=== PATIENT | male | born 1985 | race Caucasian/White ===

== ENCOUNTER 2019-04-28 11:21 | Emergency (ER) | payer OTHER ==
[2019-04-28 11:43] VITALS: BP 110/62; PULSE 90; TEMP 98; BMI 25.9
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
[2019-04-28] MEDS ORDERED: DIPHTH,PERTUSS(ACELL),TET 0.5 ML DISP.SYRIN IM ONE (13:27)
[2019-04-28 14:06] LABS: EOS % 1.4 % (0-4.5); HEMATOCRIT 40.8 % (35.4-49); HEMOGLOBIN 14.2 GM/dL (11.7-16.9); LYMPH % 8.4 % (8-40); MCH 34.4 pg (25.7-33.7); MCHC 34.8 g/dl (32.0-35.9); MEAN PLT VOLUME 8.4 fl (7.5-11.1); MONO % 12.1 % (3.8-10.2); NEUT % 77.1 % (42.8-82.8); PLATELET COUNT 221 K/MM3 (134-434); RBC 4.13 M/mm3 (4.00-5.60); RDW 11.8 % (11.9-15.9); WHITE BLOOD COUNT 8.2 K/mm3 (4.0-10.0)
[2019-04-28 14:29] LABS: ALBUMIN 3.7 g/dl (3.4-5.0); BILIRUBIN,TOTAL 0.7 mg/dL (0.2-1); BLOOD UREA NITROGEN 6.4 mg/dL (7-18); CALCIUM 9.1 mg/dL (8.5-10.1); CREATININE 0.8 mg/dL (0.55-1.3); POTASSIUM 4.3 mmol/L (3.5-5.1); TOT PROT 7.1 g/dl (6.4-8.2)
== END 2019-04-28 18:00 | disposition home or self-care (01) ==
LOC: JER 11:21
PROC: 3E0234Z Introduction of Serum, Toxoid and Vaccine into Muscle, Percutaneous Approach (ICD-10-PCS; principal; 2019-04-28)
DX: S00.212A Abrasion of left eyelid and periocular area, initial encounter (principal); Y04.2XXA Assault by strike against or bumped into by another person, initial encounter; Y93.89 Activity, other specified; Y92.89 Other specified places as the place of occurrence of the external cause; F17.210 Nicotine dependence, cigarettes, uncomplicated; F10.10 Alcohol abuse, uncomplicated
CPT/HCPCS: 36415; 70450-TC; 71046-TC-FY; 72125-TC; 80053; 80307; 85025; 90715; 99282-25

== ENCOUNTER 2019-04-28 18:01 | Inpatient (IN) | payer OTHER ==
[2019-04-28 23:14] VITALS: BMI 26.4
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
[2019-04-29] MEDS ORDERED: ACETAMINOPHEN 325 MG TABLET (FP) PO PRN ×2 (03:31)
[2019-04-29] MEDS ORDERED: chlordiazePOXIDE HCL 25 MG CAPSULE PO PRN (03:31)
[2019-04-29] MEDS ORDERED: hydrOXYzine PAMOATE 25 MG CAPSULE (FP) PO PRN (03:31)
[2019-04-29] MEDS ORDERED: METHOCARBAMOL 500 MG TABLET PO PRN (03:31)
[2019-04-29] MEDS ORDERED: MAG HYDROX/AL HYDROX/SIMETH 30 ML UNIT-DOSE CUP PO PRN (03:31)
[2019-04-29] MEDS ORDERED: MAGNESIUM HYDROX 2400MG/30ML ORAL SUSPENSION 30 ML CUP PO PRN (03:31)
[2019-04-29] MEDS ORDERED: NICOTINE POLACRILEX 2 MG GUM BUC PRN (03:31)
[2019-04-29] MEDS ORDERED: MAGNESIUM CITRATE 300 ML BOTTLE PO PRN (03:31)
[2019-04-29] MEDS ORDERED: MENTHOL/PHENOL 1 EACH UD MM PRN (03:31)
[2019-04-29] MEDS ORDERED: BISMUTH SUBSALICYLATE 524 MG/30 ML UD PO PRN (03:31)
[2019-04-29] MEDS ORDERED: IBUPROFEN 400 MG TABLET (FP) PO PRN (03:31)
[2019-04-29] MEDS: chlordiazePOXIDE HCL 25 MG CAPSULE PO SCH ×4 (04:18→22:42)
[2019-04-29] MEDS: PRENATAL VITAMINS W/ FOLIC ACID TABLET (FP) PO SCH (10:30)
[2019-04-29] MEDS: NICOTINE 14 MG/24 HOURS TOPICAL PATCH TD SCH (10:31)
--- NOTE | 2019-04-29 14:35 | EKG ---
Test Reason : Blood Pressure : / mmHG Vent. Rate : 058 BPM Atrial Rate : 058 BPM P-R Int : 140 ms QRS Dur : 100 ms QT Int : 398 ms P-R-T Axes : 027 048 038 degrees QTc Int : 390 ms SINUS BRADYCARDIA WITH PREMATURE ATRIAL COMPLEXES OTHERWISE NORMAL ECG NO PREVIOUS ECGS AVAILABLE Confirmed by RAVEN VELASCO, BARBARA ([id number]) on 04/29/2019 2:35:36 PM Referred By: Confirmed By:BARBARA CARBAJAL MD
--- NOTE | 2019-04-29 16:22 | PN ---
S CIWA - CIWA Score Nausea/Vomitin-No Nausea/No Vomiting Muscle Tremors: 3 Anxiety: 3 Agitation: 1-Slight > Activity Paroxysmal Sweats: 3 Orientation: 0-Oriented Tacttile Disturbances: 2-Mild Itch/Numbness/Burn (Chills.) Auditory Disturbances: 0-None Visual Disturbances: 0-None Headache: 2-Mild CIWA-Ar Total Score: 14 BHS Progress Note (SOAP) Subjective: Fatigue, Tremors, Anxious, Chills, Sweating. Objective: PATIENT A & O X 3, OBSERVED AMBULATING ON DETOX UNIT UNASSISTED. IN NO ACUTE DISTRESS. 04/29/19 16:21 Vital Signs Temperature 98.0 F 04/29/19 13:09 Pulse Rate 66 04/29/19 13:09 Respiratory Rate 18 04/29/19 13:09 Blood Pressure 113/74 04/29/19 13:09 O2 Sat by Pulse Oximetry (%) ADMISSION DETOX LAB RESULTS PENDING. 04/29/19 16:22 Assessment: 04/29/19 16:22 WITHDRAWAL SYMPTOMS. Plan: CONTINUE DETOX.
[2019-04-29] MEDS: THIAMINE HCL 100 MG TABLET (FP) PO SCH (22:41)
[2019-04-29] MEDS: MELATONIN 5 MG TABLETS PO PRN (22:42)
[2019-04-30] MEDS: chlordiazePOXIDE HCL 25 MG CAPSULE PO SCH ×4 (06:51→22:12)
[2019-04-30] MEDS: PRENATAL VITAMINS W/ FOLIC ACID TABLET (FP) PO SCH (10:00)
[2019-04-30] MEDS: NICOTINE 14 MG/24 HOURS TOPICAL PATCH TD SCH (10:01)
[2019-04-30 10:34] LABS: HEMOGLOBIN 13.7 GM/dL (11.7-16.9); MCH 34.4 pg (25.7-33.7); MCHC 34.3 g/dl (32.0-35.9); MEAN CELL VOLUME 100.2 fl (80-96); MEAN PLT VOLUME 9.9 fl (7.5-11.1); PLATELET COUNT 209 K/MM3 (134-434); RBC 3.99 M/mm3 (4.00-5.60); RDW 11.6 % (11.9-15.9); WHITE BLOOD COUNT 6.7 K/mm3 (4.0-10.0)
[2019-04-30 10:56] LABS: ALBUMIN 3.1 g/dl (3.4-5.0); BILIRUBIN,TOTAL 0.4 mg/dL (0.2-1); BLOOD UREA NITROGEN 9.1 mg/dL (7-18); CALCIUM 8.7 mg/dL (8.5-10.1); CREATININE 0.6 mg/dL (0.55-1.3); POTASSIUM 3.8 mmol/L (3.5-5.1); TOT PROT 6.1 g/dl (6.4-8.2)
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
[2019-04-30] MEDS ORDERED: hydrOXYzine PAMOATE 50 MG CAPSULE (FP) PO PRN (14:27)
--- NOTE | 2019-04-30 17:50 | PN ---
[facility] CIWA - CIWA Score Nausea/Vomitin-No Nausea/No Vomiting Muscle Tremors: None Anxiety: 4-Mod. Anxious/Guarded Agitation: 3 Paroxysmal Sweats: 3 Orientation: 0-Oriented Tacttile Disturbances: 1-Very Mild Itch/Numbness Auditory Disturbances: 0-None Visual Disturbances: 0-None Headache: 0-None Present CIWA-Ar Total Score: 11 BHS Progress Note (SOAP) Subjective: Interrupted Sleep, Anxious, Sweating. Objective: PATIENT A & O X 3, OBSERVED AMBULATING ON DETOX UNIT UNASSISTED. IN NO ACUTE DISTRESS. 04/30/19 17:53 Vital Signs Temperature 97.2 F L 04/30/19 17:14 Pulse Rate 64 04/30/19 17:14 Respiratory Rate 18 04/30/19 17:14 Blood Pressure 108/70 04/30/19 17:14 O2 Sat by Pulse Oximetry (%) Laboratory Tests 04/30/19 04/30/19 04/30/19 08:00 08:00 08:00 WBC 6.7 RBC 3.99 L Hgb 13.7 Hct 40.0 MCV 100.2 H MCH 34.4 H MCHC 34.3 RDW 11.6 L Plt Count 209 MPV 9.9 D Sodium 140 Potassium 3.8 Chloride 104 Carbon Dioxide 30 Anion Gap 6 L BUN 9.1 Creatinine 0.6 Est GFR (CKD-EPI)AfAm 155.28 Est GFR (CKD-EPI)NonAf 133.97 Random Glucose 76 Calcium 8.7 Total Bilirubin 0.4 AST 12 L ALT 13 Alkaline Phosphatase 134 H Total Protein 6.1 L Albumin 3.1 L RPR Titer HIV 1&2 Antibody Screen Negative HIV P24 Antigen Negative 04/30/19 08:00 WBC RBC Hgb Hct MCV MCH MCHC RDW Plt Count MPV Sodium Potassium Chloride Carbon Dioxide Anion Gap BUN Creatinine Est GFR (CKD-EPI)AfAm Est GFR (CKD-EPI)NonAf Random Glucose Calcium Total Bilirubin AST ALT Alkaline Phosphatase Total Protein Albumin RPR Titer Nonreactive HIV 1&2 Antibody Screen HIV P24 Antigen LABS NOTED. Assessment: 04/30/19 17:54 WITHDRAWAL SYMPTOMS., ELEVATED ALKALINE PHOSPHATASE LEVEL. Plan: CONTINUE DETOX. INCREASE DAILY PO WATER INTAKE.
[2019-04-30] MEDS: THIAMINE HCL 100 MG TABLET (FP) PO SCH (22:12)
[2019-04-30] MEDS: MELATONIN 5 MG TABLETS PO PRN (22:12)
[2019-05-01] MEDS ORDERED: chlordiazePOXIDE HCL 10 MG CAPSULE PO PRN
[2019-05-01] MEDS: chlordiazePOXIDE HCL 10 MG CAPSULE PO SCH ×4 (05:54→22:15)
[2019-05-01] MEDS: PRENATAL VITAMINS W/ FOLIC ACID TABLET (FP) PO SCH (10:42)
[2019-05-01] MEDS: NICOTINE 14 MG/24 HOURS TOPICAL PATCH TD SCH (10:43)
--- NOTE | 2019-05-01 17:35 | PN ---
S CIWA - CIWA Score Nausea/Vomitin-No Nausea/No Vomiting Muscle Tremors: 2 Anxiety: 2 Agitation: 1-Slight > Activity Paroxysmal Sweats: 3 Orientation: 0-Oriented Tacttile Disturbances: 2-Mild Itch/Numbness/Burn (Chills.) Auditory Disturbances: 0-None Visual Disturbances: 0-None Headache: 0-None Present CIWA-Ar Total Score: 10 BHS Progress Note (SOAP) Subjective: Chills, Sweating, Anxious, Interrupted Sleep. Objective: PATIENT A & O X 3, OBSERVED AMBULATING ON DETOX UNIT UNASSISTED. IN NO ACUTE DISTRESS. 05/01/19 17:37 Vital Signs Temperature 97.2 F L 05/01/19 17:34 Pulse Rate 77 05/01/19 17:34 Respiratory Rate 18 05/01/19 17:34 Blood Pressure 106/63 05/01/19 17:34 O2 Sat by Pulse Oximetry (%) Laboratory Tests 04/30/19 04/30/19 04/30/19 08:00 08:00 08:00 WBC 6.7 RBC 3.99 L Hgb 13.7 Hct 40.0 MCV 100.2 H MCH 34.4 H MCHC 34.3 RDW 11.6 L Plt Count 209 MPV 9.9 D Sodium 140 Potassium 3.8 Chloride 104 Carbon Dioxide 30 Anion Gap 6 L BUN 9.1 Creatinine 0.6 Est GFR (CKD-EPI)AfAm 155.28 Est GFR (CKD-EPI)NonAf 133.97 Random Glucose 76 Calcium 8.7 Total Bilirubin 0.4 AST 12 L ALT 13 Alkaline Phosphatase 134 H Total Protein 6.1 L Albumin 3.1 L RPR Titer HIV 1&2 Antibody Screen Negative HIV P24 Antigen Negative 04/30/19 08:00 WBC RBC Hgb Hct MCV MCH MCHC RDW Plt Count MPV Sodium Potassium Chloride Carbon Dioxide Anion Gap BUN Creatinine Est GFR (CKD-EPI)AfAm Est GFR (CKD-EPI)NonAf Random Glucose Calcium Total Bilirubin AST ALT Alkaline Phosphatase Total Protein Albumin RPR Titer Nonreactive HIV 1&2 Antibody Screen HIV P24 Antigen LABS NOTED. Assessment: 05/01/19 17:37 WITHDRAWAL SYMPTOMS. ELEVATED ALKALINE PHOSPHATASE LEVEL. Plan: CONTINUE DETOX. INCREASE DAILY PO WATER INTAKE.
[2019-05-01] MEDS: THIAMINE HCL 100 MG TABLET (FP) PO SCH (22:15)
[2019-05-01] MEDS: MELATONIN 5 MG TABLETS PO PRN (22:15)
[2019-05-02] MEDS: chlordiazePOXIDE HCL 10 MG CAPSULE PO SCH ×2 (05:46→17:31)
[2019-05-02] MEDS: NICOTINE 14 MG/24 HOURS TOPICAL PATCH TD SCH (10:26)
[2019-05-02] MEDS: PRENATAL VITAMINS W/ FOLIC ACID TABLET (FP) PO SCH (10:26)
--- NOTE | 2019-05-02 11:56 | PN ---
S CIWA - CIWA Score Nausea/Vomitin-No Nausea/No Vomiting Muscle Tremors: 2 Anxiety: 2 Agitation: 1-Slight > Activity Paroxysmal Sweats: No Perspiration Orientation: 0-Oriented Tacttile Disturbances: 0-None Auditory Disturbances: 0-None Visual Disturbances: 0-None Headache: 0-None Present CIWA-Ar Total Score: 5 BHS Progress Note (SOAP) Subjective: doing well with librium detox regimen ambulating on hallway social with peers in day room discuss aftercare with staff prefers [facility] for aftercare Objective: 05/02/19 11:57 Vital Signs Temperature 97.3 F L 05/02/19 06:39 Pulse Rate 84 05/02/19 09:23 Respiratory Rate 16 05/02/19 09:23 Blood Pressure 116/70 05/02/19 09:23 O2 Sat by Pulse Oximetry (%) Laboratory Last Values WBC 6.7 K/mm3 (4.0-10.0) 04/30/19 08:00 RBC 3.99 M/mm3 (4.00-5.60) L 04/30/19 08:00 Hgb 13.7 GM/dL (11.7-16.9) 04/30/19 08:00 Hct 40.0 % (35.4-49) 04/30/19 08:00 MCV 100.2 fl (80-96) H 04/30/19 08:00 MCH 34.4 pg (25.7-33.7) H 04/30/19 08:00 MCHC 34.3 g/dl (32.0-35.9) 04/30/19 08:00 RDW 11.6 % (11.9-15.9) L 04/30/19 08:00 Plt Count 209 K/MM3 (134-434) 04/30/19 08:00 MPV 9.9 fl (7.5-11.1) D 04/30/19 08:00 Sodium 140 mmol/L (136-145) 04/30/19 08:00 Potassium 3.8 mmol/L (3.5-5.1) 04/30/19 08:00 Chloride 104 mmol/L (98-107) 04/30/19 08:00 Carbon Dioxide 30 mmol/L (21-32) 04/30/19 08:00 Anion Gap 6 MMOL/L (8-16) L 04/30/19 08:00 BUN 9.1 mg/dL (7-18) 04/30/19 08:00 Creatinine 0.6 mg/dL (0.55-1.3) 04/30/19 08:00 Est GFR (CKD-EPI)AfAm 155.28 04/30/19 08:00 Est GFR (CKD-EPI)NonAf 133.97 04/30/19 08:00 Random Glucose 76 mg/dL (74-106) 04/30/19 08:00 Calcium 8.7 mg/dL (8.5-10.1) 04/30/19 08:00 Total Bilirubin 0.4 mg/dL (0.2-1) 04/30/19 08:00 AST 12 U/L (15-37) L 04/30/19 08:00 ALT 13 U/L (13-61) 04/30/19 08:00 Alkaline Phosphatase 134 U/L (45-117) H 04/30/19 08:00 Total Protein 6.1 g/dl (6.4-8.2) L 04/30/19 08:00 Albumin 3.1 g/dl (3.4-5.0) L 04/30/19 08:00 RPR Titer Nonreactive (NONREACTIVE) 04/30/19 08:00 HIV 1&2 Antibody Screen Negative 04/30/19 08:00 HIV P24 Antigen Negative 04/30/19 08:00 lab noted Assessment: 05/02/19 11:57 continue librium detox regimen Plan: alcohol withdrawal sx
[2019-05-02] MEDS: THIAMINE HCL 100 MG TABLET (FP) PO SCH (22:12)
[2019-05-02] MEDS: MELATONIN 5 MG TABLETS PO PRN (22:12)
[2019-05-03] MEDS ORDERED: chlordiazePOXIDE HCL 10 MG CAPSULE PO ONE (05:00)
[2019-05-03 07:35] VITALS: BP 100/68; PULSE 58; TEMP 96.8
[2019-05-03] MEDS: NICOTINE 14 MG/24 HOURS TOPICAL PATCH TD SCH (09:31)
[2019-05-03] MEDS: PRENATAL VITAMINS W/ FOLIC ACID TABLET (FP) PO SCH (09:32)
--- NOTE | 2019-05-03 11:50 | DS ---
[facility] Detox Discharge Summary Admission Date: 04/29/19 Discharge Date: 05/03/19 - History Present History: Alcohol Dependence Additional Comments: did well with librium detox regimen no complication through out the detox stay seen by psychiatrist treated with vistaril tolerate well patient is alert oriented x 3 respiratory clear lung sound bilaterally on auscultation abdomen soft no rebound tenderness skin warm and dry - Physical Exam Results Vital Signs: Vital Signs Temperature 96.8 F L 05/03/19 07:34 Pulse Rate 58 L 05/03/19 07:34 Respiratory Rate 18 05/03/19 07:34 Blood Pressure 100/68 05/03/19 07:34 O2 Sat by Pulse Oximetry (%) Pertinent Admission Physical Exam Findings: alcohol withdrawal sx Laboratory Last Values WBC 6.7 K/mm3 (4.0-10.0) 04/30/19 08:00 RBC 3.99 M/mm3 (4.00-5.60) L 04/30/19 08:00 Hgb 13.7 GM/dL (11.7-16.9) 04/30/19 08:00 Hct 40.0 % (35.4-49) 04/30/19 08:00 MCV 100.2 fl (80-96) H 04/30/19 08:00 MCH 34.4 pg (25.7-33.7) H 04/30/19 08:00 MCHC 34.3 g/dl (32.0-35.9) 04/30/19 08:00 RDW 11.6 % (11.9-15.9) L 04/30/19 08:00 Plt Count 209 K/MM3 (134-434) 04/30/19 08:00 MPV 9.9 fl (7.5-11.1) D 04/30/19 08:00 Sodium 140 mmol/L (136-145) 04/30/19 08:00 Potassium 3.8 mmol/L (3.5-5.1) 04/30/19 08:00 Chloride 104 mmol/L (98-107) 04/30/19 08:00 Carbon Dioxide 30 mmol/L (21-32) 04/30/19 08:00 Anion Gap 6 MMOL/L (8-16) L 04/30/19 08:00 BUN 9.1 mg/dL (7-18) 04/30/19 08:00 Creatinine 0.6 mg/dL (0.55-1.3) 04/30/19 08:00 Est GFR (CKD-EPI)AfAm 155.28 04/30/19 08:00 Est GFR (CKD-EPI)NonAf 133.97 04/30/19 08:00 Random Glucose 76 mg/dL (74-106) 04/30/19 08:00 Calcium 8.7 mg/dL (8.5-10.1) 04/30/19 08:00 Total Bilirubin 0.4 mg/dL (0.2-1) 04/30/19 08:00 AST 12 U/L (15-37) L 04/30/19 08:00 ALT 13 U/L (13-61) 04/30/19 08:00 Alkaline Phosphatase 134 U/L (45-117) H 04/30/19 08:00 Total Protein 6.1 g/dl (6.4-8.2) L 04/30/19 08:00 Albumin 3.1 g/dl (3.4-5.0) L 04/30/19 08:00 RPR Titer Nonreactive (NONREACTIVE) 04/30/19 08:00 HIV 1&2 Antibody Screen Negative 04/30/19 08:00 HIV P24 Antigen Negative 04/30/19 08:00 lab noted - Treatment Hospital Course: Detox Protocol Followed, Detoxed Safely, Responded well, Discharged Condition Good, Rehab Referral Accepted Patient has Accepted [facility] - Medication Discharge Medications: Ambulatory Orders NK [No Known Home Medication] 04/28/19 - Diagnosis (1) Alcohol dependence with withdrawal Status: Acute Qualifiers: Complication of substance-induced condition: uncomplicated Qualified Code(s ): F10.230 - Alcohol dependence with withdrawal, uncomplicated (2) Nicotine dependence Status: Acute Qualifiers: Nicotine product type: cigarettes Substance use status: in withdrawal Qualified Code(s): F17.213 - Nicotine dependence, cigarettes, with withdrawal (3) Substance induced mood disorder Status: Suspected - AMA Did Patient Leave Against Medical Advice: No CIWA Score - CIWA Score Nausea/Vomitin-No Nausea/No Vomiting Muscle Tremors: 1-None Visible, but Wallace Anxiety: 1-Mildly Anxious Agitation: 0-Normal Activity Paroxysmal Sweats: No Perspiration Orientation: 0-Oriented Tacttile Disturbances: 0-None Auditory Disturbances: 0-None Visual Disturbances: 0-None Headache: 0-None Present CIWA-Ar Total Score: 2
== END 2019-05-03 10:48 | disposition other institution (70) | DRG 775 ==
LOC: YASAS 18:01 → Y3N 04-29 03:12
PROVIDERS: ADMIT Surgery; ATTEND Surgery
PROC: HZ2ZZZZ Detoxification Services for Substance Abuse Treatment (ICD-10-PCS; principal; 2019-04-29)
DX: F10.230 Alcohol dependence with withdrawal, uncomplicated (principal); F17.213 Nicotine dependence, cigarettes, with withdrawal; F10.24 Alcohol dependence with alcohol-induced mood disorder; F32.9 Major depressive disorder, single episode, unspecified; R94.5 Abnormal results of liver function studies
CPT/HCPCS: 36415; 80053; 85027; 86593; 87389; 93005; 93010

== ENCOUNTER 2019-05-03 11:00 | Inpatient (IN) | payer OTHER ==
[2019-05-03] MEDS ORDERED: P-EPHED 60MG/TRIPROLIDI 2.5MG TABLET PO PRN (11:55)
[2019-05-03] MEDS ORDERED: NICOTINE 7 MG/24 HOURS TOPICAL PATCH TD PRN (11:55)
[2019-05-03] MEDS ORDERED: NICOTINE POLACRILEX 2 MG GUM BC PRN (11:55)
[2019-05-03] MEDS ORDERED: guaiFENesin 200 MG/10 ML 10 ML UNIT-DOSE CUPS PO PRN (11:55)
[2019-05-03] MEDS ORDERED: MENTHOL/PHENOL 1 EACH UD MM PRN (11:55)
[2019-05-03] MEDS ORDERED: MAGNESIUM CITRATE 300 ML BOTTLE PO PRN (11:55)
[2019-05-03] MEDS ORDERED: ACETAMINOPHEN 325 MG TABLET (FP) PO PRN (11:55)
[2019-05-03] MEDS ORDERED: MAG HYDROX/AL HYDROX/SIMETH 30 ML UNIT-DOSE CUP PO PRN (11:55)
[2019-05-03] MEDS ORDERED: LOPERAMIDE HCL 2 MG CAPSULE PO PRN (11:55)
[2019-05-03] MEDS ORDERED: MAGNESIUM HYDROX 2400MG/30ML ORAL SUSPENSION 30 ML CUP PO PRN (11:55)
[2019-05-03] MEDS ORDERED: IBUPROFEN 400 MG TABLET (FP) PO PRN (11:55)
--- NOTE | 2019-05-03 11:55 | HP ---
[facility] Rehab Assess/Revision - Admission History Admitted to Rehab from: [facility] Date of Admission to Rehab: 05/03/19 - Vital signs Vital Signs: Vital Signs Period Temp Pulse Resp BP Sys/Sanders Pulse Ox Last 24 Hr 98.1 F-98.1 F 73-73 18-20 106-106/58-58 - Findings Detox History & Physical reviewed: Yes Concur with findings: Yes Comments/Additional Findings: transferred from detox to rehab admission as per protocol Inpatient Rehab Admission - Rehab Decision to Admit Inpatient rehab admission?: Yes - Initial Determination Are CD services needed?: Yes Free of communicable disease: Yes Not in need of hospitalization: Yes - Rehab Admission Criteria Previous failed treatment: Yes Poor recovery environment: Yes Comorbidities: Yes Lacks judgement: Yes Patient is meeting Inpatient Rehab admission criteria:: Yes
[2019-05-03] MEDS: THIAMINE HCL 100 MG TABLET (FP) PO SCH (21:34)
[2019-05-03] MEDS: MELATONIN 5 MG TABLETS PO PRN (21:34)
[2019-05-04 10:29] VITALS: BMI 28.0
[2019-05-04] MEDS: PRENATAL VITAMINS W/ FOLIC ACID TABLET (FP) PO SCH (10:59)
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
[2019-05-04] MEDS ORDERED: BACITRACIN 0.9 GM PACKET TP SCH (12:30)
[2019-05-04] MEDS: BACITRACIN 15 GM TUBE TOPICAL OINTMENT TP SCH (14:55)
[2019-05-04] MEDS: MELATONIN 5 MG TABLETS PO PRN (21:13)
[2019-05-04] MEDS: THIAMINE HCL 100 MG TABLET (FP) PO SCH (21:13)
[2019-05-05] MEDS: PRENATAL VITAMINS W/ FOLIC ACID TABLET (FP) PO SCH (10:40)
[2019-05-05] MEDS: BACITRACIN 15 GM TUBE TOPICAL OINTMENT TP SCH (10:41)
[2019-05-05] MEDS: CYCLOBENZAPRINE HCL 10 MG TABLET (FP) PO SCH ×2 (14:36→21:15)
[2019-05-05] MEDS: THIAMINE HCL 100 MG TABLET (FP) PO SCH (21:15)
[2019-05-05] MEDS: MELATONIN 5 MG TABLETS PO PRN (21:15)
[2019-05-06] MEDS: CYCLOBENZAPRINE HCL 10 MG TABLET (FP) PO SCH ×3 (06:56→21:09)
[2019-05-06] MEDS: BACITRACIN 15 GM TUBE TOPICAL OINTMENT TP SCH (09:43)
[2019-05-06] MEDS: PRENATAL VITAMINS W/ FOLIC ACID TABLET (FP) PO SCH (09:43)
[2019-05-06] MEDS: THIAMINE HCL 100 MG TABLET (FP) PO SCH (21:09)
[2019-05-06] MEDS: MELATONIN 5 MG TABLETS PO PRN (21:09)
[2019-05-07] MEDS: CYCLOBENZAPRINE HCL 10 MG TABLET (FP) PO SCH ×3 (06:47→21:27)
[2019-05-07] MEDS: PRENATAL VITAMINS W/ FOLIC ACID TABLET (FP) PO SCH (10:31)
[2019-05-07] MEDS: BACITRACIN 15 GM TUBE TOPICAL OINTMENT TP SCH (10:34)
[2019-05-07] MEDS: MELATONIN 5 MG TABLETS PO PRN (21:27)
[2019-05-07] MEDS: THIAMINE HCL 100 MG TABLET (FP) PO SCH (21:27)
[2019-05-08] MEDS: CYCLOBENZAPRINE HCL 10 MG TABLET (FP) PO SCH ×3 (06:17→21:11)
[2019-05-08] MEDS: PRENATAL VITAMINS W/ FOLIC ACID TABLET (FP) PO SCH (10:46)
[2019-05-08] MEDS: BACITRACIN 15 GM TUBE TOPICAL OINTMENT TP SCH (10:47)
[2019-05-08] MEDS ORDERED: PT OWN MED DRAWER 7, Y5N ONE (10:48)
[2019-05-08] MEDS: THIAMINE HCL 100 MG TABLET (FP) PO SCH (21:11)
[2019-05-08] MEDS: MELATONIN 5 MG TABLETS PO PRN (21:11)
[2019-05-09] MEDS: CYCLOBENZAPRINE HCL 10 MG TABLET (FP) PO SCH ×3 (06:36→21:23)
[2019-05-09] MEDS: BACITRACIN 15 GM TUBE TOPICAL OINTMENT TP SCH (09:42)
[2019-05-09] MEDS: PRENATAL VITAMINS W/ FOLIC ACID TABLET (FP) PO SCH (09:42)
[2019-05-09] MEDS: THIAMINE HCL 100 MG TABLET (FP) PO SCH (21:23)
[2019-05-09] MEDS: MELATONIN 5 MG TABLETS PO PRN (21:23)
[2019-05-10] MEDS: CYCLOBENZAPRINE HCL 10 MG TABLET (FP) PO SCH ×3 (06:43→21:37)
[2019-05-10] MEDS ORDERED: PT OWN MED DRAWER 7, Y5N ONE (08:51)
[2019-05-10] MEDS: BACITRACIN 15 GM TUBE TOPICAL OINTMENT TP SCH (10:43)
[2019-05-10] MEDS: PRENATAL VITAMINS W/ FOLIC ACID TABLET (FP) PO SCH (10:43)
[2019-05-10] MEDS: MELATONIN 5 MG TABLETS PO PRN (21:37)
[2019-05-10] MEDS: THIAMINE HCL 100 MG TABLET (FP) PO SCH (21:37)
[2019-05-11 07:11] VITALS: BP 109/72; PULSE 71; TEMP 97.5
[2019-05-11] MEDS: CYCLOBENZAPRINE HCL 10 MG TABLET (FP) PO SCH (07:21)
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
== END 2019-05-11 08:58 | disposition home or self-care (01) | DRG 772 ==
LOC: YASAS 11:00 → Y3W 11:01
PROVIDERS: ADMIT Neuromusculoskeletal Medicine & OMM; ATTEND Neuromusculoskeletal Medicine & OMM
PROC: HZ42ZZZ Group Counseling for Substance Abuse Treatment, Cognitive-Behavioral (ICD-10-PCS; principal; 2019-05-03)
DX: F10.20 Alcohol dependence, uncomplicated (principal); F11.20 Opioid dependence, uncomplicated; S05.42XA Penetrating wound of orbit with or without foreign body, left eye, initial encounter; Y08.89XA Assault by other specified means, initial encounter; Y93.89 Activity, other specified; Y92.89 Other specified places as the place of occurrence of the external cause; Y99.8 Other external cause status; Z88.8 Allergy status to other drugs, medicaments and biological substances; Z59.0 Homelessness

== ENCOUNTER 2019-06-02 05:44 | Emergency (ER) | payer OTHER ==
[2019-06-02 05:52] VITALS: BP 123/84; PULSE 92; TEMP 98.8; BMI 26.6
--- NOTE | 2019-06-02 05:52 | PDOC ---
History of Present Illness - General Chief Complaint: Alcohol intoxication Stated Complaint: INTOXICATION Time Seen by Provider: 06/02/19 05:52 - History of Present Illness Initial Comments: 33 year old male with PMH of substance abuse (primarily ETOH) presenting intoxicated asking for detox from alcohol. States that his last drink was an hour or two ago and that he drank "a bunch". We were told that by EMS that this thinking was deemed disorganized by the [facility] staff. However, on our evaluation and was AOx3. He speaks using a lot of colloquialisms so this may have convoluted the history taking by the [place] care staff. Denies any SI, HI, fall, trauma, nausea, vomiting, diarrhea, or other symptoms. 06/02/19 06:04 Past History - Past Medical History Allergies/Adverse Reactions: Allergies Allergy/AdvReac Type Severity Reaction Status Date / Time ketorolac [From Toradol] AdvReac Verified 06/02/19 05:52 Home Medications: Ambulatory Orders NK [No Known Home Medication] 04/28/19 Anemia: No Asthma: No Cancer: No Cardiac Disorders: No CVA: No COPD: No CHF: No Dementia: No Diabetes: No GI Disorders: No Disorders: No HTN: No Hypercholesterolemia: No Kidney Stones: No Liver Disease: No Seizures: No Thyroid Disease: No - Surgical History Abdominal Surgery: No Appendectomy: No Cardiac Surgery: No Cholecystectomy: No Lung Surgery: No Neurologic Surgery: No Orthopedic Surgery: No - Reproductive History Testicular Surgery: No - Immunization History Immunization Up to Date: No - Psycho Social/Smoking Cessation Hx Smoking History: Never smoked Have you smoked in the past 12 months: Yes Number of Cigarettes Smoked Daily: 3 'Breaking Loose' booklet given: 04/29/19 Hx Alcohol Use: Yes Drug/Substance Use Hx: No Substance Use Type: Alcohol Hx Substance Use Treatment: No Review of Systems - Review of Systems Constitutional: No: Chills, Diaphoresis, Fever, Loss of Appetite HEENTM: No: Eye Pain, Blurred Vision, Tearing Respiratory: No: Cough, Orthopnea, Shortness of Breath Cardiac (ROS): No: Chest Pain, Edema, Irregular Heart Rate ABD/GI: No: Diarrhea, Nausea, Vomiting : No: Dysuria, Discharge, Frequency Musculoskeletal: No: Back Pain Integumentary: No: Lesions, Lumps 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: No: Headache, Numbness, Paresthesia Psychiatric: Yes: Anxiety, Depression Hematologic/Lymphatic: No: Anemia, Blood Clots, Easy Bleeding *Physical Exam - Vital Signs Last Vital Signs Temp Pulse Resp BP Pulse Ox 98.8 F 92 H 18 123/84 98 06/02/19 05:45 06/02/19 05:45 06/02/19 05:45 06/02/19 05:45 06/02/19 05:45 - Physical Exam General Appearance: Yes: Nourished, Appropriately Dressed, Intoxicated. No: Apparent Distress HEENT: positive: EOMI, ALVA, Normal ENT Inspection, Normal Voice Neck: positive: Trachea midline, Normal Thyroid, Supple. negative: Tender, Rigid Respiratory/Chest: positive: Lungs Clear, Normal Breath Sounds. negative: Chest Tender, Respiratory Distress, Accessory Muscle Use Cardiovascular: positive: Regular Rhythm, Regular Rate Gastrointestinal/Abdominal: positive: Normal Bowel Sounds, Flat, Soft. negative : Tender Musculoskeletal: positive: Normal Inspection. negative: Decreased Range of Motion Extremity: positive: Normal Capillary Refill, Normal Inspection, Normal Range of Motion. negative: Tender Integumentary: positive: Normal Color, Dry, Warm Neurologic: positive: Fully Oriented, Alert. negative: Normal Mood/Affect ( intoxicated) Medical Decision Making - Medical Decision Making 33 year old male with PMH of etoh abuse presenting acutely intoxicated from [facility] after their intake staff believed that he needed a psychiatric evaluation for disorganized thoughts. Our exam did not yield any need for psychiatric evaluation. We watched him til 7 and signed out that he should head over to [facility] with the other patients for detox evaluation. 06/02/19 06:14 Intended to DC to [facility] but patient eloped. 06/02/19 07:15 Discharge - Discharge Information Problems reviewed: Yes Clinical Impression/Diagnosis: Alcohol intoxication Qualifiers: Complication of substance-induced condition: uncomplicated Qualified Code(s): F10.920 - Alcohol use, unspecified with intoxication, uncomplicated Condition: Improved Disposition: ELOPED - Admission No - Follow up/Referral Referrals: [facility] [place] [Provider Group] - Patient Discharge Instructions Patient Printed Discharge Instructions: DI for Alcohol Abuse Additional Instructions: Please follow the instructions at [facility] and stay sober. Please return to the ED if you have new or worsening symptoms. - Post Discharge Activity
--- NOTE | 2019-06-02 06:08 | PDOC ---
Attending Attestation - Resident Resident Name: Zamzam Bucio - ED Attending Attestation I have performed the following: I have examined & evaluated the patient, The case was reviewed & discussed with the resident, I agree w/resident's findings & plan - HPI HPI: 06/02/19 06:06 agree with resident hpi 06/02/19 06:06 - Physicial Exam PE: 06/02/19 06:06 agree with resident exam - Medical Decision Making 06/02/19 06:07 33-year-old male sent for evaluation from detox intake Patient has no homicidal or suicidal ideation He is requesting alcohol detox Plan for DC back to detox facility at 8 AM
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
[2019-06-02] MEDS ORDERED: MAGNESIUM HYDROX 2400MG/30ML ORAL SUSPENSION 30 ML CUP PO PRN (14:04)
[2019-06-02] MEDS ORDERED: ACETAMINOPHEN 325 MG TABLET (FP) PO PRN ×2 (14:04)
[2019-06-02] MEDS ORDERED: MAG HYDROX/AL HYDROX/SIMETH 30 ML UNIT-DOSE CUP PO PRN (14:04)
[2019-06-02] MEDS ORDERED: METHOCARBAMOL 500 MG TABLET PO PRN (14:04)
[2019-06-02] MEDS ORDERED: MELATONIN 5 MG TABLETS PO PRN (14:04)
[2019-06-02] MEDS ORDERED: MAGNESIUM CITRATE 300 ML BOTTLE PO PRN (14:04)
[2019-06-02] MEDS ORDERED: BISMUTH SUBSALICYLATE 524 MG/30 ML UD PO PRN (14:04)
[2019-06-02] MEDS ORDERED: hydrOXYzine PAMOATE 25 MG CAPSULE (FP) PO PRN (14:04)
[2019-06-02] MEDS ORDERED: MENTHOL/PHENOL 1 EACH UD MM PRN (14:04)
[2019-06-02] MEDS ORDERED: chlordiazePOXIDE HCL 25 MG CAPSULE PO PRN (14:04)
[2019-06-02] MEDS ORDERED: IBUPROFEN 400 MG TABLET (FP) PO PRN (14:04)
[2019-06-02] MEDS ORDERED: chlordiazePOXIDE HCL 25 MG CAPSULE PO SCH (17:00)
[2019-06-02] MEDS ORDERED: THIAMINE HCL 100 MG TABLET (FP) PO SCH (22:00)
[2019-06-03] MEDS ORDERED: PRENATAL VITAMINS W/ FOLIC ACID TABLET (FP) PO SCH (10:00)
[2019-06-03] MEDS ORDERED: NICOTINE 14 MG/24 HOURS TOPICAL PATCH TD SCH (10:00)
[2019-06-04] MEDS ORDERED: chlordiazePOXIDE HCL 25 MG CAPSULE PO SCH (05:00)
[2019-06-05] MEDS ORDERED: chlordiazePOXIDE HCL 10 MG CAPSULE PO PRN
[2019-06-05] MEDS ORDERED: chlordiazePOXIDE HCL 10 MG CAPSULE PO SCH (05:00)
[2019-06-06] MEDS ORDERED: chlordiazePOXIDE HCL 10 MG CAPSULE PO SCH (05:00)
[2019-06-07] MEDS ORDERED: chlordiazePOXIDE HCL 10 MG CAPSULE PO ONE (05:00)
== END 2019-06-02 07:00 | disposition left against medical advice (07) ==
LOC: JER 05:44
DX: F10.920 Alcohol use, unspecified with intoxication, uncomplicated (principal); Y90.9 Presence of alcohol in blood, level not specified; Z88.8 Allergy status to other drugs, medicaments and biological substances
CPT/HCPCS: 99282-25

== ENCOUNTER 2019-06-02 11:54 | Inpatient (IN) | payer OTHER ==
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
[2019-06-02 13:08] VITALS: BMI 27.3
[2019-06-02] MEDS ORDERED: chlordiazePOXIDE HCL 25 MG CAPSULE PO PRN (14:34)
[2019-06-02] MEDS ORDERED: hydrOXYzine PAMOATE 25 MG CAPSULE (FP) PO PRN (14:34)
[2019-06-02] MEDS ORDERED: MAGNESIUM CITRATE 300 ML BOTTLE PO PRN (14:34)
[2019-06-02] MEDS ORDERED: MAGNESIUM HYDROX 2400MG/30ML ORAL SUSPENSION 30 ML CUP PO PRN (14:34)
[2019-06-02] MEDS ORDERED: BISMUTH SUBSALICYLATE 262 MG/15 ML BTL PO PRN (14:34)
[2019-06-02] MEDS ORDERED: METHOCARBAMOL 500 MG TABLET PO PRN (14:34)
[2019-06-02] MEDS ORDERED: MENTHOL/PHENOL 1 EACH UD MM PRN (14:34)
[2019-06-02] MEDS ORDERED: MAG HYDROX/AL HYDROX/SIMETH 30 ML UNIT-DOSE CUP PO PRN (14:34)
[2019-06-02] MEDS ORDERED: IBUPROFEN 400 MG TABLET (FP) PO PRN (14:34)
[2019-06-02] MEDS ORDERED: ACETAMINOPHEN 325 MG TABLET (FP) PO PRN (14:34)
[2019-06-02 17:18] LABS: HEMATOCRIT 44.4 % (35.4-49); HEMOGLOBIN 15.1 GM/dL (11.7-16.9); MCH 34.2 pg (25.7-33.7); MCHC 34.1 g/dl (32.0-35.9); MEAN CELL VOLUME 100.4 fl (80-96); MEAN PLT VOLUME 8.9 fl (7.5-11.1); PLATELET COUNT 256 K/MM3 (134-434); RBC 4.42 M/mm3 (4.00-5.60); RDW 12.3 % (11.9-15.9); WHITE BLOOD COUNT 7.1 K/mm3 (4.0-10.0)
[2019-06-02 17:39] LABS: ALBUMIN 4.3 g/dl (3.4-5.0); BILIRUBIN,TOTAL 0.7 mg/dL (0.2-1); BLOOD UREA NITROGEN 7.6 mg/dL (7-18); CREATININE 0.7 mg/dL (0.55-1.3); TOT PROT 7.6 g/dl (6.4-8.2)
[2019-06-02] MEDS: chlordiazePOXIDE HCL 25 MG CAPSULE PO SCH ×2 (18:08→22:49)
[2019-06-02] MEDS: ACETAMINOPHEN 325 MG TABLET (FP) PO PRN (19:32)
[2019-06-02] MEDS: THIAMINE HCL 100 MG TABLET (FP) PO SCH (22:50)
[2019-06-03] MEDS: chlordiazePOXIDE HCL 25 MG CAPSULE PO SCH ×4 (05:55→21:59)
[2019-06-03] MEDS: ACETAMINOPHEN 325 MG TABLET (FP) PO PRN ×2 (06:03→17:44)
[2019-06-03] MEDS: PRENATAL VITAMINS W/ FOLIC ACID TABLET (FP) PO SCH (10:52)
[2019-06-03] MEDS: NICOTINE 14 MG/24 HOURS TOPICAL PATCH TD SCH (10:54)
--- NOTE | 2019-06-03 11:51 | PN ---
[facility] CIWA - CIWA Score Nausea/Vomitin-No Nausea/No Vomiting Muscle Tremors: 4-Moderate,w/Arms Extend Anxiety: 4-Mod. Anxious/Guarded Agitation: 3 Paroxysmal Sweats: 2 Orientation: 0-Oriented Tacttile Disturbances: 0-None Auditory Disturbances: 1-Very Mild Visual Disturbances: 0-None Headache: 0-None Present CIWA-Ar Total Score: 14 S Progress Note (SOAP) Subjective: 33 years old male admitted on 06/02/19 for alcohol withdrawal sx management treated with librium detox regimen ambulating on hallway social with peers attend groups and meetings discuss aftercare with staff Objective: 06/03/19 11:50 Vital Signs Temperature 97.4 F L 06/03/19 09:11 Pulse Rate 78 06/03/19 09:11 Respiratory Rate 18 06/03/19 09:11 Blood Pressure 130/81 06/03/19 09:11 O2 Sat by Pulse Oximetry (%) Laboratory Last Values WBC 7.1 K/mm3 (4.0-10.0) 06/02/19 14:40 RBC 4.42 M/mm3 (4.00-5.60) 06/02/19 14:40 Hgb 15.1 GM/dL (11.7-16.9) 06/02/19 14:40 Hct 44.4 % (35.4-49) 06/02/19 14:40 MCV 100.4 fl (80-96) H 06/02/19 14:40 MCH 34.2 pg (25.7-33.7) H 06/02/19 14:40 MCHC 34.1 g/dl (32.0-35.9) 06/02/19 14:40 RDW 12.3 % (11.9-15.9) 06/02/19 14:40 Plt Count 256 K/MM3 (134-434) D 06/02/19 14:40 MPV 8.9 fl (7.5-11.1) D 06/02/19 14:40 Sodium 140 mmol/L (136-145) 06/02/19 14:40 Potassium 4.0 mmol/L (3.5-5.1) 06/02/19 14:40 Chloride 105 mmol/L (98-107) 06/02/19 14:40 Carbon Dioxide 27 mmol/L (21-32) 06/02/19 14:40 Anion Gap 8 MMOL/L (8-16) 06/02/19 14:40 BUN 7.6 mg/dL (7-18) 06/02/19 14:40 Creatinine 0.7 mg/dL (0.55-1.3) 06/02/19 14:40 Est GFR (CKD-EPI)AfAm 145.74 06/02/19 14:40 Est GFR (CKD-EPI)NonAf 125.75 06/02/19 14:40 Random Glucose 100 mg/dL (74-106) 06/02/19 14:40 Calcium 9.0 mg/dL (8.5-10.1) 06/02/19 14:40 Total Bilirubin 0.7 mg/dL (0.2-1) 06/02/19 14:40 AST 26 U/L (15-37) 06/02/19 14:40 ALT 30 U/L (13-61) 06/02/19 14:40 Alkaline Phosphatase 121 U/L (45-117) H 06/02/19 14:40 Total Protein 7.6 g/dl (6.4-8.2) 06/02/19 14:40 Albumin 4.3 g/dl (3.4-5.0) 06/02/19 14:40 lab noted Assessment: 06/03/19 11:50 alcohol withdrawal sx Plan: continue librium detox regimen
[2019-06-03 12:13] LABS: RPR REACTIVE 1:1 (NONREACTIVE)
[2019-06-03 13:46] LABS: TREPONEMA ANTIBODY NON REACTIVE (NONREACTIVE)
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
[2019-06-03] MEDS: THIAMINE HCL 100 MG TABLET (FP) PO SCH (21:48)
[2019-06-03] MEDS: MELATONIN 5 MG TABLETS PO PRN (21:48)
[2019-06-04] MEDS: chlordiazePOXIDE HCL 25 MG CAPSULE PO SCH ×4 (05:24→21:59)
[2019-06-04] MEDS: ACETAMINOPHEN 325 MG TABLET (FP) PO PRN ×2 (05:24→17:32)
[2019-06-04] MEDS: PRENATAL VITAMINS W/ FOLIC ACID TABLET (FP) PO SCH (10:12)
[2019-06-04] MEDS: NICOTINE 14 MG/24 HOURS TOPICAL PATCH TD SCH (10:15)
--- NOTE | 2019-06-04 13:19 | PN ---
[facility] CIWA - CIWA Score Nausea/Vomitin-Mild Nausea/No Vomiting Muscle Tremors: 2 Anxiety: 2 Agitation: 2 Paroxysmal Sweats: 1-Minimal Palms Moist Orientation: 0-Oriented Tacttile Disturbances: 1-Very Mild Itch/Numbness Auditory Disturbances: 0-None Visual Disturbances: 1-Very Mild Sensitivity Headache: 1-Very Mild CIWA-Ar Total Score: 11 BHS Progress Note (SOAP) Subjective: alert,irritable,anxious,interrupted sleep,tremor Objective: 06/04/19 13:18 Vital Signs Temperature 96.4 F L 06/04/19 13:18 Pulse Rate 71 06/04/19 13:18 Respiratory Rate 18 06/04/19 13:18 Blood Pressure 114/76 06/04/19 13:18 O2 Sat by Pulse Oximetry (%) 06/04/19 13:18 Laboratory Last Values WBC 7.1 K/mm3 (4.0-10.0) 06/02/19 14:40 RBC 4.42 M/mm3 (4.00-5.60) 06/02/19 14:40 Hgb 15.1 GM/dL (11.7-16.9) 06/02/19 14:40 Hct 44.4 % (35.4-49) 06/02/19 14:40 MCV 100.4 fl (80-96) H 06/02/19 14:40 MCH 34.2 pg (25.7-33.7) H 06/02/19 14:40 MCHC 34.1 g/dl (32.0-35.9) 06/02/19 14:40 RDW 12.3 % (11.9-15.9) 06/02/19 14:40 Plt Count 256 K/MM3 (134-434) D 06/02/19 14:40 MPV 8.9 fl (7.5-11.1) D 06/02/19 14:40 Sodium 140 mmol/L (136-145) 06/02/19 14:40 Potassium 4.0 mmol/L (3.5-5.1) 06/02/19 14:40 Chloride 105 mmol/L (98-107) 06/02/19 14:40 Carbon Dioxide 27 mmol/L (21-32) 06/02/19 14:40 Anion Gap 8 MMOL/L (8-16) 06/02/19 14:40 BUN 7.6 mg/dL (7-18) 06/02/19 14:40 Creatinine 0.7 mg/dL (0.55-1.3) 06/02/19 14:40 Est GFR (CKD-EPI)AfAm 145.74 06/02/19 14:40 Est GFR (CKD-EPI)NonAf 125.75 06/02/19 14:40 Random Glucose 100 mg/dL (74-106) 06/02/19 14:40 Calcium 9.0 mg/dL (8.5-10.1) 06/02/19 14:40 Total Bilirubin 0.7 mg/dL (0.2-1) 06/02/19 14:40 AST 26 U/L (15-37) 06/02/19 14:40 ALT 30 U/L (13-61) 06/02/19 14:40 Alkaline Phosphatase 121 U/L (45-117) H 06/02/19 14:40 Total Protein 7.6 g/dl (6.4-8.2) 06/02/19 14:40 Albumin 4.3 g/dl (3.4-5.0) 06/02/19 14:40 RPR Titer Reactive 1:1 (NONREACTIVE) H D 06/02/19 14:40 T.pallidum Ab (MHA) Non reactive (NONREACTIVE) 06/02/19 14:40 Assessment: 06/04/19 13:19 withdrawal symptom Plan: continue detox librium regimen
[2019-06-04] MEDS: MELATONIN 5 MG TABLETS PO PRN (21:58)
[2019-06-04] MEDS: THIAMINE HCL 100 MG TABLET (FP) PO SCH (21:58)
[2019-06-05] MEDS ORDERED: chlordiazePOXIDE HCL 10 MG CAPSULE PO PRN
[2019-06-05] MEDS: chlordiazePOXIDE HCL 10 MG CAPSULE PO SCH ×4 (06:38→22:23)
[2019-06-05] MEDS: ACETAMINOPHEN 325 MG TABLET (FP) PO PRN ×2 (06:39→17:45)
[2019-06-05] MEDS: PRENATAL VITAMINS W/ FOLIC ACID TABLET (FP) PO SCH (10:40)
[2019-06-05] MEDS: NICOTINE 14 MG/24 HOURS TOPICAL PATCH TD SCH (10:41)
--- NOTE | 2019-06-05 12:26 | PN ---
S CIWA - CIWA Score Nausea/Vomitin-No Nausea/No Vomiting Muscle Tremors: None Anxiety: 3 Agitation: 1-Slight > Activity Paroxysmal Sweats: 3 Orientation: 0-Oriented Tacttile Disturbances: 0-None Auditory Disturbances: 0-None Visual Disturbances: 0-None Headache: 0-None Present CIWA-Ar Total Score: 7 BHS Progress Note (SOAP) Subjective: c/o anxiety, sweats, and tiredness. Objective: 06/05/19 12:25 Vital Signs 06/05/19 06/05/19 06:12 09:34 Temperature 97 F L 96.7 F L Pulse Rate 71 72 Respiratory 16 18 Rate Blood Pressure 97/61 104/61 Lab Results WBC 7.1 K/mm3 (4.0-10.0) 06/02/19 14:40 RBC 4.42 M/mm3 (4.00-5.60) 06/02/19 14:40 Hgb 15.1 GM/dL (11.7-16.9) 06/02/19 14:40 Hct 44.4 % (35.4-49) 06/02/19 14:40 MCV 100.4 fl (80-96) H 06/02/19 14:40 MCHC 34.1 g/dl (32.0-35.9) 06/02/19 14:40 RDW 12.3 % (11.9-15.9) 06/02/19 14:40 Plt Count 256 K/MM3 (134-434) D 06/02/19 14:40 Sodium 140 mmol/L (136-145) 06/02/19 14:40 Potassium 4.0 mmol/L (3.5-5.1) 06/02/19 14:40 Chloride 105 mmol/L (98-107) 06/02/19 14:40 Carbon Dioxide 27 mmol/L (21-32) 06/02/19 14:40 Anion Gap 8 MMOL/L (8-16) 06/02/19 14:40 BUN 7.6 mg/dL (7-18) 06/02/19 14:40 Creatinine 0.7 mg/dL (0.55-1.3) 06/02/19 14:40 Random Glucose 100 mg/dL (74-106) 06/02/19 14:40 Calcium 9.0 mg/dL (8.5-10.1) 06/02/19 14:40 Labs noted. Assessment: 06/05/19 12:25 AOX3, in no acute respiratory distress. Full rom, ambulating in the unit. Withdrawal symptoms. Plan: continue detox.
[2019-06-05] MEDS: THIAMINE HCL 100 MG TABLET (FP) PO SCH (22:23)
[2019-06-05] MEDS: SUVOREXANT 10 MG TABLET PO PRN (22:24)
[2019-06-06] MEDS: chlordiazePOXIDE HCL 10 MG CAPSULE PO SCH ×2 (06:24→17:35)
[2019-06-06] MEDS: PRENATAL VITAMINS W/ FOLIC ACID TABLET (FP) PO SCH (10:19)
[2019-06-06] MEDS: NICOTINE 14 MG/24 HOURS TOPICAL PATCH TD SCH (10:20)
--- NOTE | 2019-06-06 13:19 | PN ---
S CIWA - CIWA Score Nausea/Vomitin-No Nausea/No Vomiting Muscle Tremors: 1-None Visible, but [place] Anxiety: 2 Agitation: 1-Slight > Activity Paroxysmal Sweats: No Perspiration Orientation: 0-Oriented Tacttile Disturbances: 0-None Auditory Disturbances: 0-None Visual Disturbances: 0-None Headache: 0-None Present CIWA-Ar Total Score: 4 BHS Progress Note (SOAP) Subjective: 33 years old male admitted on 06/02/19 for alcohol withdrawal sx management treated with librium detox regimen feeling better less tremor sleep better at night Objective: 06/06/19 13:20 Vital Signs Temperature 97.6 F 06/06/19 13:08 Pulse Rate 68 06/06/19 13:08 Respiratory Rate 18 06/06/19 13:08 Blood Pressure 108/71 06/06/19 13:08 O2 Sat by Pulse Oximetry (%) Laboratory Last Values WBC 7.1 K/mm3 (4.0-10.0) 06/02/19 14:40 RBC 4.42 M/mm3 (4.00-5.60) 06/02/19 14:40 Hgb 15.1 GM/dL (11.7-16.9) 06/02/19 14:40 Hct 44.4 % (35.4-49) 06/02/19 14:40 MCV 100.4 fl (80-96) H 06/02/19 14:40 MCH 34.2 pg (25.7-33.7) H 06/02/19 14:40 MCHC 34.1 g/dl (32.0-35.9) 06/02/19 14:40 RDW 12.3 % (11.9-15.9) 06/02/19 14:40 Plt Count 256 K/MM3 (134-434) D 06/02/19 14:40 MPV 8.9 fl (7.5-11.1) D 06/02/19 14:40 Sodium 140 mmol/L (136-145) 06/02/19 14:40 Potassium 4.0 mmol/L (3.5-5.1) 06/02/19 14:40 Chloride 105 mmol/L (98-107) 06/02/19 14:40 Carbon Dioxide 27 mmol/L (21-32) 06/02/19 14:40 Anion Gap 8 MMOL/L (8-16) 06/02/19 14:40 BUN 7.6 mg/dL (7-18) 06/02/19 14:40 Creatinine 0.7 mg/dL (0.55-1.3) 06/02/19 14:40 Est GFR (CKD-EPI)AfAm 145.74 06/02/19 14:40 Est GFR (CKD-EPI)NonAf 125.75 06/02/19 14:40 Random Glucose 100 mg/dL (74-106) 06/02/19 14:40 Calcium 9.0 mg/dL (8.5-10.1) 06/02/19 14:40 Total Bilirubin 0.7 mg/dL (0.2-1) 06/02/19 14:40 AST 26 U/L (15-37) 06/02/19 14:40 ALT 30 U/L (13-61) 06/02/19 14:40 Alkaline Phosphatase 121 U/L (45-117) H 06/02/19 14:40 Total Protein 7.6 g/dl (6.4-8.2) 06/02/19 14:40 Albumin 4.3 g/dl (3.4-5.0) 06/02/19 14:40 RPR Titer Reactive 1:1 (NONREACTIVE) H D 06/02/19 14:40 T.pallidum Ab (MHA) Non reactive (NONREACTIVE) 06/02/19 14:40 lab noted Assessment: 06/06/19 13:20 alcohol withdrawal sx Plan: continue librium detox regimen
[2019-06-06] MEDS: THIAMINE HCL 100 MG TABLET (FP) PO SCH (21:42)
[2019-06-06] MEDS: SUVOREXANT 10 MG TABLET PO PRN (21:43)
[2019-06-06] MEDS: ACETAMINOPHEN 325 MG TABLET (FP) PO PRN (21:44)
[2019-06-07] MEDS ORDERED: chlordiazePOXIDE HCL 10 MG CAPSULE PO ONE (05:00)
[2019-06-07 09:28] VITALS: BP 96/58; PULSE 67; TEMP 97.3
[2019-06-07] MEDS: NICOTINE 14 MG/24 HOURS TOPICAL PATCH TD SCH (10:46)
[2019-06-07] MEDS: PRENATAL VITAMINS W/ FOLIC ACID TABLET (FP) PO SCH (10:47)
--- NOTE | 2019-06-07 12:48 | DS ---
[facility] Detox Discharge Summary Admission Date: 06/02/19 Discharge Date: 06/07/19 - History Present History: Alcohol Dependence Additional Comments: 33 years old male admitted on 06/02/19 for alcohol withdrawal sx management treated with librium detox regimen patient is alert oriented x 3 respiratory clear lung bilaterally on auscultation abdomen soft no rebound tenderness skin warm and dry - Physical Exam Results Vital Signs: Vital Signs Temperature 97.3 F L 06/07/19 09:27 Pulse Rate 67 06/07/19 09:27 Respiratory Rate 16 06/07/19 09:27 Blood Pressure 96/58 L 06/07/19 09:27 O2 Sat by Pulse Oximetry (%) Pertinent Admission Physical Exam Findings: alcohol withdrawal sx Laboratory Last Values WBC 7.1 K/mm3 (4.0-10.0) 06/02/19 14:40 RBC 4.42 M/mm3 (4.00-5.60) 06/02/19 14:40 Hgb 15.1 GM/dL (11.7-16.9) 06/02/19 14:40 Hct 44.4 % (35.4-49) 06/02/19 14:40 MCV 100.4 fl (80-96) H 06/02/19 14:40 MCH 34.2 pg (25.7-33.7) H 06/02/19 14:40 MCHC 34.1 g/dl (32.0-35.9) 06/02/19 14:40 RDW 12.3 % (11.9-15.9) 06/02/19 14:40 Plt Count 256 K/MM3 (134-434) D 06/02/19 14:40 MPV 8.9 fl (7.5-11.1) D 06/02/19 14:40 Sodium 140 mmol/L (136-145) 06/02/19 14:40 Potassium 4.0 mmol/L (3.5-5.1) 06/02/19 14:40 Chloride 105 mmol/L (98-107) 06/02/19 14:40 Carbon Dioxide 27 mmol/L (21-32) 06/02/19 14:40 Anion Gap 8 MMOL/L (8-16) 06/02/19 14:40 BUN 7.6 mg/dL (7-18) 06/02/19 14:40 Creatinine 0.7 mg/dL (0.55-1.3) 06/02/19 14:40 Est GFR (CKD-EPI)AfAm 145.74 06/02/19 14:40 Est GFR (CKD-EPI)NonAf 125.75 06/02/19 14:40 Random Glucose 100 mg/dL (74-106) 06/02/19 14:40 Calcium 9.0 mg/dL (8.5-10.1) 06/02/19 14:40 Total Bilirubin 0.7 mg/dL (0.2-1) 06/02/19 14:40 AST 26 U/L (15-37) 06/02/19 14:40 ALT 30 U/L (13-61) 06/02/19 14:40 Alkaline Phosphatase 121 U/L (45-117) H 06/02/19 14:40 Total Protein 7.6 g/dl (6.4-8.2) 06/02/19 14:40 Albumin 4.3 g/dl (3.4-5.0) 06/02/19 14:40 RPR Titer Reactive 1:1 (NONREACTIVE) H D 06/02/19 14:40 T.pallidum Ab (MHA) Non reactive (NONREACTIVE) 06/02/19 14:40 lab noted - Treatment Hospital Course: Detox Protocol Followed, Detoxed Safely, Responded well, Discharged Condition Good, Rehab Referral Accepted Patient has Accepted a Rehab Referral to: [facility] - Medication Discharge Medications: Ambulatory Orders NK [No Known Home Medication] 04/28/19 - Diagnosis (1) Alcohol dependence with withdrawal Status: Acute Qualifiers: Complication of substance-induced condition: uncomplicated Qualified Code(s ): F10.230 - Alcohol dependence with withdrawal, uncomplicated (2) Nicotine dependence Status: Acute Qualifiers: Nicotine product type: cigarettes Substance use status: in withdrawal Qualified Code(s): F17.213 - Nicotine dependence, cigarettes, with withdrawal (3) Substance induced mood disorder Status: Suspected - AMA Did Patient Leave Against Medical Advice: No CIWA Score - CIWA Score Nausea/Vomitin-No Nausea/No Vomiting Muscle Tremors: 1-None Visible, but [place] Anxiety: 1-Mildly Anxious Agitation: 0-Normal Activity Paroxysmal Sweats: No Perspiration Orientation: 0-Oriented Tacttile Disturbances: 0-None Auditory Disturbances: 0-None Visual Disturbances: 0-None Headache: 0-None Present CIWA-Ar Total Score: 2
== END 2019-06-07 11:47 | disposition home or self-care (01) | DRG 775 ==
LOC: YASAS 11:54 → Y3N 14:19
PROVIDERS: ADMIT Allergy & Immunology; ATTEND Allergy & Immunology
PROC: HZ2ZZZZ Detoxification Services for Substance Abuse Treatment (ICD-10-PCS; principal; 2019-06-02)
DX: F10.230 Alcohol dependence with withdrawal, uncomplicated (principal); F17.213 Nicotine dependence, cigarettes, with withdrawal; F19.282 Other psychoactive substance dependence with psychoactive substance-induced sleep disorder; F19.24 Other psychoactive substance dependence with psychoactive substance-induced mood disorder; F10.24 Alcohol dependence with alcohol-induced mood disorder; Z86.19 Personal history of other infectious and parasitic diseases; Z88.8 Allergy status to other drugs, medicaments and biological substances; Z59.0 Homelessness
CPT/HCPCS: 36415; 80053; 85027; 86593; 86780

== ENCOUNTER → 2019-07-19 23:57 | Emergency (ER) | payer OTHER | END | disposition left against medical advice (07) | LOC: JER 23:57 | DX: Z53.21 Procedure and treatment not carried out due to patient leaving prior to being seen by health care provider (principal) | CPT/HCPCS: 99281-25 ==

== ENCOUNTER 2019-07-20 08:06 | Inpatient (IN) | payer OTHER ==
[2019-07-20 08:25] VITALS: BMI 28.3
--- NOTE | 2019-07-20 09:04 | HP ---
CIWA Score Nausea/Vomitin Muscle Tremors: 3 Anxiety: 3 Agitation: 3 Paroxysmal Sweats: 1-Minimal Palms Moist Orientation: 0-Oriented Tacttile Disturbances: 1-Very Mild Itch/Numbness Auditory Disturbances: 0-None Visual Disturbances: 0-None Headache: 2-Mild CIWA-Ar Total Score: 15 - Admission Criteria [facility]ASAS Guidelines: Admission for Medically Managed Detox: Requires at least one of the followin. CIWA greater than 12 2. Seizures within the past 24 hours 3. Delirium tremens within the past 24 hours 4. Hallucinations within the past 24 hours 5. Acute intervention needed for co occurring medical disorder 6. Acute intervention needed for co occurring psychiatric disorder 7. Severe withdrawal that cannot be handled at a lower level of care (continued vomiting, continued diarrhea, abnormal vital signs) requiring intravenous medication and/or fluids 8. Admitting History and Physical - Admission Chief Complaint: i need help to stop drinking alcohol History of Present Illness: this 33 years old male with alcohol dependence,seeking detox,withdrawal symptom, denied seizure syncope alcohol related multiple admissions in detox depression,no med longest sobriety 3 years plan for rehab after detox History Source: Patient Limitations to Obtaining History: No Limitations - Past Medical History CHIEF NURSE: Yes: Syncope Additional Past Medical History: syncope - Smoking History Smoking history: Never smoked Have you smoked in the past 12 months: Yes Aproximately how many cigarettes per day: 3 - Alcohol/Substance Use Hx Alcohol Use: Yes - Social History ADL: Support Services Occupation: unemployed History of Recent Travel: No Other Social History: this 33 years old male with alcohol dependence with alcohol dependence,. seeking detox,homeless,unemployed,weight loss,smoke 5 cigarette/day Admission ROS [facility] - HPI Chief Complaint: i need help to stop drinking alcohol Allergies/Adverse Reactions: Allergies Allergy/AdvReac Type Severity Reaction Status Date / Time haloperidol [From Haldol] Allergy Verified 07/20/19 08:20 ketorolac [From Toradol] AdvReac Verified 07/20/19 08:20 History of Present Illness: this 33 years old male with alcohol dependence,seeking detox,withdrawal symptom, multiple admissions in detox,last 06/02/19 to 06/07/19 denied seizure syncope alcohol related nicotine dependence longest sobriety 3 years would like to go to rehab after detox Exam Limitations: No Limitations - Ebola screening Have you traveled outside of the country in the last 21 days: No Have you had contact with anyone from an Ebola affected area: No Do you have a fever: No - Review of Systems Constitutional: Loss of Appetite, Malaise, Night Sweats, Changes in sleep, Unintentional Wgt. Loss EENT: reports: Nose Congestion Respiratory: reports: No Symptoms reported Cardiac: reports: No Symptoms Reported GI: reports: Nausea, Poor Appetite, Poor Fluid Intake Musculoskeletal: reports: Back Pain, Muscle Pain Integumentary: reports: Dryness Neuro: reports: Headache, Tremors Endocrine: reports: No Symptoms Reported Psychiatric: reports: Judgement Intact, Mood/Affect Appropiate, Orientated x3 Other Systems: Reviewed and Negative Patient History - Patient Medical History Hx Anemia: No Hx Asthma: No Hx Chronic Obstructive Pulmonary Disease (COPD): No Hx Cancer: No Hx Cardiac Disorders: No Hx Congestive Heart Failure: No Hx Hypertension: No Hx Hypercholesterolemia: No Hx Pacemaker: No HX Cerebrovascular Accident: No Hx Seizures: No Hx Dementia: No Hx Diabetes: No Hx Gastrointestinal Disorders: No Hx Liver Disease: No Hx Genitourinary Disorders: No Hx Sexually Transmitted Disorders: No Hx Renal Disease (ESRD): No Hx Thyroid Disease: No Hx Human Immunodeficiency Virus (HIV): No (Negative 2019) Hx Hepatitis C: No Hx Depression: No Hx Suicide Attempt: No Hx Bipolar Disorder: No Hx Schizophrenia: No Other Medical History: no suicidal,no homicidal - Patient Surgical History Past Surgical History: No Hx Neurologic Surgery: No Hx Cataract Extraction: No Hx Cardiac Surgery: No Hx Lung Surgery: No Hx Breast Surgery: No Hx Breast Biopsy: No Hx Abdominal Surgery: No Hx Appendectomy: No Hx Cholecystectomy: No Hx Genitourinary Surgery: No Hx Orthopedic Surgery: No Anesthesia Reaction: No - PPD History Previous Implant?: Yes Documented Results: Negative w/proof Implanted On Prior [facility] Admission?: Yes Date: 05/01/19 Results: 0 MM PPD to be Administered?: No - Smoking Cessation Smoking history: Never smoked Have you smoked in the past 12 months: Yes Aproximately how many cigarettes per day: 3 Hx Chewing Tobacco Use: No Initiated information on smoking cessation: Yes 'Breaking Loose' booklet given: 07/27/19 - Substance & Tx. History Hx Alcohol Use: Yes Substance Use Type: Alcohol Hx Substance Use Treatment: Yes ([facility] 06/02/19 to 11/11/19) - Substances abused Alcohol Substance route: Oral Frequency: Daily Amount used: 2-12 PACKS OF BEER, 3 PINTS OF VODKA Age of first use: 17 Date of last use: 07/20/19 Admission Physical Exam [facility] - Vital Signs Vital Signs: Vital Signs - 24 hr 07/20/19 08:20 Temperature 97.4 F L Pulse Rate 96 H Respiratory 20 Rate Blood Pressure 134/74 - Physical General Appearance: Yes: Moderate Distress, Tremorous, Irritable, Sweating, Anxious HEENTM: Yes: Normal ENT Inspection, ALVA, Pharynx Normal Respiratory: Yes: Lungs Clear, Normal Breath Sounds, No Respiratory Distress Neck: Yes: Within Normal Limits, Supple, Trachea in good position Breast: Yes: Within Normal Limits Cardiology: Yes: Within Normal Limits, Regular Rhythm, Regular Rate, S1, S2 Abdominal: Yes: Normal Bowel Sounds, Non Tender, Flat, Soft Genitourinary: Yes: Within Normal Limits Back: Yes: Muscle Spasm Musculoskeletal: Yes: Back pain, Muscle Pain Extremities: Yes: Tremors 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: Yes: flat knitter helper II-XII NML intact, Fully Oriented, Alert, Motor Strength 5/5 Integumentary: Yes: Dry Lymphatic: Yes: Within Normal Limits - Diagnostic (1) Alcohol dependence with withdrawal Current Visit: No Status: Acute Qualifiers: Complication of substance-induced condition: uncomplicated Qualified Code(s ): F10.230 - Alcohol dependence with withdrawal, uncomplicated (2) Alcoholic intoxication without complication Current Visit: Yes Status: Acute (3) Nicotine dependence Current Visit: No Status: Acute Qualifiers: Nicotine product type: cigarettes Substance use status: in withdrawal Qualified Code(s): F17.213 - Nicotine dependence, cigarettes, with withdrawal (4) Dehydration Current Visit: Yes Status: Acute Cleared for Admission [facility] - Detox or Rehab [facility] Level of Care: Medically Managed Detox Regimen/Protocol: Librium Breathalyzer - Breathalyzer Breathalyzer: 0.150 Urine Drug Screen - Test Device Lot number: [id number] Expiration date: 02/23/21 - Control Is test valid?: Yes - Results Drug screen NEGATIVE: No Urine drug screen results: BZO-Benzodiazepines Inpatient Rehab Admission - Rehab Decision to Admit Inpatient rehab admission?: No
[2019-07-20] MEDS ORDERED: MENTHOL/PHENOL 1 EACH UD MM PRN (09:15)
[2019-07-20] MEDS ORDERED: IBUPROFEN 400 MG TABLET (FP) PO PRN (09:15)
[2019-07-20] MEDS ORDERED: METHOCARBAMOL 500 MG TABLET PO PRN (09:15)
[2019-07-20] MEDS ORDERED: MAG HYDROX/AL HYDROX/SIMETH 30 ML UNIT-DOSE CUP PO PRN (09:15)
[2019-07-20] MEDS ORDERED: MAGNESIUM CITRATE 300 ML BOTTLE PO PRN (09:15)
[2019-07-20] MEDS ORDERED: BISMUTH SUBSALICYLATE 262 MG/15 ML BTL PO PRN (09:15)
[2019-07-20] MEDS ORDERED: ACETAMINOPHEN 325 MG TABLET (FP) PO PRN (09:15)
[2019-07-20] MEDS ORDERED: hydrOXYzine PAMOATE 25 MG CAPSULE (FP) PO PRN (09:15)
[2019-07-20] MEDS ORDERED: chlordiazePOXIDE HCL 25 MG CAPSULE PO PRN (09:15)
[2019-07-20] MEDS ORDERED: MAGNESIUM HYDROX 2400MG/30ML ORAL SUSPENSION 30 ML CUP PO PRN (09:15)
[2019-07-20] MEDS: PRENATAL VITAMINS W/ FOLIC ACID TABLET (FP) PO SCH (10:41)
[2019-07-20] MEDS: chlordiazePOXIDE HCL 25 MG CAPSULE PO SCH ×3 (12:02→22:22)
[2019-07-20 15:46] LABS: HEMATOCRIT 41.2 % (35.4-49); HEMOGLOBIN 13.8 GM/dL (11.7-16.9); MCH 33.3 pg (25.7-33.7); MCHC 33.5 g/dl (32.0-35.9); MEAN CELL VOLUME 99.4 fl (80-96); MEAN PLT VOLUME 9.2 fl (7.5-11.1); PLATELET COUNT 213 K/MM3 (134-434); RBC 4.14 M/mm3 (4.00-5.60); WHITE BLOOD COUNT 6.4 K/mm3 (4.0-10.0)
[2019-07-20 15:54] LABS: ALBUMIN 3.6 g/dl (3.4-5.0); BLOOD UREA NITROGEN 6.3 mg/dL (7-18); CALCIUM 8.6 mg/dL (8.5-10.1); CREATININE 0.8 mg/dL (0.55-1.3); POTASSIUM 3.9 mmol/L (3.5-5.1); TOT PROT 6.6 g/dl (6.4-8.2)
[2019-07-20] MEDS: ACETAMINOPHEN 325 MG TABLET (FP) PO PRN (17:46)
[2019-07-20] MEDS: THIAMINE HCL 100 MG TABLET (FP) PO SCH (22:22)
[2019-07-20] MEDS: MELATONIN 5 MG TABLETS PO PRN (22:22)
[2019-07-21] MEDS: chlordiazePOXIDE HCL 25 MG CAPSULE PO SCH ×4 (07:32→22:44)
[2019-07-21] MEDS: PRENATAL VITAMINS W/ FOLIC ACID TABLET (FP) PO SCH (11:30)
--- NOTE | 2019-07-21 11:45 | PN ---
[facility] CIWA - CIWA Score Nausea/Vomitin-No Nausea/No Vomiting Muscle Tremors: 3 Anxiety: 3 Agitation: 3 Paroxysmal Sweats: 3 Orientation: 0-Oriented Tacttile Disturbances: 0-None Auditory Disturbances: 0-None Visual Disturbances: 0-None Headache: 0-None Present CIWA-Ar Total Score: 12 S Progress Note (SOAP) Subjective: sweats tired body aches chills Objective: 07/21/19 11:44 Vital Signs Temperature 97.7 F 07/21/19 09:20 Pulse Rate 92 H 07/21/19 09:20 Respiratory Rate 18 07/21/19 09:20 Blood Pressure 147/83 07/21/19 09:20 O2 Sat by Pulse Oximetry (%) Laboratory Tests 07/20/19 07/20/19 10:30 10:30 WBC 6.4 RBC 4.14 Hgb 13.8 Hct 41.2 MCV 99.4 H MCH 33.3 MCHC 33.5 RDW 12.0 Plt Count 213 MPV 9.2 Sodium 142 Potassium 3.9 Chloride 107 Carbon Dioxide 29 Anion Gap 7 L BUN 6.3 L Creatinine 0.8 Est GFR (CKD-EPI)AfAm 137.96 Est GFR (CKD-EPI)NonAf 119.03 Random Glucose 84 Calcium 8.6 Total Bilirubin 1.0 AST 44 H ALT 28 Alkaline Phosphatase 109 Total Protein 6.6 Albumin 3.6 aaox3 ambulating no acute distress Assessment: 07/21/19 11:44 withdrawals Plan: continue detox increase fluids
[2019-07-21 14:08] LABS: RPR REACTIVE 1:1 (NONREACTIVE)
[2019-07-21] MEDS: THIAMINE HCL 100 MG TABLET (FP) PO SCH (22:44)
[2019-07-21] MEDS: MELATONIN 5 MG TABLETS PO PRN (22:45)
[2019-07-22] MEDS: chlordiazePOXIDE HCL 25 MG CAPSULE PO SCH ×4 (06:02→22:14)
[2019-07-22 09:19] LABS: TREPONEMA ANTIBODY NON REACTIVE (NONREACTIVE)
[2019-07-22 10:19] LABS: EPI CELLS 0.4 /HPF (0-5/HPF); HYALINE CASTS 1 /lpf (0-8); PH,URINE 7.5 (5.0-8.0); URINE APPEARANCE CLEAR; URINE BACTERIA 2.6 /hpf (NEGATIVE); URINE BILIRUBIN NEGATIVE (NEGATIVE); URINE COLOR YELLOW; URINE GLUCOSE (UA) NEGATIVE (NEGATIVE); URINE KETONE NEGATIVE (NEGATIVE); URINE LEUK ESTERASE TRACE (NEGATIVE); URINE NITRITE NEGATIVE (NEGATIVE); URINE PROTEIN NEGATIVE (NEGATIVE); URINE RBC 1 /hpf (0-4); URINE WBC 10 /hpf (0-5)
--- NOTE | 2019-07-22 11:41 | PN ---
S CIWA - CIWA Score Nausea/Vomitin-No Nausea/No Vomiting Muscle Tremors: 3 Anxiety: 2 Agitation: 3 Paroxysmal Sweats: 2 Orientation: 0-Oriented Tacttile Disturbances: 0-None Auditory Disturbances: 0-None Visual Disturbances: 0-None Headache: 0-None Present CIWA-Ar Total Score: 10 S Progress Note (SOAP) Subjective: sweats shakes interrupted sleep Objective: 07/22/19 11:39 Vital Signs Temperature 96.8 F L 07/22/19 09:16 Pulse Rate 71 07/22/19 09:16 Respiratory Rate 18 07/22/19 09:16 Blood Pressure 110/69 07/22/19 09:16 O2 Sat by Pulse Oximetry (%) Laboratory Tests 07/20/19 07/20/19 07/20/19 10:30 10:30 10:30 WBC 6.4 RBC 4.14 Hgb 13.8 Hct 41.2 MCV 99.4 H MCH 33.3 MCHC 33.5 RDW 12.0 Plt Count 213 MPV 9.2 Sodium 142 Potassium 3.9 Chloride 107 Carbon Dioxide 29 Anion Gap 7 L BUN 6.3 L Creatinine 0.8 Est GFR (CKD-EPI)AfAm 137.96 Est GFR (CKD-EPI)NonAf 119.03 Random Glucose 84 Calcium 8.6 Total Bilirubin 1.0 AST 44 H ALT 28 Alkaline Phosphatase 109 Total Protein 6.6 Albumin 3.6 Urine Color Urine Appearance Urine pH Ur Specific [place] Urine Protein Urine Glucose (UA) Urine Ketones Urine Blood Urine Nitrite Urine Bilirubin Urine Urobilinogen Ur Leukocyte Esterase Urine WBC (Auto) Urine RBC (Auto) Urine Casts (Auto) U Epithel Cells (Auto) Urine Bacteria (Auto) RPR Titer Reactive 1:1 H T.pallidum Ab (MHA) Non reactive 07/22/19 07:10 WBC RBC Hgb Hct MCV MCH MCHC RDW Plt Count MPV Sodium Potassium Chloride Carbon Dioxide Anion Gap BUN Creatinine Est GFR (CKD-EPI)AfAm Est GFR (CKD-EPI)NonAf Random Glucose Calcium Total Bilirubin AST ALT Alkaline Phosphatase Total Protein Albumin Urine Color Yellow Urine Appearance Clear Urine pH 7.5 Ur Specific [place] 1.017 Urine Protein Negative Urine Glucose (UA) Negative Urine Ketones Negative Urine Blood Negative Urine Nitrite Negative Urine Bilirubin Negative Urine Urobilinogen 1.0 Ur Leukocyte Esterase Trace Urine WBC (Auto) 10 Urine RBC (Auto) 1 Urine Casts (Auto) 1 U Epithel Cells (Auto) 0.4 Urine Bacteria (Auto) 2.6 RPR Titer T.pallidum Ab (A) aaox3 ambulating no acute distress pt denies having a UTI Assessment: 07/22/19 11:40 withdrawals Plan: continue detox increase fluids
[2019-07-22] MEDS: PRENATAL VITAMINS W/ FOLIC ACID TABLET (FP) PO SCH (12:12)
[2019-07-22] MEDS: MELATONIN 5 MG TABLETS PO PRN (22:14)
[2019-07-22] MEDS: THIAMINE HCL 100 MG TABLET (FP) PO SCH (22:14)
[2019-07-22] MEDS: ACETAMINOPHEN 325 MG TABLET (FP) PO PRN (22:16)
[2019-07-23] MEDS ORDERED: chlordiazePOXIDE HCL 10 MG CAPSULE PO PRN
[2019-07-23] MEDS: chlordiazePOXIDE HCL 10 MG CAPSULE PO SCH ×4 (05:25→22:11)
[2019-07-23] MEDS: PRENATAL VITAMINS W/ FOLIC ACID TABLET (FP) PO SCH (11:14)
--- NOTE | 2019-07-23 11:24 | PN ---
[facility] CIWA - CIWA Score Nausea/Vomitin-No Nausea/No Vomiting Muscle Tremors: 2 Anxiety: 1-Mildly Anxious Agitation: 2 Paroxysmal Sweats: 2 Orientation: 0-Oriented Tacttile Disturbances: 0-None Auditory Disturbances: 0-None Visual Disturbances: 0-None Headache: 0-None Present CIWA-Ar Total Score: 7 S Progress Note (SOAP) Subjective: sweats body aches tired Objective: 07/23/19 11:24 Vital Signs Temperature 98.2 F 07/23/19 09:23 Pulse Rate 73 07/23/19 09:23 Respiratory Rate 18 07/23/19 09:23 Blood Pressure 113/65 07/23/19 09:23 O2 Sat by Pulse Oximetry (%) aaox3 ambulating no acute distress Assessment: 07/23/19 11:25 mild withdrawals Plan: continue detox
[2019-07-23] MEDS: MELATONIN 5 MG TABLETS PO PRN (22:11)
[2019-07-23] MEDS: THIAMINE HCL 100 MG TABLET (FP) PO SCH (22:11)
[2019-07-24] MEDS: chlordiazePOXIDE HCL 10 MG CAPSULE PO SCH ×2 (05:37→18:12)
[2019-07-24] MEDS: PRENATAL VITAMINS W/ FOLIC ACID TABLET (FP) PO SCH (10:12)
--- NOTE | 2019-07-24 14:26 | PN ---
S CIWA - CIWA Score Nausea/Vomitin-No Nausea/No Vomiting Muscle Tremors: None Anxiety: 2 Agitation: 1-Slight > Activity Paroxysmal Sweats: 3 Orientation: 0-Oriented Tacttile Disturbances: 0-None Auditory Disturbances: 1-Very Mild Visual Disturbances: 0-None Headache: 0-None Present CIWA-Ar Total Score: 7 BHS Progress Note (SOAP) Subjective: Sweating. Objective: PATIENT A & O X 3, OBSERVED AMBULATING ON DETOX UNIT UNASSISTED. IN NO ACUTE DISTRESS. 07/24/19 14:25 Vital Signs Temperature 97.9 F 07/24/19 13:27 Pulse Rate 70 07/24/19 13:27 Respiratory Rate 18 07/24/19 13:27 Blood Pressure 138/68 07/24/19 13:27 O2 Sat by Pulse Oximetry (%) Laboratory Tests 07/20/19 07/20/19 07/20/19 10:30 10:30 10:30 WBC 6.4 RBC 4.14 Hgb 13.8 Hct 41.2 MCV 99.4 H MCH 33.3 MCHC 33.5 RDW 12.0 Plt Count 213 MPV 9.2 Sodium 142 Potassium 3.9 Chloride 107 Carbon Dioxide 29 Anion Gap 7 L BUN 6.3 L Creatinine 0.8 Est GFR (CKD-EPI)AfAm 137.96 Est GFR (CKD-EPI)NonAf 119.03 Random Glucose 84 Calcium 8.6 Total Bilirubin 1.0 AST 44 H ALT 28 Alkaline Phosphatase 109 Total Protein 6.6 Albumin 3.6 Urine Color Urine Appearance Urine pH Ur Specific [place] Urine Protein Urine Glucose (UA) Urine Ketones Urine Blood Urine Nitrite Urine Bilirubin Urine Urobilinogen Ur Leukocyte Esterase Urine WBC (Auto) Urine RBC (Auto) Urine Casts (Auto) U Epithel Cells (Auto) Urine Bacteria (Auto) RPR Titer Reactive 1:1 H T.pallidum Ab (MHA) Non reactive 07/22/19 07:10 WBC RBC Hgb Hct MCV MCH MCHC RDW Plt Count MPV Sodium Potassium Chloride Carbon Dioxide Anion Gap BUN Creatinine Est GFR (CKD-EPI)AfAm Est GFR (CKD-EPI)NonAf Random Glucose Calcium Total Bilirubin AST ALT Alkaline Phosphatase Total Protein Albumin Urine Color Yellow Urine Appearance Clear Urine pH 7.5 Ur Specific [place] 1.017 Urine Protein Negative Urine Glucose (UA) Negative Urine Ketones Negative Urine Blood Negative Urine Nitrite Negative Urine Bilirubin Negative Urine Urobilinogen 1.0 Ur Leukocyte Esterase Trace Urine WBC (Auto) 10 Urine RBC (Auto) 1 Urine Casts (Auto) 1 U Epithel Cells (Auto) 0.4 Urine Bacteria (Auto) 2.6 RPR Titer T.pallidum Ab (MHA) LABS NOTED. REACTIVE RPR RESULT NOTED. HOWEVER, [facility] CONFIRMATORY TEST RESULT NON-REACTIVE. 07/24/19 16:31 Assessment: 07/24/19 14:25 WITHDRAWAL SYMPTOMS. ELEVATED AST LEVEL. 07/24/19 16:31 Plan: CONTINUE DETOX. PATIENT ADVISED TO FOLLOW-UP WITH STUDENT ACTIVITIES DIRECTOR AFTER DISCHARGE FROM DETOX FOR MEDICAL ASSESSMENT AND FOR REACTIVE RPR RESULT NOTED ON DETOX ADMISSION LABORATORY ASSESSMENT. PATIENT VERBALIZED UNDERSTANDING OF RECOMMENDATION. PATIENT SCHEDULED FOR DISCHARGE FROM DETOX UNIT TOMORROW.
[2019-07-24] MEDS: THIAMINE HCL 100 MG TABLET (FP) PO SCH (22:08)
[2019-07-24] MEDS: MELATONIN 5 MG TABLETS PO PRN (22:08)
[2019-07-25] MEDS ORDERED: chlordiazePOXIDE HCL 10 MG CAPSULE PO ONE (05:00)
[2019-07-25 06:44] VITALS: BP 86/40; PULSE 61; TEMP 97.5
[2019-07-25] MEDS: PRENATAL VITAMINS W/ FOLIC ACID TABLET (FP) PO SCH (10:28)
--- NOTE | 2019-07-25 13:52 | DS ---
[facility] Detox Discharge Summary Admission Date: 07/20/19 Discharge Date: 07/25/19 - History Present History: Alcohol Dependence Additional Comments: Patient completed detox successfully and accepted admission to [facility] inpatient rehab. Patient left unit safely in stable condition. Pertinent Past History: Alcohol dependence Nicotine dependence History of syncope - Physical Exam Results Vital Signs: Vital Signs Temperature 97.5 F L 07/25/19 06:43 Pulse Rate 61 07/25/19 06:43 Respiratory Rate 16 07/25/19 06:43 Blood Pressure 86/40 L 07/25/19 06:43 O2 Sat by Pulse Oximetry (%) Pertinent Admission Physical Exam Findings: Withdrawal sxs Laboratory Tests 07/20/19 07/20/19 07/20/19 10:30 10:30 10:30 WBC 6.4 RBC 4.14 Hgb 13.8 Hct 41.2 MCV 99.4 H MCH 33.3 MCHC 33.5 RDW 12.0 Plt Count 213 MPV 9.2 Sodium 142 Potassium 3.9 Chloride 107 Carbon Dioxide 29 Anion Gap 7 L BUN 6.3 L Creatinine 0.8 Est GFR (CKD-EPI)AfAm 137.96 Est GFR (CKD-EPI)NonAf 119.03 Random Glucose 84 Calcium 8.6 Total Bilirubin 1.0 AST 44 H ALT 28 Alkaline Phosphatase 109 Total Protein 6.6 Albumin 3.6 Urine Color Urine Appearance Urine pH Ur Specific [place] Urine Protein Urine Glucose (UA) Urine Ketones Urine Blood Urine Nitrite Urine Bilirubin Urine Urobilinogen Ur Leukocyte Esterase Urine WBC (Auto) Urine RBC (Auto) Urine Casts (Auto) U Epithel Cells (Auto) Urine Bacteria (Auto) RPR Titer Reactive 1:1 H T.pallidum Ab (MHA) Non reactive 07/22/19 07:10 WBC RBC Hgb Hct MCV MCH MCHC RDW Plt Count MPV Sodium Potassium Chloride Carbon Dioxide Anion Gap BUN Creatinine Est GFR (CKD-EPI)AfAm Est GFR (CKD-EPI)NonAf Random Glucose Calcium Total Bilirubin AST ALT Alkaline Phosphatase Total Protein Albumin Urine Color Yellow Urine Appearance Clear Urine pH 7.5 Ur Specific [place] 1.017 Urine Protein Negative Urine Glucose (UA) Negative Urine Ketones Negative Urine Blood Negative Urine Nitrite Negative Urine Bilirubin Negative Urine Urobilinogen 1.0 Ur Leukocyte Esterase Trace Urine WBC (Auto) 10 Urine RBC (Auto) 1 Urine Casts (Auto) 1 U Epithel Cells (Auto) 0.4 Urine Bacteria (Auto) 2.6 RPR Titer T.pallidum Ab (MHA) Labs reviewed - Treatment Hospital Course: Detox Protocol Followed, Detoxed Safely, Responded well, Discharged Condition Good, Rehab Referral Accepted - Medication Discharge Medications: Ambulatory Orders NK [No Known Home Medication] 04/28/19 - Diagnosis (1) History of syncope Status: Chronic (2) Alcohol dependence with withdrawal Status: Acute Qualifiers: Complication of substance-induced condition: uncomplicated Qualified Code(s ): F10.230 - Alcohol dependence with withdrawal, uncomplicated (3) Nicotine dependence Status: Chronic Qualifiers: Nicotine product type: cigarettes Substance use status: in withdrawal Qualified Code(s): F17.213 - Nicotine dependence, cigarettes, with withdrawal - AMA Did Patient Leave Against Medical Advice: No (Accepted admission to Inpatient rehab)
== END 2019-07-25 11:09 | disposition other institution (70) | DRG 775 ==
LOC: YASAS 08:06 → Y6N 09:44
PROVIDERS: ADMIT Allergy & Immunology; ATTEND Allergy & Immunology
PROC: HZ2ZZZZ Detoxification Services for Substance Abuse Treatment (ICD-10-PCS; principal; 2019-07-20)
DX: F10.230 Alcohol dependence with withdrawal, uncomplicated (principal); F10.220 Alcohol dependence with intoxication, uncomplicated; F17.213 Nicotine dependence, cigarettes, with withdrawal; R74.0 Nonspecific elevation of levels of transaminase and lactic acid dehydrogenase [LDH]; R63.4 Abnormal weight loss; E86.0 Dehydration; Z56.0 Unemployment, unspecified; Z59.0 Homelessness
CPT/HCPCS: 36415; 80053; 81003; 85027; 86593; 86780

== ENCOUNTER 2019-07-25 11:30 | Inpatient (IN) | payer OTHER ==
[2019-07-25] MEDS ORDERED: LOPERAMIDE HCL 2 MG CAPSULE PO PRN (13:57)
[2019-07-25] MEDS ORDERED: MAGNESIUM HYDROX 2400MG/30ML ORAL SUSPENSION 30 ML CUP PO PRN (13:57)
[2019-07-25] MEDS ORDERED: P-EPHED 60MG/TRIPROLIDI 2.5MG TABLET PO PRN (13:57)
[2019-07-25] MEDS ORDERED: MENTHOL/PHENOL 1 EACH UD MM PRN (13:57)
[2019-07-25] MEDS ORDERED: NICOTINE POLACRILEX 2 MG GUM BUC PRN (13:57)
[2019-07-25] MEDS ORDERED: MAGNESIUM CITRATE 300 ML BOTTLE PO PRN (13:57)
[2019-07-25] MEDS ORDERED: hydrOXYzine PAMOATE 25 MG CAPSULE (FP) PO PRN (13:57)
[2019-07-25] MEDS ORDERED: guaiFENesin 200 MG/10 ML 10 ML UNIT-DOSE CUPS PO PRN (13:57)
[2019-07-25] MEDS ORDERED: MAG HYDROX/AL HYDROX/SIMETH 30 ML UNIT-DOSE CUP PO PRN (13:57)
--- NOTE | 2019-07-25 13:57 | HP ---
[facility] Rehab Assess/Revision - Admission History Admitted to Rehab from: [facility] Date of Admission to Rehab: 07/25/2019 - Vital signs Vital Signs: Vital Signs Period Temp Pulse Resp BP Sys/Sanders Pulse Ox Last 24 Hr 97.5 F 81 18 106/62 - Findings Detox History & Physical reviewed: Yes Concur with findings: Yes Inpatient Rehab Admission - Rehab Decision to Admit Inpatient rehab admission?: Yes - Initial Determination Are CD services needed?: No Free of communicable disease: Yes Not in need of hospitalization: No - Rehab Admission Criteria Previous failed treatment: Yes Poor recovery environment: Yes Comorbidities: Yes Lacks judgement: Yes Patient is meeting Inpatient Rehab admission criteria:: Yes
[2019-07-25] MEDS: THIAMINE HCL 100 MG TABLET (FP) PO SCH (21:11)
[2019-07-25] MEDS: MELATONIN 5 MG TABLETS PO PRN (23:31)
[2019-07-26] MEDS: PRENATAL VITAMINS W/ FOLIC ACID TABLET (FP) PO SCH (09:54)
[2019-07-26] MEDS: THIAMINE HCL 100 MG TABLET (FP) PO SCH (21:46)
[2019-07-26] MEDS: MELATONIN 5 MG TABLETS PO PRN (23:27)
[2019-07-27] MEDS: PRENATAL VITAMINS W/ FOLIC ACID TABLET (FP) PO SCH (09:55)
[2019-07-27] MEDS: THIAMINE HCL 100 MG TABLET (FP) PO SCH (21:25)
[2019-07-27] MEDS: MELATONIN 5 MG TABLETS PO PRN (23:27)
[2019-07-28] MEDS: PRENATAL VITAMINS W/ FOLIC ACID TABLET (FP) PO SCH (10:11)
--- NOTE | 2019-07-28 18:01 | PN ---
BHS Progress Note Note: Admitted to rehab after completing detox for alcohol dependence. Labs reviewed, V/S stable. Vital Signs (72 hours) 07/26/19 07/26/19 07/27/19 03:30 06:26 03:30 Temperature 97.6 F Pulse Rate 70 Respiratory 18 18 18 Rate Blood Pressure 106/63 07/27/19 07/28/19 07/28/19 06:51 03:30 06:52 Temperature 97.6 F 97.8 F Pulse Rate 75 74 Respiratory 18 18 18 Rate Blood Pressure 104/78 117/74 Continue rehab services.
[2019-07-28] MEDS: THIAMINE HCL 100 MG TABLET (FP) PO SCH (22:09)
[2019-07-29] MEDS: PRENATAL VITAMINS W/ FOLIC ACID TABLET (FP) PO SCH (10:16)
[2019-07-29] MEDS: THIAMINE HCL 100 MG TABLET (FP) PO SCH (21:02)
[2019-07-29] MEDS: ACETAMINOPHEN 325 MG TABLET (FP) PO PRN (21:02)
[2019-07-29] MEDS: MELATONIN 5 MG TABLETS PO PRN (23:21)
[2019-07-30] MEDS: PRENATAL VITAMINS W/ FOLIC ACID TABLET (FP) PO SCH (10:21)
[2019-07-30] MEDS: THIAMINE HCL 100 MG TABLET (FP) PO SCH (21:44)
[2019-07-30] MEDS: ACETAMINOPHEN 325 MG TABLET (FP) PO PRN (21:44)
[2019-07-30] MEDS: MELATONIN 5 MG TABLETS PO PRN (23:15)
[2019-07-31] MEDS: PRENATAL VITAMINS W/ FOLIC ACID TABLET (FP) PO SCH (09:42)
[2019-07-31] MEDS: THIAMINE HCL 100 MG TABLET (FP) PO SCH (22:24)
[2019-08-01] MEDS: PRENATAL VITAMINS W/ FOLIC ACID TABLET (FP) PO SCH (10:02)
[2019-08-01] MEDS: THIAMINE HCL 100 MG TABLET (FP) PO SCH (21:49)
[2019-08-02] MEDS: PRENATAL VITAMINS W/ FOLIC ACID TABLET (FP) PO SCH (10:57)
[2019-08-02] MEDS: THIAMINE HCL 100 MG TABLET (FP) PO SCH (21:45)
[2019-08-02] MEDS: MELATONIN 5 MG TABLETS PO PRN (23:49)
[2019-08-03] MEDS: PRENATAL VITAMINS W/ FOLIC ACID TABLET (FP) PO SCH (10:05)
[2019-08-03] MEDS: THIAMINE HCL 100 MG TABLET (FP) PO SCH (21:05)
[2019-08-03] MEDS: MELATONIN 5 MG TABLETS PO PRN (23:23)
[2019-08-04] MEDS: PRENATAL VITAMINS W/ FOLIC ACID TABLET (FP) PO SCH (10:12)
[2019-08-04] MEDS: THIAMINE HCL 100 MG TABLET (FP) PO SCH (22:38)
[2019-08-04] MEDS: MELATONIN 5 MG TABLETS PO PRN (22:55)
[2019-08-05] MEDS: PRENATAL VITAMINS W/ FOLIC ACID TABLET (FP) PO SCH (10:08)
[2019-08-05] MEDS: THIAMINE HCL 100 MG TABLET (FP) PO SCH (21:10)
[2019-08-05] MEDS: MELATONIN 5 MG TABLETS PO PRN (23:28)
[2019-08-06] MEDS: PRENATAL VITAMINS W/ FOLIC ACID TABLET (FP) PO SCH (10:46)
[2019-08-06] MEDS: MELATONIN 5 MG TABLETS PO PRN (21:43)
[2019-08-06] MEDS: THIAMINE HCL 100 MG TABLET (FP) PO SCH (21:43)
[2019-08-07] MEDS: PRENATAL VITAMINS W/ FOLIC ACID TABLET (FP) PO SCH (10:13)
[2019-08-07] MEDS: THIAMINE HCL 100 MG TABLET (FP) PO SCH (21:39)
[2019-08-07] MEDS: MELATONIN 5 MG TABLETS PO PRN (23:27)
[2019-08-08] MEDS: PRENATAL VITAMINS W/ FOLIC ACID TABLET (FP) PO SCH (11:16)
[2019-08-08] MEDS: THIAMINE HCL 100 MG TABLET (FP) PO SCH (22:05)
[2019-08-08] MEDS: MELATONIN 5 MG TABLETS PO PRN (23:38)
[2019-08-09] MEDS: PRENATAL VITAMINS W/ FOLIC ACID TABLET (FP) PO SCH (10:28)
[2019-08-09] MEDS: THIAMINE HCL 100 MG TABLET (FP) PO SCH (21:54)
[2019-08-09] MEDS: MELATONIN 5 MG TABLETS PO PRN (23:01)
[2019-08-10] MEDS: PRENATAL VITAMINS W/ FOLIC ACID TABLET (FP) PO SCH (10:19)
[2019-08-10] MEDS: THIAMINE HCL 100 MG TABLET (FP) PO SCH (21:38)
[2019-08-10] MEDS: MELATONIN 5 MG TABLETS PO PRN (23:12)
[2019-08-11] MEDS: PRENATAL VITAMINS W/ FOLIC ACID TABLET (FP) PO SCH (10:22)
[2019-08-11] MEDS: THIAMINE HCL 100 MG TABLET (FP) PO SCH (21:35)
[2019-08-11] MEDS: MELATONIN 5 MG TABLETS PO PRN (23:10)
[2019-08-12] MEDS: PRENATAL VITAMINS W/ FOLIC ACID TABLET (FP) PO SCH (10:36)
[2019-08-12] MEDS: THIAMINE HCL 100 MG TABLET (FP) PO SCH (21:32)
[2019-08-12] MEDS: MELATONIN 5 MG TABLETS PO PRN (23:36)
[2019-08-13] MEDS: PRENATAL VITAMINS W/ FOLIC ACID TABLET (FP) PO SCH (10:54)
[2019-08-13] MEDS: THIAMINE HCL 100 MG TABLET (FP) PO SCH (21:30)
[2019-08-13] MEDS: MELATONIN 5 MG TABLETS PO PRN (23:23)
[2019-08-14] MEDS: PRENATAL VITAMINS W/ FOLIC ACID TABLET (FP) PO SCH (10:55)
[2019-08-14] MEDS: THIAMINE HCL 100 MG TABLET (FP) PO SCH (21:41)
[2019-08-14] MEDS: MELATONIN 5 MG TABLETS PO PRN (23:13)
[2019-08-15] MEDS: PRENATAL VITAMINS W/ FOLIC ACID TABLET (FP) PO SCH (10:59)
[2019-08-15] MEDS: THIAMINE HCL 100 MG TABLET (FP) PO SCH (22:40)
[2019-08-15] MEDS: MELATONIN 5 MG TABLETS PO PRN (22:48)
[2019-08-16] MEDS: PRENATAL VITAMINS W/ FOLIC ACID TABLET (FP) PO SCH (10:54)
[2019-08-16] MEDS: THIAMINE HCL 100 MG TABLET (FP) PO SCH (21:46)
[2019-08-16] MEDS: MELATONIN 5 MG TABLETS PO PRN (23:10)
[2019-08-17 06:37] VITALS: BP 114/67; PULSE 67; TEMP 97.4
== END 2019-08-17 09:05 | disposition home or self-care (01) | DRG 772 ==
LOC: YASAS 11:30 → Y3W 11:31
PROVIDERS: ADMIT Neuromusculoskeletal Medicine & OMM; ATTEND Neuromusculoskeletal Medicine & OMM
PROC: HZ42ZZZ Group Counseling for Substance Abuse Treatment, Cognitive-Behavioral (ICD-10-PCS; principal; 2019-07-25)
DX: F10.20 Alcohol dependence, uncomplicated (principal); F17.210 Nicotine dependence, cigarettes, uncomplicated; Z59.0 Homelessness

== ENCOUNTER 2020-02-12 10:21 | Inpatient (IN) | payer OTHER ==
--- NOTE | 2020-02-12 12:16 | BHS.RME ---
Substance Use & Tx History - Substance Use History Alcohol Substance amount: 2pints of vodka/15 of 12 ozs of beer Frequency of use: Daily Substance route: Oral Date of Last Use: 02/12/20 - Last Treatment Date of last treatment: [facility] 07/25/19 to 08/17/19 Where was last treatment: Rehab Physical/Psych/Mental Status - Behavior Eye Contact: Normal - Cooperativeness Cooperativeness: Cooperative - Thinking Thought Processes: Logical Thought content: Future oriented - Physical Health Problems Is patient presently having any pain?: No Does patient presently have any injuries (include location): No Does patient currently have a fever: No CIWA Nausea/Vomitin Muscle Tremors: 2 Anxiety: 3 Agitation: 3 Paroxysmal Sweats: 1-Minimal Palms Moist Orientation: 0-Oriented Tacttile Disturbances: 0-None Auditory Disturbances: 0-None Visual Disturbances: 0-None Headache: 2-Mild CIWA-Ar Total Score: 13
--- NOTE | 2020-02-12 12:38 | HP ---
CIWA Score Nausea/Vomitin Muscle Tremors: 2 Anxiety: 3 Agitation: 3 Paroxysmal Sweats: 1-Minimal Palms Moist Orientation: 0-Oriented Tacttile Disturbances: 0-None Auditory Disturbances: 0-None Visual Disturbances: 0-None Headache: 2-Mild CIWA-Ar Total Score: 13 - Admission Criteria OASAS Guidelines: Admission for Medically Managed Detox: Requires at least one of the followin. CIWA greater than 12 2. Seizures within the past 24 hours 3. Delirium tremens within the past 24 hours 4. Hallucinations within the past 24 hours 5. Acute intervention needed for co occurring medical disorder 6. Acute intervention needed for co occurring psychiatric disorder 7. Severe withdrawal that cannot be handled at a lower level of care (continued vomiting, continued diarrhea, abnormal vital signs) requiring intravenous medication and/or fluids 8. Admitting History and Physical - Admission Chief Complaint: i need help to stop drinking alcohol History of Present Illness: this 34 years old male with alcohol dependence seking detox,withdrawal symptom History Source: Patient Limitations to Obtaining History: No Limitations - Past Medical History SOAKER HIDES: Yes: Syncope - Smoking History Smoking history: Never smoked Have you smoked in the past 12 months: Yes Aproximately how many cigarettes per day: 3 - Alcohol/Substance Use Hx Alcohol Use: Yes History of Substance Use: reports: None Date of Last Use: 02/12/20 - Social History Usual Living Arrangement: Yes: Other (homrless) ADL: Support Services Occupation: unemployed History of Recent Travel: No 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,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,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 Admission ROS S - [facility] Chief Complaint: i need help to stop drinking alcohol Allergies/Adverse Reactions: Allergies Allergy/AdvReac Type Severity Reaction Status Date / Time haloperidol [From Haldol] Allergy Severe Swelling Verified 02/12/20 12:42 ketorolac [From Toradol] AdvReac Severe Swelling Verified 02/12/20 12:42 History of Present Illness: this 34 years old male with alcohol dependence seeking detox,syncope alcohol related Exam Limitations: No Limitations - Ebola screening Have you traveled outside of the country in the last 21 days: No Have you had contact with anyone from an Ebola affected area: No Do you have a fever: No - Review of Systems Constitutional: Night Sweats, Changes in sleep, Weakness EENT: reports: Nose Congestion Respiratory: reports: No Symptoms reported Cardiac: reports: No Symptoms Reported GI: reports: Nausea, Poor Appetite, Vomiting : reports: No Symptoms Reported Musculoskeletal: reports: Back Pain, Muscle Pain Integumentary: reports: Dryness Neuro: reports: Tremors Endocrine: reports: No Symptoms Reported Hematology: reports: No Symptoms Reported Psychiatric: reports: No Sypmtoms Reported, Judgement Intact, Mood/Affect Appropiate, Orientated x3 Other Systems: Reviewed and Negative Patient History - Patient Medical History Hx Anemia: No Hx Asthma: No Hx Chronic Obstructive Pulmonary Disease (COPD): No Hx Cancer: No Hx Cardiac Disorders: No Hx Congestive Heart Failure: No Hx Hypertension: No Hx Hypercholesterolemia: No Hx Pacemaker: No HX Cerebrovascular Accident: No Hx Seizures: No Hx Dementia: No Hx Diabetes: No Hx Gastrointestinal Disorders: No Hx Liver Disease: No Hx Genitourinary Disorders: No Hx Sexually Transmitted Disorders: No Hx Renal Disease (ESRD): No Hx Thyroid Disease: No Hx Human Immunodeficiency Virus (HIV): No (07/2019 negative) Hx Hepatitis C: No Hx Depression: No Hx Suicide Attempt: No Hx Bipolar Disorder: No Hx Schizophrenia: No Other Medical History: no suicidal,no homicidal - Patient Surgical History Past Surgical History: No Hx Neurologic Surgery: No Hx Cataract Extraction: No Hx Cardiac Surgery: No Hx Lung Surgery: No Hx Breast Surgery: No Hx Breast Biopsy: No Hx Abdominal Surgery: No Hx Appendectomy: No Hx Cholecystectomy: No Hx Genitourinary Surgery: No Hx Orthopedic Surgery: No Anesthesia Reaction: No - PPD History Previous Implant?: Yes Documented Results: Negative w/proof Implanted On Prior [facility] Admission?: Yes Date: 05/01/19 Results: 0 mm PPD to be Administered?: No - Smoking Cessation Smoking history: Never smoked Have you smoked in the past 12 months: Yes Aproximately how many cigarettes per day: 3 Hx Chewing Tobacco Use: No Initiated information on smoking cessation: Yes 'Breaking Loose' booklet given: 02/12/20 - Substance & Tx. History Hx Alcohol Use: Yes Hx Substance Use: No Substance Use Type: Alcohol Hx Substance Use Treatment: Yes ([facility] Rehab 07/25/29 to 08/17/19) - Substances abused Alcohol Frequency: Daily Amount used: 2pints of vodka/15 of 12 ozs of beer Age of first use: 18 Date of last use: 02/12/20 Admission Physical Exam BHS - Vital Signs Vital Signs: t98.2,p74,r18.bp149/80 - Physical General Appearance: Yes: Moderate Distress, Tremorous, Irritable, Sweating, Anxious HEENTM: Yes: Normal ENT Inspection, Normocephalic, ALVA Respiratory: Yes: Lungs Clear, Normal Breath Sounds, No Respiratory Distress Neck: Yes: Within Normal Limits, Supple, Trachea in good position Breast: Yes: Within Normal Limits Cardiology: Yes: Within Normal Limits, Regular Rhythm, Regular Rate, S1, S2 Abdominal: Yes: Within Normal Limits, Normal Bowel Sounds, Non Tender, Soft Genitourinary: Yes: Within Normal Limits Back: Yes: Normal Inspection, Muscle Spasm Musculoskeletal: Yes: Back pain, Muscle Pain Extremities: Yes: Tremors 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: Yes: Within Normal Limits, 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 NML intact, Fully Oriented, Alert, Motor Strength 5/5 Integumentary: Yes: Dry Lymphatic: Yes: Within Normal Limits - Diagnostic (1) Alcohol dependence with withdrawal Status: Acute Qualifiers: Complication of substance-induced condition: uncomplicated Qualified Code(s): F10.230 - Alcohol dependence with withdrawal, uncomplicated (2) Nicotine dependence Status: Chronic Qualifiers: Nicotine product type: cigarettes Substance use status: in withdrawal Qualified Code(s): F17.213 - Nicotine dependence, cigarettes, with withdrawal (3) History of syncope Status: Chronic (4) Alcohol dependence with intoxication Status: Acute Cleared for Admission [facility] - Detox or Rehab [facility] Level of Care: Medically Managed Detox Regimen/Protocol: Librium Breathalyzer - Breathalyzer Breathalyzer: 0.081 Urine Drug Screen - Test Device Lot number: [id number] Expiration date: 03/27/21 - Control Is test valid?: Yes - Results Drug screen NEGATIVE: No Urine drug screen results: THC-Marijuana Inpatient Rehab Admission - Rehab Decision to Admit Inpatient rehab admission?: No
[2020-02-12] MEDS ORDERED: METHOCARBAMOL 500 MG TABLET PO PRN (12:46)
[2020-02-12] MEDS ORDERED: ACETAMINOPHEN 325 MG TABLET (FP) PO PRN ×2 (12:46)
[2020-02-12] MEDS ORDERED: IBUPROFEN 400 MG TABLET (FP) PO PRN (12:46)
[2020-02-12] MEDS ORDERED: chlordiazePOXIDE HCL 25 MG CAPSULE PO PRN (12:46)
[2020-02-12] MEDS ORDERED: NICOTINE POLACRILEX 2 MG GUM BUC PRN (12:46)
[2020-02-12] MEDS ORDERED: ONDANSETRON *ODT* 4 MG TABLET SL ONE (12:46)
[2020-02-12] MEDS ORDERED: MENTHOL/PHENOL 1 EACH UD MM PRN (12:46)
[2020-02-12] MEDS ORDERED: BISMUTH SUBSALICYLATE 524 MG/30 ML UD PO PRN (12:46)
[2020-02-12] MEDS ORDERED: MAGNESIUM HYDROX 2400MG/30ML ORAL SUSPENSION 30 ML CUP PO PRN (12:46)
[2020-02-12] MEDS ORDERED: MAGNESIUM CITRATE 300 ML BOTTLE PO PRN (12:46)
[2020-02-12] MEDS ORDERED: MAG HYDROX/AL HYDROX/SIMETH 30 ML UNIT-DOSE CUP PO PRN (12:46)
[2020-02-12 12:47] VITALS: BMI 23.8
[2020-02-12] MEDS: hydrOXYzine PAMOATE 25 MG CAPSULE (FP) PO SCH ×3 (13:41→22:08)
[2020-02-12] MEDS: chlordiazePOXIDE HCL 25 MG CAPSULE PO SCH ×2 (17:39→22:07)
[2020-02-12 17:58] LABS: URINE APPEARANCE TURBID; URINE BILIRUBIN NEGATIVE (NEGATIVE); URINE COLOR YELLOW; URINE GLUCOSE (UA) NEGATIVE (NEGATIVE); URINE KETONE NEGATIVE (NEGATIVE); URINE LEUK ESTERASE NEGATIVE (NEGATIVE); URINE NITRITE NEGATIVE (NEGATIVE); URINE PROTEIN NEGATIVE (NEGATIVE); URINE UROBILINOGEN 0.2 mg/dL (0.2-1.0)
[2020-02-12] MEDS: THIAMINE HCL 100 MG TABLET (FP) PO SCH (22:08)
[2020-02-12] MEDS: MELATONIN 5 MG TABLETS PO SCH (22:08)
[2020-02-13] MEDS: hydrOXYzine PAMOATE 25 MG CAPSULE (FP) PO SCH ×5 (06:05→22:07)
[2020-02-13] MEDS: chlordiazePOXIDE HCL 25 MG CAPSULE PO SCH ×4 (06:05→22:06)
[2020-02-13] MEDS: NICOTINE 7 MG/24 HOURS TOPICAL PATCH TD SCH (10:44)
[2020-02-13] MEDS: PRENATAL VITAMINS W/ FOLIC ACID TABLET (FP) PO SCH (10:44)
[2020-02-13 12:08] LABS: HEMATOCRIT 42.3 % (35.4-49); HEMOGLOBIN 14.3 GM/dL (11.7-16.9); MCHC 33.7 g/dl (32.0-35.9); MEAN CELL VOLUME 100.8 fl (80-96); MEAN PLT VOLUME 10.3 fl (7.5-11.1); PLATELET COUNT 119 K/MM3 (134-434); RDW 11.9 % (11.9-15.9); WHITE BLOOD COUNT 3.5 K/mm3 (4.0-10.0)
[2020-02-13 12:20] LABS: BILIRUBIN,TOTAL 0.8 mg/dL (0.2-1); BLOOD UREA NITROGEN 6.7 mg/dL (7-18); CALCIUM 8.8 mg/dL (8.5-10.1); CREATININE 0.8 mg/dL (0.55-1.3); POTASSIUM 3.8 mmol/L (3.5-5.1)
--- NOTE | 2020-02-13 13:03 | PN ---
[facility] CIWA - CIWA Score Nausea/Vomitin-Mild Nausea/No Vomiting Muscle Tremors: 2 Anxiety: 2 Agitation: 2 Paroxysmal Sweats: 2 Orientation: 0-Oriented Tacttile Disturbances: 1-Very Mild Itch/Numbness Auditory Disturbances: 0-None Visual Disturbances: 1-Very Mild Sensitivity Headache: 0-None Present CIWA-Ar Total Score: 11 S Progress Note (SOAP) Subjective: 34 years old male admitted on 02/12/20 for alcohol withdrawal sx management treating with librium detox regiment report lower right lateral abdominal local sharp 3/10 pain that "years" ago gallbladder removed has regular bowel movement daily denies trouble urination denies VOMITING abdomen soft multiple bruises from insulin sq non tender none diffuse none radiate sharp pain periodically HYPERBOWEL SOUND ON RIGHT LOWER QUADRIAL GASSY GAS X DISCONTINUE MOTRIN PEPCID 20 MG PO BID GAS X QID Objective: 02/13/20 13:05 Vital Signs - 24 hr 02/12/20 02/12/20 02/12/20 13:30 14:08 16:55 Temperature 97.5 F L 98.2 F 96.7 F L Pulse Rate 77 74 87 Respiratory 18 18 18 Rate Blood Pressure 125/72 149/80 133/60 O2 Sat by Pulse 96 96 96 Oximetry (%) 02/12/20 02/13/20 02/13/20 20:58 05:59 08:52 Temperature 98.4 F 97.8 F 97.7 F Pulse Rate 87 51 L 74 Respiratory 18 18 18 Rate Blood Pressure 139/94 106/69 100/64 O2 Sat by Pulse 96 96 Oximetry (%) Laboratory Tests 02/12/20 02/13/20 02/13/20 13:45 07:25 07:25 WBC 3.5 L RBC 4.20 Hgb 14.3 Hct 42.3 MCV 100.8 H MCH 34.0 H MCHC 33.7 RDW 11.9 Plt Count 119 L D MPV 10.3 D Sodium Potassium Chloride Carbon Dioxide Anion Gap BUN Creatinine Est GFR (CKD-EPI)AfAm Est GFR (CKD-EPI)NonAf Random Glucose Calcium Total Bilirubin AST ALT Alkaline Phosphatase Total Protein Albumin Urine Color Yellow Urine Appearance Turbid Urine pH 5.0 D Ur Specific [place] 1.020 Urine Protein Negative Urine Glucose (UA) Negative Urine Ketones Negative Urine Blood Negative Urine Nitrite Negative Urine Bilirubin Negative Urine Urobilinogen 0.2 Ur Leukocyte Esterase Negative Syphilis Serology Non-reactive 02/13/20 07:25 WBC RBC Hgb Hct MCV MCH MCHC RDW Plt Count MPV Sodium 141 Potassium 3.8 Chloride 105 Carbon Dioxide 29 Anion Gap 7 L BUN 6.7 L Creatinine 0.8 Est GFR (CKD-EPI)AfAm 136.99 Est GFR (CKD-EPI)NonAf 118.20 Random Glucose 86 Calcium 8.8 Total Bilirubin 0.8 AST 74 H ALT 125 H Alkaline Phosphatase 128 H Total Protein 6.0 L Albumin 3.0 L Urine Color Urine Appearance Urine pH Ur Specific [place] Urine Protein Urine Glucose (UA) Urine Ketones Urine Blood Urine Nitrite Urine Bilirubin Urine Urobilinogen Ur Leukocyte Esterase Syphilis Serology LAB NOTED Assessment: 02/13/20 13:06 ALCOHOL WITHDRAWAL GERD FLATULENT Plan: LIBRIUM REGIMENT PEPCID 20 MG PO BID GAS X DISCONTINUE MOTRIN
[2020-02-13] MEDS: FAMOTIDINE 20 MG TABLET PO SCH ×2 (14:17→22:06)
[2020-02-13] MEDS: SIMETHICONE 80 MG TAB.CHEW (FP) PO SCH ×3 (15:24→22:08)
[2020-02-13] MEDS: THIAMINE HCL 100 MG TABLET (FP) PO SCH (22:06)
[2020-02-13] MEDS: MELATONIN 5 MG TABLETS PO SCH (22:07)
[2020-02-14] MEDS: hydrOXYzine PAMOATE 25 MG CAPSULE (FP) PO SCH ×5 (06:57→22:38)
[2020-02-14] MEDS: chlordiazePOXIDE HCL 25 MG CAPSULE PO SCH ×4 (06:57→22:38)
[2020-02-14] MEDS: SIMETHICONE 80 MG TAB.CHEW (FP) PO SCH ×5 (10:36→22:39)
[2020-02-14] MEDS: NICOTINE 7 MG/24 HOURS TOPICAL PATCH TD SCH (10:36)
[2020-02-14] MEDS: PRENATAL VITAMINS W/ FOLIC ACID TABLET (FP) PO SCH (10:37)
[2020-02-14] MEDS: FAMOTIDINE 20 MG TABLET PO SCH ×2 (10:37→22:38)
--- NOTE | 2020-02-14 13:13 | PN ---
S CIWA - CIWA Score Nausea/Vomitin-No Nausea/No Vomiting Muscle Tremors: 3 Anxiety: 4-Mod. Anxious/Guarded Agitation: 2 Paroxysmal Sweats: 2 Orientation: 0-Oriented Tacttile Disturbances: 0-None Auditory Disturbances: 0-None Visual Disturbances: 0-None Headache: 0-None Present CIWA-Ar Total Score: 11 S Progress Note (SOAP) Subjective: c/o anxiety sweats intermittent sleep Objective: 02/14/20 14:16 Vital Signs - 24 hr 02/13/20 02/13/20 02/14/20 16:34 20:26 05:58 Temperature 97.8 F 97.5 F L 98.2 F Pulse Rate 72 70 70 Respiratory 18 18 18 Rate Blood Pressure 118/69 118/58 L 97/55 L O2 Sat by Pulse 96 97 Oximetry (%) 02/14/20 13:15 Temperature 98.4 F Pulse Rate 65 Respiratory Rate Blood Pressure 107/61 O2 Sat by Pulse 95 Oximetry (%) Laboratory Tests 02/12/20 02/13/20 02/13/20 13:45 07:25 07:25 WBC 3.5 L RBC 4.20 Hgb 14.3 Hct 42.3 MCV 100.8 H MCH 34.0 H MCHC 33.7 RDW 11.9 Plt Count 119 L D MPV 10.3 D Sodium Potassium Chloride Carbon Dioxide Anion Gap BUN Creatinine Est GFR (CKD-EPI)AfAm Est GFR (CKD-EPI)NonAf Random Glucose Calcium Total Bilirubin AST ALT Alkaline Phosphatase Total Protein Albumin Urine Color Yellow Urine Appearance Turbid Urine pH 5.0 D Ur Specific [place] 1.020 Urine Protein Negative Urine Glucose (UA) Negative Urine Ketones Negative Urine Blood Negative Urine Nitrite Negative Urine Bilirubin Negative Urine Urobilinogen 0.2 Ur Leukocyte Esterase Negative Syphilis Serology Non-reactive 02/13/20 07:25 WBC RBC Hgb Hct MCV MCH MCHC RDW Plt Count MPV Sodium 141 Potassium 3.8 Chloride 105 Carbon Dioxide 29 Anion Gap 7 L BUN 6.7 L Creatinine 0.8 Est GFR (CKD-EPI)AfAm 136.99 Est GFR (CKD-EPI)NonAf 118.20 Random Glucose 86 Calcium 8.8 Total Bilirubin 0.8 AST 74 H ALT 125 H Alkaline Phosphatase 128 H Total Protein 6.0 L Albumin 3.0 L Urine Color Urine Appearance Urine pH Ur Specific [place] Urine Protein Urine Glucose (UA) Urine Ketones Urine Blood Urine Nitrite Urine Bilirubin Urine Urobilinogen Ur Leukocyte Esterase Syphilis Serology labs noted-abnormal liver enzymes covid-19 result pending Assessment: 02/14/20 14:18 withdrawal sx Plan: continue detox increase po fluids maintain safety Repeat CMP, CBC; INR
[2020-02-14] MEDS: THIAMINE HCL 100 MG TABLET (FP) PO SCH (22:38)
[2020-02-14] MEDS: MELATONIN 5 MG TABLETS PO SCH (22:38)
[2020-02-15] MEDS ORDERED: chlordiazePOXIDE HCL 10 MG CAPSULE PO PRN
[2020-02-15 05:58] VITALS: BP 100/58; PULSE 60; TEMP 97.4
[2020-02-15] MEDS: chlordiazePOXIDE HCL 10 MG CAPSULE PO SCH ×2 (06:09→11:11)
[2020-02-15] MEDS: hydrOXYzine PAMOATE 25 MG CAPSULE (FP) PO SCH ×2 (06:09→11:10)
--- NOTE | 2020-02-15 09:36 | PN ---
S CIWA - CIWA Score Nausea/Vomitin-No Nausea/No Vomiting Muscle Tremors: None Anxiety: 2 Agitation: 0-Normal Activity Paroxysmal Sweats: No Perspiration Orientation: 0-Oriented Tacttile Disturbances: 0-None Auditory Disturbances: 0-None Visual Disturbances: 0-None Headache: 0-None Present CIWA-Ar Total Score: 2 BHS Progress Note (SOAP) Subjective: c/o Sweats Anxiety intermittent sleep Objective: 02/15/20 09:37 Vital Signs - 24 hr 02/14/20 02/14/20 02/15/20 13:15 21:39 05:54 Temperature 98.4 F 98.0 F 97.7 F Pulse Rate 65 69 66 Respiratory 18 18 Rate Blood Pressure 107/61 106/66 145/90 O2 Sat by Pulse 95 98 97 Oximetry (%) 02/15/20 05:57 Temperature 97.4 F L Pulse Rate 60 Respiratory 18 Rate Blood Pressure 100/58 L O2 Sat by Pulse 96 Oximetry (%) Laboratory Tests 02/12/20 02/12/20 02/13/20 13:10 13:45 07:25 WBC RBC Hgb Hct MCV MCH MCHC RDW Plt Count MPV Sodium Potassium Chloride Carbon Dioxide Anion Gap BUN Creatinine Est GFR (CKD-EPI)AfAm Est GFR (CKD-EPI)NonAf Random Glucose Calcium Total Bilirubin AST ALT Alkaline Phosphatase Total Protein Albumin Urine Color Yellow Urine Appearance Turbid Urine pH 5.0 D Ur Specific [place] 1.020 Urine Protein Negative Urine Glucose (UA) Negative Urine Ketones Negative Urine Blood Negative Urine Nitrite Negative Urine Bilirubin Negative Urine Urobilinogen 0.2 Ur Leukocyte Esterase Negative Syphilis Serology Non-reactive COVID-19 (KATYA) Not detected 02/13/20 02/13/20 07:25 07:25 WBC 3.5 L RBC 4.20 Hgb 14.3 Hct 42.3 MCV 100.8 H MCH 34.0 H MCHC 33.7 RDW 11.9 Plt Count 119 L D MPV 10.3 D Sodium 141 Potassium 3.8 Chloride 105 Carbon Dioxide 29 Anion Gap 7 L BUN 6.7 L Creatinine 0.8 Est GFR (CKD-EPI)AfAm 136.99 Est GFR (CKD-EPI)NonAf 118.20 Random Glucose 86 Calcium 8.8 Total Bilirubin 0.8 AST 74 H ALT 125 H Alkaline Phosphatase 128 H Total Protein 6.0 L Albumin 3.0 L Urine Color Urine Appearance Urine pH Ur Specific [place] Urine Protein Urine Glucose (UA) Urine Ketones Urine Blood Urine Nitrite Urine Bilirubin Urine Urobilinogen Ur Leukocyte Esterase Syphilis Serology COVID-19 (KATYA) Assessment: 02/15/20 10:25 medically stable mild withdrawal sx Plan: cont detox
[2020-02-15 10:02] LABS: HEMATOCRIT 43.8 % (35.4-49); HEMOGLOBIN 14.6 GM/dL (11.7-16.9); MCH 33.7 pg (25.7-33.7); MCHC 33.4 g/dl (32.0-35.9); MEAN CELL VOLUME 101.1 fl (80-96); PLATELET COUNT 136 K/MM3 (134-434); RBC 4.33 M/mm3 (4.00-5.60); WHITE BLOOD COUNT 3.8 K/mm3 (4.0-10.0)
[2020-02-15 10:16] LABS: INR 0.91 (0.83-1.09); PROTHROMBIN TIME (PATIENT) 10.7 SEC (9.7-13.0)
[2020-02-15 10:25] LABS: ALBUMIN 2.9 g/dl (3.4-5.0); BILIRUBIN,TOTAL 0.6 mg/dL (0.2-1); BLOOD UREA NITROGEN 11.8 mg/dL (7-18); CALCIUM 8.3 mg/dL (8.5-10.1); CREATININE 0.8 mg/dL (0.55-1.3); POTASSIUM 3.9 mmol/L (3.5-5.1)
--- NOTE | 2020-02-15 10:30 | DS ---
[facility] Detox Discharge Summary Admission Date: 02/12/20 Discharge Date: 02/15/20 - History Present History: Alcohol Dependence, Cannabis Dependence Additional Comments: Pt requesting for early discharge today to attend to family matters. Pt is alert o x 3. In no acute distress. Ambulating with steady gait. Detox proceeded safely. Medically stable. Pertinent Past History: Hx Leg Pain - Physical Exam Results Vital Signs: Vital Signs Temperature 97.4 F L 02/15/20 05:57 Pulse Rate 60 02/15/20 05:57 Respiratory Rate 18 02/15/20 05:57 Blood Pressure 100/58 L 02/15/20 05:57 O2 Sat by Pulse Oximetry (%) 96 02/15/20 05:57 Alert o x 3 nad oob ambulating with steady gait Active ROM all extremities. Pertinent Admission Physical Exam Findings: Laboratory Tests 02/12/20 02/12/20 02/13/20 13:10 13:45 07:25 WBC RBC Hgb Hct MCV MCH MCHC RDW Plt Count MPV PT with INR INR Sodium Potassium Chloride Carbon Dioxide Anion Gap BUN Creatinine Est GFR (CKD-EPI)AfAm Est GFR (CKD-EPI)NonAf Random Glucose Calcium Total Bilirubin AST ALT Alkaline Phosphatase Total Protein Albumin Urine Color Yellow Urine Appearance Turbid Urine pH 5.0 D Ur Specific [place] 1.020 Urine Protein Negative Urine Glucose (UA) Negative Urine Ketones Negative Urine Blood Negative Urine Nitrite Negative Urine Bilirubin Negative Urine Urobilinogen 0.2 Ur Leukocyte Esterase Negative Syphilis Serology Non-reactive COVID-19 (KATYA) Not detected 02/13/20 02/13/20 02/15/20 07:25 07:25 07:50 WBC 3.5 L RBC 4.20 Hgb 14.3 Hct 42.3 MCV 100.8 H MCH 34.0 H MCHC 33.7 RDW 11.9 Plt Count 119 L D MPV 10.3 D PT with INR INR Sodium 141 141 Potassium 3.8 3.9 Chloride 105 106 Carbon Dioxide 29 28 Anion Gap 7 L 7 L BUN 6.7 L 11.8 Creatinine 0.8 0.8 Est GFR (CKD-EPI)AfAm 136.99 136.99 Est GFR (CKD-EPI)NonAf 118.20 118.20 Random Glucose 86 80 Calcium 8.8 8.3 L Total Bilirubin 0.8 0.6 AST 74 H 89 H ALT 125 H 124 H Alkaline Phosphatase 128 H 127 H Total Protein 6.0 L 6.0 L Albumin 3.0 L 2.9 L Urine Color Urine Appearance Urine pH Ur Specific [place] Urine Protein Urine Glucose (UA) Urine Ketones Urine Blood Urine Nitrite Urine Bilirubin Urine Urobilinogen Ur Leukocyte Esterase Syphilis Serology COVID-19 (KATYA) 02/15/20 02/15/20 07:50 08:00 WBC 3.8 L RBC 4.33 Hgb 14.6 Hct 43.8 MCV 101.1 H MCH 33.7 MCHC 33.4 RDW 12.0 Plt Count 136 MPV 11.0 PT with INR 10.70 INR 0.91 Sodium Potassium Chloride Carbon Dioxide Anion Gap BUN Creatinine Est GFR (CKD-EPI)AfAm Est GFR (CKD-EPI)NonAf Random Glucose Calcium Total Bilirubin AST ALT Alkaline Phosphatase Total Protein Albumin Urine Color Urine Appearance Urine pH Ur Specific [place] Urine Protein Urine Glucose (UA) Urine Ketones Urine Blood Urine Nitrite Urine Bilirubin Urine Urobilinogen Ur Leukocyte Esterase Syphilis Serology COVID-19 (KATYA) Pt instructed to follow up with his PCP with copy of his lab result for medical management. - Treatment Hospital Course: Detox Protocol Followed, Detoxed Safely, Responded well, Discharged Condition Good, Rehab Referral Accepted Patient has Accepted a Rehab Referral to: [facility] for primary Care - Medication Discharge Medications: Ambulatory Orders NK [No Known Home Medication] 04/28/19 - Diagnosis (1) Alcohol dependence with withdrawal Current Visit: Yes Status: Acute Qualifiers: Complication of substance-induced condition: uncomplicated Qualified Code(s): F10.230 - Alcohol dependence with withdrawal, uncomplicated (2) Nicotine dependence Current Visit: Yes Status: Chronic Qualifiers: Nicotine product type: cigarettes Substance use status: in withdrawal Qualified Code(s): F17.213 - Nicotine dependence, cigarettes, with withdrawal - AMA Did Patient Leave Against Medical Advice: No
[2020-02-15] MEDS: SIMETHICONE 80 MG TAB.CHEW (FP) PO SCH (11:10)
[2020-02-15] MEDS: NICOTINE 7 MG/24 HOURS TOPICAL PATCH TD SCH (11:10)
[2020-02-15] MEDS: FAMOTIDINE 20 MG TABLET PO SCH (11:10)
[2020-02-15] MEDS: PRENATAL VITAMINS W/ FOLIC ACID TABLET (FP) PO SCH (11:10)
[2020-02-16] MEDS ORDERED: chlordiazePOXIDE HCL 10 MG CAPSULE PO SCH (05:00)
[2020-02-17] MEDS ORDERED: chlordiazePOXIDE HCL 10 MG CAPSULE PO ONE (05:00)
== END 2020-02-15 11:30 | disposition home or self-care (01) | DRG 776 ==
LOC: YASAS 10:21 → Y5N DETOX 13:03
PROVIDERS: ADMIT Allergy & Immunology; ATTEND Allergy & Immunology
PROC: HZ2ZZZZ Detoxification Services for Substance Abuse Treatment (ICD-10-PCS; principal; 2020-02-12)
DX: F12.20 Cannabis dependence, uncomplicated (principal); F17.210 Nicotine dependence, cigarettes, uncomplicated; K21.9 Gastro-esophageal reflux disease without esophagitis; R14.3 Flatulence; R14.1 Gas pain; R10.31 Right lower quadrant pain; R74.0 Nonspecific elevation of levels of transaminase and lactic acid dehydrogenase [LDH]; Z90.49 Acquired absence of other specified parts of digestive tract; Z88.8 Allergy status to other drugs, medicaments and biological substances; Z59.0 Homelessness
CPT/HCPCS: 36415; 80053; 81003; 85027; 85610; 86780; U0003

== ENCOUNTER 2020-03-12 14:26 | Inpatient (IN) | payer OTHER ==
--- NOTE | 2020-03-12 16:06 | HP ---
[facility] Rehab Assess/Revision - Admission History Admitted to Rehab from: [facility] Date of Admission to Rehab: 03/12/20 - Findings Detox History & Physical reviewed: Yes Concur with findings: Yes Comments/Additional Findings: for rehab as protocol Inpatient Rehab Admission - Rehab Decision to Admit Inpatient rehab admission?: Yes - Initial Determination Are CD services needed?: Yes Free of communicable disease: Yes Not in need of hospitalization: Yes - Rehab Admission Criteria Previous failed treatment: Yes Poor recovery environment: Yes Comorbidities: Yes Lacks judgement: No Patient is meeting Inpatient Rehab admission criteria:: Yes
[2020-03-12] MEDS ORDERED: LOPERAMIDE HCL 2 MG CAPSULE PO PRN (16:07)
[2020-03-12] MEDS ORDERED: MENTHOL/PHENOL 1 EACH UD MM PRN (16:07)
[2020-03-12] MEDS ORDERED: MAG HYDROX/AL HYDROX/SIMETH 30 ML UNIT-DOSE CUP PO PRN (16:07)
[2020-03-12] MEDS ORDERED: NICOTINE POLACRILEX 2 MG GUM BUC PRN (16:07)
[2020-03-12] MEDS ORDERED: MAGNESIUM CITRATE 300 ML BOTTLE PO PRN (16:07)
[2020-03-12] MEDS ORDERED: MAGNESIUM HYDROX 2400MG/30ML ORAL SUSPENSION 30 ML CUP PO PRN (16:07)
[2020-03-12] MEDS ORDERED: guaiFENesin 200 MG/10 ML 10 ML UNIT-DOSE CUPS PO PRN (16:07)
[2020-03-12] MEDS ORDERED: P-EPHED 60MG/TRIPROLIDI 2.5MG TABLET PO PRN (16:07)
[2020-03-12] MEDS ORDERED: ACETAMINOPHEN 325 MG TABLET (FP) PO PRN (16:07)
[2020-03-12] MEDS: hydrOXYzine PAMOATE 25 MG CAPSULE (FP) PO SCH ×2 (17:56→21:43)
[2020-03-12] MEDS: MELATONIN 5 MG TABLETS PO SCH (21:43)
[2020-03-12] MEDS: THIAMINE HCL 100 MG TABLET (FP) PO SCH (21:43)
[2020-03-13] MEDS: hydrOXYzine PAMOATE 25 MG CAPSULE (FP) PO SCH ×5 (06:50→22:05)
[2020-03-13] MEDS: NICOTINE 7 MG/24 HOURS TOPICAL PATCH TD SCH (10:37)
[2020-03-13] MEDS: PRENATAL VITAMINS W/ FOLIC ACID TABLET (FP) PO SCH (10:37)
[2020-03-13] MEDS ORDERED: METHYL SALICYLATE/MENTHOL OINT 30 GM TUBE TP SCH (22:00)
[2020-03-13] MEDS: MELATONIN 5 MG TABLETS PO SCH (22:05)
[2020-03-13] MEDS: THIAMINE HCL 100 MG TABLET (FP) PO SCH (22:06)
[2020-03-13] MEDS: METHOCARBAMOL 500 MG TABLET PO PRN (22:06)
[2020-03-14] MEDS: hydrOXYzine PAMOATE 25 MG CAPSULE (FP) PO SCH ×5 (06:31→21:55)
[2020-03-14] MEDS: METHOCARBAMOL 500 MG TABLET PO PRN ×2 (06:31→18:04)
[2020-03-14] MEDS: PRENATAL VITAMINS W/ FOLIC ACID TABLET (FP) PO SCH (10:45)
[2020-03-14] MEDS: NICOTINE 7 MG/24 HOURS TOPICAL PATCH TD SCH (10:46)
[2020-03-14] MEDS: THIAMINE HCL 100 MG TABLET (FP) PO SCH (21:55)
[2020-03-14] MEDS: MELATONIN 5 MG TABLETS PO SCH (21:56)
[2020-03-15] MEDS: hydrOXYzine PAMOATE 25 MG CAPSULE (FP) PO SCH ×5 (07:54→21:42)
[2020-03-15] MEDS: PRENATAL VITAMINS W/ FOLIC ACID TABLET (FP) PO SCH (10:40)
[2020-03-15] MEDS: NICOTINE 7 MG/24 HOURS TOPICAL PATCH TD SCH (10:41)
[2020-03-15] MEDS: METHOCARBAMOL 500 MG TABLET PO PRN ×2 (10:53→21:42)
--- NOTE | 2020-03-15 14:15 | PN ---
S Progress Note Note: Pt is a 34 y/o male admitted to rehab from detox [address] [place] [address]. Lab done in detox reviewed with elevated liver enzymes. Vital Signs - 24 hr 03/14/20 03/15/20 20:22 07:19 O2 Sat by Pulse 98 98 Oximetry (%) Vital Signs (72 hours) 03/12/20 03/13/20 03/13/20 20:12 07:33 12:22 Temperature 97.8 F Pulse Rate 63 Respiratory 18 Rate Blood Pressure 108/83 O2 Sat by Pulse 95 95 96 Oximetry (%) 03/13/20 03/14/20 03/14/20 20:21 06:29 20:22 Temperature 97.1 F L Pulse Rate 55 L Respiratory 16 Rate Blood Pressure 100/59 L O2 Sat by Pulse 98 96 98 Oximetry (%) 03/15/20 07:19 Temperature Pulse Rate Respiratory Rate Blood Pressure O2 Sat by Pulse 98 Oximetry (%) Alert o x 3 nad oob ambulating with steady gait increase po fluids Will Repeat ALT/AST/Alk Phos;INR
[2020-03-15] MEDS: THIAMINE HCL 100 MG TABLET (FP) PO SCH (21:42)
[2020-03-15] MEDS: MELATONIN 5 MG TABLETS PO SCH (21:43)
[2020-03-16] MEDS: hydrOXYzine PAMOATE 25 MG CAPSULE (FP) PO SCH ×5 (06:16→21:25)
[2020-03-16] MEDS: METHOCARBAMOL 500 MG TABLET PO PRN ×2 (06:18→21:25)
[2020-03-16] MEDS: PRENATAL VITAMINS W/ FOLIC ACID TABLET (FP) PO SCH (09:45)
[2020-03-16] MEDS: NICOTINE 7 MG/24 HOURS TOPICAL PATCH TD SCH (09:46)
[2020-03-16 10:39] LABS: INR 0.92 (0.83-1.09); PROTHROMBIN TIME (PATIENT) 10.9 SEC (9.7-13.0)
[2020-03-16 10:52] LABS: ALK PHOS 125 U/L (45-117); SGOT/AST 42 U/L (15-37); SGPT/ALT 95 U/L (13-61)
[2020-03-16] MEDS: THIAMINE HCL 100 MG TABLET (FP) PO SCH (21:25)
[2020-03-16] MEDS: MELATONIN 5 MG TABLETS PO SCH (21:25)
[2020-03-17] MEDS: hydrOXYzine PAMOATE 25 MG CAPSULE (FP) PO SCH ×5 (06:17→21:46)
[2020-03-17] MEDS: PRENATAL VITAMINS W/ FOLIC ACID TABLET (FP) PO SCH (09:10)
[2020-03-17] MEDS: NICOTINE 7 MG/24 HOURS TOPICAL PATCH TD SCH (09:11)
[2020-03-17] MEDS: THIAMINE HCL 100 MG TABLET (FP) PO SCH (21:46)
[2020-03-17] MEDS: METHOCARBAMOL 500 MG TABLET PO PRN (21:46)
[2020-03-17] MEDS: MELATONIN 5 MG TABLETS PO SCH (21:46)
[2020-03-18] MEDS: hydrOXYzine PAMOATE 25 MG CAPSULE (FP) PO SCH ×5 (06:19→21:29)
[2020-03-18] MEDS: METHOCARBAMOL 500 MG TABLET PO PRN ×2 (06:20→21:29)
[2020-03-18] MEDS: PRENATAL VITAMINS W/ FOLIC ACID TABLET (FP) PO SCH (09:57)
[2020-03-18] MEDS: NICOTINE 7 MG/24 HOURS TOPICAL PATCH TD SCH (09:57)
[2020-03-18] MEDS: MELATONIN 5 MG TABLETS PO SCH (21:29)
[2020-03-18] MEDS: THIAMINE HCL 100 MG TABLET (FP) PO SCH (21:29)
[2020-03-19] MEDS: hydrOXYzine PAMOATE 25 MG CAPSULE (FP) PO SCH ×5 (06:36→21:35)
[2020-03-19] MEDS: NICOTINE 7 MG/24 HOURS TOPICAL PATCH TD SCH (10:00)
[2020-03-19] MEDS: PRENATAL VITAMINS W/ FOLIC ACID TABLET (FP) PO SCH (10:01)
[2020-03-19] MEDS: METHOCARBAMOL 500 MG TABLET PO PRN ×2 (10:02→21:35)
[2020-03-19] MEDS: MELATONIN 5 MG TABLETS PO SCH (21:35)
[2020-03-19] MEDS: THIAMINE HCL 100 MG TABLET (FP) PO SCH (21:35)
[2020-03-20] MEDS: hydrOXYzine PAMOATE 25 MG CAPSULE (FP) PO SCH ×5 (06:43→21:29)
[2020-03-20] MEDS: PRENATAL VITAMINS W/ FOLIC ACID TABLET (FP) PO SCH (10:15)
[2020-03-20] MEDS: NICOTINE 7 MG/24 HOURS TOPICAL PATCH TD SCH (10:16)
[2020-03-20] MEDS ORDERED: COLLOIDAL OATMEAL 1 BAR EACH TP PRN (11:06)
[2020-03-20] MEDS: MELATONIN 5 MG TABLETS PO SCH (21:29)
[2020-03-20] MEDS: METHOCARBAMOL 500 MG TABLET PO PRN (21:29)
[2020-03-20] MEDS: THIAMINE HCL 100 MG TABLET (FP) PO SCH (21:29)
[2020-03-21] MEDS: hydrOXYzine PAMOATE 25 MG CAPSULE (FP) PO SCH ×5 (06:21→21:20)
[2020-03-21] MEDS: PRENATAL VITAMINS W/ FOLIC ACID TABLET (FP) PO SCH (09:11)
[2020-03-21] MEDS: NICOTINE 7 MG/24 HOURS TOPICAL PATCH TD SCH (09:12)
[2020-03-21] MEDS: THIAMINE HCL 100 MG TABLET (FP) PO SCH (21:20)
[2020-03-21] MEDS: METHOCARBAMOL 500 MG TABLET PO PRN (21:20)
[2020-03-21] MEDS: MELATONIN 5 MG TABLETS PO SCH (21:20)
[2020-03-22] MEDS: hydrOXYzine PAMOATE 25 MG CAPSULE (FP) PO SCH ×5 (06:31→21:21)
[2020-03-22] MEDS: PRENATAL VITAMINS W/ FOLIC ACID TABLET (FP) PO SCH (09:14)
[2020-03-22] MEDS: NICOTINE 7 MG/24 HOURS TOPICAL PATCH TD SCH (09:15)
[2020-03-22] MEDS: MELATONIN 5 MG TABLETS PO SCH (21:21)
[2020-03-22] MEDS: THIAMINE HCL 100 MG TABLET (FP) PO SCH (21:21)
[2020-03-22] MEDS: METHOCARBAMOL 500 MG TABLET PO PRN (21:21)
[2020-03-23] MEDS: hydrOXYzine PAMOATE 25 MG CAPSULE (FP) PO SCH ×2 (07:08→09:16)
[2020-03-23 07:17] VITALS: BP 107/50; PULSE 60; TEMP 97.7
--- NOTE | 2020-03-23 09:08 | DS ---
[facility] Rehab Discharge Summary - [facility] Rehab Discharge Summary Admission Date: 03/12/20 Discharge Date: 03/23/20 - History Present History: Alcohol dependence, Cannabis dependence, PCP dependence Pertinent Past History: Depression Anxiety PTSD - Discharge Physical Exam Vital Signs: Vital Signs Temperature 97.7 F 03/23/20 06:31 Pulse Rate 60 03/23/20 06:31 Respiratory Rate 18 03/23/20 06:31 Blood Pressure 107/50 L 03/23/20 06:31 O2 Sat by Pulse Oximetry (%) 97 03/23/20 06:31 Alert o x 3 nad, no resp difficulty oob ambulating with steady gait Active FROM,all limbs Pertinent Admission Physical Exam Findings: Laboratory Tests 03/16/20 03/16/20 08:00 08:00 PT with INR 10.90 INR 0.92 AST 42 H ALT 95 H Alkaline Phosphatase 125 H - Treatment Discharge Condition: Discharge condition good Hospital Course: Pt completed detox before bein referred here for rehab. Pt completed rehab and discharged today. [facility] @ [place], [place]. - Medication Discharge Medications: Ambulatory Orders NK [No Known Home Medication] 04/28/19 - Medication-Assisted Treatment (MAT) Medication-Assisted Treatment (MAT): No - Discharge Instructions Diet, activity, other medical instructions: Diet:Regular Activity:oob ad kaylan Other medical instructions:Follow up with CD aftercare recommendations - Diagnosis (1) Cannabis dependence Current Visit: Yes Status: Chronic (2) Nicotine dependence Current Visit: Yes Status: Chronic Qualifiers: Nicotine product type: cigarettes Substance use status: uncomplicated Qualified Code(s): F17.210 - Nicotine dependence, cigarettes, uncomplicated (3) Alcohol use disorder Current Visit: Yes Status: Acute (4) Phencyclidine (PCP) use disorder, mild Current Visit: Yes Status: Chronic - Follow-up Referral Minutes to complete discharge: 20 - AMA Did Patient Leave Against Medical Advice: No
[2020-03-23] MEDS: PRENATAL VITAMINS W/ FOLIC ACID TABLET (FP) PO SCH (09:16)
[2020-03-23] MEDS: NICOTINE 7 MG/24 HOURS TOPICAL PATCH TD SCH (09:16)
== END 2020-03-23 09:58 | disposition home or self-care (01) | DRG 772 ==
LOC: YASAS 14:26 → Y5N 14:31
PROVIDERS: ADMIT Allergy & Immunology; ATTEND Allergy & Immunology
PROC: HZ42ZZZ Group Counseling for Substance Abuse Treatment, Cognitive-Behavioral (ICD-10-PCS; principal; 2020-03-12)
DX: F10.20 Alcohol dependence, uncomplicated (principal); F16.20 Hallucinogen dependence, uncomplicated; F12.20 Cannabis dependence, uncomplicated; F17.210 Nicotine dependence, cigarettes, uncomplicated; F41.9 Anxiety disorder, unspecified; F32.9 Major depressive disorder, single episode, unspecified; F43.10 Post-traumatic stress disorder, unspecified; R74.8 Abnormal levels of other serum enzymes; R74.0 Nonspecific elevation of levels of transaminase and lactic acid dehydrogenase [LDH]; Z88.8 Allergy status to other drugs, medicaments and biological substances; Z59.0 Homelessness
CPT/HCPCS: 36415; 84075; 84450; 84460; 85610

== ENCOUNTER 2020-04-26 10:58 | Emergency (ER) | payer OTHER ==
[2020-04-26 11:05] VITALS: PULSE 89; BMI 28.7
[2020-04-26] MEDS ORDERED: SODIUM CHLORIDE 0.9% 500 ML INFUS.BAG IV ONE (11:43)
--- OUTSIDE RECORDS SUMMARY | 2020-04-26 11:44 | XMS ---
:1985 Author Organization [facility] Care Team Providers Name Role Phone [id number], [id number] Unavailable Unavailable ED STAFF PHYSICIAN, STAFF Unavailable Unavailable AMY RANDOLPH MD Unavailable Unavailable MD MALCOLM Unavailable Unavailable Re-disclosure Warning The records that you are about to access may contain information from federally- assisted alcohol or drug abuse programs. If such information is present, then the following federally mandated warning applies: This information has been disclosed to you from records protected by federal confidentiality rules (42 CFR part 2). The federal rules prohibit you from making any further disclosure of this information unless further disclosure is expressly permitted by the written consent of the person to whom it pertains or as otherwise permitted by 42 CFR part 2. A general authorization for the release of medical or other information is NOT sufficient for this purpose. The Federal rules restrict any use of the information to criminally investigate or prosecute any alcohol or drug abuse patient.The records that you are about to access may contain highly sensitive health information, the redisclosure of which is protected by Article 27-F of the [facility] Public Health law. If you continue you may haveaccess to information: Regarding HIV / AIDS; Provided by facilities licensed or operated by the [facility] Office of Mental Health; or Provided by the [facility] Office for People With Developmental Disabilities. If such information is present, then the following [facility] mandated warning applies: This information has been disclosed to you from confidential records which are protected by state law. State law prohibits you from making any further disclosure of this information without the specific written consent of the person to whom it pertains, or as otherwise permitted by law. Any unauthorized further disclosure in violation of state law may result in a fine or intermediate sentence or both. A general authorization for the release of medical or other information is NOT sufficient authorization for further disclosure. Encounters Encounter Providers Location Date Indications Data Source(s ) Emergency Attender: STAFF ED H 03/09/2020 [facility] STAFF PHYSICIAN 01:32:00 AM EDT [facility] - 03/09/2020 02:44:00 AM EDT Patient discharged. Inpatient Attender: AMY GARRETT-1D 06/14/2019 01:36:00 [facility] DANIELLouis FOWLER EST - [facility] 10:21:00 PM EST Patient discharged. Attender: 06/14/2019 [facility] [id number] 01:36:00 PM [facility] 06/14/2019 [facility] 10:48:00 AM EST - Hospita l 06/14/2019 02:13:00 PM EST Patient discharged. Attender: [id number] 2018 10:48:00 [facility]_6766 AM [facility] Medications Medication Brand Start Product Dose Route Administrative Pharmacy [facility] Indications Reaction Description Data Name Date Form Instructions Instructions Source(s) Naltrexone Revia ORAL complet Revia - 50 [facility] hydrochlori - 50 2019 Table ed MG ORAL [facility] MG MG 12:00: t Tablet Hospita l Oral Tablet ORAL 00 AM [ReVia] Tablet EST Insurance Providers Payer name Policy type Policy ID Covered Covered democrat's Policy P catherine / Coverage democrat ID relationship to [facility] [employer] ormation type fre[employer] [id number] SP [id number] D HMO JERARDO O [id number] 01 [id number] [employer] MEDICAID [id number] SP [id number] PENDING EXCHANGE SELF PAY 0 Self 0 MEDICAID INP [id number] Self [id number] D REHAB [facility] HEALTH [id number] Self [id number] FIRST Problems, Conditions, and Diagnoses Code Display Name Description Problem Type Effective Data Sour ce(s) Dates F19.10 Other psychoactive OTHER PSYCHOACTIVE Diagnosis 0 [facility] substance abuse, SUBSTANCE ABUSE, 01:32:00 AM [facility] uncomplicated UNCOMPLICATED EDT Z04.89 ENCOUNTER FOR ENCOUNTER FOR Diagnosis 03/09/2020 [facility] EXAMINATION AND EXAMINATION AND 01:32:00 AM [facility] OBSERVATION FOR OTH OBSERVATION FOR EDT REASONS OTH REASONS F10.20 Alcohol dependence, Alcohol Diagnosis 07/05/2019 [facility] uncomplicated dependence, 11:56:00 AM Hospital uncomplicated EST Results ID Date Data Source [id number] 03/09/2020 12:45:00 PM EDT [facility] Name Value Range Interpretation Description Data Sup porting Code Source(s) Document(s ) SARS [facility] coronavirus 2 RNA This lab was ordered by [facility] and reported by [facility]. ID Date Data Source [id number] 02/18/2020 06:09:00 AM EDT [facility] Name Value Range Interpretation Description Data Sup porting Code Source(s) Document(s ) SARS-CoV-2 [facility] Reportable This lab was ordered by [facility] and reported by [facility]. ID Date Data Source [id number] 02/12/2020 01:10:00 PM EDT [facility] Name Value Range Interpretation Description Data Sup porting Code Source(s) Document(s ) SARS [facility] coronavirus 2 RNA This lab was ordered by [facility] and reported by [facility]. Procedure Social History Code Duration Value Status Description Data Source(s ) Smoking 03/09/2020 Occasional Smoker completed Occasional Smoker [facility] 01:53:00 AM EDT Medical C enter Vital Signs ID Date Data Source UNK Name Value Range Interpretation Code Description Data Source(s) Body temperature 36.160533 Arely 36.508705 Arely [facility] Respiratory rate 17 /min 17 /min [facility] Oxygen 99 % 99 % [facility] saturation in Medical Arterial blood Center by Pulse oximetry Heart rate 81 /min 81 /min [facility] Diastolic blood 83 mm[Hg] 83 mm[Hg] [facility] pressure Medical Center Systolic blood 148 mm[Hg] 148 mm[Hg] [facility] pressure Medical Center Diastolic blood 70 mmHg 70 mmHg [facility] Systolic blood 121 mmHg 121 mmHg [facility] Respiratory rate 18 bpm 18 bpm [facility] Heart rate 62 bpm 62 bpm [facility] Diastolic blood 64 mmHg 64 mmHg [facility] Systolic blood 118 mmHg 118 mmHg [facility] Respiratory rate 18 bpm 18 bpm [facility] Heart rate 68 bpm 68 bpm [facility] Diastolic blood 69 mmHg 69 mmHg [facility] Systolic blood 126 mmHg 126 mmHg [facility] Respiratory rate 18 bpm 18 bpm [facility] Heart rate 70 bpm 70 bpm [facility] Diastolic blood 63 mmHg 63 mmHg [facility] Systolic blood 113 mmHg 113 mmHg [facility] Respiratory rate 18 bpm 18 bpm [facility] Heart rate 70 bpm 70 bpm [facility] Diastolic blood 70 mmHg 70 mmHg [facility] Systolic blood 119 mmHg 119 mmHg [facility] Respiratory rate 18 bpm 18 bpm [facility] Heart rate 73 bpm 73 bpm [facility] Diastolic blood 67 mmHg 67 mmHg [facility] Systolic blood 117 mmHg 117 mmHg [facility] Respiratory rate 18 bpm 18 bpm [facility] Heart rate 71 bpm 71 bpm [facility] Diastolic blood 70 mmHg 70 mmHg [facility] Systolic blood 117 mmHg 117 mmHg [facility] Respiratory rate 18 bpm 18 bpm [facility] Heart rate 74 bpm 74 bpm [facility] Diastolic blood 60 mmHg 60 mmHg [facility] Systolic blood 115 mmHg 115 mmHg [facility] Respiratory rate 18 bpm 18 bpm [facility] Heart rate 72 bpm 72 bpm [facility] Diastolic blood 62 mmHg 62 mmHg [facility] Systolic blood 115 mmHg 115 mmHg [facility] Respiratory rate 18 bpm 18 bpm [facility] Heart rate 68 bpm 68 bpm [facility] Diastolic blood 68 mmHg 68 mmHg [facility] Systolic blood 120 mmHg 120 mmHg [facility] Respiratory rate 18 bpm 18 bpm [facility] Heart rate 71 bpm 71 bpm [facility] Body temperature 96.9 Fahrenheit 96.9 Fahrenhei t [facility] Diastolic blood 66 mmHg 66 mmHg [facility] Systolic blood 117 mmHg 117 mmHg [facility] Respiratory rate 18 bpm 18 bpm [facility] Heart rate 79 bpm 79 bpm [facility] Diastolic blood 68 mmHg 68 mmHg [facility] Systolic blood 120 mmHg 120 mmHg [facility] Respiratory rate 18 bpm 18 bpm [facility] Heart rate 63 bpm 63 bpm [facility] Diastolic blood 62 mmHg 62 mmHg [facility] Systolic blood 122 mmHg 122 mmHg [facility] Respiratory rate 18 bpm 18 bpm [facility] Heart rate 65 bpm 65 bpm [facility] Body temperature 95.9 Fahrenheit 95.9 Fahrenhei t [facility] Diastolic blood 63 mmHg 63 mmHg [facility] Systolic blood 116 mmHg 116 mmHg [facility] Respiratory rate 18 bpm 18 bpm [facility] Heart rate 68 bpm 68 bpm [facility] Body temperature 96.5 Fahrenheit 96.5 Fahrenhei t [facility] Diastolic blood 88 mmHg 88 mmHg [facility] Systolic blood 123 mmHg 123 mmHg [facility] Respiratory rate 16 bpm 16 bpm [facility] Heart rate 78 bpm 78 bpm [facility] Body temperature 96.6 Fahrenheit 96.6 Fahrenhei t [facility]
[2020-04-26 12:22] LABS: BASO % 0.7 % (0-2.0); EOS % 1.3 % (0-4.5); HEMATOCRIT 47.1 % (35.4-49); HEMOGLOBIN 15.8 GM/dL (11.7-16.9); LYMPH % 19.4 % (8-40); MCH 33.1 pg (25.7-33.7); MCHC 33.6 g/dl (32.0-35.9); MEAN CELL VOLUME 98.5 fl (80-96); MONO % 15.8 % (3.8-10.2); NEUT % 62.8 % (42.8-82.8); PLATELET COUNT 237 K/MM3 (134-434); RBC 4.78 M/mm3 (4.00-5.60); RDW 12.8 % (11.9-15.9); WHITE BLOOD COUNT 5.1 K/mm3 (4.0-10.0)
[2020-04-26 12:48] LABS: BILIRUBIN,TOTAL 0.4 mg/dL (0.2-1); BLOOD UREA NITROGEN 6.2 mg/dL (7-18); CALCIUM 8.7 mg/dL (8.5-10.1); CREATININE 0.8 mg/dL (0.55-1.3); TOT PROT 8.2 g/dl (6.4-8.2)
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
[2020-04-26 13:00] LABS: POTASSIUM 6.1 mmol/L (3.5-5.1)
[2020-04-26 14:09] LABS: ALBUMIN 3.6 g/dl (3.4-5.0); BILIRUBIN,TOTAL 0.7 mg/dL (0.2-1); BLOOD UREA NITROGEN 7.5 mg/dL (7-18); CALCIUM 8.3 mg/dL (8.5-10.1); CREATININE 0.7 mg/dL (0.55-1.3); POTASSIUM 3.6 mmol/L (3.5-5.1)
[2020-04-26 14:52] VITALS: BP 110/68; TEMP 98.6
== END 2020-04-26 14:53 | disposition home or self-care (01) ==
LOC: JER 10:58
DX: F10.920 Alcohol use, unspecified with intoxication, uncomplicated (principal)
CPT/HCPCS: 36415; 73070-TC-LT-FY; 80053; 85025; 99284-25

== ENCOUNTER 2020-04-26 15:59 | Inpatient (IN) | payer OTHER ==
[2020-04-26 17:59] VITALS: BMI 28.0
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
[2020-04-26] MEDS ORDERED: DICYCLOMINE HCL 10 MG CAPSULE PO PRN (18:34)
[2020-04-26] MEDS ORDERED: MAG HYDROX/AL HYDROX/SIMETH 30 ML UNIT-DOSE CUP PO PRN (18:34)
[2020-04-26] MEDS ORDERED: ACETAMINOPHEN 325 MG TABLET (FP) PO PRN ×2 (18:34)
[2020-04-26] MEDS ORDERED: MAGNESIUM HYDROX 2400MG/30ML ORAL SUSPENSION 30 ML CUP PO PRN (18:34)
[2020-04-26] MEDS ORDERED: METHOCARBAMOL 500 MG TABLET PO PRN (18:34)
[2020-04-26] MEDS ORDERED: ONDANSETRON *ODT* 4 MG TABLET SL PRN (18:34)
[2020-04-26] MEDS ORDERED: MENTHOL/PHENOL 1 EACH UD MM PRN (18:34)
[2020-04-26] MEDS ORDERED: NICOTINE POLACRILEX 2 MG GUM BUC PRN (18:34)
[2020-04-26] MEDS ORDERED: guaiFENesin 200 MG/10 ML 10 ML UNIT-DOSE CUPS PO PRN (18:34)
[2020-04-26] MEDS ORDERED: chlordiazePOXIDE HCL 25 MG CAPSULE PO PRN (18:34)
[2020-04-26] MEDS ORDERED: MAGNESIUM CITRATE 300 ML BOTTLE PO PRN (18:34)
[2020-04-26] MEDS ORDERED: P-EPHED 60MG/TRIPROLIDI 2.5MG TABLET PO PRN (18:34)
[2020-04-26] MEDS: MELATONIN 5 MG TABLETS PO SCH (22:15)
[2020-04-26] MEDS: THIAMINE HCL 100 MG TABLET (FP) PO SCH (22:15)
[2020-04-26] MEDS: chlordiazePOXIDE HCL 25 MG CAPSULE PO SCH (22:15)
[2020-04-27] MEDS: chlordiazePOXIDE HCL 25 MG CAPSULE PO SCH ×4 (05:15→22:04)
[2020-04-27 10:12] LABS: HEMATOCRIT 41.9 % (35.4-49); HEMOGLOBIN 13.9 GM/dL (11.7-16.9); MCH 32.6 pg (25.7-33.7); MCHC 33.1 g/dl (32.0-35.9); MEAN CELL VOLUME 98.6 fl (80-96); MEAN PLT VOLUME 9.8 fl (7.5-11.1); PLATELET COUNT 192 K/MM3 (134-434); RBC 4.25 M/mm3 (4.00-5.60); RDW 12.6 % (11.9-15.9); WHITE BLOOD COUNT 3.9 K/mm3 (4.0-10.0)
--- NOTE | 2020-04-27 10:16 | PN ---
S CIWA - CIWA Score Nausea/Vomitin-Mild Nausea/No Vomiting Muscle Tremors: 2 Anxiety: 2 Agitation: 2 Paroxysmal Sweats: 1-Minimal Palms Moist Orientation: 0-Oriented Tacttile Disturbances: 1-Very Mild Itch/Numbness Auditory Disturbances: 0-None Visual Disturbances: 0-None Headache: 2-Mild CIWA-Ar Total Score: 11 S Progress Note (SOAP) Subjective: alert,irritable,anxious,interrupted sleep,tremor,aching pain,nausea Objective: 04/27/20 16:36 Vital Signs Temperature 97.1 F L 04/27/20 12:32 Pulse Rate 61 04/27/20 12:32 Respiratory Rate 18 04/27/20 12:32 Blood Pressure 111/69 04/27/20 12:32 O2 Sat by Pulse Oximetry (%) 99 04/27/20 12:32 Laboratory Last Values WBC 3.9 K/mm3 (4.0-10.0) L 04/27/20 07:00 RBC 4.25 M/mm3 (4.00-5.60) 04/27/20 07:00 Hgb 13.9 GM/dL (11.7-16.9) 04/27/20 07:00 Hct 41.9 % (35.4-49) 04/27/20 07:00 MCV 98.6 fl (80-96) H 04/27/20 07:00 MCH 32.6 pg (25.7-33.7) 04/27/20 07:00 MCHC 33.1 g/dl (32.0-35.9) 04/27/20 07:00 RDW 12.6 % (11.9-15.9) 04/27/20 07:00 Plt Count 192 K/MM3 (134-434) 04/27/20 07:00 MPV 9.8 fl (7.5-11.1) 04/27/20 07:00 Sodium 140 mmol/L (136-145) 04/27/20 07:00 Potassium 4.1 mmol/L (3.5-5.1) 04/27/20 07:00 Chloride 106 mmol/L (98-107) 04/27/20 07:00 Carbon Dioxide 29 mmol/L (21-32) 04/27/20 07:00 Anion Gap 6 MMOL/L (8-16) L 04/27/20 07:00 BUN 13.5 mg/dL (7-18) 04/27/20 07:00 Creatinine 0.6 mg/dL (0.55-1.3) 04/27/20 07:00 Est GFR (CKD-EPI)AfAm 154.19 04/27/20 07:00 Est GFR (CKD-EPI)NonAf 133.04 04/27/20 07:00 Random Glucose 90 mg/dL (74-106) 04/27/20 07:00 Calcium 8.3 mg/dL (8.5-10.1) L 04/27/20 07:00 Total Bilirubin 0.6 mg/dL (0.2-1) 04/27/20 07:00 AST 42 U/L (15-37) H 04/27/20 07:00 ALT 72 U/L (13-61) H 04/27/20 07:00 Alkaline Phosphatase 118 U/L (45-117) H 04/27/20 07:00 Total Protein 6.3 g/dl (6.4-8.2) L 04/27/20 07:00 Albumin 3.1 g/dl (3.4-5.0) L 04/27/20 07:00 Syphilis Serology Non-reactive (NONREACTIVE) 04/26/20 07:00 Assessment: 04/27/20 16:36 withdrawal symptom Plan: continue detox librium regimen,leukopenia,and elevation of ast,alt,alk phosphatase probably due to chronic alcoholism,advise hydration,fluid,abstinence for alcohol
[2020-04-27] MEDS: PRENATAL VITAMINS W/ FOLIC ACID TABLET (FP) PO SCH (10:18)
[2020-04-27] MEDS: NICOTINE 14 MG/24 HOURS TOPICAL PATCH TD SCH (10:18)
[2020-04-27 10:20] LABS: ALBUMIN 3.1 g/dl (3.4-5.0); BILIRUBIN,TOTAL 0.6 mg/dL (0.2-1); BLOOD UREA NITROGEN 13.5 mg/dL (7-18); CALCIUM 8.3 mg/dL (8.5-10.1); CREATININE 0.6 mg/dL (0.55-1.3); POTASSIUM 4.1 mmol/L (3.5-5.1); TOT PROT 6.3 g/dl (6.4-8.2)
[2020-04-27] MEDS: hydrOXYzine PAMOATE 25 MG CAPSULE (FP) PO PRN ×2 (17:44→22:05)
[2020-04-27] MEDS: THIAMINE HCL 100 MG TABLET (FP) PO SCH (22:04)
[2020-04-27] MEDS: MELATONIN 5 MG TABLETS PO SCH (22:04)
[2020-04-28] MEDS: chlordiazePOXIDE HCL 25 MG CAPSULE PO SCH ×4 (08:13→22:10)
--- NOTE | 2020-04-28 09:15 | PN ---
S CIWA - CIWA Score Nausea/Vomitin-Mild Nausea/No Vomiting Muscle Tremors: 2 Anxiety: 2 Agitation: 2 Paroxysmal Sweats: No Perspiration Orientation: 0-Oriented Tacttile Disturbances: 0-None Auditory Disturbances: 0-None Visual Disturbances: 0-None Headache: 1-Very Mild CIWA-Ar Total Score: 8 BHS Progress Note (SOAP) Subjective: alert,irritable,anxious,interrupted sleep,aching pain,tremor,nausea,no vomiting,ambulation on the unit Objective: 04/28/20 09:59 Vital Signs Temperature 97.3 F L 04/28/20 08:45 Pulse Rate 62 04/28/20 08:45 Respiratory Rate 20 04/28/20 08:45 Blood Pressure 97/57 L 04/28/20 08:45 O2 Sat by Pulse Oximetry (%) 96 04/28/20 08:45 04/28/20 10:00 Laboratory Last Values WBC 3.9 K/mm3 (4.0-10.0) L 04/27/20 07:00 RBC 4.25 M/mm3 (4.00-5.60) 04/27/20 07:00 Hgb 13.9 GM/dL (11.7-16.9) 04/27/20 07:00 Hct 41.9 % (35.4-49) 04/27/20 07:00 MCV 98.6 fl (80-96) H 04/27/20 07:00 MCH 32.6 pg (25.7-33.7) 04/27/20 07:00 MCHC 33.1 g/dl (32.0-35.9) 04/27/20 07:00 RDW 12.6 % (11.9-15.9) 04/27/20 07:00 Plt Count 192 K/MM3 (134-434) 04/27/20 07:00 MPV 9.8 fl (7.5-11.1) 04/27/20 07:00 Sodium 140 mmol/L (136-145) 04/27/20 07:00 Potassium 4.1 mmol/L (3.5-5.1) 04/27/20 07:00 Chloride 106 mmol/L (98-107) 04/27/20 07:00 Carbon Dioxide 29 mmol/L (21-32) 04/27/20 07:00 Anion Gap 6 MMOL/L (8-16) L 04/27/20 07:00 BUN 13.5 mg/dL (7-18) 04/27/20 07:00 Creatinine 0.6 mg/dL (0.55-1.3) 04/27/20 07:00 Est GFR (CKD-EPI)AfAm 154.19 04/27/20 07:00 Est GFR (CKD-EPI)NonAf 133.04 04/27/20 07:00 Random Glucose 90 mg/dL (74-106) 04/27/20 07:00 Calcium 8.3 mg/dL (8.5-10.1) L 04/27/20 07:00 Total Bilirubin 0.6 mg/dL (0.2-1) 04/27/20 07:00 AST 42 U/L (15-37) H 04/27/20 07:00 ALT 72 U/L (13-61) H 04/27/20 07:00 Alkaline Phosphatase 118 U/L (45-117) H 04/27/20 07:00 Total Protein 6.3 g/dl (6.4-8.2) L 04/27/20 07:00 Albumin 3.1 g/dl (3.4-5.0) L 04/27/20 07:00 Syphilis Serology Non-reactive (NONREACTIVE) 04/26/20 07:00 COVID-19 (KATYA) Not detected (Not Detected) 04/26/20 19:45 Assessment: 04/28/20 10:00 withdrawal symptom Plan: continue detox librium regimen,encourage abstinence from alcohol,hydration
[2020-04-28] MEDS: NICOTINE 14 MG/24 HOURS TOPICAL PATCH TD SCH (10:21)
[2020-04-28] MEDS: PRENATAL VITAMINS W/ FOLIC ACID TABLET (FP) PO SCH (10:21)
[2020-04-28] MEDS: hydrOXYzine PAMOATE 25 MG CAPSULE (FP) PO PRN ×2 (17:57→22:12)
[2020-04-28] MEDS: THIAMINE HCL 100 MG TABLET (FP) PO SCH (22:10)
[2020-04-28] MEDS: MELATONIN 5 MG TABLETS PO SCH (22:10)
[2020-04-29] MEDS ORDERED: chlordiazePOXIDE HCL 10 MG CAPSULE PO PRN
[2020-04-29] MEDS ORDERED: chlordiazePOXIDE HCL 10 MG CAPSULE PO SCH (05:00)
[2020-04-29 10:22] VITALS: BP 93/58; PULSE 58; TEMP 97.7
--- NOTE | 2020-04-29 11:22 | DS ---
[facility] Detox Discharge Summary Admission Date: 04/26/20 Discharge Date: 04/29/20 (Pt left AMA) - History Present History: Alcohol Dependence, Cannabis Dependence Additional Comments: Pt left AMA. Pt did not complete the detox protocol. Pt states, "I got to go, i don't wanna do this anymore". An attempt to let pt stay and complete the detox protocol failed. Pt is encouraged to follow-up with an outpatient CD program and also to follow-up with his pmd which he verbalized understanding. Pt is AOX3, in no acute respiratory distress, Full ROM, and ambulatory. Pertinent Past History: h/o alcohol and cannabis use disorder. - Physical Exam Results Vital Signs: Vital Signs Temperature 97.7 F 04/29/20 10:21 Pulse Rate 58 L 04/29/20 10:21 Respiratory Rate 18 04/29/20 10:21 Blood Pressure 93/58 L 04/29/20 10:21 O2 Sat by Pulse Oximetry (%) 100 04/28/20 20:55 Vital Signs 04/29/20 10:21 Temperature 97.7 F Pulse Rate 58 L Respiratory 18 Rate Blood Pressure 93/58 L Laboratory Last Values WBC 3.9 K/mm3 (4.0-10.0) L 04/27/20 07:00 RBC 4.25 M/mm3 (4.00-5.60) 04/27/20 07:00 Hgb 13.9 GM/dL (11.7-16.9) 04/27/20 07:00 Hct 41.9 % (35.4-49) 04/27/20 07:00 MCV 98.6 fl (80-96) H 04/27/20 07:00 MCH 32.6 pg (25.7-33.7) 04/27/20 07:00 MCHC 33.1 g/dl (32.0-35.9) 04/27/20 07:00 RDW 12.6 % (11.9-15.9) 04/27/20 07:00 Plt Count 192 K/MM3 (134-434) 04/27/20 07:00 MPV 9.8 fl (7.5-11.1) 04/27/20 07:00 Sodium 140 mmol/L (136-145) 04/27/20 07:00 Potassium 4.1 mmol/L (3.5-5.1) 04/27/20 07:00 Chloride 106 mmol/L (98-107) 04/27/20 07:00 Carbon Dioxide 29 mmol/L (21-32) 04/27/20 07:00 Anion Gap 6 MMOL/L (8-16) L 04/27/20 07:00 BUN 13.5 mg/dL (7-18) 04/27/20 07:00 Creatinine 0.6 mg/dL (0.55-1.3) 04/27/20 07:00 Est GFR (CKD-EPI)AfAm 154.19 04/27/20 07:00 Est GFR (CKD-EPI)NonAf 133.04 04/27/20 07:00 Random Glucose 90 mg/dL (74-106) 04/27/20 07:00 Calcium 8.3 mg/dL (8.5-10.1) L 04/27/20 07:00 Total Bilirubin 0.6 mg/dL (0.2-1) 04/27/20 07:00 AST 42 U/L (15-37) H 04/27/20 07:00 ALT 72 U/L (13-61) H 04/27/20 07:00 Alkaline Phosphatase 118 U/L (45-117) H 04/27/20 07:00 Total Protein 6.3 g/dl (6.4-8.2) L 04/27/20 07:00 Albumin 3.1 g/dl (3.4-5.0) L 04/27/20 07:00 Syphilis Serology Non-reactive (NONREACTIVE) 04/26/20 07:00 COVID-19 (KATYA) Not detected (Not Detected) 04/26/20 19:45 Labs noted. Pertinent Admission Physical Exam Findings: withdrawal symptoms. - Treatment Hospital Course: Detox Protocol Followed - Medication Discharge Medications: Ambulatory Orders NK [No Known Home Medication] 04/28/19 - Diagnosis (1) Alcohol dependence with withdrawal Status: Acute Qualifiers: Complication of substance-induced condition: uncomplicated Qualified Code(s): F10.230 - Alcohol dependence with withdrawal, uncomplicated (2) Nicotine dependence Status: Chronic Qualifiers: Nicotine product type: cigarettes Substance use status: uncomplicated Qualified Code(s): F17.210 - Nicotine dependence, cigarettes, uncomplicated - AMA Did Patient Leave Against Medical Advice: Yes BHS CIWA - CIWA Score Nausea/Vomitin-No Nausea/No Vomiting Muscle Tremors: 2 Anxiety: 2 Agitation: 0-Normal Activity Paroxysmal Sweats: 2 Orientation: 0-Oriented Tacttile Disturbances: 0-None Auditory Disturbances: 0-None Visual Disturbances: 0-None Headache: 2-Mild CIWA-Ar Total Score: 8
[2020-04-30] MEDS ORDERED: chlordiazePOXIDE HCL 10 MG CAPSULE PO SCH (05:00)
[2020-05-01] MEDS ORDERED: chlordiazePOXIDE HCL 10 MG CAPSULE PO ONE (05:00)
== END 2020-04-29 11:00 | disposition left against medical advice (07) | DRG 770 ==
LOC: YASAS 15:59 → Y3N 19:00
PROVIDERS: ADMIT Allergy & Immunology; ATTEND Allergy & Immunology
PROC: HZ2ZZZZ Detoxification Services for Substance Abuse Treatment (ICD-10-PCS; principal; 2020-04-26)
DX: F10.230 Alcohol dependence with withdrawal, uncomplicated (principal); F12.20 Cannabis dependence, uncomplicated; F17.210 Nicotine dependence, cigarettes, uncomplicated; F19.282 Other psychoactive substance dependence with psychoactive substance-induced sleep disorder; F19.24 Other psychoactive substance dependence with psychoactive substance-induced mood disorder; D72.819 Decreased white blood cell count, unspecified; J30.2 Other seasonal allergic rhinitis; R74.8 Abnormal levels of other serum enzymes; R45.89 Other symptoms and signs involving emotional state; R10.32 Left lower quadrant pain; M25.522 Pain in left elbow; Y04.0XXD Assault by unarmed brawl or fight, subsequent encounter; Z88.8 Allergy status to other drugs, medicaments and biological substances; Z59.0 Homelessness
CPT/HCPCS: 36415; 80053; 85027; 86780; U0003

== ENCOUNTER 2020-07-07 00:51 | Inpatient (IN) | payer OTHER ==
[2020-07-07 01:03] VITALS: BMI 25.8
[2020-07-07] MEDS ORDERED: MAGNESIUM CITRATE 300 ML BOTTLE PO PRN (01:11)
[2020-07-07] MEDS ORDERED: ACETAMINOPHEN 325 MG TABLET (FP) PO PRN (01:11)
[2020-07-07] MEDS ORDERED: MENTHOL/PHENOL 1 EACH UD MM PRN (01:11)
[2020-07-07] MEDS ORDERED: MAG HYDROX/AL HYDROX/SIMETH 30 ML UNIT-DOSE CUP PO PRN (01:11)
[2020-07-07] MEDS ORDERED: ONDANSETRON *ODT* 4 MG TABLET SL PRN (01:11)
[2020-07-07] MEDS ORDERED: MAGNESIUM HYDROX 2400MG/30ML ORAL SUSPENSION 30 ML CUP PO PRN (01:11)
[2020-07-07] MEDS ORDERED: diazePAM 5 MG TABLET PO ONE (01:12)
[2020-07-07] MEDS: hydrOXYzine PAMOATE 25 MG CAPSULE (FP) PO PRN (02:15)
[2020-07-07] MEDS: ACETAMINOPHEN 325 MG TABLET (FP) PO PRN ×2 (02:15→10:15)
[2020-07-07] MEDS: METHOCARBAMOL 500 MG TABLET PO PRN ×3 (02:15→17:07)
[2020-07-07] MEDS: diazePAM 5 MG TABLET PO SCH ×4 (06:25→22:06)
[2020-07-07] MEDS: PRENATAL VITAMINS W/ FOLIC ACID TABLET (FP) PO SCH (10:14)
[2020-07-07] MEDS: THIAMINE HCL 100 MG TABLET (FP) PO SCH (22:05)
[2020-07-07] MEDS: MELATONIN 5 MG TABLETS PO PRN (22:06)
[2020-07-08] MEDS: ACETAMINOPHEN 325 MG TABLET (FP) PO PRN ×2 (00:16→10:14)
[2020-07-08] MEDS: METHOCARBAMOL 500 MG TABLET PO PRN ×3 (00:17→22:09)
[2020-07-08] MEDS: diazePAM 5 MG TABLET PO SCH ×3 (06:40→22:08)
[2020-07-08] MEDS: diazePAM 5 MG TABLET PO PRN ×2 (10:12→20:57)
[2020-07-08] MEDS: PRENATAL VITAMINS W/ FOLIC ACID TABLET (FP) PO SCH (10:12)
[2020-07-08 11:12] LABS: HEMATOCRIT 42.3 % (35.4-49); HEMOGLOBIN 13.9 GM/dL (11.7-16.9); MCH 32.4 pg (25.7-33.7); MCHC 32.8 g/dl (32.0-35.9); MEAN CELL VOLUME 98.9 fl (80-96); MEAN PLT VOLUME 9.6 fl (7.5-11.1); PLATELET COUNT 189 K/MM3 (134-434); RBC 4.28 M/mm3 (4.00-5.60); RDW 13.2 % (11.9-15.9); WHITE BLOOD COUNT 4.2 K/mm3 (4.0-10.0)
[2020-07-08 11:14] LABS: POTASSIUM 3.6 mmol/L (3.5-5.1)
[2020-07-08 11:21] LABS: CALCIUM 8.4 mg/dL (8.5-10.1)
[2020-07-08 11:22] LABS: ALBUMIN 2.8 g/dl (3.4-5.0); BLOOD UREA NITROGEN 8.7 mg/dL (7-18)
[2020-07-08 11:24] LABS: BILIRUBIN,TOTAL 0.5 mg/dL (0.2-1); TOT PROT 5.8 g/dl (6.4-8.2)
[2020-07-08 11:26] LABS: CREATININE 0.7 mg/dL (0.55-1.3)
[2020-07-08] MEDS ORDERED: MASKS NR ONE (16:11)
[2020-07-08] MEDS: hydrOXYzine PAMOATE 25 MG CAPSULE (FP) PO PRN (22:08)
[2020-07-08] MEDS: THIAMINE HCL 100 MG TABLET (FP) PO SCH (22:08)
[2020-07-08] MEDS: MELATONIN 5 MG TABLETS PO PRN (22:09)
[2020-07-09] MEDS: diazePAM 5 MG TABLET PO SCH ×2 (05:14→17:14)
[2020-07-09] MEDS: METHOCARBAMOL 500 MG TABLET PO PRN ×2 (05:15→17:16)
[2020-07-09] MEDS: hydrOXYzine PAMOATE 25 MG CAPSULE (FP) PO PRN ×3 (05:16→22:19)
[2020-07-09] MEDS: PRENATAL VITAMINS W/ FOLIC ACID TABLET (FP) PO SCH (10:08)
[2020-07-09] MEDS: diazePAM 5 MG TABLET PO PRN ×2 (10:08→22:18)
[2020-07-09] MEDS: ACETAMINOPHEN 325 MG TABLET (FP) PO PRN ×2 (10:09→22:20)
[2020-07-09] MEDS: THIAMINE HCL 100 MG TABLET (FP) PO SCH (22:16)
[2020-07-09] MEDS: MELATONIN 5 MG TABLETS PO PRN (22:16)
[2020-07-10] MEDS ORDERED: diazePAM 5 MG TABLET PO ONE (06:00)
[2020-07-10 09:07] VITALS: BP 121/76; PULSE 70; TEMP 97.7
== END 2020-07-10 08:52 | disposition home or self-care (01) | DRG 775 ==
LOC: YASAS 00:51 → Y3N 01:01
PROVIDERS: ADMIT Allergy & Immunology; ATTEND Allergy & Immunology
PROC: HZ2ZZZZ Detoxification Services for Substance Abuse Treatment (ICD-10-PCS; principal; 2020-07-07)
DX: F10.230 Alcohol dependence with withdrawal, uncomplicated (principal); F10.220 Alcohol dependence with intoxication, uncomplicated; F17.213 Nicotine dependence, cigarettes, with withdrawal; F19.24 Other psychoactive substance dependence with psychoactive substance-induced mood disorder; R74.01 Elevation of levels of liver transaminase levels; Z88.8 Allergy status to other drugs, medicaments and biological substances; Z56.0 Unemployment, unspecified
CPT/HCPCS: 36415; 73130-TC-RT-FY; 80053; 85027; 86780; C9803; U0003

== ENCOUNTER 2020-08-17 09:03 | Inpatient (IN) | payer OTHER ==
[2020-08-17 09:41] VITALS: BMI 26.6
[2020-08-17] MEDS ORDERED: MAGNESIUM HYDROX 2400MG/30ML ORAL SUSPENSION 30 ML CUP PO PRN (10:20)
[2020-08-17] MEDS ORDERED: MAGNESIUM CITRATE 300 ML BOTTLE PO PRN (10:20)
[2020-08-17] MEDS ORDERED: chlordiazePOXIDE HCL 25 MG CAPSULE PO PRN (10:20)
[2020-08-17] MEDS ORDERED: MAG HYDROX/AL HYDROX/SIMETH 30 ML UNIT-DOSE CUP PO PRN (10:20)
[2020-08-17] MEDS ORDERED: BISMUTH SUBSALICYLATE 524 MG/30 ML UD PO PRN (10:20)
[2020-08-17] MEDS ORDERED: MENTHOL/PHENOL 1 EACH UD MM PRN (10:20)
[2020-08-17] MEDS ORDERED: ONDANSETRON *ODT* 4 MG TABLET SL PRN (10:20)
[2020-08-17] MEDS ORDERED: IBUPROFEN 400 MG TABLET (FP) PO PRN (10:20)
[2020-08-17] MEDS ORDERED: NICOTINE POLACRILEX 2 MG GUM BUC PRN (10:20)
[2020-08-17] MEDS: METHOCARBAMOL 500 MG TABLET PO PRN (11:23)
[2020-08-17] MEDS: chlordiazePOXIDE HCL 25 MG CAPSULE PO SCH ×3 (11:23→22:39)
[2020-08-17] MEDS: hydrOXYzine PAMOATE 25 MG CAPSULE (FP) PO SCH ×3 (14:09→22:41)
[2020-08-17] MEDS: ACETAMINOPHEN 325 MG TABLET (FP) PO PRN (18:05)
[2020-08-17 18:26] LABS: HEMATOCRIT 46.7 % (35.4-49); HEMOGLOBIN 15.3 GM/dL (11.7-16.9); MCH 32.2 pg (25.7-33.7); MCHC 32.8 g/dl (32.0-35.9); MEAN PLT VOLUME 9.2 fl (7.5-11.1); PLATELET COUNT 208 K/MM3 (134-434); RBC 4.77 M/mm3 (4.00-5.60); WHITE BLOOD COUNT 4.6 K/mm3 (4.0-10.0)
[2020-08-17 19:48] LABS: POTASSIUM 3.4 mmol/L (3.5-5.1)
[2020-08-17 19:53] LABS: CALCIUM 8.5 mg/dL (8.5-10.1)
[2020-08-17 19:54] LABS: ALBUMIN 3.4 g/dl (3.4-5.0); BLOOD UREA NITROGEN 7.4 mg/dL (7-18)
[2020-08-17 19:57] LABS: CREATININE 0.7 mg/dL (0.55-1.3)
[2020-08-17 19:58] LABS: BILIRUBIN,TOTAL 0.7 mg/dL (0.2-1)
[2020-08-17 19:59] LABS: TOT PROT 7.2 g/dl (6.4-8.2)
[2020-08-17] MEDS: THIAMINE HCL 100 MG TABLET (FP) PO SCH (22:40)
[2020-08-17] MEDS: MELATONIN 5 MG TABLETS PO SCH (22:41)
[2020-08-18] MEDS: chlordiazePOXIDE HCL 25 MG CAPSULE PO SCH ×4 (06:46→22:14)
[2020-08-18] MEDS: hydrOXYzine PAMOATE 25 MG CAPSULE (FP) PO SCH ×5 (06:46→22:14)
[2020-08-18] MEDS ORDERED: COLLOIDAL OATMEAL 1 BAR EACH TP PRN (10:26)
[2020-08-18] MEDS: POTASSIUM CHLORIDE ORAL LIQUID 20 MEQ/15 ML PO SCH ×2 (10:27→22:14)
[2020-08-18] MEDS: PRENATAL VITAMINS W/ FOLIC ACID TABLET (FP) PO SCH (10:27)
[2020-08-18] MEDS: METHOCARBAMOL 500 MG TABLET PO PRN ×2 (10:29→22:18)
[2020-08-18] MEDS: ACETAMINOPHEN 325 MG TABLET (FP) PO PRN (15:42)
[2020-08-18] MEDS: MELATONIN 5 MG TABLETS PO SCH (22:14)
[2020-08-18] MEDS: THIAMINE HCL 100 MG TABLET (FP) PO SCH (22:14)
[2020-08-19] MEDS: hydrOXYzine PAMOATE 25 MG CAPSULE (FP) PO SCH ×5 (05:14→22:04)
[2020-08-19] MEDS: METHOCARBAMOL 500 MG TABLET PO PRN ×3 (05:14→17:51)
[2020-08-19] MEDS: ACETAMINOPHEN 325 MG TABLET (FP) PO PRN (05:14)
[2020-08-19] MEDS: chlordiazePOXIDE HCL 25 MG CAPSULE PO SCH ×4 (05:15→22:07)
[2020-08-19] MEDS: POTASSIUM CHLORIDE ORAL LIQUID 20 MEQ/15 ML PO SCH (11:47)
[2020-08-19] MEDS: PRENATAL VITAMINS W/ FOLIC ACID TABLET (FP) PO SCH (11:48)
[2020-08-19] MEDS ORDERED: MASKS NR ONE (11:55)
[2020-08-19] MEDS: THIAMINE HCL 100 MG TABLET (FP) PO SCH (22:04)
[2020-08-19] MEDS: MELATONIN 5 MG TABLETS PO SCH (22:04)
[2020-08-19] MEDS: QUEtiapine FUMARATE 50 MG TABLET PO SCH (22:06)
[2020-08-20] MEDS ORDERED: chlordiazePOXIDE HCL 10 MG CAPSULE PO PRN
[2020-08-20] MEDS: chlordiazePOXIDE HCL 10 MG CAPSULE PO SCH ×4 (05:09→22:11)
[2020-08-20] MEDS: hydrOXYzine PAMOATE 25 MG CAPSULE (FP) PO SCH ×5 (05:09→22:12)
[2020-08-20] MEDS: METHOCARBAMOL 500 MG TABLET PO PRN ×4 (05:10→22:15)
[2020-08-20] MEDS: ACETAMINOPHEN 325 MG TABLET (FP) PO PRN ×4 (05:10→18:37)
[2020-08-20] MEDS: PRENATAL VITAMINS W/ FOLIC ACID TABLET (FP) PO SCH (11:22)
[2020-08-20] MEDS: THIAMINE HCL 100 MG TABLET (FP) PO SCH (22:12)
[2020-08-20] MEDS: QUEtiapine FUMARATE 50 MG TABLET PO SCH (22:12)
[2020-08-20] MEDS: MELATONIN 5 MG TABLETS PO SCH (23:22)
[2020-08-21] MEDS: METHOCARBAMOL 500 MG TABLET PO PRN ×3 (05:06→22:23)
[2020-08-21] MEDS: hydrOXYzine PAMOATE 25 MG CAPSULE (FP) PO SCH ×5 (05:06→22:21)
[2020-08-21] MEDS: chlordiazePOXIDE HCL 10 MG CAPSULE PO SCH ×2 (05:07→18:07)
[2020-08-21] MEDS: ACETAMINOPHEN 325 MG TABLET (FP) PO PRN (05:08)
[2020-08-21] MEDS: PRENATAL VITAMINS W/ FOLIC ACID TABLET (FP) PO SCH (10:07)
[2020-08-21] MEDS: THIAMINE HCL 100 MG TABLET (FP) PO SCH (22:21)
[2020-08-21] MEDS: QUEtiapine FUMARATE 50 MG TABLET PO SCH (22:21)
[2020-08-21] MEDS: MELATONIN 5 MG TABLETS PO SCH (22:21)
[2020-08-22] MEDS ORDERED: chlordiazePOXIDE HCL 10 MG CAPSULE PO ONE (05:00)
[2020-08-22] MEDS: hydrOXYzine PAMOATE 25 MG CAPSULE (FP) PO SCH ×2 (06:14→10:08)
[2020-08-22] MEDS: METHOCARBAMOL 500 MG TABLET PO PRN (09:21)
[2020-08-22 09:27] VITALS: BP 125/73; PULSE 88; TEMP 98.3
[2020-08-22] MEDS: PRENATAL VITAMINS W/ FOLIC ACID TABLET (FP) PO SCH (10:08)
== END 2020-08-22 10:45 | disposition other institution (70) | DRG 775 ==
LOC: YASAS 09:03 → Y6N 09:54
PROVIDERS: ADMIT Allergy & Immunology; ATTEND Allergy & Immunology
PROC: HZ2ZZZZ Detoxification Services for Substance Abuse Treatment (ICD-10-PCS; principal; 2020-08-17)
DX: F10.230 Alcohol dependence with withdrawal, uncomplicated (principal); F12.20 Cannabis dependence, uncomplicated; F16.10 Hallucinogen abuse, uncomplicated; F17.210 Nicotine dependence, cigarettes, uncomplicated; F19.282 Other psychoactive substance dependence with psychoactive substance-induced sleep disorder; F19.24 Other psychoactive substance dependence with psychoactive substance-induced mood disorder; F43.10 Post-traumatic stress disorder, unspecified; E87.6 Hypokalemia; M79.18 Myalgia, other site; R74.01 Elevation of levels of liver transaminase levels; R74.8 Abnormal levels of other serum enzymes; Z56.0 Unemployment, unspecified; Z59.0 Homelessness; Z88.8 Allergy status to other drugs, medicaments and biological substances; Z88.6 Allergy status to analgesic agent
CPT/HCPCS: 36415; 80053; 82550; 84132; 85027; 86780; 87389; C9803; U0003

== ENCOUNTER 2020-08-22 10:48 | Inpatient (IN) | payer OTHER ==
[2020-08-22] MEDS ORDERED: guaiFENesin 200 MG/10 ML 10 ML UNIT-DOSE CUPS PO PRN (12:42)
[2020-08-22] MEDS ORDERED: IBUPROFEN 400 MG TABLET (FP) PO PRN (12:42)
[2020-08-22] MEDS ORDERED: LOPERAMIDE HCL 2 MG CAPSULE PO PRN (12:42)
[2020-08-22] MEDS ORDERED: MENTHOL/PHENOL 1 EACH UD MM PRN (12:42)
[2020-08-22] MEDS ORDERED: MAGNESIUM HYDROX 2400MG/30ML ORAL SUSPENSION 30 ML CUP PO PRN (12:42)
[2020-08-22] MEDS ORDERED: P-EPHED 60MG/TRIPROLIDI 2.5MG TABLET PO PRN (12:42)
[2020-08-22] MEDS ORDERED: MAGNESIUM CITRATE 300 ML BOTTLE PO PRN (12:42)
[2020-08-22] MEDS ORDERED: MAG HYDROX/AL HYDROX/SIMETH 30 ML UNIT-DOSE CUP PO PRN (12:42)
[2020-08-22] MEDS: ACETAMINOPHEN 325 MG TABLET (FP) PO PRN (18:11)
[2020-08-22] MEDS: hydrOXYzine PAMOATE 25 MG CAPSULE (FP) PO PRN (18:11)
[2020-08-22] MEDS: THIAMINE HCL 100 MG TABLET (FP) PO SCH (21:02)
[2020-08-22] MEDS: MELATONIN 5 MG TABLETS PO SCH (21:02)
[2020-08-22] MEDS: QUEtiapine FUMARATE 50 MG TABLET PO SCH (21:03)
[2020-08-23] MEDS: ACETAMINOPHEN 325 MG TABLET (FP) PO PRN (06:48)
[2020-08-23] MEDS: hydrOXYzine PAMOATE 25 MG CAPSULE (FP) PO PRN ×3 (06:49→14:06)
[2020-08-23] MEDS: PRENATAL VITAMINS W/ FOLIC ACID TABLET (FP) PO SCH (09:34)
[2020-08-23] MEDS: METHOCARBAMOL 500 MG TABLET PO SCH ×4 (09:35→21:45)
[2020-08-23] MEDS: HYDROCORTISONE 1% TOPICAL OINT 30 GM TUBE TP PRN (12:09)
[2020-08-23] MEDS: AMMONIUM LACTATE 12% LOTION 225 GM BOTTLE TP PRN (12:09)
[2020-08-23] MEDS: MELATONIN 5 MG TABLETS PO SCH (21:45)
[2020-08-23] MEDS: THIAMINE HCL 100 MG TABLET (FP) PO SCH (21:46)
[2020-08-23] MEDS: QUEtiapine FUMARATE 50 MG TABLET PO SCH (21:46)
[2020-08-23] MEDS: hydrOXYzine PAMOATE 50 MG CAPSULE (FP) PO PRN (21:46)
[2020-08-24] MEDS: hydrOXYzine PAMOATE 50 MG CAPSULE (FP) PO PRN ×4 (06:03→21:08)
[2020-08-24] MEDS: ACETAMINOPHEN 325 MG TABLET (FP) PO PRN (06:03)
[2020-08-24] MEDS: METHOCARBAMOL 500 MG TABLET PO PRN ×2 (10:17→21:07)
[2020-08-24] MEDS: PRENATAL VITAMINS W/ FOLIC ACID TABLET (FP) PO SCH (10:17)
[2020-08-24] MEDS: THIAMINE HCL 100 MG TABLET (FP) PO SCH (21:07)
[2020-08-24] MEDS: QUEtiapine FUMARATE 50 MG TABLET PO SCH (21:07)
[2020-08-24] MEDS: MELATONIN 5 MG TABLETS PO SCH (21:07)
[2020-08-25] MEDS: hydrOXYzine PAMOATE 50 MG CAPSULE (FP) PO PRN ×4 (06:42→21:45)
[2020-08-25] MEDS: ACETAMINOPHEN 325 MG TABLET (FP) PO PRN (06:42)
[2020-08-25] MEDS: METHOCARBAMOL 500 MG TABLET PO PRN ×3 (06:42→21:46)
[2020-08-25] MEDS: COLLOIDAL OATMEAL 1 BAR EACH TP PRN (06:46)
[2020-08-25] MEDS: PRENATAL VITAMINS W/ FOLIC ACID TABLET (FP) PO SCH (09:40)
[2020-08-25] MEDS: HYDROCORTISONE 1% TOPICAL OINT 30 GM TUBE TP PRN (09:41)
[2020-08-25] MEDS: AMMONIUM LACTATE 12% LOTION 225 GM BOTTLE TP PRN (09:41)
[2020-08-25] MEDS: QUEtiapine FUMARATE 50 MG TABLET PO SCH (21:44)
[2020-08-25] MEDS: THIAMINE HCL 100 MG TABLET (FP) PO SCH (21:44)
[2020-08-25] MEDS: MELATONIN 5 MG TABLETS PO SCH (21:44)
[2020-08-26] MEDS: METHOCARBAMOL 500 MG TABLET PO PRN ×2 (06:10→21:13)
[2020-08-26] MEDS: hydrOXYzine PAMOATE 50 MG CAPSULE (FP) PO PRN ×4 (06:10→22:19)
[2020-08-26] MEDS: HYDROCORTISONE 1% TOPICAL OINT 30 GM TUBE TP PRN (09:39)
[2020-08-26] MEDS: AMMONIUM LACTATE 12% LOTION 225 GM BOTTLE TP PRN (09:39)
[2020-08-26] MEDS: PRENATAL VITAMINS W/ FOLIC ACID TABLET (FP) PO SCH (09:39)
[2020-08-26] MEDS: THIAMINE HCL 100 MG TABLET (FP) PO SCH (21:12)
[2020-08-26] MEDS: QUEtiapine FUMARATE 50 MG TABLET PO SCH (21:12)
[2020-08-26] MEDS: MELATONIN 5 MG TABLETS PO SCH (21:12)
[2020-08-27] MEDS: METHOCARBAMOL 500 MG TABLET PO PRN ×3 (06:06→21:53)
[2020-08-27] MEDS: hydrOXYzine PAMOATE 50 MG CAPSULE (FP) PO PRN ×4 (06:06→21:53)
[2020-08-27] MEDS: PRENATAL VITAMINS W/ FOLIC ACID TABLET (FP) PO SCH (09:32)
[2020-08-27] MEDS: AMMONIUM LACTATE 12% LOTION 225 GM BOTTLE TP PRN (09:33)
[2020-08-27] MEDS: HYDROCORTISONE 1% TOPICAL OINT 30 GM TUBE TP PRN ×2 (09:33→16:58)
[2020-08-27] MEDS: QUEtiapine FUMARATE 50 MG TABLET PO SCH (21:51)
[2020-08-27] MEDS: THIAMINE HCL 100 MG TABLET (FP) PO SCH (21:52)
[2020-08-27] MEDS: MELATONIN 5 MG TABLETS PO SCH (21:52)
[2020-08-28] MEDS: METHOCARBAMOL 500 MG TABLET PO PRN ×3 (06:39→21:10)
[2020-08-28] MEDS: hydrOXYzine PAMOATE 50 MG CAPSULE (FP) PO PRN ×4 (06:39→22:44)
[2020-08-28] MEDS: PRENATAL VITAMINS W/ FOLIC ACID TABLET (FP) PO SCH (09:51)
[2020-08-28] MEDS: HYDROCORTISONE 1% TOPICAL OINT 30 GM TUBE TP PRN (17:08)
[2020-08-28] MEDS: MELATONIN 5 MG TABLETS PO SCH (21:09)
[2020-08-28] MEDS: QUEtiapine FUMARATE 50 MG TABLET PO SCH (21:09)
[2020-08-28] MEDS: THIAMINE HCL 100 MG TABLET (FP) PO SCH (21:09)
[2020-08-29] MEDS: ACETAMINOPHEN 325 MG TABLET (FP) PO PRN (06:10)
[2020-08-29] MEDS: hydrOXYzine PAMOATE 50 MG CAPSULE (FP) PO PRN ×4 (06:10→21:34)
[2020-08-29] MEDS: METHOCARBAMOL 500 MG TABLET PO PRN ×2 (09:56→21:34)
[2020-08-29] MEDS: PRENATAL VITAMINS W/ FOLIC ACID TABLET (FP) PO SCH (09:56)
[2020-08-29] MEDS: COLLOIDAL OATMEAL 1 BAR EACH TP PRN (17:02)
[2020-08-29] MEDS: THIAMINE HCL 100 MG TABLET (FP) PO SCH (21:34)
[2020-08-29] MEDS: QUEtiapine FUMARATE 50 MG TABLET PO SCH (21:34)
[2020-08-29] MEDS: MELATONIN 5 MG TABLETS PO SCH (21:34)
[2020-08-30] MEDS: METHOCARBAMOL 500 MG TABLET PO PRN ×3 (06:15→21:04)
[2020-08-30] MEDS: hydrOXYzine PAMOATE 50 MG CAPSULE (FP) PO PRN ×4 (06:15→21:02)
[2020-08-30] MEDS: PRENATAL VITAMINS W/ FOLIC ACID TABLET (FP) PO SCH (10:07)
[2020-08-30] MEDS: QUEtiapine FUMARATE 50 MG TABLET PO SCH (21:02)
[2020-08-30] MEDS: MELATONIN 5 MG TABLETS PO SCH (21:02)
[2020-08-30] MEDS: THIAMINE HCL 100 MG TABLET (FP) PO SCH (21:02)
[2020-08-30] MEDS: CHLORHEXIDINE GLUCONATE 118 ML MOUTHWASH MM SCH (21:04)
[2020-08-31] MEDS: hydrOXYzine PAMOATE 50 MG CAPSULE (FP) PO PRN ×4 (06:06→21:49)
[2020-08-31] MEDS: METHOCARBAMOL 500 MG TABLET PO PRN ×3 (06:07→14:24)
[2020-08-31] MEDS: CHLORHEXIDINE GLUCONATE 118 ML MOUTHWASH MM SCH (09:52)
[2020-08-31] MEDS: PRENATAL VITAMINS W/ FOLIC ACID TABLET (FP) PO SCH (09:52)
[2020-08-31] MEDS: QUEtiapine FUMARATE 50 MG TABLET PO SCH (21:49)
[2020-08-31] MEDS: MELATONIN 5 MG TABLETS PO SCH (21:50)
[2020-08-31] MEDS: THIAMINE HCL 100 MG TABLET (FP) PO SCH (21:50)
[2020-09-01] MEDS: METHOCARBAMOL 500 MG TABLET PO PRN ×4 (06:13→21:05)
[2020-09-01] MEDS: hydrOXYzine PAMOATE 50 MG CAPSULE (FP) PO PRN ×4 (06:13→21:05)
[2020-09-01] MEDS ORDERED: PT OWN MED DRAWER 7, Y5N ONE ×2 (06:15→16:36)
[2020-09-01] MEDS: PRENATAL VITAMINS W/ FOLIC ACID TABLET (FP) PO SCH (09:54)
[2020-09-01] MEDS: MELATONIN 5 MG TABLETS PO SCH (21:05)
[2020-09-01] MEDS: QUEtiapine FUMARATE 50 MG TABLET PO SCH (21:05)
[2020-09-01] MEDS: THIAMINE HCL 100 MG TABLET (FP) PO SCH (21:05)
[2020-09-01] MEDS: CHLORHEXIDINE GLUCONATE 118 ML MOUTHWASH MM PRN (22:38)
[2020-09-02] MEDS: hydrOXYzine PAMOATE 50 MG CAPSULE (FP) PO PRN ×4 (06:10→21:29)
[2020-09-02] MEDS: CHLORHEXIDINE GLUCONATE 118 ML MOUTHWASH MM PRN (06:10)
[2020-09-02] MEDS: METHOCARBAMOL 500 MG TABLET PO PRN ×4 (06:10→21:29)
[2020-09-02] MEDS ORDERED: PT OWN MED DRAWER 7, Y5N ONE (09:59)
[2020-09-02] MEDS: PRENATAL VITAMINS W/ FOLIC ACID TABLET (FP) PO SCH (09:59)
[2020-09-02] MEDS: THIAMINE HCL 100 MG TABLET (FP) PO SCH (21:28)
[2020-09-02] MEDS: MELATONIN 5 MG TABLETS PO SCH (21:28)
[2020-09-02] MEDS: QUEtiapine FUMARATE 50 MG TABLET PO SCH (21:29)
[2020-09-03] MEDS: hydrOXYzine PAMOATE 50 MG CAPSULE (FP) PO PRN ×3 (06:39→21:03)
[2020-09-03] MEDS: CHLORHEXIDINE GLUCONATE 118 ML MOUTHWASH MM PRN (06:40)
[2020-09-03] MEDS: PRENATAL VITAMINS W/ FOLIC ACID TABLET (FP) PO SCH (09:25)
[2020-09-03] MEDS: METHOCARBAMOL 500 MG TABLET PO PRN ×2 (09:25→21:03)
[2020-09-03] MEDS: MELATONIN 5 MG TABLETS PO SCH (21:03)
[2020-09-03] MEDS: QUEtiapine FUMARATE 50 MG TABLET PO SCH (21:03)
[2020-09-03] MEDS: THIAMINE HCL 100 MG TABLET (FP) PO SCH (21:03)
[2020-09-04] MEDS: hydrOXYzine PAMOATE 50 MG CAPSULE (FP) PO PRN (06:14)
[2020-09-04] MEDS: CHLORHEXIDINE GLUCONATE 118 ML MOUTHWASH MM PRN (06:15)
[2020-09-04 06:43] VITALS: BP 100/57; PULSE 63; TEMP 97.9
== END 2020-09-04 10:20 | disposition home or self-care (01) | DRG 772 ==
LOC: YASAS 10:48 → Y3W 10:50
PROVIDERS: ADMIT Allergy & Immunology; ATTEND Allergy & Immunology
PROC: HZ42ZZZ Group Counseling for Substance Abuse Treatment, Cognitive-Behavioral (ICD-10-PCS; principal; 2020-08-22)
DX: F10.20 Alcohol dependence, uncomplicated (principal); F12.20 Cannabis dependence, uncomplicated; F17.210 Nicotine dependence, cigarettes, uncomplicated; M25.511 Pain in right shoulder; M25.512 Pain in left shoulder; Z88.8 Allergy status to other drugs, medicaments and biological substances
CPT/HCPCS: 73030-TC-LT-FY; 73030-TC-RT-FY; C9803; U0003

== ENCOUNTER 2020-11-04 13:32 | Inpatient (IN) | payer OTHER ==
[2020-11-04 14:03] VITALS: BMI 25.1
[2020-11-04] MEDS ORDERED: BISMUTH SUBSALICYLATE 524 MG/30 ML UD PO PRN (14:33)
[2020-11-04] MEDS ORDERED: diazePAM 5 MG TABLET PO PRN (14:33)
[2020-11-04] MEDS ORDERED: MENTHOL/PHENOL 1 EACH UD MM PRN (14:33)
[2020-11-04] MEDS ORDERED: MAGNESIUM CITRATE 300 ML BOTTLE PO PRN (14:33)
[2020-11-04] MEDS ORDERED: ACETAMINOPHEN 325 MG TABLET (FP) PO PRN ×2 (14:33)
[2020-11-04] MEDS ORDERED: MAG HYDROX/AL HYDROX/SIMETH 30 ML UNIT-DOSE CUP PO PRN (14:33)
[2020-11-04] MEDS ORDERED: ONDANSETRON *ODT* 4 MG TABLET SL PRN (14:33)
[2020-11-04] MEDS ORDERED: MAGNESIUM HYDROX 2400MG/30ML ORAL SUSPENSION 30 ML CUP PO PRN (14:33)
[2020-11-04] MEDS: METHOCARBAMOL 500 MG TABLET PO PRN (15:35)
[2020-11-04] MEDS: diazePAM 5 MG TABLET PO SCH ×2 (18:20→23:02)
[2020-11-04] MEDS: hydrOXYzine PAMOATE 25 MG CAPSULE (FP) PO SCH ×2 (18:56→23:02)
[2020-11-04] MEDS: THIAMINE HCL 100 MG TABLET (FP) PO SCH (23:02)
[2020-11-04] MEDS: MELATONIN 5 MG TABLETS PO SCH (23:03)
[2020-11-05] MEDS: hydrOXYzine PAMOATE 25 MG CAPSULE (FP) PO SCH ×5 (06:31→22:54)
[2020-11-05] MEDS: diazePAM 5 MG TABLET PO SCH ×4 (06:31→23:01)
[2020-11-05 09:49] LABS: HEMATOCRIT 37.1 % (35.4-49); HEMOGLOBIN 12.5 GM/dL (11.7-16.9); MCH 32.2 pg (25.7-33.7); MCHC 33.8 g/dl (32.0-35.9); MEAN CELL VOLUME 95.3 fl (80-96); MEAN PLT VOLUME 8.8 fl (7.5-11.1); PLATELET COUNT 188 K/MM3 (134-434); RBC 3.89 M/mm3 (4.00-5.60); RDW 13.5 % (11.9-15.9)
[2020-11-05 09:54] LABS: CALCIUM 8.6 mg/dL (8.5-10.1)
[2020-11-05 09:55] LABS: ALBUMIN 2.8 g/dl (3.4-5.0); BLOOD UREA NITROGEN 8.3 mg/dL (7-18)
[2020-11-05 09:58] LABS: CREATININE 0.7 mg/dL (0.55-1.3)
[2020-11-05 09:59] LABS: BILIRUBIN,TOTAL 0.7 mg/dL (0.2-1); TOT PROT 6.7 g/dl (6.4-8.2)
[2020-11-05] MEDS: PRENATAL VITAMINS W/ FOLIC ACID TABLET (FP) PO SCH (11:02)
[2020-11-05] MEDS: METHOCARBAMOL 500 MG TABLET PO PRN (11:02)
[2020-11-05] MEDS ORDERED: DICYCLOMINE HCL 10 MG CAPSULE PO ONE (15:57)
[2020-11-05] MEDS ORDERED: QUEtiapine FUMARATE 50 MG TABLET PO PRN (22:00)
[2020-11-05] MEDS: THIAMINE HCL 100 MG TABLET (FP) PO SCH (22:54)
[2020-11-05] MEDS: MELATONIN 5 MG TABLETS PO SCH (22:55)
[2020-11-06] MEDS: hydrOXYzine PAMOATE 25 MG CAPSULE (FP) PO SCH ×4 (07:03→23:22)
[2020-11-06] MEDS: diazePAM 5 MG TABLET PO SCH ×3 (07:04→23:22)
[2020-11-06] MEDS: METHOCARBAMOL 500 MG TABLET PO PRN (07:30)
[2020-11-06] MEDS: PRENATAL VITAMINS W/ FOLIC ACID TABLET (FP) PO SCH (11:12)
[2020-11-06] MEDS: THIAMINE HCL 100 MG TABLET (FP) PO SCH (23:22)
[2020-11-06] MEDS: MELATONIN 5 MG TABLETS PO SCH (23:22)
[2020-11-07] MEDS: hydrOXYzine PAMOATE 25 MG CAPSULE (FP) PO SCH ×6 (07:33→22:51)
[2020-11-07] MEDS: diazePAM 5 MG TABLET PO SCH ×2 (07:33→19:26)
[2020-11-07] MEDS: PRENATAL VITAMINS W/ FOLIC ACID TABLET (FP) PO SCH (09:51)
[2020-11-07 10:07] LABS: SARS-CoV-2 NAA Not Detected (Not Detected)
[2020-11-07] MEDS: THIAMINE HCL 100 MG TABLET (FP) PO SCH (22:51)
[2020-11-07] MEDS: METHOCARBAMOL 500 MG TABLET PO PRN (22:51)
[2020-11-07] MEDS: MELATONIN 5 MG TABLETS PO SCH (22:51)
[2020-11-08] MEDS ORDERED: diazePAM 5 MG TABLET PO ONE (06:00)
[2020-11-08] MEDS: hydrOXYzine PAMOATE 25 MG CAPSULE (FP) PO SCH ×2 (07:21→11:02)
[2020-11-08 09:29] VITALS: BP 98/57; PULSE 100; TEMP 97.8
[2020-11-08] MEDS: PRENATAL VITAMINS W/ FOLIC ACID TABLET (FP) PO SCH (11:02)
== END 2020-11-08 12:25 | disposition home or self-care (01) | DRG 775 ==
LOC: YASAS 13:32 → Y6N 14:19
PROVIDERS: ADMIT Allergy & Immunology; ATTEND Allergy & Immunology
PROC: HZ2ZZZZ Detoxification Services for Substance Abuse Treatment (ICD-10-PCS; principal; 2020-11-04)
DX: F10.230 Alcohol dependence with withdrawal, uncomplicated (principal); F10.220 Alcohol dependence with intoxication, uncomplicated; F12.20 Cannabis dependence, uncomplicated; F17.210 Nicotine dependence, cigarettes, uncomplicated; F19.282 Other psychoactive substance dependence with psychoactive substance-induced sleep disorder; F19.24 Other psychoactive substance dependence with psychoactive substance-induced mood disorder; U07.1 COVID-19; Z91.410 Personal history of adult physical and sexual abuse; Z88.8 Allergy status to other drugs, medicaments and biological substances; Z59.0 Homelessness
CPT/HCPCS: 36415; 80053; 85027; 86780; C9803; U0003; U0005

== ENCOUNTER 2021-01-15 22:46 | Inpatient (IN) | payer OTHER ==
[2021-01-15 23:20] VITALS: BMI 21.9
[2021-01-15] MEDS ORDERED: ACETAMINOPHEN 325 MG TABLET (FP) PO PRN ×2 (23:40)
[2021-01-15] MEDS ORDERED: MAG HYDROX/AL HYDROX/SIMETH 30 ML UNIT-DOSE CUP PO PRN (23:40)
[2021-01-15] MEDS ORDERED: MAGNESIUM HYDROX 2400MG/30ML ORAL SUSPENSION 30 ML CUP PO PRN (23:40)
[2021-01-15] MEDS ORDERED: ONDANSETRON *ODT* 4 MG TABLET SL PRN (23:40)
[2021-01-15] MEDS ORDERED: MAGNESIUM CITRATE 300 ML BOTTLE PO PRN (23:40)
[2021-01-15] MEDS ORDERED: MENTHOL/PHENOL 1 EACH UD MM PRN (23:40)
[2021-01-15] MEDS ORDERED: NICOTINE POLACRILEX 2 MG GUM BUC PRN (23:40)
[2021-01-15] MEDS ORDERED: COLLOIDAL OATMEAL 1 BAR EACH TP PRN (23:43)
[2021-01-15] MEDS ORDERED: AMMONIUM LACTATE 12% LOTION 225 GM BOTTLE TP PRN (23:44)
[2021-01-16] MEDS: BACITRACIN 15 GM TUBE TOPICAL OINTMENT TP SCH ×2 (02:03→10:59)
[2021-01-16] MEDS ORDERED: diazePAM 5 MG TABLET PO SCH (05:00)
[2021-01-16] MEDS ORDERED: diazePAM 5 MG TABLET PO PRN (08:50)
[2021-01-16] MEDS: diazePAM 5 MG TABLET PO SCH ×3 (10:36→22:25)
[2021-01-16 10:37] LABS: HEMATOCRIT 34.3 % (35.4-49); HEMOGLOBIN 11.2 GM/dL (11.7-16.9); MCH 30.7 pg (25.7-33.7); MCHC 32.6 g/dl (32.0-35.9); MEAN CELL VOLUME 94.1 fl (80-96); MEAN PLT VOLUME 10.2 fl (7.5-11.1); PLATELET COUNT 122 10^3/uL (134-434); RBC 3.65 M/mm3 (4.00-5.60); RDW 15.3 % (11.9-15.9); WHITE BLOOD COUNT 2.2 K/mm3 (4.0-10.0)
[2021-01-16] MEDS: PRENATAL VITAMINS W/ FOLIC ACID TABLET (FP) PO SCH (10:37)
[2021-01-16] MEDS: BACITRACIN 0.9 GM PACKET TP SCH ×2 (10:38→22:26)
[2021-01-16] MEDS: METHOCARBAMOL 500 MG TABLET PO PRN ×2 (10:40→22:26)
[2021-01-16 11:20] LABS: BLOOD UREA NITROGEN 4.4 mg/dL (7-18)
[2021-01-16 12:01] LABS: BILIRUBIN,TOTAL 0.6 mg/dL (0.2-1)
[2021-01-16 12:03] LABS: CALCIUM 8.2 mg/dL (8.5-10.1)
[2021-01-16 12:04] LABS: ALBUMIN 2.7 g/dl (3.4-5.0)
[2021-01-16 12:07] LABS: CREATININE 0.5 mg/dL (0.55-1.3)
[2021-01-16 12:08] LABS: TOT PROT 6.7 g/dl (6.4-8.2)
[2021-01-16] MEDS ORDERED: POTASSIUM CHLORIDE ORAL LIQUID 20 MEQ/15 ML PO ONE ×2 (13:00→17:00)
[2021-01-16] MEDS: hydrOXYzine PAMOATE 25 MG CAPSULE (FP) PO PRN (17:35)
[2021-01-16] MEDS: MIRTAZAPINE 15 MG TABLET (FP) PO SCH (22:25)
[2021-01-16] MEDS: THIAMINE HCL 100 MG TABLET (FP) PO SCH (22:25)
[2021-01-16] MEDS: MELATONIN 5 MG TABLETS PO SCH (22:26)
[2021-01-17] MEDS: diazePAM 5 MG TABLET PO SCH ×3 (05:36→22:09)
[2021-01-17] MEDS: METHOCARBAMOL 500 MG TABLET PO PRN ×2 (05:37→17:30)
[2021-01-17] MEDS: hydrOXYzine PAMOATE 25 MG CAPSULE (FP) PO PRN ×3 (05:37→17:30)
[2021-01-17] MEDS: PRENATAL VITAMINS W/ FOLIC ACID TABLET (FP) PO SCH (10:02)
[2021-01-17] MEDS: BACITRACIN 0.9 GM PACKET TP SCH ×2 (10:06→22:09)
[2021-01-17 13:42] LABS: BASO % 0.5 % (0-2.0); EOS % 1.9 % (0-4.5); HEMATOCRIT 33.4 % (35.4-49); HEMOGLOBIN 10.8 GM/dL (11.7-16.9); MCH 30.5 pg (25.7-33.7); MCHC 32.4 g/dl (32.0-35.9); MEAN CELL VOLUME 94.2 fl (80-96); MEAN PLT VOLUME 10.4 fl (7.5-11.1); MONO % 11.4 % (3.8-10.2); NEUT % 67.2 % (42.8-82.8); PLATELET COUNT 125 10^3/uL (134-434); RBC 3.55 M/mm3 (4.00-5.60); RDW 15.5 % (11.9-15.9)
[2021-01-17] MEDS: HYDROCORTISONE 1% TOPICAL CREAM 30 GM TUBE TP SCH ×2 (15:45→22:10)
[2021-01-17] MEDS: THIAMINE HCL 100 MG TABLET (FP) PO SCH (22:09)
[2021-01-17] MEDS: MELATONIN 5 MG TABLETS PO SCH (22:09)
[2021-01-17] MEDS: MIRTAZAPINE 15 MG TABLET (FP) PO SCH (22:09)
[2021-01-18] MEDS: diazePAM 5 MG TABLET PO SCH ×2 (05:28→17:36)
[2021-01-18] MEDS: hydrOXYzine PAMOATE 25 MG CAPSULE (FP) PO PRN ×4 (05:28→22:08)
[2021-01-18] MEDS: METHOCARBAMOL 500 MG TABLET PO PRN ×2 (05:29→22:08)
[2021-01-18] MEDS: BACITRACIN 0.9 GM PACKET TP SCH ×2 (10:22→22:08)
[2021-01-18] MEDS: PRENATAL VITAMINS W/ FOLIC ACID TABLET (FP) PO SCH (10:22)
[2021-01-18] MEDS: HYDROCORTISONE 1% TOPICAL CREAM 30 GM TUBE TP SCH ×2 (10:26→22:08)
[2021-01-18] MEDS: SELENIUM SULFIDE 2.25% 180 ML SHAMPOO TP SCH (18:56)
[2021-01-18] MEDS: MELATONIN 5 MG TABLETS PO SCH (22:07)
[2021-01-18] MEDS: THIAMINE HCL 100 MG TABLET (FP) PO SCH (22:07)
[2021-01-18] MEDS: MIRTAZAPINE 15 MG TABLET (FP) PO SCH (22:08)
[2021-01-19] MEDS ORDERED: diazePAM 5 MG TABLET PO ONE (06:00)
[2021-01-19] MEDS: SELENIUM SULFIDE 2.25% 180 ML SHAMPOO TP SCH (10:50)
[2021-01-19] MEDS: PRENATAL VITAMINS W/ FOLIC ACID TABLET (FP) PO SCH (10:51)
[2021-01-19] MEDS: BACITRACIN 0.9 GM PACKET TP SCH (10:51)
[2021-01-19] MEDS: HYDROCORTISONE 1% TOPICAL CREAM 30 GM TUBE TP SCH (10:51)
[2021-01-19 18:27] VITALS: BP 116/76; PULSE 100; TEMP 98.1
[2021-01-19] MEDS ORDERED: P-EPHED 60MG/TRIPROLIDI 2.5MG TABLET PO PRN (19:05)
[2021-01-19] MEDS ORDERED: MAGNESIUM CITRATE 300 ML BOTTLE PO PRN (19:05)
[2021-01-19] MEDS ORDERED: MAG HYDROX/AL HYDROX/SIMETH 30 ML UNIT-DOSE CUP PO PRN (19:05)
[2021-01-19] MEDS ORDERED: MENTHOL/PHENOL 1 EACH UD MM PRN (19:05)
[2021-01-19] MEDS ORDERED: LOPERAMIDE HCL 2 MG CAPSULE PO PRN (19:05)
[2021-01-19] MEDS ORDERED: NICOTINE POLACRILEX 2 MG GUM BUC PRN (19:05)
[2021-01-19] MEDS ORDERED: MAGNESIUM HYDROX 2400MG/30ML ORAL SUSPENSION 30 ML CUP PO PRN (19:05)
[2021-01-19] MEDS ORDERED: ACETAMINOPHEN 325 MG TABLET (FP) PO PRN (19:05)
[2021-01-19] MEDS ORDERED: guaiFENesin 200 MG/10 ML 10 ML UNIT-DOSE CUPS PO PRN (19:05)
[2021-01-19] MEDS ORDERED: hydrOXYzine PAMOATE 25 MG CAPSULE (FP) PO SCH (22:00)
[2021-01-19] MEDS ORDERED: MIRTAZAPINE 15 MG TABLET (FP) PO SCH (22:00)
[2021-01-19] MEDS ORDERED: THIAMINE HCL 100 MG TABLET (FP) PO SCH (22:00)
[2021-01-19] MEDS ORDERED: MELATONIN 5 MG TABLETS PO SCH (22:00)
[2021-01-20] MEDS ORDERED: NICOTINE 7 MG/24 HOURS TOPICAL PATCH TD SCH (10:00)
[2021-01-20] MEDS ORDERED: PRENATAL VITAMINS W/ FOLIC ACID TABLET (FP) PO SCH (10:00)
== END 2021-01-19 17:53 | disposition other institution (70) | DRG 775 ==
LOC: YASAS 22:46 → Y6N 01-16 00:44
PROVIDERS: ADMIT Allergy & Immunology; ATTEND Allergy & Immunology
PROC: HZ2ZZZZ Detoxification Services for Substance Abuse Treatment (ICD-10-PCS; principal; 2021-01-16)
DX: F10.230 Alcohol dependence with withdrawal, uncomplicated (principal); F10.220 Alcohol dependence with intoxication, uncomplicated; F10.280 Alcohol dependence with alcohol-induced anxiety disorder; F10.282 Alcohol dependence with alcohol-induced sleep disorder; F17.210 Nicotine dependence, cigarettes, uncomplicated; F43.10 Post-traumatic stress disorder, unspecified; D61.811 Other drug-induced pancytopenia; L30.9 Dermatitis, unspecified; R00.0 Tachycardia, unspecified; E87.5 Hyperkalemia; Z88.8 Allergy status to other drugs, medicaments and biological substances
CPT/HCPCS: 36415; 80053; 85025; 85027; 86780; C9803; U0003; U0005

== ENCOUNTER 2021-01-19 18:57 | Inpatient (IN) | payer OTHER ==
[2021-01-19] MEDS ORDERED: MAGNESIUM CITRATE 300 ML BOTTLE PO PRN (23:11)
[2021-01-19] MEDS ORDERED: P-EPHED 60MG/TRIPROLIDI 2.5MG TABLET PO PRN (23:11)
[2021-01-19] MEDS ORDERED: NICOTINE POLACRILEX 2 MG GUM BUC PRN (23:11)
[2021-01-19] MEDS ORDERED: MAG HYDROX/AL HYDROX/SIMETH 30 ML UNIT-DOSE CUP PO PRN (23:11)
[2021-01-19] MEDS ORDERED: LOPERAMIDE HCL 2 MG CAPSULE PO PRN (23:11)
[2021-01-19] MEDS ORDERED: MENTHOL/PHENOL 1 EACH UD MM PRN (23:11)
[2021-01-19] MEDS ORDERED: guaiFENesin 200 MG/10 ML 10 ML UNIT-DOSE CUPS PO PRN (23:11)
[2021-01-19] MEDS ORDERED: IBUPROFEN 400 MG TABLET (FP) PO PRN (23:11)
[2021-01-19] MEDS ORDERED: MAGNESIUM HYDROX 2400MG/30ML ORAL SUSPENSION 30 ML CUP PO PRN (23:11)
[2021-01-20] MEDS: MELATONIN 5 MG TABLETS PO SCH ×2 (00:22→21:07)
[2021-01-20] MEDS: hydrOXYzine PAMOATE 25 MG CAPSULE (FP) PO PRN ×3 (00:23→21:07)
[2021-01-20] MEDS: NICOTINE 7 MG/24 HOURS TOPICAL PATCH TD SCH (09:46)
[2021-01-20] MEDS: ACETAMINOPHEN 325 MG TABLET (FP) PO PRN (09:46)
[2021-01-20] MEDS: PRENATAL VITAMINS W/ FOLIC ACID TABLET (FP) PO SCH (09:46)
[2021-01-20] MEDS: MIRTAZAPINE 15 MG TABLET (FP) PO SCH (21:07)
[2021-01-20] MEDS: THIAMINE HCL 100 MG TABLET (FP) PO SCH (21:07)
[2021-01-21] MEDS: PRENATAL VITAMINS W/ FOLIC ACID TABLET (FP) PO SCH (09:50)
[2021-01-21] MEDS: NICOTINE 7 MG/24 HOURS TOPICAL PATCH TD SCH (09:50)
[2021-01-21] MEDS: hydrOXYzine PAMOATE 25 MG CAPSULE (FP) PO PRN (09:51)
[2021-01-21] MEDS: METHOCARBAMOL 500 MG TABLET PO PRN ×2 (09:51→21:19)
[2021-01-21] MEDS: MIRTAZAPINE 15 MG TABLET (FP) PO SCH (21:17)
[2021-01-21] MEDS: MELATONIN 5 MG TABLETS PO SCH (21:17)
[2021-01-21] MEDS: THIAMINE HCL 100 MG TABLET (FP) PO SCH (21:17)
[2021-01-22] MEDS: PRENATAL VITAMINS W/ FOLIC ACID TABLET (FP) PO SCH (09:34)
[2021-01-22] MEDS: NICOTINE 7 MG/24 HOURS TOPICAL PATCH TD SCH (09:35)
[2021-01-22] MEDS: hydrOXYzine PAMOATE 25 MG CAPSULE (FP) PO PRN ×2 (09:37→21:21)
[2021-01-22] MEDS: ACETAMINOPHEN 325 MG TABLET (FP) PO PRN (09:37)
[2021-01-22] MEDS: AMMONIUM LACTATE 12% LOTION 225 GM BOTTLE TP SCH (15:49)
[2021-01-22] MEDS: HYDROCORTISONE 1% TOPICAL CREAM 30 GM TUBE TP SCH ×2 (15:49→22:21)
[2021-01-22] MEDS: COLLOIDAL OATMEAL 1 BAR EACH TP PRN (15:51)
[2021-01-22] MEDS: BACITRACIN 0.9 GM PACKET TP SCH (21:19)
[2021-01-22] MEDS: MELATONIN 5 MG TABLETS PO SCH (21:19)
[2021-01-22] MEDS: THIAMINE HCL 100 MG TABLET (FP) PO SCH (21:19)
[2021-01-22] MEDS: METHOCARBAMOL 500 MG TABLET PO PRN (21:22)
[2021-01-22] MEDS: MIRTAZAPINE 15 MG TABLET (FP) PO SCH (22:45)
[2021-01-23] MEDS: METHOCARBAMOL 500 MG TABLET PO PRN ×2 (06:17→21:24)
[2021-01-23] MEDS: HYDROCORTISONE 1% TOPICAL CREAM 30 GM TUBE TP SCH ×3 (06:21→21:21)
[2021-01-23] MEDS: PRENATAL VITAMINS W/ FOLIC ACID TABLET (FP) PO SCH (09:34)
[2021-01-23] MEDS: NICOTINE 7 MG/24 HOURS TOPICAL PATCH TD SCH (09:35)
[2021-01-23] MEDS: BACITRACIN 0.9 GM PACKET TP SCH ×2 (09:35→21:21)
[2021-01-23] MEDS: ACETAMINOPHEN 325 MG TABLET (FP) PO PRN (09:36)
[2021-01-23] MEDS: AMMONIUM LACTATE 12% LOTION 225 GM BOTTLE TP SCH (09:36)
[2021-01-23] MEDS: hydrOXYzine PAMOATE 25 MG CAPSULE (FP) PO PRN ×2 (13:00→21:24)
[2021-01-23] MEDS ORDERED: PT OWN MED DRAWER 7, Y5N ONE ×2 (18:37→21:23)
[2021-01-23] MEDS: MELATONIN 5 MG TABLETS PO SCH (21:21)
[2021-01-23] MEDS: THIAMINE HCL 100 MG TABLET (FP) PO SCH (21:21)
[2021-01-23] MEDS: MIRTAZAPINE 15 MG TABLET (FP) PO SCH (21:21)
[2021-01-24] MEDS: HYDROCORTISONE 1% TOPICAL CREAM 30 GM TUBE TP SCH ×3 (06:14→21:11)
[2021-01-24] MEDS: ACETAMINOPHEN 325 MG TABLET (FP) PO PRN ×2 (06:15→14:19)
[2021-01-24] MEDS: hydrOXYzine PAMOATE 25 MG CAPSULE (FP) PO PRN ×3 (06:16→17:32)
[2021-01-24] MEDS: NICOTINE 7 MG/24 HOURS TOPICAL PATCH TD SCH (09:36)
[2021-01-24] MEDS: PRENATAL VITAMINS W/ FOLIC ACID TABLET (FP) PO SCH (09:36)
[2021-01-24] MEDS: BACITRACIN 0.9 GM PACKET TP SCH ×2 (09:37→21:11)
[2021-01-24] MEDS: AMMONIUM LACTATE 12% LOTION 225 GM BOTTLE TP SCH (09:37)
[2021-01-24] MEDS: METHOCARBAMOL 500 MG TABLET PO PRN ×2 (09:39→21:14)
[2021-01-24] MEDS ORDERED: PT OWN MED DRAWER 7, Y5N ONE ×2 (13:21→21:13)
[2021-01-24 13:26] LABS: BASO % 0.3 % (0-2.0); HEMATOCRIT 31.1 % (35.4-49); HEMOGLOBIN 10.3 GM/dL (11.7-16.9); LYMPH % 8.1 % (8-40); MCHC 33.3 g/dl (32.0-35.9); MEAN CELL VOLUME 93.1 fl (80-96); MEAN PLT VOLUME 9.6 fl (7.5-11.1); MONO % 10.9 % (3.8-10.2); NEUT % 80.7 % (42.8-82.8); PLATELET COUNT 196 10^3/uL (134-434); RBC 3.34 M/mm3 (4.00-5.60); RDW 14.9 % (11.9-15.9)
[2021-01-24 13:47] LABS: ALBUMIN 2.9 g/dl (3.4-5.0)
[2021-01-24 13:48] LABS: CALCIUM 8.3 mg/dL (8.5-10.1)
[2021-01-24 13:50] LABS: CREATININE 0.5 mg/dL (0.55-1.3)
[2021-01-24 13:52] LABS: BILIRUBIN,TOTAL 0.6 mg/dL (0.2-1); TOT PROT 6.9 g/dl (6.4-8.2)
[2021-01-24 16:26] LABS: URINE APPEARANCE CLEAR; URINE BILIRUBIN NEGATIVE (NEGATIVE); URINE COLOR YELLOW; URINE GLUCOSE (UA) NEGATIVE (NEGATIVE); URINE KETONE NEGATIVE (NEGATIVE); URINE LEUK ESTERASE NEGATIVE (NEGATIVE); URINE NITRITE NEGATIVE (NEGATIVE); URINE PROTEIN NEGATIVE (NEGATIVE); URINE UROBILINOGEN 0.2 mg/dL (0.2-1.0)
[2021-01-24] MEDS: FERROUS SO4 325 MG TABLET (FP) PO SCH (17:32)
[2021-01-24] MEDS: THIAMINE HCL 100 MG TABLET (FP) PO SCH (21:11)
[2021-01-24] MEDS: MIRTAZAPINE 15 MG TABLET (FP) PO SCH (21:11)
[2021-01-24] MEDS: MELATONIN 5 MG TABLETS PO SCH (21:12)
[2021-01-25] MEDS: HYDROCORTISONE 1% TOPICAL CREAM 30 GM TUBE TP SCH ×3 (06:22→21:39)
[2021-01-25] MEDS: hydrOXYzine PAMOATE 25 MG CAPSULE (FP) PO PRN ×3 (06:24→21:36)
[2021-01-25] MEDS: ACETAMINOPHEN 325 MG TABLET (FP) PO PRN (06:24)
[2021-01-25] MEDS: FERROUS SO4 325 MG TABLET (FP) PO SCH ×2 (07:32→17:54)
[2021-01-25] MEDS: PRENATAL VITAMINS W/ FOLIC ACID TABLET (FP) PO SCH (09:34)
[2021-01-25] MEDS: NICOTINE 7 MG/24 HOURS TOPICAL PATCH TD SCH (09:34)
[2021-01-25] MEDS: BACITRACIN 0.9 GM PACKET TP SCH ×2 (09:35→21:39)
[2021-01-25] MEDS: AMMONIUM LACTATE 12% LOTION 225 GM BOTTLE TP SCH (09:35)
[2021-01-25] MEDS: METHOCARBAMOL 500 MG TABLET PO PRN ×2 (09:46→21:36)
[2021-01-25] MEDS ORDERED: CLINDAMYCIN HCL 300 MG CAPSULE PO ONE (14:36)
[2021-01-25] MEDS: CLINDAMYCIN HCL 150 MG CAPSULE (FP) PO SCH ×2 (15:28→17:54)
[2021-01-25] MEDS: THIAMINE HCL 100 MG TABLET (FP) PO SCH (21:34)
[2021-01-25] MEDS: MIRTAZAPINE 15 MG TABLET (FP) PO SCH (21:36)
[2021-01-25] MEDS: MELATONIN 5 MG TABLETS PO SCH (21:37)
[2021-01-26] MEDS: CLINDAMYCIN HCL 150 MG CAPSULE (FP) PO SCH ×5 (00:31→23:23)
[2021-01-26] MEDS: HYDROCORTISONE 1% TOPICAL CREAM 30 GM TUBE TP SCH ×3 (06:25→21:18)
[2021-01-26] MEDS: hydrOXYzine PAMOATE 25 MG CAPSULE (FP) PO PRN ×2 (06:25→21:14)
[2021-01-26] MEDS: FERROUS SO4 325 MG TABLET (FP) PO SCH ×2 (07:10→18:35)
[2021-01-26] MEDS: NICOTINE 7 MG/24 HOURS TOPICAL PATCH TD SCH (09:20)
[2021-01-26] MEDS: PRENATAL VITAMINS W/ FOLIC ACID TABLET (FP) PO SCH (09:20)
[2021-01-26] MEDS: BACITRACIN 0.9 GM PACKET TP SCH ×2 (09:21→21:15)
[2021-01-26] MEDS: AMMONIUM LACTATE 12% LOTION 225 GM BOTTLE TP SCH (09:21)
[2021-01-26] MEDS: METHOCARBAMOL 500 MG TABLET PO PRN ×2 (09:22→21:17)
[2021-01-26] MEDS: THIAMINE HCL 100 MG TABLET (FP) PO SCH (21:14)
[2021-01-26] MEDS: MIRTAZAPINE 15 MG TABLET (FP) PO SCH (21:14)
[2021-01-26] MEDS: MELATONIN 5 MG TABLETS PO SCH (21:14)
[2021-01-26] MEDS ORDERED: PT OWN MED DRAWER 7, Y5N ONE (21:16)
[2021-01-27] MEDS: CLINDAMYCIN HCL 150 MG CAPSULE (FP) PO SCH ×4 (06:33→23:35)
[2021-01-27] MEDS: hydrOXYzine PAMOATE 25 MG CAPSULE (FP) PO PRN ×2 (06:33→21:20)
[2021-01-27] MEDS: HYDROCORTISONE 1% TOPICAL CREAM 30 GM TUBE TP SCH ×3 (06:34→21:21)
[2021-01-27] MEDS: FERROUS SO4 325 MG TABLET (FP) PO SCH ×2 (07:01→17:49)
[2021-01-27] MEDS: NICOTINE 7 MG/24 HOURS TOPICAL PATCH TD SCH (09:43)
[2021-01-27] MEDS: PRENATAL VITAMINS W/ FOLIC ACID TABLET (FP) PO SCH (09:43)
[2021-01-27] MEDS: AMMONIUM LACTATE 12% LOTION 225 GM BOTTLE TP SCH (09:43)
[2021-01-27] MEDS: METHOCARBAMOL 500 MG TABLET PO PRN ×2 (09:44→21:20)
[2021-01-27] MEDS: BACITRACIN 0.9 GM PACKET TP SCH ×2 (09:44→21:21)
[2021-01-27] MEDS: THIAMINE HCL 100 MG TABLET (FP) PO SCH (21:20)
[2021-01-27] MEDS: MIRTAZAPINE 15 MG TABLET (FP) PO SCH (21:20)
[2021-01-27] MEDS: MELATONIN 5 MG TABLETS PO SCH (21:20)
[2021-01-28] MEDS: CLINDAMYCIN HCL 150 MG CAPSULE (FP) PO SCH ×4 (06:30→23:21)
[2021-01-28] MEDS: hydrOXYzine PAMOATE 25 MG CAPSULE (FP) PO PRN ×2 (06:31→21:08)
[2021-01-28] MEDS: HYDROCORTISONE 1% TOPICAL CREAM 30 GM TUBE TP SCH ×3 (06:31→21:08)
[2021-01-28] MEDS: FERROUS SO4 325 MG TABLET (FP) PO SCH ×2 (07:13→17:19)
[2021-01-28] MEDS: PRENATAL VITAMINS W/ FOLIC ACID TABLET (FP) PO SCH (10:01)
[2021-01-28] MEDS: METHOCARBAMOL 500 MG TABLET PO PRN ×2 (10:02→21:08)
[2021-01-28] MEDS: NICOTINE 7 MG/24 HOURS TOPICAL PATCH TD SCH (10:02)
[2021-01-28] MEDS: AMMONIUM LACTATE 12% LOTION 225 GM BOTTLE TP SCH (10:03)
[2021-01-28] MEDS: BACITRACIN 0.9 GM PACKET TP SCH ×2 (10:03→21:08)
[2021-01-28] MEDS ORDERED: PT OWN MED DRAWER 7, Y5N ONE (18:58)
[2021-01-28] MEDS: MELATONIN 5 MG TABLETS PO SCH (21:08)
[2021-01-28] MEDS: THIAMINE HCL 100 MG TABLET (FP) PO SCH (21:08)
[2021-01-28] MEDS: MIRTAZAPINE 15 MG TABLET (FP) PO SCH (21:08)
[2021-01-29] MEDS ORDERED: PT OWN MED DRAWER 7, Y5N ONE ×3 (02:14→14:07)
[2021-01-29] MEDS: CLINDAMYCIN HCL 150 MG CAPSULE (FP) PO SCH ×3 (06:20→17:32)
[2021-01-29] MEDS: hydrOXYzine PAMOATE 25 MG CAPSULE (FP) PO PRN ×2 (06:20→21:07)
[2021-01-29] MEDS: HYDROCORTISONE 1% TOPICAL CREAM 30 GM TUBE TP SCH ×3 (06:21→21:09)
[2021-01-29 07:04] VITALS: BP 107/59
[2021-01-29] MEDS: FERROUS SO4 325 MG TABLET (FP) PO SCH ×2 (07:15→17:32)
[2021-01-29] MEDS: NICOTINE 7 MG/24 HOURS TOPICAL PATCH TD SCH (09:40)
[2021-01-29] MEDS: PRENATAL VITAMINS W/ FOLIC ACID TABLET (FP) PO SCH (09:40)
[2021-01-29] MEDS: METHOCARBAMOL 500 MG TABLET PO PRN ×2 (09:40→21:06)
[2021-01-29] MEDS: AMMONIUM LACTATE 12% LOTION 225 GM BOTTLE TP SCH (09:40)
[2021-01-29] MEDS: BACITRACIN 0.9 GM PACKET TP SCH ×2 (09:40→21:08)
[2021-01-29] MEDS: THIAMINE HCL 100 MG TABLET (FP) PO SCH (21:06)
[2021-01-29] MEDS: MIRTAZAPINE 15 MG TABLET (FP) PO SCH (21:06)
[2021-01-29] MEDS: MELATONIN 5 MG TABLETS PO SCH (21:07)
[2021-01-29] MEDS ORDERED: METHYL SALICYLATE/MENTHOL OINT 30 GM TUBE TP SCH (22:00)
[2021-01-30] MEDS: CLINDAMYCIN HCL 150 MG CAPSULE (FP) PO SCH ×2 (01:08→06:07)
[2021-01-30] MEDS: COLLOIDAL OATMEAL 1 BAR EACH TP PRN (06:07)
[2021-01-30] MEDS: HYDROCORTISONE 1% TOPICAL CREAM 30 GM TUBE TP SCH (06:07)
[2021-01-30 06:29] VITALS: PULSE 91; TEMP 96.8
[2021-01-30] MEDS: FERROUS SO4 325 MG TABLET (FP) PO SCH (07:25)
[2021-01-30] MEDS: AMMONIUM LACTATE 12% LOTION 225 GM BOTTLE TP SCH (10:00)
[2021-01-30] MEDS: NICOTINE 7 MG/24 HOURS TOPICAL PATCH TD SCH (10:00)
[2021-01-30] MEDS: PRENATAL VITAMINS W/ FOLIC ACID TABLET (FP) PO SCH (10:00)
[2021-01-30] MEDS: BACITRACIN 0.9 GM PACKET TP SCH (10:00)
== END 2021-01-30 10:29 | disposition home or self-care (01) | DRG 772 ==
LOC: YASAS 18:57 → Y5N 18:58
PROVIDERS: ADMIT Allergy & Immunology; ATTEND Allergy & Immunology
PROC: HZ42ZZZ Group Counseling for Substance Abuse Treatment, Cognitive-Behavioral (ICD-10-PCS; principal; 2021-01-19)
DX: F10.20 Alcohol dependence, uncomplicated (principal); F17.210 Nicotine dependence, cigarettes, uncomplicated; D50.9 Iron deficiency anemia, unspecified; L30.9 Dermatitis, unspecified; M79.606 Pain in leg, unspecified; G89.29 Other chronic pain; R50.9 Fever, unspecified; J06.9 Acute upper respiratory infection, unspecified; R26.2 Difficulty in walking, not elsewhere classified; Z99.89 Dependence on other enabling machines and devices; Z48.02 Encounter for removal of sutures; Z87.828 Personal history of other (healed) physical injury and trauma
CPT/HCPCS: 36415; 80053; 81003; 85025; C9803; U0003; U0005

== ENCOUNTER 2021-02-28 08:19 | Inpatient (IN) | payer OTHER ==
[2021-02-28 08:44] VITALS: BMI 24.2
[2021-02-28] MEDS ORDERED: MENTHOL/PHENOL 1 EACH UD MM PRN (09:26)
[2021-02-28] MEDS ORDERED: BISMUTH SUBSALICYLATE 524 MG/30 ML PO PRN (09:26)
[2021-02-28] MEDS ORDERED: NICOTINE 10 MG CARTRIDGE (INHALER) IH PRN (09:26)
[2021-02-28] MEDS ORDERED: MAGNESIUM CITRATE 300 ML BOTTLE PO PRN (09:26)
[2021-02-28] MEDS ORDERED: ACETAMINOPHEN 325 MG TABLET (FP) PO PRN ×2 (09:26)
[2021-02-28] MEDS ORDERED: ONDANSETRON *ODT* 4 MG TABLET SL PRN (09:26)
[2021-02-28] MEDS ORDERED: METHOCARBAMOL 500 MG TABLET PO PRN (09:26)
[2021-02-28] MEDS ORDERED: LORazepam 1 MG TABLET PO PRN (09:26)
[2021-02-28] MEDS ORDERED: IBUPROFEN 400 MG TABLET (FP) PO PRN (09:26)
[2021-02-28] MEDS ORDERED: MAGNESIUM HYDROX 2400MG/30ML ORAL SUSPENSION 30 ML CUP PO PRN (09:26)
[2021-02-28] MEDS ORDERED: MAG HYDROX/AL HYDROX/SIMETH 30 ML UNIT-DOSE CUP PO PRN (09:26)
[2021-02-28] MEDS: NICOTINE 14 MG/24 HOURS TOPICAL PATCH TD SCH (11:09)
[2021-02-28] MEDS: PRENATAL VITAMINS W/ FOLIC ACID TABLET (FP) PO SCH (11:09)
[2021-02-28] MEDS: hydrOXYzine PAMOATE 25 MG CAPSULE (FP) PO SCH ×4 (11:09→22:22)
[2021-02-28 13:22] LABS: HEMOGLOBIN 10.5 GM/dL (11.7-16.9); MCHC 33.8 g/dl (32.0-35.9); MEAN CELL VOLUME 91.7 fl (80-96); MEAN PLT VOLUME 9.4 fl (7.5-11.1); PLATELET COUNT 204 10^3/uL (134-434); RBC 3.39 M/mm3 (4.00-5.60); RDW 13.8 % (11.9-15.9); WHITE BLOOD COUNT 2.6 K/mm3 (4.0-10.0)
[2021-02-28 13:36] LABS: BLOOD UREA NITROGEN 4.1 mg/dL (7-18); CALCIUM 7.7 mg/dL (8.5-10.1)
[2021-02-28 13:39] LABS: CREATININE 0.6 mg/dL (0.55-1.3)
[2021-02-28 13:41] LABS: BILIRUBIN,TOTAL 0.4 mg/dL (0.2-1); TOT PROT 7.1 g/dl (6.4-8.2)
[2021-02-28] MEDS: LORazepam 2 MG TABLET PO SCH ×2 (18:11→22:22)
[2021-02-28] MEDS: MELATONIN 5 MG TABLETS PO SCH (22:22)
[2021-02-28] MEDS: THIAMINE HCL 100 MG TABLET (FP) PO SCH (22:22)
[2021-03-01] MEDS: LORazepam 2 MG TABLET PO SCH ×4 (07:04→22:24)
[2021-03-01] MEDS: hydrOXYzine PAMOATE 25 MG CAPSULE (FP) PO SCH ×5 (07:05→22:24)
[2021-03-01] MEDS: POTASSIUM CHLORIDE ORAL LIQUID 20 MEQ/15 ML PO SCH ×2 (10:22→22:25)
[2021-03-01] MEDS: PRENATAL VITAMINS W/ FOLIC ACID TABLET (FP) PO SCH (10:22)
[2021-03-01] MEDS: NICOTINE 14 MG/24 HOURS TOPICAL PATCH TD SCH (10:25)
[2021-03-01] MEDS: MIRTAZAPINE 15 MG TABLET (FP) PO SCH (22:24)
[2021-03-01] MEDS: THIAMINE HCL 100 MG TABLET (FP) PO SCH (22:24)
[2021-03-01] MEDS: MELATONIN 5 MG TABLETS PO SCH (22:25)
[2021-03-02] MEDS: hydrOXYzine PAMOATE 25 MG CAPSULE (FP) PO SCH ×5 (06:07→22:58)
[2021-03-02] MEDS: LORazepam 1 MG TABLET PO SCH ×4 (06:07→22:58)
[2021-03-02] MEDS: NICOTINE 14 MG/24 HOURS TOPICAL PATCH TD SCH (10:28)
[2021-03-02] MEDS: POTASSIUM CHLORIDE ORAL LIQUID 20 MEQ/15 ML PO SCH ×2 (10:29→22:59)
[2021-03-02] MEDS: PRENATAL VITAMINS W/ FOLIC ACID TABLET (FP) PO SCH (10:30)
[2021-03-02 11:48] LABS: BASO % 0.3 % (0-2.0); EOS % 0.2 % (0-4.5); HEMATOCRIT 27.2 % (35.4-49); HEMOGLOBIN 9.3 GM/dL (11.7-16.9); LYMPH % 21.6 % (8-40); MCH 31.5 pg (25.7-33.7); MCHC 34.2 g/dl (32.0-35.9); MEAN CELL VOLUME 92.2 fl (80-96); MEAN PLT VOLUME 10.6 fl (7.5-11.1); MONO % 10.1 % (3.8-10.2); NEUT % 67.8 % (42.8-82.8); PLATELET COUNT 152 10^3/uL (134-434); RBC 2.95 M/mm3 (4.00-5.60); RDW 13.6 % (11.9-15.9); WHITE BLOOD COUNT 2.1 K/mm3 (4.0-10.0)
[2021-03-02 11:53] LABS: BLOOD UREA NITROGEN 6.5 mg/dL (7-18)
[2021-03-02 11:54] LABS: ALBUMIN 2.4 g/dl (3.4-5.0)
[2021-03-02 11:55] LABS: BILIRUBIN,TOTAL 0.5 mg/dL (0.2-1); TOT PROT 6.1 g/dl (6.4-8.2)
[2021-03-02 11:56] LABS: CALCIUM 7.4 mg/dL (8.5-10.1)
[2021-03-02 11:57] LABS: CREATININE 0.5 mg/dL (0.55-1.3)
[2021-03-02] MEDS: THIAMINE HCL 100 MG TABLET (FP) PO SCH (22:58)
[2021-03-02] MEDS: MIRTAZAPINE 15 MG TABLET (FP) PO SCH (22:58)
[2021-03-02] MEDS: MELATONIN 5 MG TABLETS PO SCH (22:59)
[2021-03-03] MEDS ORDERED: LORazepam 0.5 MG TABLET PO PRN
[2021-03-03] MEDS: hydrOXYzine PAMOATE 25 MG CAPSULE (FP) PO SCH ×5 (06:31→22:57)
[2021-03-03] MEDS: LORazepam 0.5 MG TABLET PO SCH ×4 (06:31→22:57)
[2021-03-03] MEDS: NICOTINE 14 MG/24 HOURS TOPICAL PATCH TD SCH (11:27)
[2021-03-03] MEDS: PRENATAL VITAMINS W/ FOLIC ACID TABLET (FP) PO SCH (11:28)
[2021-03-03] MEDS: CALCIUM 500MG/VIT-D 200 UNITS COMBO TABLET (FP) PO SCH ×2 (15:16→22:57)
[2021-03-03] MEDS: MELATONIN 5 MG TABLETS PO SCH (22:57)
[2021-03-03] MEDS: MIRTAZAPINE 15 MG TABLET (FP) PO SCH (22:57)
[2021-03-03] MEDS: THIAMINE HCL 100 MG TABLET (FP) PO SCH (22:57)
[2021-03-04] MEDS ORDERED: LORazepam 0.5 MG TABLET PO ONE (05:00)
[2021-03-04] MEDS: hydrOXYzine PAMOATE 25 MG CAPSULE (FP) PO SCH ×5 (06:36→22:43)
[2021-03-04 10:24] LABS: BASO % 0.5 % (0-2.0); EOS % 0.1 % (0-4.5); HEMATOCRIT 26.8 % (35.4-49); HEMOGLOBIN 9.2 GM/dL (11.7-16.9); MCH 31.5 pg (25.7-33.7); MCHC 34.5 g/dl (32.0-35.9); MEAN CELL VOLUME 91.5 fl (80-96); MEAN PLT VOLUME 10.3 fl (7.5-11.1); MONO % 8.2 % (3.8-10.2); NEUT % 76.2 % (42.8-82.8); PLATELET COUNT 115 10^3/uL (134-434); RBC 2.93 M/mm3 (4.00-5.60); RDW 14.1 % (11.9-15.9); WHITE BLOOD COUNT 2.7 K/mm3 (4.0-10.0)
[2021-03-04 10:28] LABS: IRON SERUM 17 ug/dL (50-175); TOTAL IRON BINDING CAPACITY 182 ug/dL (250-450)
[2021-03-04] MEDS: PRENATAL VITAMINS W/ FOLIC ACID TABLET (FP) PO SCH (10:58)
[2021-03-04] MEDS: CALCIUM 500MG/VIT-D 200 UNITS COMBO TABLET (FP) PO SCH ×2 (10:58→22:43)
[2021-03-04] MEDS: NICOTINE 14 MG/24 HOURS TOPICAL PATCH TD SCH (10:58)
[2021-03-04 12:04] LABS: ANISOCYTOSIS 0; HELMET CELLS 0; HOWELL-JOLLY BODIES 0; MACROCYTOSIS 0; OVALOCYTE 0; PLATELET ESTIMATE DECREASED; ROULEAU 0; SICKELED CELLS 0; TARGET CELLS 0; TEAR DROP CELLS 0; TOXIC GRANULATION 0
[2021-03-04] MEDS: MIRTAZAPINE 15 MG TABLET (FP) PO SCH (22:43)
[2021-03-04] MEDS: MELATONIN 5 MG TABLETS PO SCH (22:44)
[2021-03-04] MEDS: THIAMINE HCL 100 MG TABLET (FP) PO SCH (22:44)
[2021-03-05] MEDS: hydrOXYzine PAMOATE 25 MG CAPSULE (FP) PO SCH ×4 (05:25→17:52)
[2021-03-05] MEDS: CALCIUM 500MG/VIT-D 200 UNITS COMBO TABLET (FP) PO SCH (10:29)
[2021-03-05] MEDS: NICOTINE 14 MG/24 HOURS TOPICAL PATCH TD SCH (10:29)
[2021-03-05] MEDS: PRENATAL VITAMINS W/ FOLIC ACID TABLET (FP) PO SCH (10:29)
[2021-03-05] MEDS ORDERED: FERROUS SO4 325 MG TABLET (FP) PO SCH (12:00)
[2021-03-05 13:36] VITALS: BP 105/56; PULSE 110; TEMP 98.7
== END 2021-03-05 17:55 | disposition other institution (70) | DRG 775 ==
LOC: YASAS 08:19 → Y3N 09:58
PROVIDERS: ADMIT Allergy & Immunology; ATTEND Allergy & Immunology
PROC: HZ2ZZZZ Detoxification Services for Substance Abuse Treatment (ICD-10-PCS; principal; 2021-02-28)
DX: F10.230 Alcohol dependence with withdrawal, uncomplicated (principal); F10.24 Alcohol dependence with alcohol-induced mood disorder; F10.280 Alcohol dependence with alcohol-induced anxiety disorder; F16.20 Hallucinogen dependence, uncomplicated; F17.210 Nicotine dependence, cigarettes, uncomplicated; F43.10 Post-traumatic stress disorder, unspecified; F19.24 Other psychoactive substance dependence with psychoactive substance-induced mood disorder; F19.282 Other psychoactive substance dependence with psychoactive substance-induced sleep disorder; D50.9 Iron deficiency anemia, unspecified; D72.819 Decreased white blood cell count, unspecified; E83.51 Hypocalcemia; R74.01 Elevation of levels of liver transaminase levels; Z88.6 Allergy status to analgesic agent; Z88.8 Allergy status to other drugs, medicaments and biological substances; Z56.0 Unemployment, unspecified; Z59.0 Homelessness
CPT/HCPCS: 36415; 80053; 82947; 83540; 83550; 85025; 85027; 86780; C9803; U0003; U0005

== ENCOUNTER 2021-03-05 17:53 | Inpatient (IN) | payer OTHER ==
[2021-03-05] MEDS ORDERED: P-EPHED 60MG/TRIPROLIDI 2.5MG TABLET PO PRN (18:16)
[2021-03-05] MEDS ORDERED: MENTHOL/PHENOL 1 EACH UD MM PRN (18:16)
[2021-03-05] MEDS ORDERED: IBUPROFEN 400 MG TABLET (FP) PO PRN (18:16)
[2021-03-05] MEDS ORDERED: MAGNESIUM HYDROX 2400MG/30ML ORAL SUSPENSION 30 ML CUP PO PRN (18:16)
[2021-03-05] MEDS ORDERED: guaiFENesin 200 MG/10 ML 10 ML UNIT-DOSE CUPS PO PRN (18:16)
[2021-03-05] MEDS ORDERED: LOPERAMIDE HCL 2 MG CAPSULE PO PRN (18:16)
[2021-03-05] MEDS ORDERED: MAGNESIUM CITRATE 300 ML BOTTLE PO PRN (18:16)
[2021-03-05] MEDS ORDERED: MAG HYDROX/AL HYDROX/SIMETH 30 ML UNIT-DOSE CUP PO PRN (18:16)
[2021-03-05] MEDS ORDERED: hydrOXYzine PAMOATE 25 MG CAPSULE (FP) PO PRN (18:16)
[2021-03-05] MEDS ORDERED: ACETAMINOPHEN 325 MG TABLET (FP) PO PRN (18:16)
[2021-03-05] MEDS ORDERED: MASKS NR ONE (18:27)
[2021-03-05] MEDS ORDERED: THIAMINE HCL 100 MG TABLET (FP) PO SCH (22:00)
[2021-03-05] MEDS ORDERED: MELATONIN 5 MG TABLETS PO SCH (22:00)
[2021-03-06 06:48] VITALS: BP 114/61; PULSE 122
[2021-03-06 07:53] VITALS: TEMP 100.9
[2021-03-06] MEDS ORDERED: PRENATAL VITAMINS W/ FOLIC ACID TABLET (FP) PO SCH (10:00)
== END 2021-03-06 00:08 | disposition short-term general hospital (02) | DRG 772 ==
LOC: YASAS 17:53 → Y3E 17:54
PROVIDERS: ADMIT Allergy & Immunology; ATTEND Allergy & Immunology
PROC: HZ42ZZZ Group Counseling for Substance Abuse Treatment, Cognitive-Behavioral (ICD-10-PCS; principal; 2021-03-05)
DX: F10.20 Alcohol dependence, uncomplicated (principal); F17.210 Nicotine dependence, cigarettes, uncomplicated; F43.10 Post-traumatic stress disorder, unspecified; L30.9 Dermatitis, unspecified; Z88.6 Allergy status to analgesic agent; Z56.0 Unemployment, unspecified; R05 Cough; R50.9 Fever, unspecified

== ENCOUNTER 2021-03-06 10:39 | Inpatient (IN) | payer OTHER ==
[2021-03-06] MEDS ORDERED: SODIUM CHLORIDE 0.9% 500 ML INFUS.BAG IV ONE (11:36)
[2021-03-06] MEDS ORDERED: FOLIC ACID 1 MG TABLET (FP) PO ONE (11:37)
[2021-03-06] MEDS ORDERED: MULTIVITAMINS (DAILY MVI) TABLET (FP) PO ONE (11:37)
[2021-03-06] MEDS ORDERED: THIAMINE HCL 200 MG/2 ML VIAL IVPB ONE (11:37)
[2021-03-06] MEDS ORDERED: MULTIVITAMINS (DAILY MVI) TABLET (FP) ONE (12:17)
[2021-03-06] MEDS ORDERED: THIAMINE HCL 200 MG/2 ML VIAL ONE (12:17)
[2021-03-06] MEDS ORDERED: FOLIC ACID 1 MG TABLET (FP) ONE (12:18)
[2021-03-06 12:47] LABS: BASO % 0.3 % (0-2.0); HEMATOCRIT 28.8 % (35.4-49); HEMOGLOBIN 9.9 GM/dL (11.7-16.9); LYMPH % 14.3 % (8-40); MCHC 34.3 g/dl (32.0-35.9); MEAN CELL VOLUME 90.3 fl (80-96); MEAN PLT VOLUME 10.4 fl (7.5-11.1); MONO % 9.9 % (3.8-10.2); NEUT % 75.5 % (42.8-82.8); PLATELET COUNT 100 10^3/uL (134-434); RBC 3.19 M/mm3 (4.00-5.60); RDW 13.9 % (11.9-15.9); VENOUS BASE EXCESS 0.6 mmol/L (-2-2); VENOUS O2 SATURATION 86.6 % (70-80); VENOUS PCO2 30.4 mmHg (38-52); VENOUS PH 7.496 (7.310-7.410); WHITE BLOOD COUNT 4.1 K/mm3 (4.0-10.0)
[2021-03-06 13:10] LABS: ALBUMIN 2.7 g/dl (3.4-5.0); BLOOD UREA NITROGEN 10.3 mg/dL (7-18); CALCIUM 7.8 mg/dL (8.5-10.1); MAGNESIUM 1.5 mg/dL (1.8-2.4)
[2021-03-06 13:13] LABS: CREATININE 0.6 mg/dL (0.55-1.3); PHOSPHOROUS 2.5 mg/dL (2.5-4.9)
[2021-03-06 13:15] LABS: BILIRUBIN,TOTAL 1.1 mg/dL (0.2-1); INR 1.2 (0.83-1.09); PROTHROMBIN TIME (PATIENT) 14.4 SEC (9.7-13.0); TOT PROT 6.8 g/dl (6.4-8.2)
[2021-03-06 13:17] LABS: ACTIVATED PTT 35.1 SECONDS (25.2-36.5)
[2021-03-06] MEDS ORDERED: ACETAMINOPHEN 500 MG TABLET (FP) PO ONE (13:44)
[2021-03-06] MEDS ORDERED: ACETAMINOPHEN 325 MG TABLET (FP) ONE (13:45)
[2021-03-06] MEDS ORDERED: MAGNESIUM SULF 50% (8.12 MEQ/2 ML-1 GM VIAL) IVPB ONE (13:56)
[2021-03-06] MEDS ORDERED: MAGNESIUM 1GM/D5W - 1 GM/100 ML IVPB IVPB ONE (14:16)
[2021-03-06] MEDS ORDERED: ALBUTEROL SO4 2.5/IPRATROPIUM 0.5 INH SOL 3 ML VIAL.NEB. NEB ONE ×2 (14:35→15:06)
[2021-03-06] MEDS ORDERED: AZITHROMYCIN IVPB 500 MG in DEXTROSE 5%-WATER - 250 ML IVPB ONE (16:21)
[2021-03-06] MEDS ORDERED: CEFTRIAXONE 1 GM in DEXTROSE 5%-WATER - 100 ML IVPB ONE (16:21)
[2021-03-06] MEDS ORDERED: AZITHROMYCIN IVPB 500 MG/250 ML BAG IVPB ONE (18:06)
[2021-03-06] MEDS ORDERED: CEFTRIAXONE 1 GM/50 ML BAG ONE (18:06)
[2021-03-06] MEDS ORDERED: VANCOMYCIN 1 GM in D5W (PRE-DOCKED) 1,000 MG/250 ML IVPB ONE (18:40)
[2021-03-06] MEDS ORDERED: CEFEPIME HCL/D5W 1 GM/50 ML BAG IVPB SCH (18:45)
[2021-03-06] MEDS: ACETAMINOPHEN 325 MG TABLET (FP) PO PRN (20:55)
[2021-03-06] MEDS: SODIUM CHLORIDE 1,000 ML IV SCH (21:26)
[2021-03-06] MEDS: MIRTAZAPINE 30 MG TABLET PO SCH (21:49)
[2021-03-06 22:11] LABS: EPI CELLS 4 /uL (0-25.1); HYALINE CASTS 0 /uL (0-3.1); PH,URINE 6.5 (5.0-8.0); URINE APPEARANCE CLEAR; URINE BACTERIA 1 /uL (0-1359); URINE BILIRUBIN NEGATIVE (NEGATIVE); URINE COLOR YELLOW; URINE GLUCOSE (UA) NEGATIVE (NEGATIVE); URINE KETONE 1+ (NEGATIVE); URINE LEUK ESTERASE NEGATIVE (NEGATIVE); URINE NITRITE NEGATIVE (NEGATIVE); URINE PROTEIN 1+ (NEGATIVE); URINE RBC 6 /uL (0-23.9); URINE UROBILINOGEN 0.2 mg/dL (0.2-1.0); URINE WBC 7 /uL (0-25.8)
[2021-03-07] MEDS ORDERED: CEFEPIME HCL 1 GM VIAL (RESTRICTED TO ID) ONE ×3 (01:52→16:05)
[2021-03-07] MEDS ORDERED: DEXTROSE 5%-WATER - 50 ML IVPB ONE ×2 (01:53→11:21)
[2021-03-07] MEDS: ACETAMINOPHEN 325 MG TABLET (FP) PO PRN ×2 (02:16→21:23)
[2021-03-07] MEDS: CEFEPIME 1 GM in DEXTROSE 5%-WATER - 1 GM/50 ML IVPB IVPB SCH ×2 (02:19→11:31)
[2021-03-07 09:33] LABS: BASO % 0.3 % (0-2.0); HEMATOCRIT 27.2 % (35.4-49); HEMOGLOBIN 9.4 GM/dL (11.7-16.9); LYMPH % 11.2 % (8-40); MCHC 34.3 g/dl (32.0-35.9); MEAN CELL VOLUME 90.4 fl (80-96); MEAN PLT VOLUME 10.8 fl (7.5-11.1); MONO % 10.1 % (3.8-10.2); NEUT % 78.4 % (42.8-82.8); PLATELET COUNT 96 10^3/uL (134-434); RBC 3.01 M/mm3 (4.00-5.60); WHITE BLOOD COUNT 3.5 K/mm3 (4.0-10.0)
[2021-03-07] MEDS ORDERED: CEFTRIAXONE 1 GM in DEXTROSE 5%-WATER - 50 ML IVPB SCH (10:00)
[2021-03-07 10:02] LABS: ALBUMIN 2.6 g/dl (3.4-5.0); CALCIUM 7.6 mg/dL (8.5-10.1)
[2021-03-07 10:03] LABS: BLOOD UREA NITROGEN 6.5 mg/dL (7-18)
[2021-03-07 10:06] LABS: PHOSPHOROUS 2.5 mg/dL (2.5-4.9)
[2021-03-07 10:07] LABS: TOT PROT 6.4 g/dl (6.4-8.2)
[2021-03-07 10:08] LABS: CREATININE 0.5 mg/dL (0.55-1.3)
[2021-03-07] MEDS ORDERED: COLLOIDAL OATMEAL 1 BAR EACH TP PRN (10:16)
[2021-03-07 10:17] LABS: BILIRUBIN,TOTAL 0.9 mg/dL (0.2-1)
[2021-03-07] MEDS: ENOXAPARIN NA (PORCINE) 40 MG/0.4 ML DISP.SYRIN SQ SCH ×2 (11:31→11:42)
[2021-03-07] MEDS: HYDROCORTISONE 1% TOPICAL LOTION 118 ML BOTTLE TP PRN (11:33)
[2021-03-07] MEDS: AZITHROMYCIN IVPB 500 MG/250 ML BAG IVPB SCH (12:08)
[2021-03-07] MEDS: CEFEPIME HCL/D5W 1 GM/50 ML BAG IVPB SCH (13:43)
[2021-03-07] MEDS: hydrOXYzine PAMOATE 50 MG CAPSULE (FP) PO SCH (14:42)
[2021-03-07] MEDS ORDERED: DEXTROSE 5%-WATER 100 ML IVPB ONE (16:05)
[2021-03-07] MEDS ORDERED: POTASSIUM CHLORIDE TABS 20 MEQ TABLET.ER (FP) PO ONE (17:09)
[2021-03-07] MEDS: CEFEPIME 1 GM in DEXTROSE 5%-WATER 100 ML IVPB SCH (17:34)
[2021-03-07] MEDS: SODIUM CHLORIDE 1,000 ML IV SCH (19:02)
[2021-03-07] MEDS: MIRTAZAPINE 30 MG TABLET PO SCH (21:04)
[2021-03-08] MEDS ORDERED: CEFEPIME HCL 1 GM VIAL (RESTRICTED TO ID) ONE ×3 (01:05→17:15)
[2021-03-08] MEDS ORDERED: DEXTROSE 5%-WATER 100 ML IVPB ONE ×3 (01:06→17:15)
[2021-03-08] MEDS: CEFEPIME 1 GM in DEXTROSE 5%-WATER 100 ML IVPB SCH ×3 (01:43→17:24)
[2021-03-08] MEDS: SODIUM CHLORIDE 1,000 ML IV SCH ×3 (03:54→19:18)
[2021-03-08 09:01] LABS: BASO % 0.3 % (0-2.0); EOS % 0.1 % (0-4.5); HEMATOCRIT 25.5 % (35.4-49); HEMOGLOBIN 8.6 GM/dL (11.7-16.9); LYMPH % 14.5 % (8-40); MCH 30.6 pg (25.7-33.7); MCHC 33.8 g/dl (32.0-35.9); MEAN CELL VOLUME 90.7 fl (80-96); MEAN PLT VOLUME 10.4 fl (7.5-11.1); MONO % 14.1 % (3.8-10.2); PLATELET COUNT 102 10^3/uL (134-434); RBC 2.81 M/mm3 (4.00-5.60); RDW 14.1 % (11.9-15.9); WHITE BLOOD COUNT 2.5 K/mm3 (4.0-10.0)
[2021-03-08 09:27] LABS: CALCIUM 7.5 mg/dL (8.5-10.1)
[2021-03-08 09:28] LABS: ALBUMIN 2.5 g/dl (3.4-5.0); BLOOD UREA NITROGEN 4.7 mg/dL (7-18); MAGNESIUM 2.1 mg/dL (1.8-2.4)
[2021-03-08 09:31] LABS: CREATININE 0.4 mg/dL (0.55-1.3)
[2021-03-08 09:32] LABS: BILIRUBIN,TOTAL 0.8 mg/dL (0.2-1); TOT PROT 6.2 g/dl (6.4-8.2)
[2021-03-08 10:37] LABS: PLATELET ESTIMATE DECREASED
[2021-03-08] MEDS ORDERED: guaiFENesin 200 MG/10 ML 10 ML UNIT-DOSE CUPS PO PRN (11:00)
[2021-03-08] MEDS: ENOXAPARIN NA (PORCINE) 40 MG/0.4 ML DISP.SYRIN SQ SCH (11:05)
[2021-03-08] MEDS: hydrOXYzine PAMOATE 50 MG CAPSULE (FP) PO SCH (11:10)
[2021-03-08] MEDS: ACETAMINOPHEN 325 MG TABLET (FP) PO PRN (11:11)
[2021-03-08] MEDS: AZITHROMYCIN IVPB 500 MG/250 ML BAG IVPB SCH (11:28)
[2021-03-08] MEDS: ALBUTEROL SO4 2.5/IPRATROPIUM 0.5 INH SOL 3 ML VIAL.NEB. NEB SCH ×4 (11:55→19:30)
[2021-03-08 14:46] VITALS: BMI 23.3
[2021-03-08] MEDS: HYDROCORTISONE 1% TOPICAL LOTION 118 ML BOTTLE TP PRN (17:36)
[2021-03-08] MEDS: MIRTAZAPINE 30 MG TABLET PO SCH (22:25)
[2021-03-09] MEDS ORDERED: CEFEPIME HCL 1 GM VIAL (RESTRICTED TO ID) ONE ×3 (01:37→17:01)
[2021-03-09] MEDS ORDERED: DEXTROSE 5%-WATER 100 ML IVPB ONE ×3 (01:37→17:01)
[2021-03-09] MEDS: CEFEPIME 1 GM in DEXTROSE 5%-WATER 100 ML IVPB SCH ×3 (01:49→17:05)
[2021-03-09] MEDS: SODIUM CHLORIDE 1,000 ML IV SCH ×3 (04:28→19:19)
[2021-03-09] MEDS ORDERED: PT OWN MED DRAWER 7, Y5N ONE ×2 (06:04→09:33)
[2021-03-09] MEDS: ALBUTEROL SO4 2.5/IPRATROPIUM 0.5 INH SOL 3 ML VIAL.NEB. NEB SCH ×4 (08:34→20:45)
[2021-03-09] MEDS: hydrOXYzine PAMOATE 50 MG CAPSULE (FP) PO SCH (09:48)
[2021-03-09 10:04] LABS: BASO % 0.5 % (0-2.0); EOS % 0.5 % (0-4.5); HEMATOCRIT 24.2 % (35.4-49); HEMOGLOBIN 8.2 GM/dL (11.7-16.9); LYMPH % 23.9 % (8-40); MCH 30.5 pg (25.7-33.7); MCHC 33.7 g/dl (32.0-35.9); MEAN CELL VOLUME 90.4 fl (80-96); MEAN PLT VOLUME 9.3 fl (7.5-11.1); MONO % 17.7 % (3.8-10.2); NEUT % 57.4 % (42.8-82.8); PLATELET COUNT 109 10^3/uL (134-434); RBC 2.68 M/mm3 (4.00-5.60); RDW 13.9 % (11.9-15.9)
[2021-03-09 10:26] LABS: WHITE BLOOD COUNT 1.7 K/mm3 (4.0-10.0)
[2021-03-09 10:34] LABS: CALCIUM 7.4 mg/dL (8.5-10.1)
[2021-03-09] MEDS: ENOXAPARIN NA (PORCINE) 40 MG/0.4 ML DISP.SYRIN SQ SCH (10:34)
[2021-03-09 10:35] LABS: ALBUMIN 2.3 g/dl (3.4-5.0); MAGNESIUM 1.9 mg/dL (1.8-2.4)
[2021-03-09 10:38] LABS: CREATININE 0.4 mg/dL (0.55-1.3)
[2021-03-09 10:39] LABS: BILIRUBIN,TOTAL 0.6 mg/dL (0.2-1); TOT PROT 5.9 g/dl (6.4-8.2)
[2021-03-09] MEDS ORDERED: POTASSIUM CHLORIDE TABS 20 MEQ TABLET.ER (FP) PO ONE (12:30)
[2021-03-09] MEDS: FOLIC ACID 1 MG TABLET (FP) PO SCH (13:54)
[2021-03-09] MEDS: MULTIVITAMINS (DAILY MVI) TABLET (FP) PO SCH (13:54)
[2021-03-09 14:07] LABS: ANISOCYTOSIS 1+; MACROCYTOSIS 0; OVALOCYTE 1+; PLATELET ESTIMATE DECREASED; TEAR DROP CELLS 1+; TOXIC GRANULATION 1+
[2021-03-09] MEDS: MIRTAZAPINE 30 MG TABLET PO SCH (21:55)
[2021-03-09] MEDS: THIAMINE HCL 100 MG TABLET (FP) PO SCH (21:55)
[2021-03-10] MEDS ORDERED: CEFEPIME HCL 1 GM VIAL (RESTRICTED TO ID) ONE (01:48)
[2021-03-10] MEDS ORDERED: DEXTROSE 5%-WATER 100 ML IVPB ONE (01:48)
[2021-03-10] MEDS: CEFEPIME 1 GM in DEXTROSE 5%-WATER 100 ML IVPB SCH ×2 (01:49→11:55)
[2021-03-10] MEDS: SODIUM CHLORIDE 1,000 ML IV SCH (04:02)
[2021-03-10] MEDS: ALBUTEROL SO4 2.5/IPRATROPIUM 0.5 INH SOL 3 ML VIAL.NEB. NEB SCH ×4 (09:00→20:53)
[2021-03-10] MEDS ORDERED: PIPERACILLIN/TAZOB 2.25 GM 2.25 GM in DEXTROSE 5%-WATER - 50 ML IVPB ONE ×2 (09:30→15:39)
[2021-03-10 11:35] LABS: HEMATOCRIT 24.1 % (35.4-49); HEMOGLOBIN 8.2 GM/dL (11.7-16.9); MCH 30.9 pg (25.7-33.7); MCHC 34.1 g/dl (32.0-35.9); MEAN CELL VOLUME 90.6 fl (80-96); MEAN PLT VOLUME 9.8 fl (7.5-11.1); PLATELET COUNT 140 10^3/uL (134-434); RBC 2.66 M/mm3 (4.00-5.60); RDW 13.9 % (11.9-15.9)
[2021-03-10] MEDS ORDERED: PIPERACILLIN/TAZOBACTAM 2.25 GM VIAL IVPB ONE (11:37)
[2021-03-10] MEDS ORDERED: DEXTROSE 5%-WATER - 50 ML IVPB ONE ×2 (11:37→17:38)
[2021-03-10] MEDS: MULTIVITAMINS (DAILY MVI) TABLET (FP) PO SCH (11:40)
[2021-03-10] MEDS: ENOXAPARIN NA (PORCINE) 40 MG/0.4 ML DISP.SYRIN SQ SCH (11:41)
[2021-03-10] MEDS: FOLIC ACID 1 MG TABLET (FP) PO SCH (11:41)
[2021-03-10] MEDS ORDERED: PT OWN MED DRAWER 7, Y5N ONE (11:48)
[2021-03-10] MEDS: hydrOXYzine PAMOATE 50 MG CAPSULE (FP) PO SCH (11:49)
[2021-03-10 11:56] LABS: WHITE BLOOD COUNT 1.8 K/mm3 (4.0-10.0)
[2021-03-10 12:11] LABS: ALBUMIN 2.2 g/dl (3.4-5.0); CALCIUM 7.5 mg/dL (8.5-10.1)
[2021-03-10 12:12] LABS: BLOOD UREA NITROGEN 4.1 mg/dL (7-18); MAGNESIUM 1.9 mg/dL (1.8-2.4)
[2021-03-10 12:16] LABS: BILIRUBIN,TOTAL 0.5 mg/dL (0.2-1); TOT PROT 5.7 g/dl (6.4-8.2)
[2021-03-10 12:18] LABS: CREATININE 0.3 mg/dL (0.55-1.3)
[2021-03-10 12:26] LABS: ANISOCYTOSIS 1+; PLATELET ESTIMATE DECREASED
[2021-03-10] MEDS: POTASSIUM CHLORIDE TABS 20 MEQ TABLET.ER (FP) PO ONE ×2 (15:05→15:58)
[2021-03-10] MEDS ORDERED: POTASSIUM CHLORIDE ORAL LIQUID 20 MEQ/15 ML PO ONE (15:46)
[2021-03-10] MEDS ORDERED: PIPERACILLIN/TAZOBACTAM 3.375 GM VIAL IVPB ONE (17:37)
[2021-03-10] MEDS: PIPERACILLIN/TAZOB 3.375 GM 3.375 GM in DEXTROSE 5%-WATER - 50 ML IVPB SCH (18:02)
[2021-03-10] MEDS: MIRTAZAPINE 30 MG TABLET PO SCH (21:35)
[2021-03-10] MEDS: THIAMINE HCL 100 MG TABLET (FP) PO SCH (21:35)
[2021-03-11] MEDS ORDERED: DEXTROSE 5%-WATER - 50 ML IVPB ONE ×3 (01:06→18:17)
[2021-03-11] MEDS ORDERED: PIPERACILLIN/TAZOBACTAM 3.375 GM VIAL IVPB ONE ×3 (01:06→18:17)
[2021-03-11] MEDS: PIPERACILLIN/TAZOB 3.375 GM 3.375 GM in DEXTROSE 5%-WATER - 50 ML IVPB SCH ×3 (01:07→18:39)
[2021-03-11] MEDS: ALBUTEROL SO4 2.5/IPRATROPIUM 0.5 INH SOL 3 ML VIAL.NEB. NEB SCH ×4 (08:41→20:24)
[2021-03-11 11:25] LABS: BASO % 0.6 % (0-2.0); EOS % 1.4 % (0-4.5); HEMATOCRIT 24.9 % (35.4-49); HEMOGLOBIN 8.6 GM/dL (11.7-16.9); MCH 31.2 pg (25.7-33.7); MCHC 34.5 g/dl (32.0-35.9); MEAN CELL VOLUME 90.5 fl (80-96); MEAN PLT VOLUME 9.7 fl (7.5-11.1); MONO % 16.3 % (3.8-10.2); NEUT % 63.7 % (42.8-82.8); PLATELET COUNT 172 10^3/uL (134-434); RBC 2.75 M/mm3 (4.00-5.60); RDW 13.9 % (11.9-15.9); WHITE BLOOD COUNT 2.4 K/mm3 (4.0-10.0)
[2021-03-11 11:42] LABS: ALBUMIN 2.3 g/dl (3.4-5.0)
[2021-03-11 11:43] LABS: CALCIUM 7.7 mg/dL (8.5-10.1)
[2021-03-11 11:44] LABS: BLOOD UREA NITROGEN 3.7 mg/dL (7-18); MAGNESIUM 1.7 mg/dL (1.8-2.4)
[2021-03-11 11:46] LABS: CREATININE 0.4 mg/dL (0.55-1.3)
[2021-03-11 11:47] LABS: BILIRUBIN,TOTAL 0.5 mg/dL (0.2-1)
[2021-03-11] MEDS: hydrOXYzine PAMOATE 50 MG CAPSULE (FP) PO SCH (12:24)
[2021-03-11] MEDS: ENOXAPARIN NA (PORCINE) 40 MG/0.4 ML DISP.SYRIN SQ SCH (12:25)
[2021-03-11] MEDS: FOLIC ACID 1 MG TABLET (FP) PO SCH (12:25)
[2021-03-11] MEDS: MULTIVITAMINS (DAILY MVI) TABLET (FP) PO SCH (12:25)
[2021-03-11] MEDS: THIAMINE HCL 100 MG TABLET (FP) PO SCH (21:14)
[2021-03-11] MEDS: MIRTAZAPINE 30 MG TABLET PO SCH (21:14)
[2021-03-12] MEDS ORDERED: DEXTROSE 5%-WATER - 50 ML IVPB ONE ×3 (01:15→18:04)
[2021-03-12] MEDS ORDERED: PIPERACILLIN/TAZOBACTAM 3.375 GM VIAL IVPB ONE ×3 (01:15→18:03)
[2021-03-12] MEDS: PIPERACILLIN/TAZOB 3.375 GM 3.375 GM in DEXTROSE 5%-WATER - 50 ML IVPB SCH ×3 (01:31→18:25)
[2021-03-12] MEDS: ALBUTEROL SO4 2.5/IPRATROPIUM 0.5 INH SOL 3 ML VIAL.NEB. NEB SCH ×4 (07:49→20:56)
[2021-03-12 09:32] LABS: BASO % 0.7 % (0-2.0); EOS % 2.3 % (0-4.5); HEMATOCRIT 24.5 % (35.4-49); HEMOGLOBIN 8.4 GM/dL (11.7-16.9); LYMPH % 17.5 % (8-40); MCH 31.1 pg (25.7-33.7); MCHC 34.3 g/dl (32.0-35.9); MEAN CELL VOLUME 90.8 fl (80-96); MEAN PLT VOLUME 9.5 fl (7.5-11.1); MONO % 15.3 % (3.8-10.2); NEUT % 64.2 % (42.8-82.8); PLATELET COUNT 190 10^3/uL (134-434); RDW 13.9 % (11.9-15.9); WHITE BLOOD COUNT 2.4 K/mm3 (4.0-10.0)
[2021-03-12] MEDS ORDERED: POTASSIUM CHLORIDE TABS 20 MEQ TABLET.ER (FP) PO ONE (10:49)
[2021-03-12 11:16] LABS: CALCIUM 7.9 mg/dL (8.5-10.1)
[2021-03-12 11:17] LABS: ALBUMIN 2.4 g/dl (3.4-5.0); MAGNESIUM 1.8 mg/dL (1.8-2.4)
[2021-03-12 11:18] LABS: BLOOD UREA NITROGEN 4.6 mg/dL (7-18)
[2021-03-12] MEDS: ENOXAPARIN NA (PORCINE) 40 MG/0.4 ML DISP.SYRIN SQ SCH (11:18)
[2021-03-12 11:20] LABS: CREATININE 0.4 mg/dL (0.55-1.3)
[2021-03-12 11:23] LABS: BILIRUBIN,TOTAL 0.5 mg/dL (0.2-1)
[2021-03-12] MEDS ORDERED: POTASSIUM CHLORIDE ORAL LIQUID 20 MEQ/15 ML PO ONE (11:30)
[2021-03-12] MEDS: FOLIC ACID 1 MG TABLET (FP) PO SCH (11:42)
[2021-03-12] MEDS: hydrOXYzine PAMOATE 50 MG CAPSULE (FP) PO SCH (11:42)
[2021-03-12] MEDS: MULTIVITAMINS (DAILY MVI) TABLET (FP) PO SCH (11:42)
[2021-03-12] MEDS: THIAMINE HCL 100 MG TABLET (FP) PO SCH (22:31)
[2021-03-12] MEDS: MIRTAZAPINE 30 MG TABLET PO SCH (22:34)
[2021-03-13] MEDS ORDERED: PIPERACILLIN/TAZOBACTAM 3.375 GM VIAL IVPB ONE ×3 (01:34→18:09)
[2021-03-13] MEDS ORDERED: DEXTROSE 5%-WATER - 50 ML IVPB ONE ×3 (01:34→18:09)
[2021-03-13] MEDS: PIPERACILLIN/TAZOB 3.375 GM 3.375 GM in DEXTROSE 5%-WATER - 50 ML IVPB SCH ×3 (01:58→18:24)
[2021-03-13] MEDS: ALBUTEROL SO4 2.5/IPRATROPIUM 0.5 INH SOL 3 ML VIAL.NEB. NEB SCH ×5 (07:55→20:05)
[2021-03-13 09:33] LABS: HEMATOCRIT 24.7 % (35.4-49); HEMOGLOBIN 8.4 GM/dL (11.7-16.9); MCH 30.8 pg (25.7-33.7); MCHC 34.1 g/dl (32.0-35.9); MEAN CELL VOLUME 90.3 fl (80-96); MEAN PLT VOLUME 9.5 fl (7.5-11.1); PLATELET COUNT 222 10^3/uL (134-434); RBC 2.74 M/mm3 (4.00-5.60); WHITE BLOOD COUNT 2.5 K/mm3 (4.0-10.0)
[2021-03-13 10:18] LABS: ALBUMIN 2.4 g/dl (3.4-5.0); BLOOD UREA NITROGEN 4.8 mg/dL (7-18); MAGNESIUM 1.8 mg/dL (1.8-2.4)
[2021-03-13 10:21] LABS: CREATININE 0.4 mg/dL (0.55-1.3)
[2021-03-13 10:22] LABS: BILIRUBIN,TOTAL 0.4 mg/dL (0.2-1); TOT PROT 6.1 g/dl (6.4-8.2)
[2021-03-13] MEDS ORDERED: POTASSIUM CHLORIDE ORAL LIQUID 20 MEQ/15 ML PO ONE (10:25)
[2021-03-13] MEDS ORDERED: PT OWN MED DRAWER 7, Y5N ONE (10:50)
[2021-03-13] MEDS: ENOXAPARIN NA (PORCINE) 40 MG/0.4 ML DISP.SYRIN SQ SCH (10:54)
[2021-03-13] MEDS: FOLIC ACID 1 MG TABLET (FP) PO SCH (10:55)
[2021-03-13] MEDS: MULTIVITAMINS (DAILY MVI) TABLET (FP) PO SCH (10:55)
[2021-03-13] MEDS: hydrOXYzine PAMOATE 50 MG CAPSULE (FP) PO SCH (10:55)
[2021-03-13 14:17] LABS: ANISOCYTOSIS 1+; MACROCYTOSIS 0; PLATELET ESTIMATE NORMAL
[2021-03-13] MEDS: THIAMINE HCL 100 MG TABLET (FP) PO SCH (22:18)
[2021-03-13] MEDS: MIRTAZAPINE 30 MG TABLET PO SCH (22:18)
[2021-03-14] MEDS ORDERED: PIPERACILLIN/TAZOBACTAM 3.375 GM VIAL IVPB ONE ×3 (01:56→18:27)
[2021-03-14] MEDS ORDERED: DEXTROSE 5%-WATER - 50 ML IVPB ONE ×2 (01:56→11:22)
[2021-03-14] MEDS: PIPERACILLIN/TAZOB 3.375 GM 3.375 GM in DEXTROSE 5%-WATER - 50 ML IVPB SCH ×3 (02:31→18:40)
[2021-03-14] MEDS: ALBUTEROL SO4 2.5/IPRATROPIUM 0.5 INH SOL 3 ML VIAL.NEB. NEB SCH ×4 (07:52→20:00)
[2021-03-14] MEDS ORDERED: PT OWN MED DRAWER 7, Y5N ONE (11:22)
[2021-03-14] MEDS: hydrOXYzine PAMOATE 50 MG CAPSULE (FP) PO SCH (12:27)
[2021-03-14] MEDS: ENOXAPARIN NA (PORCINE) 40 MG/0.4 ML DISP.SYRIN SQ SCH (12:28)
[2021-03-14] MEDS: MULTIVITAMINS (DAILY MVI) TABLET (FP) PO SCH (12:28)
[2021-03-14] MEDS: FOLIC ACID 1 MG TABLET (FP) PO SCH (12:28)
[2021-03-14] MEDS: THIAMINE HCL 100 MG TABLET (FP) PO SCH (21:11)
[2021-03-14] MEDS: MIRTAZAPINE 30 MG TABLET PO SCH (21:11)
[2021-03-15] MEDS ORDERED: PIPERACILLIN/TAZOBACTAM 3.375 GM VIAL IVPB ONE ×3 (01:10→17:20)
[2021-03-15] MEDS ORDERED: DEXTROSE 5%-WATER - 50 ML IVPB ONE ×3 (01:10→17:20)
[2021-03-15] MEDS: PIPERACILLIN/TAZOB 3.375 GM 3.375 GM in DEXTROSE 5%-WATER - 50 ML IVPB SCH ×3 (01:12→18:03)
[2021-03-15] MEDS: ALBUTEROL SO4 2.5/IPRATROPIUM 0.5 INH SOL 3 ML VIAL.NEB. NEB SCH ×4 (08:00→20:40)
[2021-03-15] MEDS: MULTIVITAMINS (DAILY MVI) TABLET (FP) PO SCH (09:34)
[2021-03-15] MEDS: hydrOXYzine PAMOATE 50 MG CAPSULE (FP) PO SCH (09:34)
[2021-03-15] MEDS: FOLIC ACID 1 MG TABLET (FP) PO SCH (09:34)
[2021-03-15] MEDS: ENOXAPARIN NA (PORCINE) 40 MG/0.4 ML DISP.SYRIN SQ SCH (09:34)
[2021-03-15 11:29] LABS: BASO % 1.6 % (0-2.0); EOS % 1.5 % (0-4.5); HEMATOCRIT 25.6 % (35.4-49); HEMOGLOBIN 8.6 GM/dL (11.7-16.9); LYMPH % 13.1 % (8-40); MCH 30.4 pg (25.7-33.7); MCHC 33.7 g/dl (32.0-35.9); MONO % 8.9 % (3.8-10.2); NEUT % 74.9 % (42.8-82.8); PLATELET COUNT 253 10^3/uL (134-434); RBC 2.84 M/mm3 (4.00-5.60); RDW 14.4 % (11.9-15.9); WHITE BLOOD COUNT 2.8 K/mm3 (4.0-10.0)
[2021-03-15 11:48] LABS: CALCIUM 8.1 mg/dL (8.5-10.1)
[2021-03-15 11:49] LABS: ALBUMIN 2.5 g/dl (3.4-5.0); BLOOD UREA NITROGEN 5.9 mg/dL (7-18)
[2021-03-15 11:52] LABS: CREATININE 0.6 mg/dL (0.55-1.3); PHOSPHOROUS 3.1 mg/dL (2.5-4.9)
[2021-03-15 11:53] LABS: BILIRUBIN,TOTAL 0.4 mg/dL (0.2-1)
[2021-03-15 11:54] LABS: TOT PROT 7.3 g/dl (6.4-8.2)
[2021-03-15] MEDS: THIAMINE HCL 100 MG TABLET (FP) PO SCH (21:07)
[2021-03-15] MEDS: MIRTAZAPINE 30 MG TABLET PO SCH (21:07)
[2021-03-16] MEDS ORDERED: PIPERACILLIN/TAZOBACTAM 3.375 GM VIAL IVPB ONE ×2 (00:39→09:46)
[2021-03-16] MEDS ORDERED: DEXTROSE 5%-WATER - 50 ML IVPB ONE ×2 (00:39→09:46)
[2021-03-16] MEDS: PIPERACILLIN/TAZOB 3.375 GM 3.375 GM in DEXTROSE 5%-WATER - 50 ML IVPB SCH ×2 (01:06→10:47)
[2021-03-16] MEDS: ALBUTEROL SO4 2.5/IPRATROPIUM 0.5 INH SOL 3 ML VIAL.NEB. NEB SCH ×4 (08:50→20:30)
[2021-03-16] MEDS ORDERED: PT OWN MED DRAWER 7, Y5N ONE (09:45)
[2021-03-16] MEDS: FOLIC ACID 1 MG TABLET (FP) PO SCH (10:46)
[2021-03-16] MEDS: MULTIVITAMINS (DAILY MVI) TABLET (FP) PO SCH (10:46)
[2021-03-16] MEDS: hydrOXYzine PAMOATE 50 MG CAPSULE (FP) PO SCH (10:46)
[2021-03-16] MEDS: ENOXAPARIN NA (PORCINE) 40 MG/0.4 ML DISP.SYRIN SQ SCH (10:47)
[2021-03-16 10:59] LABS: BASO % 0.6 % (0-2.0); EOS % 1.1 % (0-4.5); HEMATOCRIT 25.9 % (35.4-49); HEMOGLOBIN 8.7 GM/dL (11.7-16.9); LYMPH % 12.3 % (8-40); MCH 30.5 pg (25.7-33.7); MCHC 33.7 g/dl (32.0-35.9); MEAN CELL VOLUME 90.5 fl (80-96); MEAN PLT VOLUME 9.5 fl (7.5-11.1); MONO % 8.7 % (3.8-10.2); NEUT % 77.3 % (42.8-82.8); PLATELET COUNT 261 10^3/uL (134-434); RBC 2.86 M/mm3 (4.00-5.60); RDW 14.2 % (11.9-15.9); WHITE BLOOD COUNT 3.6 K/mm3 (4.0-10.0)
[2021-03-16 11:35] LABS: ALBUMIN 2.6 g/dl (3.4-5.0); BLOOD UREA NITROGEN 6.8 mg/dL (7-18); CALCIUM 8.3 mg/dL (8.5-10.1)
[2021-03-16 11:39] LABS: CREATININE 0.4 mg/dL (0.55-1.3)
[2021-03-16 11:40] LABS: PHOSPHOROUS 3.5 mg/dL (2.5-4.9)
[2021-03-16 11:41] LABS: BILIRUBIN,TOTAL 0.4 mg/dL (0.2-1); TOT PROT 6.4 g/dl (6.4-8.2)
[2021-03-16] MEDS: AMOX TR/POT CLAV 875MG/125MG TABLETS (FP) PO SCH (18:54)
[2021-03-16] MEDS: THIAMINE HCL 100 MG TABLET (FP) PO SCH (22:05)
[2021-03-16] MEDS: MIRTAZAPINE 30 MG TABLET PO SCH (22:08)
[2021-03-17] MEDS: ALBUTEROL SO4 2.5/IPRATROPIUM 0.5 INH SOL 3 ML VIAL.NEB. NEB SCH ×4 (08:12→20:17)
[2021-03-17 09:36] LABS: BASO % 0.4 % (0-2.0); EOS % 0.6 % (0-4.5); HEMATOCRIT 26.6 % (35.4-49); LYMPH % 13.7 % (8-40); MCH 30.5 pg (25.7-33.7); MCHC 33.8 g/dl (32.0-35.9); MEAN CELL VOLUME 90.2 fl (80-96); MEAN PLT VOLUME 9.3 fl (7.5-11.1); MONO % 6.3 % (3.8-10.2); PLATELET COUNT 264 10^3/uL (134-434); RBC 2.95 M/mm3 (4.00-5.60); RDW 14.6 % (11.9-15.9); WHITE BLOOD COUNT 3.9 K/mm3 (4.0-10.0)
[2021-03-17 09:54] LABS: CALCIUM 8.5 mg/dL (8.5-10.1)
[2021-03-17 09:55] LABS: MAGNESIUM 1.9 mg/dL (1.8-2.4)
[2021-03-17 09:57] LABS: ALBUMIN 2.6 g/dl (3.4-5.0); BLOOD UREA NITROGEN 9.3 mg/dL (7-18)
[2021-03-17 09:58] LABS: CREATININE 0.4 mg/dL (0.55-1.3)
[2021-03-17 10:00] LABS: BILIRUBIN,TOTAL 0.4 mg/dL (0.2-1); TOT PROT 6.8 g/dl (6.4-8.2)
[2021-03-17] MEDS: AMOX TR/POT CLAV 875MG/125MG TABLETS (FP) PO SCH ×2 (11:46→17:55)
[2021-03-17] MEDS: hydrOXYzine PAMOATE 50 MG CAPSULE (FP) PO SCH (11:47)
[2021-03-17] MEDS: MULTIVITAMINS (DAILY MVI) TABLET (FP) PO SCH (11:47)
[2021-03-17] MEDS: FOLIC ACID 1 MG TABLET (FP) PO SCH (11:47)
[2021-03-17] MEDS: ENOXAPARIN NA (PORCINE) 40 MG/0.4 ML DISP.SYRIN SQ SCH (11:47)
[2021-03-17] MEDS: MIRTAZAPINE 30 MG TABLET PO SCH (21:05)
[2021-03-17] MEDS: THIAMINE HCL 100 MG TABLET (FP) PO SCH (21:05)
[2021-03-18] MEDS: ALBUTEROL SO4 2.5/IPRATROPIUM 0.5 INH SOL 3 ML VIAL.NEB. NEB SCH ×4 (07:38→20:25)
[2021-03-18] MEDS: ENOXAPARIN NA (PORCINE) 40 MG/0.4 ML DISP.SYRIN SQ SCH (10:38)
[2021-03-18] MEDS ORDERED: PT OWN MED DRAWER 7, Y5N ONE (10:43)
[2021-03-18] MEDS: ACETAMINOPHEN 325 MG TABLET (FP) PO PRN (11:20)
[2021-03-18] MEDS: AMOX TR/POT CLAV 875MG/125MG TABLETS (FP) PO SCH ×2 (11:21→17:29)
[2021-03-18] MEDS: FOLIC ACID 1 MG TABLET (FP) PO SCH (11:21)
[2021-03-18] MEDS: hydrOXYzine PAMOATE 50 MG CAPSULE (FP) PO SCH (11:21)
[2021-03-18] MEDS: MULTIVITAMINS (DAILY MVI) TABLET (FP) PO SCH (11:21)
[2021-03-18] MEDS: THIAMINE HCL 100 MG TABLET (FP) PO SCH (21:16)
[2021-03-18] MEDS: MIRTAZAPINE 30 MG TABLET PO SCH (21:17)
[2021-03-19 03:49] VITALS: PULSE 89; TEMP 98.4
[2021-03-19] MEDS: ALBUTEROL SO4 2.5/IPRATROPIUM 0.5 INH SOL 3 ML VIAL.NEB. NEB SCH ×2 (07:45→11:41)
[2021-03-19] MEDS ORDERED: PT OWN MED DRAWER 7, Y5N ONE (10:28)
[2021-03-19] MEDS: FOLIC ACID 1 MG TABLET (FP) PO SCH (11:14)
[2021-03-19] MEDS: AMOX TR/POT CLAV 875MG/125MG TABLETS (FP) PO SCH (11:14)
[2021-03-19] MEDS: MULTIVITAMINS (DAILY MVI) TABLET (FP) PO SCH (11:14)
[2021-03-19] MEDS: ENOXAPARIN NA (PORCINE) 40 MG/0.4 ML DISP.SYRIN SQ SCH (11:15)
[2021-03-19] MEDS: hydrOXYzine PAMOATE 50 MG CAPSULE (FP) PO SCH (11:15)
[2021-03-19 15:34] VITALS: BP 105/64
== END 2021-03-19 16:31 | disposition other institution (70) | DRG 139 ==
LOC: JER 10:39 → JERBED 16:22 → J5S 20:44
PROVIDERS: ADMIT Internal Medicine; ATTEND Nurse Practitioner Family
DX: J18.9 Pneumonia, unspecified organism (principal); D50.0 Iron deficiency anemia secondary to blood loss (chronic); F10.20 Alcohol dependence, uncomplicated; L30.9 Dermatitis, unspecified; E87.6 Hypokalemia; F31.89 Other bipolar disorder; D70.9 Neutropenia, unspecified; F43.10 Post-traumatic stress disorder, unspecified; A15.8 Other respiratory tuberculosis
CPT/HCPCS: 36415; 71045-TC-FY; 71046-TC-FY; 71101-TC-LT-FY; 71250-TC; 80053; 81003; 82550; 82803; 83605; 83735; 84100; 84484; 85025; 85610; 85730; 86480; 87040; 87070; 87116; 87205; 87206; 87804; 87899; 93005; 93010; 94010; 94640; 99285-25; C9803; U0003; U0005

== ENCOUNTER 2021-03-19 16:51 | Inpatient (IN) | payer OTHER ==
[2021-03-19 18:10] VITALS: BMI 22.6
[2021-03-19] MEDS ORDERED: P-EPHED 60MG/TRIPROLIDI 2.5MG TABLET PO PRN (20:48)
[2021-03-19] MEDS ORDERED: NICOTINE 10 MG CARTRIDGE (INHALER) IH PRN (20:48)
[2021-03-19] MEDS ORDERED: MAGNESIUM HYDROX 2400MG/30ML ORAL SUSPENSION 30 ML CUP PO PRN (20:48)
[2021-03-19] MEDS ORDERED: LOPERAMIDE HCL 2 MG CAPSULE PO PRN (20:48)
[2021-03-19] MEDS ORDERED: MAG HYDROX/AL HYDROX/SIMETH 30 ML UNIT-DOSE CUP PO PRN (20:48)
[2021-03-19] MEDS ORDERED: MAGNESIUM CITRATE 300 ML BOTTLE PO PRN (20:48)
[2021-03-19] MEDS ORDERED: guaiFENesin 200 MG/10 ML 10 ML UNIT-DOSE CUPS PO PRN (20:48)
[2021-03-19] MEDS ORDERED: NICOTINE POLACRILEX 2 MG GUM BC PRN (20:48)
[2021-03-19] MEDS: hydrOXYzine PAMOATE 25 MG CAPSULE (FP) PO SCH (23:45)
[2021-03-19] MEDS: COLLOIDAL OATMEAL 1 EACH PACKET TP SCH (23:45)
[2021-03-19] MEDS: THIAMINE HCL 100 MG TABLET (FP) PO SCH (23:45)
[2021-03-19] MEDS: MELATONIN 5 MG TABLETS PO SCH (23:45)
[2021-03-19] MEDS: NICOTINE 7 MG/24 HOURS TOPICAL PATCH TD SCH (23:46)
[2021-03-19] MEDS: PRENATAL VITAMINS W/ FOLIC ACID TABLET (FP) PO SCH (23:47)
[2021-03-20] MEDS ORDERED: PT OWN MED DRAWER 7, Y5N ONE ×5 (00:49→21:48)
[2021-03-20] MEDS: hydrOXYzine PAMOATE 25 MG CAPSULE (FP) PO SCH ×2 (06:21→09:31)
[2021-03-20] MEDS: COLLOIDAL OATMEAL 1 EACH PACKET TP SCH (09:30)
[2021-03-20] MEDS: NICOTINE 7 MG/24 HOURS TOPICAL PATCH TD SCH (09:30)
[2021-03-20] MEDS: PRENATAL VITAMINS W/ FOLIC ACID TABLET (FP) PO SCH (09:30)
[2021-03-20] MEDS ORDERED: traZODone HCL 50 MG TABLET (FP) PO PRN (10:03)
[2021-03-20] MEDS: AMOX TR/POT CLAV 875MG/125MG TABLETS (FP) PO SCH ×2 (11:13→21:48)
[2021-03-20] MEDS: LACTOBACILLUS ACIDOPHILUS 1 TABLET PO SCH (11:15)
[2021-03-20] MEDS ORDERED: COLLOIDAL OATMEAL 1 BAR EACH TP PRN (11:22)
[2021-03-20] MEDS ORDERED: hydrOXYzine PAMOATE 25 MG CAPSULE (FP) PO PRN (11:22)
[2021-03-20] MEDS: HYDROCORTISONE 1% TOPICAL LOTION 118 ML BOTTLE TP PRN (12:38)
[2021-03-20] MEDS: AMMONIUM LACTATE 12% LOTION 225 GM BOTTLE TP PRN (12:39)
[2021-03-20] MEDS: MELATONIN 5 MG TABLETS PO SCH (21:46)
[2021-03-20] MEDS: THIAMINE HCL 100 MG TABLET (FP) PO SCH (21:46)
[2021-03-21] MEDS ORDERED: PT OWN MED DRAWER 7, Y5N ONE ×2 (08:30→21:34)
[2021-03-21] MEDS: LACTOBACILLUS ACIDOPHILUS 1 TABLET PO SCH (09:39)
[2021-03-21] MEDS: PRENATAL VITAMINS W/ FOLIC ACID TABLET (FP) PO SCH (09:39)
[2021-03-21] MEDS: AMOX TR/POT CLAV 875MG/125MG TABLETS (FP) PO SCH ×2 (09:39→21:30)
[2021-03-21] MEDS: NICOTINE 7 MG/24 HOURS TOPICAL PATCH TD SCH (09:39)
[2021-03-21] MEDS: THIAMINE HCL 100 MG TABLET (FP) PO SCH (21:30)
[2021-03-21] MEDS: traZODone HCL 50 MG TABLET (FP) PO SCH (21:31)
[2021-03-22] MEDS ORDERED: PT OWN MED DRAWER 7, Y5N ONE (08:31)
[2021-03-22] MEDS: AMOX TR/POT CLAV 875MG/125MG TABLETS (FP) PO SCH ×2 (09:49→21:26)
[2021-03-22] MEDS: PRENATAL VITAMINS W/ FOLIC ACID TABLET (FP) PO SCH (09:49)
[2021-03-22] MEDS: LACTOBACILLUS ACIDOPHILUS 1 TABLET PO SCH (09:49)
[2021-03-22] MEDS: NICOTINE 7 MG/24 HOURS TOPICAL PATCH TD SCH (09:50)
[2021-03-22] MEDS: ACETAMINOPHEN 325 MG TABLET (FP) PO PRN (09:51)
[2021-03-22] MEDS: traZODone HCL 50 MG TABLET (FP) PO SCH (21:26)
[2021-03-22] MEDS: THIAMINE HCL 100 MG TABLET (FP) PO SCH (21:26)
[2021-03-23] MEDS: AMOX TR/POT CLAV 875MG/125MG TABLETS (FP) PO SCH ×2 (09:39→21:26)
[2021-03-23] MEDS: LACTOBACILLUS ACIDOPHILUS 1 TABLET PO SCH (09:39)
[2021-03-23] MEDS: PRENATAL VITAMINS W/ FOLIC ACID TABLET (FP) PO SCH (09:39)
[2021-03-23] MEDS: HYDROCORTISONE 1% TOPICAL LOTION 118 ML BOTTLE TP PRN (09:40)
[2021-03-23] MEDS: NICOTINE 7 MG/24 HOURS TOPICAL PATCH TD SCH (09:40)
[2021-03-23] MEDS: AMMONIUM LACTATE 12% LOTION 225 GM BOTTLE TP PRN (09:40)
[2021-03-23] MEDS ORDERED: PT OWN MED DRAWER 7, Y5N ONE (18:40)
[2021-03-23] MEDS: THIAMINE HCL 100 MG TABLET (FP) PO SCH (21:26)
[2021-03-23] MEDS: traZODone HCL 50 MG TABLET (FP) PO SCH (21:26)
[2021-03-24] MEDS: AMOX TR/POT CLAV 875MG/125MG TABLETS (FP) PO SCH ×2 (10:21→21:19)
[2021-03-24] MEDS: LACTOBACILLUS ACIDOPHILUS 1 TABLET PO SCH (10:21)
[2021-03-24] MEDS: PRENATAL VITAMINS W/ FOLIC ACID TABLET (FP) PO SCH (10:21)
[2021-03-24] MEDS: NICOTINE 7 MG/24 HOURS TOPICAL PATCH TD SCH (10:22)
[2021-03-24] MEDS: traZODone HCL 50 MG TABLET (FP) PO SCH (21:19)
[2021-03-24] MEDS: THIAMINE HCL 100 MG TABLET (FP) PO SCH (21:19)
[2021-03-25] MEDS: LACTOBACILLUS ACIDOPHILUS 1 TABLET PO SCH (10:00)
[2021-03-25] MEDS: PRENATAL VITAMINS W/ FOLIC ACID TABLET (FP) PO SCH (10:00)
[2021-03-25] MEDS: NICOTINE 7 MG/24 HOURS TOPICAL PATCH TD SCH (10:00)
[2021-03-25] MEDS: traZODone HCL 50 MG TABLET (FP) PO SCH (21:22)
[2021-03-25] MEDS: IBUPROFEN 400 MG TABLET (FP) PO PRN (21:23)
[2021-03-25] MEDS: THIAMINE HCL 100 MG TABLET (FP) PO SCH (21:23)
[2021-03-25] MEDS: HYDROCORTISONE 1% TOPICAL LOTION 118 ML BOTTLE TP PRN (21:25)
[2021-03-26] MEDS: PRENATAL VITAMINS W/ FOLIC ACID TABLET (FP) PO SCH ×2 (10:32→10:49)
[2021-03-26] MEDS: LACTOBACILLUS ACIDOPHILUS 1 TABLET PO SCH (10:32)
[2021-03-26] MEDS: NICOTINE 7 MG/24 HOURS TOPICAL PATCH TD SCH (10:32)
[2021-03-26] MEDS: IBUPROFEN 400 MG TABLET (FP) PO PRN (18:43)
[2021-03-26] MEDS: THIAMINE HCL 100 MG TABLET (FP) PO SCH (21:10)
[2021-03-26] MEDS: traZODone HCL 50 MG TABLET (FP) PO SCH (21:10)
[2021-03-27 07:10] VITALS: TEMP 97.8
[2021-03-27] MEDS: PRENATAL VITAMINS W/ FOLIC ACID TABLET (FP) PO SCH (10:35)
[2021-03-27] MEDS: NICOTINE 7 MG/24 HOURS TOPICAL PATCH TD SCH (10:36)
[2021-03-27] MEDS: LACTOBACILLUS ACIDOPHILUS 1 TABLET PO SCH (10:36)
[2021-03-27] MEDS: IBUPROFEN 400 MG TABLET (FP) PO PRN (11:57)
[2021-03-27] MEDS ORDERED: PT OWN MED DRAWER 7, Y5N ONE ×3 (11:57→21:39)
[2021-03-27] MEDS: CYCLOBENZAPRINE HCL 5 MG TABLET PO PRN ×2 (11:59→21:38)
[2021-03-27] MEDS: traZODone HCL 50 MG TABLET (FP) PO SCH (21:37)
[2021-03-27] MEDS: THIAMINE HCL 100 MG TABLET (FP) PO SCH (21:37)
[2021-03-28] MEDS: PRENATAL VITAMINS W/ FOLIC ACID TABLET (FP) PO SCH (10:38)
[2021-03-28] MEDS: CYCLOBENZAPRINE HCL 5 MG TABLET PO PRN ×2 (10:40→21:30)
[2021-03-28] MEDS ORDERED: PT OWN MED DRAWER 7, Y5N ONE ×2 (10:40→21:30)
[2021-03-28] MEDS: ACETAMINOPHEN 325 MG TABLET (FP) PO PRN ×2 (10:40→21:31)
[2021-03-28] MEDS: HYDROCORTISONE 1% TOPICAL LOTION 118 ML BOTTLE TP PRN (10:42)
[2021-03-28] MEDS: NICOTINE 7 MG/24 HOURS TOPICAL PATCH TD SCH (10:46)
[2021-03-28] MEDS: LACTOBACILLUS ACIDOPHILUS 1 TABLET PO SCH (10:46)
[2021-03-28] MEDS: THIAMINE HCL 100 MG TABLET (FP) PO SCH (21:28)
[2021-03-28] MEDS: traZODone HCL 50 MG TABLET (FP) PO SCH (21:28)
[2021-03-29] MEDS: PRENATAL VITAMINS W/ FOLIC ACID TABLET (FP) PO SCH (09:37)
[2021-03-29] MEDS ORDERED: PT OWN MED DRAWER 7, Y5N ONE (09:38)
[2021-03-29] MEDS: CYCLOBENZAPRINE HCL 5 MG TABLET PO PRN ×2 (09:39→21:38)
[2021-03-29] MEDS: ACETAMINOPHEN 325 MG TABLET (FP) PO PRN ×2 (09:39→21:38)
[2021-03-29] MEDS ORDERED: SIMETHICONE 80 MG TAB.CHEW (FP) PO PRN (10:27)
[2021-03-29] MEDS: NICOTINE 7 MG/24 HOURS TOPICAL PATCH TD SCH (10:47)
[2021-03-29] MEDS: LACTOBACILLUS ACIDOPHILUS 1 TABLET PO SCH (10:47)
[2021-03-29] MEDS: THIAMINE HCL 100 MG TABLET (FP) PO SCH (21:37)
[2021-03-29] MEDS: traZODone HCL 50 MG TABLET (FP) PO SCH (21:37)
[2021-03-30] MEDS ORDERED: PT OWN MED DRAWER 7, Y5N ONE ×3 (09:05→21:31)
[2021-03-30] MEDS: CYCLOBENZAPRINE HCL 5 MG TABLET PO PRN ×2 (10:50→21:31)
[2021-03-30] MEDS: PRENATAL VITAMINS W/ FOLIC ACID TABLET (FP) PO SCH (10:50)
[2021-03-30] MEDS: ACETAMINOPHEN 325 MG TABLET (FP) PO PRN (10:51)
[2021-03-30] MEDS: NICOTINE 7 MG/24 HOURS TOPICAL PATCH TD SCH (10:54)
[2021-03-30] MEDS: LACTOBACILLUS ACIDOPHILUS 1 TABLET PO SCH (10:55)
[2021-03-30] MEDS: traZODone HCL 50 MG TABLET (FP) PO SCH (21:29)
[2021-03-30] MEDS: THIAMINE HCL 100 MG TABLET (FP) PO SCH (21:30)
[2021-03-30] MEDS: IBUPROFEN 400 MG TABLET (FP) PO PRN (21:31)
[2021-03-31] MEDS ORDERED: PT OWN MED DRAWER 7, Y5N ONE (08:39)
[2021-03-31] MEDS: LACTOBACILLUS ACIDOPHILUS 1 TABLET PO SCH (10:15)
[2021-03-31] MEDS: PRENATAL VITAMINS W/ FOLIC ACID TABLET (FP) PO SCH (10:15)
[2021-03-31] MEDS: NICOTINE 7 MG/24 HOURS TOPICAL PATCH TD SCH (10:15)
[2021-03-31] MEDS: CYCLOBENZAPRINE HCL 5 MG TABLET PO PRN ×2 (10:17→21:27)
[2021-03-31] MEDS: ACETAMINOPHEN 325 MG TABLET (FP) PO PRN (10:17)
[2021-03-31] MEDS: THIAMINE HCL 100 MG TABLET (FP) PO SCH (21:26)
[2021-03-31] MEDS: traZODone HCL 50 MG TABLET (FP) PO SCH (21:27)
[2021-03-31] MEDS: IBUPROFEN 400 MG TABLET (FP) PO PRN (21:27)
[2021-04-01] MEDS: PRENATAL VITAMINS W/ FOLIC ACID TABLET (FP) PO SCH (10:11)
[2021-04-01] MEDS: LACTOBACILLUS ACIDOPHILUS 1 TABLET PO SCH (10:11)
[2021-04-01] MEDS: NICOTINE 7 MG/24 HOURS TOPICAL PATCH TD SCH (10:11)
[2021-04-01] MEDS: CYCLOBENZAPRINE HCL 5 MG TABLET PO PRN ×2 (10:12→21:15)
[2021-04-01] MEDS: ACETAMINOPHEN 325 MG TABLET (FP) PO PRN ×2 (10:12→21:15)
[2021-04-01 11:33] VITALS: BP 101/64; PULSE 109
[2021-04-01] MEDS: traZODone HCL 50 MG TABLET (FP) PO SCH (21:15)
[2021-04-01] MEDS: THIAMINE HCL 100 MG TABLET (FP) PO SCH (21:15)
[2021-04-02] MEDS: CYCLOBENZAPRINE HCL 5 MG TABLET PO PRN ×2 (10:49→21:26)
[2021-04-02] MEDS: ACETAMINOPHEN 325 MG TABLET (FP) PO PRN ×2 (10:50→21:26)
[2021-04-02] MEDS: NICOTINE 7 MG/24 HOURS TOPICAL PATCH TD SCH (10:51)
[2021-04-02] MEDS: PRENATAL VITAMINS W/ FOLIC ACID TABLET (FP) PO SCH (10:52)
[2021-04-02] MEDS: LACTOBACILLUS ACIDOPHILUS 1 TABLET PO SCH (10:52)
[2021-04-02] MEDS ORDERED: PT OWN MED DRAWER 7, Y5N ONE (18:58)
[2021-04-02] MEDS: THIAMINE HCL 100 MG TABLET (FP) PO SCH (21:25)
[2021-04-02] MEDS: traZODone HCL 50 MG TABLET (FP) PO SCH (21:26)
[2021-04-03] MEDS: LACTOBACILLUS ACIDOPHILUS 1 TABLET PO SCH (10:34)
[2021-04-03] MEDS: PRENATAL VITAMINS W/ FOLIC ACID TABLET (FP) PO SCH (10:34)
[2021-04-03] MEDS: NICOTINE 7 MG/24 HOURS TOPICAL PATCH TD SCH (10:34)
== END 2021-04-03 11:25 | disposition home or self-care (01) | DRG 772 ==
LOC: YASAS 16:51 → Y3E 21:59 → Y3W 03-22 14:07
PROVIDERS: ADMIT Allergy & Immunology; ATTEND Allergy & Immunology
PROC: HZ42ZZZ Group Counseling for Substance Abuse Treatment, Cognitive-Behavioral (ICD-10-PCS; principal; 2021-03-19)
DX: F10.20 Alcohol dependence, uncomplicated (principal); F12.20 Cannabis dependence, uncomplicated; F17.210 Nicotine dependence, cigarettes, uncomplicated; F19.282 Other psychoactive substance dependence with psychoactive substance-induced sleep disorder; F19.24 Other psychoactive substance dependence with psychoactive substance-induced mood disorder; F31.9 Bipolar disorder, unspecified; F43.10 Post-traumatic stress disorder, unspecified; D50.9 Iron deficiency anemia, unspecified; L30.9 Dermatitis, unspecified; Z87.01 Personal history of pneumonia (recurrent); Z88.8 Allergy status to other drugs, medicaments and biological substances; Z56.0 Unemployment, unspecified; Z59.0 Homelessness

== ENCOUNTER 2021-04-13 16:31 | Inpatient (IN) | payer OTHER ==
[2021-04-13 17:41] VITALS: BMI 25.8
[2021-04-13] MEDS ORDERED: ONDANSETRON *ODT* 4 MG TABLET SL PRN (20:34)
[2021-04-13] MEDS ORDERED: MAGNESIUM HYDROX 2400MG/30ML ORAL SUSPENSION 30 ML CUP PO PRN (20:34)
[2021-04-13] MEDS ORDERED: MAG HYDROX/AL HYDROX/SIMETH 30 ML UNIT-DOSE CUP PO PRN (20:34)
[2021-04-13] MEDS ORDERED: ACETAMINOPHEN 325 MG TABLET (FP) PO PRN (20:34)
[2021-04-13] MEDS ORDERED: NICOTINE POLACRILEX 2 MG GUM BUC PRN (20:34)
[2021-04-13] MEDS ORDERED: hydrOXYzine PAMOATE 25 MG CAPSULE (FP) PO PRN (20:34)
[2021-04-13] MEDS ORDERED: MENTHOL/PHENOL 1 EACH UD MM PRN (20:34)
[2021-04-13] MEDS ORDERED: MAGNESIUM CITRATE 300 ML BOTTLE PO PRN (20:34)
[2021-04-13] MEDS ORDERED: diazePAM 5 MG TABLET PO PRN (20:40)
[2021-04-13] MEDS ORDERED: ACETAMINOPHEN 325 MG TABLET (FP) ONE (21:47)
[2021-04-13] MEDS ORDERED: diazePAM 5 MG TABLET ONE ×2 (21:47→21:52)
[2021-04-13] MEDS ORDERED: METHOCARBAMOL 500 MG TABLET ONE (21:47)
[2021-04-13] MEDS: METHOCARBAMOL 500 MG TABLET PO PRN (21:48)
[2021-04-13] MEDS: MELATONIN 5 MG TABLETS PO SCH (21:48)
[2021-04-13] MEDS: THIAMINE HCL 100 MG TABLET (FP) PO SCH (21:49)
[2021-04-13] MEDS: ACETAMINOPHEN 325 MG TABLET (FP) PO PRN (21:57)
[2021-04-14] MEDS ORDERED: diazePAM 5 MG TABLET ONE ×2 (07:02→10:13)
[2021-04-14] MEDS: diazePAM 5 MG TABLET PO SCH ×5 (07:03→22:58)
[2021-04-14] MEDS ORDERED: ACETAMINOPHEN 325 MG TABLET (FP) ONE (07:13)
[2021-04-14] MEDS ORDERED: METHOCARBAMOL 500 MG TABLET ONE (07:13)
[2021-04-14] MEDS: METHOCARBAMOL 500 MG TABLET PO PRN ×3 (07:17→23:01)
[2021-04-14] MEDS: ACETAMINOPHEN 325 MG TABLET (FP) PO PRN ×2 (07:17→21:47)
[2021-04-14] MEDS: PRENATAL VITAMINS W/ FOLIC ACID TABLET (FP) PO SCH (10:15)
[2021-04-14] MEDS: THIAMINE HCL 100 MG TABLET (FP) PO SCH (22:58)
[2021-04-14] MEDS: MELATONIN 5 MG TABLETS PO SCH (22:59)
[2021-04-14] MEDS ORDERED: COLLOIDAL OATMEAL 1 BAR EACH TP PRN (23:04)
[2021-04-15] MEDS: diazePAM 5 MG TABLET PO SCH ×3 (05:25→22:20)
[2021-04-15] MEDS: METHOCARBAMOL 500 MG TABLET PO PRN ×2 (05:26→22:21)
[2021-04-15] MEDS: ACETAMINOPHEN 325 MG TABLET (FP) PO PRN ×2 (06:18→22:19)
[2021-04-15] MEDS: PRENATAL VITAMINS W/ FOLIC ACID TABLET (FP) PO SCH (10:56)
[2021-04-15] MEDS: MELATONIN 5 MG TABLETS PO SCH (22:20)
[2021-04-15] MEDS: THIAMINE HCL 100 MG TABLET (FP) PO SCH (22:20)
[2021-04-16] MEDS ORDERED: diazePAM 5 MG TABLET PO ONE (06:00)
[2021-04-16] MEDS: PRENATAL VITAMINS W/ FOLIC ACID TABLET (FP) PO SCH (10:26)
[2021-04-16] MEDS: diazePAM 5 MG TABLET PO SCH ×2 (10:26→23:10)
[2021-04-16] MEDS: THIAMINE HCL 100 MG TABLET (FP) PO SCH (23:11)
[2021-04-16] MEDS: MELATONIN 5 MG TABLETS PO SCH (23:11)
[2021-04-16] MEDS: ACETAMINOPHEN 325 MG TABLET (FP) PO PRN (23:12)
[2021-04-16] MEDS: METHOCARBAMOL 500 MG TABLET PO PRN (23:17)
[2021-04-17] MEDS ORDERED: diazePAM 5 MG TABLET PO ONE (06:00)
[2021-04-17 09:48] VITALS: BP 104/57; PULSE 101; TEMP 97.1
[2021-04-17] MEDS: PRENATAL VITAMINS W/ FOLIC ACID TABLET (FP) PO SCH (11:49)
== END 2021-04-17 12:49 | disposition home or self-care (01) | DRG 775 ==
LOC: YASAS 16:31 → Y3N 04-14 12:33
PROVIDERS: ADMIT Allergy & Immunology; ATTEND Allergy & Immunology
PROC: HZ2ZZZZ Detoxification Services for Substance Abuse Treatment (ICD-10-PCS; principal; 2021-04-14)
DX: F10.230 Alcohol dependence with withdrawal, uncomplicated (principal); F12.20 Cannabis dependence, uncomplicated; F17.210 Nicotine dependence, cigarettes, uncomplicated; F10.282 Alcohol dependence with alcohol-induced sleep disorder; F31.9 Bipolar disorder, unspecified; F43.10 Post-traumatic stress disorder, unspecified; Z88.5 Allergy status to narcotic agent; Z91.81 History of falling
CPT/HCPCS: 70450-TC; 72125-TC; 72128-TC; 72131-TC; C9803; U0003; U0005

== ENCOUNTER 2021-05-11 09:19 | Inpatient (IN) | payer OTHER ==
[2021-05-11 10:24] VITALS: BMI 22.3
[2021-05-11] MEDS ORDERED: MAG HYDROX/AL HYDROX/SIMETH 30 ML UNIT-DOSE CUP PO PRN (12:40)
[2021-05-11] MEDS ORDERED: NICOTINE 10 MG CARTRIDGE (INHALER) IH PRN (12:40)
[2021-05-11] MEDS ORDERED: MAGNESIUM HYDROX 2400MG/30ML ORAL SUSPENSION 30 ML CUP PO PRN (12:40)
[2021-05-11] MEDS ORDERED: IBUPROFEN 400 MG TABLET (FP) PO PRN (12:40)
[2021-05-11] MEDS ORDERED: BISMUTH SUBSALICYLATE 262 MG/15 ML BTL PO PRN (12:40)
[2021-05-11] MEDS ORDERED: ONDANSETRON *ODT* 4 MG TABLET SL PRN (12:40)
[2021-05-11] MEDS ORDERED: ACETAMINOPHEN 325 MG TABLET (FP) PO PRN (12:40)
[2021-05-11] MEDS ORDERED: MENTHOL/PHENOL 1 EACH UD MM PRN (12:40)
[2021-05-11] MEDS ORDERED: diazePAM 5 MG TABLET PO PRN (12:40)
[2021-05-11] MEDS ORDERED: METHOCARBAMOL 500 MG TABLET PO PRN (12:40)
[2021-05-11] MEDS ORDERED: MAGNESIUM CITRATE 300 ML BOTTLE PO PRN (12:40)
[2021-05-11] MEDS: hydrOXYzine PAMOATE 25 MG CAPSULE (FP) PO SCH ×3 (16:27→22:40)
[2021-05-11] MEDS: diazePAM 5 MG TABLET PO SCH ×2 (18:08→22:40)
[2021-05-11 18:10] LABS: ALBUMIN 2.4 g/dl (3.4-5.0); BLOOD UREA NITROGEN 4.2 mg/dL (7-18); CALCIUM 7.8 mg/dL (8.5-10.1)
[2021-05-11 18:12] LABS: HEMATOCRIT 28.2 % (35.4-49); HEMOGLOBIN 9.2 GM/dL (11.7-16.9); MCH 30.7 pg (25.7-33.7); MCHC 32.6 g/dl (32.0-35.9); MEAN PLT VOLUME 8.7 fl (7.5-11.1); PLATELET COUNT 168 10^3/uL (134-434); RDW 18.8 % (11.9-15.9); WHITE BLOOD COUNT 2.3 K/mm3 (4.0-10.0)
[2021-05-11 18:14] LABS: CREATININE 0.5 mg/dL (0.55-1.3)
[2021-05-11 18:15] LABS: BILIRUBIN,TOTAL 0.4 mg/dL (0.2-1)
[2021-05-11 19:04] LABS: HIV INTERPRETATION NEGATIVE (NEGATIVE)
[2021-05-11] MEDS: traZODone HCL 50 MG TABLET (FP) PO SCH (22:40)
[2021-05-11] MEDS: THIAMINE HCL 100 MG TABLET (FP) PO SCH (22:40)
[2021-05-11] MEDS: MELATONIN 5 MG TABLETS PO SCH (22:40)
[2021-05-12] MEDS: hydrOXYzine PAMOATE 25 MG CAPSULE (FP) PO SCH ×5 (05:52→22:22)
[2021-05-12] MEDS: diazePAM 5 MG TABLET PO SCH ×4 (05:52→22:22)
[2021-05-12] MEDS: ACETAMINOPHEN 325 MG TABLET (FP) PO PRN (05:53)
[2021-05-12] MEDS: PRENATAL VITAMINS W/ FOLIC ACID TABLET (FP) PO SCH (10:16)
[2021-05-12] MEDS ORDERED: POTASSIUM CHLORIDE TABS 20 MEQ TABLET.ER (FP) PO ONE (10:24)
[2021-05-12] MEDS ORDERED: COLLOIDAL OATMEAL 1 BAR EACH TP PRN (12:33)
[2021-05-12] MEDS: MELATONIN 5 MG TABLETS PO SCH (22:22)
[2021-05-12] MEDS: THIAMINE HCL 100 MG TABLET (FP) PO SCH (22:22)
[2021-05-12] MEDS: traZODone HCL 50 MG TABLET (FP) PO SCH (22:22)
[2021-05-13] MEDS: diazePAM 5 MG TABLET PO SCH ×3 (06:36→22:45)
[2021-05-13] MEDS: hydrOXYzine PAMOATE 25 MG CAPSULE (FP) PO SCH ×5 (06:36→22:42)
[2021-05-13] MEDS: PRENATAL VITAMINS W/ FOLIC ACID TABLET (FP) PO SCH (10:22)
[2021-05-13] MEDS: ACETAMINOPHEN 325 MG TABLET (FP) PO PRN ×2 (10:24→22:42)
[2021-05-13] MEDS: traZODone HCL 50 MG TABLET (FP) PO SCH (22:41)
[2021-05-13] MEDS: MELATONIN 5 MG TABLETS PO SCH (22:42)
[2021-05-13] MEDS: THIAMINE HCL 100 MG TABLET (FP) PO SCH (22:42)
[2021-05-14] MEDS: diazePAM 5 MG TABLET PO SCH ×2 (06:47→17:48)
[2021-05-14] MEDS: hydrOXYzine PAMOATE 25 MG CAPSULE (FP) PO SCH (06:47)
[2021-05-14] MEDS ORDERED: hydrOXYzine PAMOATE 25 MG CAPSULE (FP) PO PRN (09:08)
[2021-05-14 09:24] VITALS: BP 125/74; PULSE 94; TEMP 96.8
[2021-05-14] MEDS: PRENATAL VITAMINS W/ FOLIC ACID TABLET (FP) PO SCH (11:08)
[2021-05-14 12:20] LABS: HEMATOCRIT 27.5 % (35.4-49); HEMOGLOBIN 9.2 GM/dL (11.7-16.9); MCH 32.2 pg (25.7-33.7); MCHC 33.4 g/dl (32.0-35.9); MEAN CELL VOLUME 96.4 fl (80-96); MEAN PLT VOLUME 9.2 fl (7.5-11.1); PLATELET COUNT 138 10^3/uL (134-434); RBC 2.85 M/mm3 (4.00-5.60); RDW 18.7 % (11.9-15.9)
[2021-05-14 12:24] LABS: ADD RBC MORPHOLOGY YES; WHITE BLOOD COUNT 1.2 K/mm3 (4.0-10.0)
[2021-05-14 14:19] LABS: ANISOCYTOSIS 1+; MACROCYTOSIS 2+; OVALOCYTE 1+; PLATELET ESTIMATE DECREASED
[2021-05-14] MEDS: traZODone HCL 50 MG TABLET (FP) PO SCH (22:32)
[2021-05-14] MEDS: THIAMINE HCL 100 MG TABLET (FP) PO SCH (22:33)
[2021-05-14] MEDS: MELATONIN 5 MG TABLETS PO SCH (22:33)
[2021-05-14] MEDS: ACETAMINOPHEN 325 MG TABLET (FP) PO PRN (22:33)
[2021-05-15] MEDS ORDERED: diazePAM 5 MG TABLET PO ONE (06:00)
[2021-05-15] MEDS: PRENATAL VITAMINS W/ FOLIC ACID TABLET (FP) PO SCH (10:09)
== END 2021-05-15 11:55 | disposition home or self-care (01) | DRG 775 ==
LOC: YASAS 09:19 → Y3N 14:45
PROVIDERS: ADMIT Allergy & Immunology; ATTEND Allergy & Immunology
PROC: HZ2ZZZZ Detoxification Services for Substance Abuse Treatment (ICD-10-PCS; principal; 2021-05-10)
DX: F10.230 Alcohol dependence with withdrawal, uncomplicated (principal); F12.20 Cannabis dependence, uncomplicated; F17.210 Nicotine dependence, cigarettes, uncomplicated; F19.24 Other psychoactive substance dependence with psychoactive substance-induced mood disorder; F19.282 Other psychoactive substance dependence with psychoactive substance-induced sleep disorder; F31.81 Bipolar II disorder; F43.10 Post-traumatic stress disorder, unspecified; D50.9 Iron deficiency anemia, unspecified; L30.9 Dermatitis, unspecified; D72.819 Decreased white blood cell count, unspecified; E87.6 Hypokalemia; R26.2 Difficulty in walking, not elsewhere classified; Z99.89 Dependence on other enabling machines and devices; Z88.8 Allergy status to other drugs, medicaments and biological substances; Z56.0 Unemployment, unspecified; Z59.01 Sheltered homelessness
CPT/HCPCS: 36415; 80053; 84132; 85025; 85027; 86780; 87389; C9803; U0003; U0005

== ENCOUNTER 2021-06-13 15:09 | Inpatient (IN) | payer OTHER ==
[2021-06-13] MEDS ORDERED: diazePAM 5 MG TABLET PO PRN (16:17)
[2021-06-13] MEDS ORDERED: MAGNESIUM CITRATE 300 ML BOTTLE PO PRN (16:17)
[2021-06-13] MEDS ORDERED: MAGNESIUM HYDROX 2400MG/30ML ORAL SUSPENSION 30 ML CUP PO PRN (16:17)
[2021-06-13] MEDS ORDERED: ACETAMINOPHEN 325 MG TABLET (FP) PO PRN (16:17)
[2021-06-13] MEDS ORDERED: MENTHOL/PHENOL 1 EACH UD MM PRN (16:17)
[2021-06-13] MEDS ORDERED: MAG HYDROX/AL HYDROX/SIMETH 30 ML UNIT-DOSE CUP PO PRN (16:17)
[2021-06-13] MEDS ORDERED: ONDANSETRON *ODT* 4 MG TABLET SL PRN (16:17)
[2021-06-13] MEDS ORDERED: NICOTINE 10 MG CARTRIDGE (INHALER) IH PRN (16:17)
[2021-06-13] MEDS ORDERED: BISMUTH SUBSALICYLATE 524 MG/30 ML PO PRN (16:17)
[2021-06-13 17:25] VITALS: BMI 22.8
[2021-06-13] MEDS: diazePAM 5 MG TABLET PO SCH ×2 (20:14→22:57)
[2021-06-13] MEDS: hydrOXYzine PAMOATE 25 MG CAPSULE (FP) PO SCH ×2 (20:14→22:56)
[2021-06-13] MEDS: METHOCARBAMOL 500 MG TABLET PO PRN (20:14)
[2021-06-13] MEDS: ACETAMINOPHEN 325 MG TABLET (FP) PO PRN (20:15)
[2021-06-13] MEDS: IBUPROFEN 400 MG TABLET (FP) PO PRN (21:37)
[2021-06-13] MEDS: MELATONIN 5 MG TABLETS PO SCH (22:56)
[2021-06-13] MEDS: THIAMINE HCL 100 MG TABLET (FP) PO SCH (22:56)
[2021-06-14] MEDS: hydrOXYzine PAMOATE 25 MG CAPSULE (FP) PO SCH ×2 (06:26→10:36)
[2021-06-14] MEDS: diazePAM 5 MG TABLET PO SCH ×4 (06:26→22:43)
[2021-06-14] MEDS: ACETAMINOPHEN 325 MG TABLET (FP) PO PRN ×4 (06:31→22:44)
[2021-06-14] MEDS: METHOCARBAMOL 500 MG TABLET PO PRN ×3 (06:31→22:43)
[2021-06-14] MEDS: PRENATAL VITAMINS W/ FOLIC ACID TABLET (FP) PO SCH (10:36)
[2021-06-14] MEDS: IBUPROFEN 400 MG TABLET (FP) PO PRN ×2 (10:38→19:45)
[2021-06-14 10:59] LABS: HEMATOCRIT 28.1 % (35.4-49); HEMOGLOBIN 9.2 GM/dL (11.7-16.9); MCH 30.4 pg (25.7-33.7); MCHC 32.8 g/dl (32.0-35.9); MEAN CELL VOLUME 92.9 fl (80-96); MEAN PLT VOLUME 8.5 fl (7.5-11.1); PLATELET COUNT 211 10^3/uL (134-434); RBC 3.02 M/mm3 (4.00-5.60); RDW 15.3 % (11.9-15.9); WHITE BLOOD COUNT 2.3 K/mm3 (4.0-10.0)
[2021-06-14 11:38] LABS: ALBUMIN 2.2 g/dl (3.4-5.0); BLOOD UREA NITROGEN 10.9 mg/dL (7-18); CALCIUM 8.3 mg/dL (8.5-10.1)
[2021-06-14 11:44] LABS: CREATININE 0.6 mg/dL (0.55-1.3); TOT PROT 6.4 g/dl (6.4-8.2)
[2021-06-14 11:45] LABS: BILIRUBIN,TOTAL 0.4 mg/dL (0.2-1)
[2021-06-14] MEDS ORDERED: hydrOXYzine PAMOATE 25 MG CAPSULE (FP) PO PRN (13:26)
[2021-06-14] MEDS ORDERED: FUROSEMIDE 40 MG TABLET (FP) PO ONE (14:15)
[2021-06-14] MEDS ORDERED: traZODone HCL 50 MG TABLET (FP) PO SCH (22:00)
[2021-06-14] MEDS: MELATONIN 5 MG TABLETS PO SCH (22:43)
[2021-06-14] MEDS: THIAMINE HCL 100 MG TABLET (FP) PO SCH (22:43)
[2021-06-15] MEDS: METHOCARBAMOL 500 MG TABLET PO PRN (05:01)
[2021-06-15] MEDS: ACETAMINOPHEN 325 MG TABLET (FP) PO PRN (05:01)
[2021-06-15] MEDS: diazePAM 5 MG TABLET PO SCH ×2 (05:01→13:11)
[2021-06-15] MEDS: PRENATAL VITAMINS W/ FOLIC ACID TABLET (FP) PO SCH (10:28)
[2021-06-15] MEDS: IBUPROFEN 400 MG TABLET (FP) PO PRN (10:30)
[2021-06-15 14:00] VITALS: BP 122/77; PULSE 94; TEMP 98.6
[2021-06-16] MEDS ORDERED: diazePAM 5 MG TABLET PO SCH (06:00)
[2021-06-16] MEDS ORDERED: FERROUS SO4 325 MG TABLET (FP) PO SCH (08:00)
[2021-06-17] MEDS ORDERED: diazePAM 5 MG TABLET PO ONE (06:00)
== END 2021-06-15 17:08 | disposition left against medical advice (07) | DRG 770 ==
LOC: YASAS 15:09 → Y6N 18:03
PROVIDERS: ADMIT Allergy & Immunology; ATTEND Allergy & Immunology
PROC: HZ2ZZZZ Detoxification Services for Substance Abuse Treatment (ICD-10-PCS; principal; 2021-06-13)
DX: F10.230 Alcohol dependence with withdrawal, uncomplicated (principal); F12.20 Cannabis dependence, uncomplicated; F17.210 Nicotine dependence, cigarettes, uncomplicated; F10.280 Alcohol dependence with alcohol-induced anxiety disorder; F10.24 Alcohol dependence with alcohol-induced mood disorder; F31.9 Bipolar disorder, unspecified; F43.10 Post-traumatic stress disorder, unspecified; D64.9 Anemia, unspecified; R60.0 Localized edema; Z86.16 Personal history of COVID-19; Z59.01 Sheltered homelessness; Z88.8 Allergy status to other drugs, medicaments and biological substances
CPT/HCPCS: 36415; 80053; 85027; 86780; C9803; U0003; U0005

== ENCOUNTER 2021-06-24 08:07 | Inpatient (IN) | payer OTHER ==
[2021-06-24] MEDS ORDERED: NICOTINE 10 MG CARTRIDGE (INHALER) IH PRN (09:08)
[2021-06-24] MEDS ORDERED: MAGNESIUM HYDROX 2400MG/30ML ORAL SUSPENSION 30 ML CUP PO PRN (09:08)
[2021-06-24] MEDS ORDERED: chlordiazePOXIDE HCL 25 MG CAPSULE PO PRN (09:08)
[2021-06-24] MEDS ORDERED: MAGNESIUM CITRATE 300 ML BOTTLE PO PRN (09:08)
[2021-06-24] MEDS ORDERED: ONDANSETRON *ODT* 4 MG TABLET SL PRN (09:08)
[2021-06-24] MEDS ORDERED: MAG HYDROX/AL HYDROX/SIMETH 30 ML UNIT-DOSE CUP PO PRN (09:08)
[2021-06-24] MEDS ORDERED: MENTHOL/PHENOL 1 EACH UD MM PRN (09:08)
[2021-06-24] MEDS ORDERED: COLLOIDAL OATMEAL 1 BAR EACH TP PRN (09:12)
[2021-06-24] MEDS ORDERED: HYDROCORTISONE 1% TOPICAL OINT 30 GM TUBE TP PRN (09:13)
[2021-06-24 10:01] VITALS: BMI 25.0
[2021-06-24] MEDS ORDERED: LORazepam 1 MG TABLET PO PRN (10:19)
[2021-06-24] MEDS ORDERED: chlordiazePOXIDE HCL 25 MG CAPSULE PO SCH (11:00)
[2021-06-24] MEDS: METHOCARBAMOL 500 MG TABLET PO PRN ×2 (11:01→17:57)
[2021-06-24] MEDS: LORazepam 2 MG TABLET PO SCH ×3 (11:02→22:17)
[2021-06-24] MEDS: PRENATAL VITAMINS W/ FOLIC ACID TABLET (FP) PO SCH (11:02)
[2021-06-24] MEDS: hydrOXYzine PAMOATE 25 MG CAPSULE (FP) PO SCH ×4 (11:02→22:15)
[2021-06-24] MEDS ORDERED: MELATONIN 5 MG TABLETS PO SCH (22:00)
[2021-06-24] MEDS: THIAMINE HCL 100 MG TABLET (FP) PO SCH (22:15)
[2021-06-24] MEDS ORDERED: ACETAMINOPHEN 325 MG TABLET (FP) PO ONE (23:35)
[2021-06-25] MEDS: METHOCARBAMOL 500 MG TABLET PO PRN ×3 (05:31→22:27)
[2021-06-25] MEDS: hydrOXYzine PAMOATE 25 MG CAPSULE (FP) PO SCH ×5 (05:31→22:27)
[2021-06-25] MEDS: LORazepam 2 MG TABLET PO SCH ×4 (05:31→22:27)
[2021-06-25 10:52] LABS: HEMATOCRIT 26.4 % (35.4-49); HEMOGLOBIN 8.7 GM/dL (11.7-16.9); MCH 30.5 pg (25.7-33.7); MCHC 32.9 g/dl (32.0-35.9); MEAN CELL VOLUME 92.9 fl (80-96); MEAN PLT VOLUME 8.7 fl (7.5-11.1); PLATELET COUNT 161 10^3/uL (134-434); RBC 2.85 M/mm3 (4.00-5.60); RDW 14.6 % (11.9-15.9)
[2021-06-25 11:03] LABS: WHITE BLOOD COUNT 1.8 K/mm3 (4.0-10.0)
[2021-06-25] MEDS: PRENATAL VITAMINS W/ FOLIC ACID TABLET (FP) PO SCH (11:24)
[2021-06-25 11:35] LABS: CALCIUM 8.2 mg/dL (8.5-10.1)
[2021-06-25 11:36] LABS: ALBUMIN 2.3 g/dl (3.4-5.0); BLOOD UREA NITROGEN 9.9 mg/dL (7-18); CREATININE 0.5 mg/dL (0.55-1.3)
[2021-06-25 11:37] LABS: TOT PROT 6.8 g/dl (6.4-8.2)
[2021-06-25 11:38] LABS: BILIRUBIN,TOTAL 0.4 mg/dL (0.2-1)
[2021-06-25] MEDS: FERROUS SO4 325 MG TABLET (FP) PO SCH ×2 (15:19→17:34)
[2021-06-25] MEDS ORDERED: traZODone HCL 50 MG TABLET (FP) PO SCH (22:00)
[2021-06-25] MEDS: THIAMINE HCL 100 MG TABLET (FP) PO SCH (22:28)
[2021-06-26] MEDS ORDERED: chlordiazePOXIDE HCL 25 MG CAPSULE PO SCH (05:00)
[2021-06-26] MEDS: LORazepam 1 MG TABLET PO SCH ×2 (05:12→10:28)
[2021-06-26] MEDS: hydrOXYzine PAMOATE 25 MG CAPSULE (FP) PO SCH ×2 (05:12→10:28)
[2021-06-26] MEDS: METHOCARBAMOL 500 MG TABLET PO PRN (05:12)
[2021-06-26] MEDS: FERROUS SO4 325 MG TABLET (FP) PO SCH ×2 (07:24→12:02)
[2021-06-26 09:17] VITALS: BP 106/60; PULSE 101; TEMP 98.2
[2021-06-26] MEDS: PRENATAL VITAMINS W/ FOLIC ACID TABLET (FP) PO SCH (10:28)
[2021-06-27] MEDS ORDERED: LORazepam 0.5 MG TABLET PO PRN
[2021-06-27] MEDS ORDERED: chlordiazePOXIDE HCL 10 MG CAPSULE PO PRN
[2021-06-27] MEDS ORDERED: chlordiazePOXIDE HCL 10 MG CAPSULE PO SCH (05:00)
[2021-06-27] MEDS ORDERED: LORazepam 0.5 MG TABLET PO SCH (05:00)
[2021-06-28] MEDS ORDERED: chlordiazePOXIDE HCL 10 MG CAPSULE PO SCH (05:00)
[2021-06-28] MEDS ORDERED: LORazepam 0.5 MG TABLET PO ONE (05:00)
[2021-06-29] MEDS ORDERED: chlordiazePOXIDE HCL 10 MG CAPSULE PO ONE (05:00)
== END 2021-06-26 12:05 | disposition left against medical advice (07) | DRG 770 ==
LOC: YASAS 08:07 → Y3N 09:30
PROVIDERS: ADMIT Allergy & Immunology; ATTEND Allergy & Immunology
PROC: HZ2ZZZZ Detoxification Services for Substance Abuse Treatment (ICD-10-PCS; principal; 2021-06-24)
DX: F10.230 Alcohol dependence with withdrawal, uncomplicated (principal); F10.24 Alcohol dependence with alcohol-induced mood disorder; F10.280 Alcohol dependence with alcohol-induced anxiety disorder; F12.20 Cannabis dependence, uncomplicated; F17.210 Nicotine dependence, cigarettes, uncomplicated; F43.10 Post-traumatic stress disorder, unspecified; D64.9 Anemia, unspecified; L30.9 Dermatitis, unspecified; E86.0 Dehydration; D72.819 Decreased white blood cell count, unspecified; Z88.8 Allergy status to other drugs, medicaments and biological substances; Z56.0 Unemployment, unspecified; Z59.01 Sheltered homelessness
CPT/HCPCS: 36415; 70450-TC; 80053; 85027; 86780; 99281-25; C9803; U0003; U0005

== ENCOUNTER 2021-07-16 09:40 | Inpatient (IN) | payer OTHER ==
[2021-07-16] MEDS ORDERED: ONDANSETRON *ODT* 4 MG TABLET SL PRN (10:19)
[2021-07-16] MEDS ORDERED: MAGNESIUM CITRATE 300 ML BOTTLE PO PRN (10:19)
[2021-07-16] MEDS ORDERED: BISMUTH SUBSALICYLATE 524 MG/30 ML PO PRN (10:19)
[2021-07-16] MEDS ORDERED: NICOTINE 10 MG CARTRIDGE (INHALER) IH PRN (10:19)
[2021-07-16] MEDS ORDERED: MAGNESIUM HYDROX 2400MG/30ML ORAL SUSPENSION 30 ML CUP PO PRN (10:19)
[2021-07-16] MEDS ORDERED: LORazepam 1 MG TABLET PO PRN (10:19)
[2021-07-16] MEDS ORDERED: MAG HYDROX/AL HYDROX/SIMETH 30 ML UNIT-DOSE CUP PO PRN (10:19)
[2021-07-16] MEDS ORDERED: IBUPROFEN 400 MG TABLET (FP) PO PRN (10:19)
[2021-07-16] MEDS ORDERED: ACETAMINOPHEN 325 MG TABLET (FP) PO PRN ×2 (10:19)
[2021-07-16] MEDS ORDERED: COLLOIDAL OATMEAL 1 BAR EACH TP PRN (10:22)
[2021-07-16 10:34] VITALS: BMI 24.2
[2021-07-16] MEDS ORDERED: NEOMYCIN/BACI/POLY/HC TOPICAL OINT 15 GM TUBE TP SCH (11:00)
[2021-07-16] MEDS: METHOCARBAMOL 500 MG TABLET PO PRN ×2 (12:01→22:45)
[2021-07-16] MEDS: LORazepam 2 MG TABLET PO SCH ×3 (12:21→22:38)
[2021-07-16] MEDS: PRENATAL VITAMINS W/ FOLIC ACID TABLET (FP) PO SCH (12:23)
[2021-07-16] MEDS: NICOTINE 14 MG/24 HOURS TOPICAL PATCH TD SCH (12:23)
[2021-07-16 13:31] LABS: HEMATOCRIT 28.2 % (35.4-49); HEMOGLOBIN 9.3 GM/dL (11.7-16.9); MCH 30.6 pg (25.7-33.7); MCHC 33.1 g/dl (32.0-35.9); MEAN CELL VOLUME 92.7 fl (80-96); MEAN PLT VOLUME 8.4 fl (7.5-11.1); PLATELET COUNT 213 10^3/uL (134-434); RBC 3.04 M/mm3 (4.00-5.60); RDW 15.1 % (11.9-15.9); WHITE BLOOD COUNT 2.8 K/mm3 (4.0-10.0)
[2021-07-16 13:52] LABS: ALBUMIN 2.7 g/dl (3.4-5.0); BLOOD UREA NITROGEN 7.3 mg/dL (7-18)
[2021-07-16 13:55] LABS: CREATININE 0.6 mg/dL (0.55-1.3)
[2021-07-16 13:57] LABS: BILIRUBIN,TOTAL 0.5 mg/dL (0.2-1); TOT PROT 7.5 g/dl (6.4-8.2)
[2021-07-16] MEDS: NEOMYCIN/POLYMYXIN/BACITRACIN (TRIPLE ANTIBIOTIC) 28 GM OINTMENT TP SCH ×2 (14:21→22:39)
[2021-07-16] MEDS: hydrOXYzine PAMOATE 25 MG CAPSULE (FP) PO SCH ×3 (14:25→22:39)
[2021-07-16] MEDS ORDERED: MELATONIN 5 MG TABLETS PO SCH (22:00)
[2021-07-16] MEDS ORDERED: SUVOREXANT 10 MG TABLET PO PRN (22:00)
[2021-07-16] MEDS: HYDROCORTISONE 1% TOPICAL OINT 30 GM TUBE TP SCH (22:39)
[2021-07-16] MEDS: THIAMINE HCL 100 MG TABLET (FP) PO SCH (22:40)
[2021-07-17] MEDS: hydrOXYzine PAMOATE 25 MG CAPSULE (FP) PO SCH ×5 (05:18→22:56)
[2021-07-17] MEDS: LORazepam 2 MG TABLET PO SCH ×4 (05:18→22:56)
[2021-07-17] MEDS: METHOCARBAMOL 500 MG TABLET PO PRN ×3 (05:21→22:56)
[2021-07-17] MEDS ORDERED: HYDROCORTISONE 0.5% TOPICAL OINTMENT TUBE TP SCH (10:00)
[2021-07-17] MEDS: PRENATAL VITAMINS W/ FOLIC ACID TABLET (FP) PO SCH (10:19)
[2021-07-17] MEDS: NEOMYCIN/POLYMYXIN/BACITRACIN (TRIPLE ANTIBIOTIC) 28 GM OINTMENT TP SCH ×2 (10:19→23:44)
[2021-07-17] MEDS: HYDROCORTISONE 1% TOPICAL OINT 30 GM TUBE TP SCH ×2 (10:19→23:44)
[2021-07-17] MEDS: NICOTINE 14 MG/24 HOURS TOPICAL PATCH TD SCH (10:19)
[2021-07-17] MEDS: THIAMINE HCL 100 MG TABLET (FP) PO SCH (22:56)
[2021-07-18] MEDS: METHOCARBAMOL 500 MG TABLET PO PRN ×2 (05:27→17:52)
[2021-07-18] MEDS: hydrOXYzine PAMOATE 25 MG CAPSULE (FP) PO SCH ×5 (06:56→22:48)
[2021-07-18] MEDS: LORazepam 1 MG TABLET PO SCH ×3 (06:56→17:52)
[2021-07-18] MEDS: PRENATAL VITAMINS W/ FOLIC ACID TABLET (FP) PO SCH (11:28)
[2021-07-18] MEDS: HYDROCORTISONE 1% TOPICAL OINT 30 GM TUBE TP SCH (11:29)
[2021-07-18] MEDS: NICOTINE 14 MG/24 HOURS TOPICAL PATCH TD SCH (11:29)
[2021-07-18] MEDS: NEOMYCIN/POLYMYXIN/BACITRACIN (TRIPLE ANTIBIOTIC) 28 GM OINTMENT TP SCH (11:30)
[2021-07-18 12:38] LABS: BASO % 0.6 % (0-2.0); EOS % 0.3 % (0-4.5); HEMATOCRIT 26.3 % (35.4-49); HEMOGLOBIN 8.8 GM/dL (11.7-16.9); LYMPH % 12.1 % (8-40); MCH 30.5 pg (25.7-33.7); MCHC 33.2 g/dl (32.0-35.9); MEAN CELL VOLUME 91.7 fl (80-96); MEAN PLT VOLUME 9.9 fl (7.5-11.1); MONO % 6.8 % (3.8-10.2); NEUT % 80.2 % (42.8-82.8); PLATELET COUNT 172 10^3/uL (134-434); RBC 2.87 M/mm3 (4.00-5.60); RDW 15.2 % (11.9-15.9); WHITE BLOOD COUNT 2.6 K/mm3 (4.0-10.0)
[2021-07-18] MEDS ORDERED: AZITHROMYCIN 500 MG TABLET PO ONE (17:00)
[2021-07-18] MEDS: FERROUS SO4 325 MG TABLET (FP) PO SCH (17:52)
[2021-07-19] MEDS ORDERED: LORazepam 0.5 MG TABLET PO PRN
[2021-07-19] MEDS: NEOMYCIN/POLYMYXIN/BACITRACIN (TRIPLE ANTIBIOTIC) 28 GM OINTMENT TP SCH ×3 (00:17→23:34)
[2021-07-19] MEDS: THIAMINE HCL 100 MG TABLET (FP) PO SCH ×2 (00:26→23:35)
[2021-07-19] MEDS: HYDROCORTISONE 1% TOPICAL OINT 30 GM TUBE TP SCH ×3 (00:28→23:34)
[2021-07-19] MEDS: LORazepam 1 MG TABLET PO SCH (00:30)
[2021-07-19] MEDS ORDERED: ACETAMINOPHEN 325 MG TABLET (FP) PO ONE (05:55)
[2021-07-19] MEDS: LORazepam 0.5 MG TABLET PO SCH ×4 (06:52→23:35)
[2021-07-19] MEDS: hydrOXYzine PAMOATE 25 MG CAPSULE (FP) PO SCH ×5 (07:05→23:34)
[2021-07-19] MEDS: FERROUS SO4 325 MG TABLET (FP) PO SCH ×3 (07:06→18:11)
[2021-07-19] MEDS: NICOTINE 14 MG/24 HOURS TOPICAL PATCH TD SCH (11:09)
[2021-07-19] MEDS: AZITHROMYCIN 250 MG TABLET PO SCH (11:09)
[2021-07-19] MEDS: METHOCARBAMOL 500 MG TABLET PO PRN (11:09)
[2021-07-19] MEDS: MULTIVITAMINS (DAILY MVI) TABLET (FP) PO SCH (11:09)
[2021-07-19] MEDS: ACETAMINOPHEN 325 MG TABLET (FP) PO PRN (18:13)
[2021-07-19 22:29] LABS: PH,URINE 7.5 (5.0-8.0); URINE APPEARANCE CLEAR; URINE BILIRUBIN NEGATIVE (NEGATIVE); URINE COLOR YELLOW; URINE GLUCOSE (UA) NEGATIVE (NEGATIVE); URINE KETONE NEGATIVE (NEGATIVE); URINE LEUK ESTERASE NEGATIVE (NEGATIVE); URINE NITRITE NEGATIVE (NEGATIVE); URINE PROTEIN TRACE (NEGATIVE)
[2021-07-20] MEDS ORDERED: LORazepam 0.5 MG TABLET PO ONE (05:00)
[2021-07-20] MEDS: hydrOXYzine PAMOATE 25 MG CAPSULE (FP) PO SCH ×5 (06:04→22:37)
[2021-07-20] MEDS: FERROUS SO4 325 MG TABLET (FP) PO SCH ×3 (06:59→18:30)
[2021-07-20] MEDS: METHOCARBAMOL 500 MG TABLET PO PRN ×2 (07:09→22:38)
[2021-07-20] MEDS: MENTHOL/PHENOL 1 EACH UD MM PRN ×2 (07:41→11:06)
[2021-07-20] MEDS: HYDROCORTISONE 1% TOPICAL OINT 30 GM TUBE TP SCH ×2 (10:59→22:37)
[2021-07-20] MEDS: MULTIVITAMINS (DAILY MVI) TABLET (FP) PO SCH (11:00)
[2021-07-20] MEDS: NICOTINE 14 MG/24 HOURS TOPICAL PATCH TD SCH (11:00)
[2021-07-20] MEDS: NEOMYCIN/POLYMYXIN/BACITRACIN (TRIPLE ANTIBIOTIC) 28 GM OINTMENT TP SCH ×2 (11:00→22:37)
[2021-07-20] MEDS: AZITHROMYCIN 250 MG TABLET PO SCH (11:00)
[2021-07-20] MEDS: ACETAMINOPHEN 325 MG TABLET (FP) PO PRN (13:43)
[2021-07-20] MEDS: THIAMINE HCL 100 MG TABLET (FP) PO SCH (22:36)
[2021-07-21] MEDS: ACETAMINOPHEN 325 MG TABLET (FP) PO PRN (01:09)
[2021-07-21] MEDS: hydrOXYzine PAMOATE 25 MG CAPSULE (FP) PO SCH ×3 (05:12→14:45)
[2021-07-21] MEDS: FERROUS SO4 325 MG TABLET (FP) PO SCH ×2 (08:26→14:45)
[2021-07-21 10:00] VITALS: BP 109/51; PULSE 97; TEMP 98.4
[2021-07-21] MEDS: MULTIVITAMINS (DAILY MVI) TABLET (FP) PO SCH (10:47)
[2021-07-21] MEDS: NEOMYCIN/POLYMYXIN/BACITRACIN (TRIPLE ANTIBIOTIC) 28 GM OINTMENT TP SCH (10:47)
[2021-07-21] MEDS: AZITHROMYCIN 250 MG TABLET PO SCH (10:47)
[2021-07-21] MEDS: HYDROCORTISONE 1% TOPICAL OINT 30 GM TUBE TP SCH (10:47)
[2021-07-21] MEDS: NICOTINE 14 MG/24 HOURS TOPICAL PATCH TD SCH (10:47)
== END 2021-07-21 11:00 | disposition short-term general hospital (02) | DRG 775 ==
LOC: YASAS 09:40 → Y6N 11:10
PROVIDERS: ADMIT Allergy & Immunology; ATTEND Allergy & Immunology
PROC: HZ2ZZZZ Detoxification Services for Substance Abuse Treatment (ICD-10-PCS; principal; 2021-07-16)
DX: F10.230 Alcohol dependence with withdrawal, uncomplicated (principal); F10.24 Alcohol dependence with alcohol-induced mood disorder; F10.282 Alcohol dependence with alcohol-induced sleep disorder; F10.280 Alcohol dependence with alcohol-induced anxiety disorder; F13.20 Sedative, hypnotic or anxiolytic dependence, uncomplicated; F12.20 Cannabis dependence, uncomplicated; F17.210 Nicotine dependence, cigarettes, uncomplicated; F43.10 Post-traumatic stress disorder, unspecified; D50.9 Iron deficiency anemia, unspecified; M62.81 Muscle weakness (generalized); R50.9 Fever, unspecified; R74.01 Elevation of levels of liver transaminase levels; R73.09 Other abnormal glucose; L30.9 Dermatitis, unspecified; R94.5 Abnormal results of liver function studies; G47.00 Insomnia, unspecified; Z88.8 Allergy status to other drugs, medicaments and biological substances; Z56.0 Unemployment, unspecified; Z59.01 Sheltered homelessness
CPT/HCPCS: 36415; 71046-TC-FY; 80053; 81003; 82607; 82746; 82962; 83540; 83550; 85025; 85027; 86780; 87804; C9803; U0003; U0005

== ENCOUNTER 2021-07-21 11:29 | Emergency (ER) | payer OTHER ==
[2021-07-21 11:42] VITALS: BMI 24.2
[2021-07-21] MEDS ORDERED: ACETAMINOPHEN 325 MG TABLET (FP) PO ONE (11:55)
[2021-07-21] MEDS ORDERED: SODIUM CHLORIDE 1,000 ML IV STA (12:09)
[2021-07-21] MEDS ORDERED: ACETAMINOPHEN 325 MG TABLET (FP) ONE (12:42)
[2021-07-21 13:26] LABS: BASO % 0.5 % (0-2.0); EOS % 0.9 % (0-4.5); HEMATOCRIT 29.4 % (35.4-49); HEMOGLOBIN 9.8 GM/dL (11.7-16.9); LYMPH % 11.7 % (8-40); MCH 30.7 pg (25.7-33.7); MCHC 33.3 g/dl (32.0-35.9); MEAN CELL VOLUME 92.3 fl (80-96); MEAN PLT VOLUME 9.3 fl (7.5-11.1); MONO % 11.4 % (3.8-10.2); NEUT % 75.5 % (42.8-82.8); PLATELET COUNT 191 10^3/uL (134-434); RBC 3.19 M/mm3 (4.00-5.60); RDW 15.2 % (11.9-15.9); WHITE BLOOD COUNT 2.2 K/mm3 (4.0-10.0)
[2021-07-21 14:05] LABS: CALCIUM 8.6 mg/dL (8.5-10.1)
[2021-07-21 14:06] LABS: ALBUMIN 2.6 g/dl (3.4-5.0); BLOOD UREA NITROGEN 10.5 mg/dL (7-18)
[2021-07-21 14:07] VITALS: BP 105/58; PULSE 106; TEMP 99.2
[2021-07-21 14:09] LABS: CREATININE 0.5 mg/dL (0.55-1.3)
[2021-07-21 14:11] LABS: BILIRUBIN,TOTAL 0.4 mg/dL (0.2-1); TOT PROT 7.4 g/dl (6.4-8.2)
[2021-07-24 01:06] LABS: SARS-CoV-2 NAA Not Detected (Not Detected)
== END 2021-07-21 16:12 | disposition home or self-care (01) ==
LOC: JER 11:29
PROC: 3E0337Z Introduction of Electrolytic and Water Balance Substance into Peripheral Vein, Percutaneous Approach (ICD-10-PCS; principal; 2021-07-21)
DX: R50.9 Fever, unspecified (principal); D64.9 Anemia, unspecified
CPT/HCPCS: 36415; 71045-TC-FY; 80053; 85025; 87804; 99284-25; C9803; U0003; U0005

== ENCOUNTER 2021-08-28 18:57 | Inpatient (IN) | payer OTHER ==
[2021-08-28 20:13] VITALS: BMI 23.8
[2021-08-28] MEDS ORDERED: DICYCLOMINE HCL 10 MG CAPSULE PO PRN (21:24)
[2021-08-28] MEDS ORDERED: MENTHOL/PHENOL 1 EACH UD MM PRN (21:24)
[2021-08-28] MEDS ORDERED: guaiFENesin 200 MG/10 ML 10 ML UNIT-DOSE CUPS PO PRN (21:24)
[2021-08-28] MEDS ORDERED: P-EPHED 60MG/TRIPROLIDI 2.5MG TABLET PO PRN (21:24)
[2021-08-28] MEDS ORDERED: ACETAMINOPHEN 325 MG TABLET (FP) PO PRN (21:24)
[2021-08-28] MEDS ORDERED: NICOTINE POLACRILEX 2 MG GUM BUC PRN (21:24)
[2021-08-28] MEDS ORDERED: MAGNESIUM HYDROX 2400MG/30ML ORAL SUSPENSION 30 ML CUP PO PRN (21:24)
[2021-08-28] MEDS ORDERED: MAGNESIUM CITRATE 300 ML BOTTLE PO PRN (21:24)
[2021-08-28] MEDS ORDERED: MAG HYDROX/AL HYDROX/SIMETH 30 ML UNIT-DOSE CUP PO PRN (21:24)
[2021-08-28] MEDS ORDERED: ONDANSETRON *ODT* 4 MG TABLET SL PRN (21:24)
[2021-08-28] MEDS ORDERED: COLLOIDAL OATMEAL 1 BAR EACH TP PRN (21:28)
[2021-08-28] MEDS ORDERED: cloNIDine HCL 0.1 MG TABLET PO ONE (21:32)
[2021-08-28] MEDS ORDERED: cloNIDine HCL 0.1 MG TABLET ONE (22:52)
[2021-08-29] MEDS: hydrOXYzine PAMOATE 25 MG CAPSULE (FP) PO PRN ×5 (00:02→22:13)
[2021-08-29] MEDS: THIAMINE HCL 100 MG TABLET (FP) PO SCH ×2 (00:02→22:08)
[2021-08-29] MEDS: METHOCARBAMOL 500 MG TABLET PO PRN ×2 (00:02→22:10)
[2021-08-29] MEDS: MELATONIN 5 MG TABLETS PO SCH ×2 (00:03→22:08)
[2021-08-29] MEDS: ACETAMINOPHEN 325 MG TABLET (FP) PO PRN ×3 (00:20→17:59)
[2021-08-29 09:30] LABS: HEMATOCRIT 24.9 % (35.4-49); HEMOGLOBIN 8.3 GM/dL (11.7-16.9); MCH 30.4 pg (25.7-33.7); MCHC 33.5 g/dl (32.0-35.9); MEAN CELL VOLUME 90.6 fl (80-96); MEAN PLT VOLUME 8.4 fl (7.5-11.1); PLATELET COUNT 225 10^3/uL (134-434); RBC 2.75 M/mm3 (4.00-5.60); RDW 15.1 % (11.9-15.9)
[2021-08-29] MEDS: NICOTINE 14 MG/24 HOURS TOPICAL PATCH TD SCH (10:12)
[2021-08-29] MEDS: PRENATAL VITAMINS W/ FOLIC ACID TABLET (FP) PO SCH (10:13)
[2021-08-29 10:42] LABS: CALCIUM 8.8 mg/dL (8.5-10.1)
[2021-08-29 10:43] LABS: BLOOD UREA NITROGEN 16.4 mg/dL (7-18)
[2021-08-29 10:46] LABS: CREATININE 0.6 mg/dL (0.55-1.3)
[2021-08-29 10:48] LABS: TOT PROT 7.2 g/dl (6.4-8.2)
[2021-08-29 10:53] LABS: BILIRUBIN,TOTAL 0.9 mg/dL (0.2-1)
[2021-08-29] MEDS ORDERED: LORazepam 2 MG TABLET PO ONE (13:08)
[2021-08-29] MEDS ORDERED: LORazepam 1 MG TABLET PO PRN (13:08)
[2021-08-29] MEDS: FERROUS SO4 325 MG TABLET (FP) PO SCH ×2 (14:08→17:59)
[2021-08-29] MEDS: HYDROCORTISONE 1% TOPICAL OINT 30 GM TUBE TP SCH ×2 (15:19→22:07)
[2021-08-29] MEDS: LORazepam 2 MG TABLET PO SCH ×2 (18:00→22:08)
[2021-08-29] MEDS: QUEtiapine FUMARATE 100 MG TABLET (FP) PO SCH (22:08)
[2021-08-29] MEDS: traZODone HCL 50 MG TABLET (FP) PO SCH (22:08)
[2021-08-29] MEDS: IBUPROFEN 400 MG TABLET (FP) PO PRN (22:09)
[2021-08-30] MEDS: LORazepam 2 MG TABLET PO SCH ×4 (06:37→22:35)
[2021-08-30] MEDS: hydrOXYzine PAMOATE 25 MG CAPSULE (FP) PO PRN (06:38)
[2021-08-30] MEDS: FERROUS SO4 325 MG TABLET (FP) PO SCH ×3 (07:22→19:13)
[2021-08-30 10:21] LABS: BASO % 0.3 % (0-2.0); EOS % 1.3 % (0-4.5); HEMATOCRIT 27.6 % (35.4-49); HEMOGLOBIN 9.1 GM/dL (11.7-16.9); MCH 30.4 pg (25.7-33.7); MCHC 33.1 g/dl (32.0-35.9); MEAN CELL VOLUME 92.1 fl (80-96); MEAN PLT VOLUME 8.3 fl (7.5-11.1); MONO % 14.2 % (3.8-10.2); NEUT % 76.2 % (42.8-82.8); PLATELET COUNT 213 10^3/uL (134-434); RDW 14.9 % (11.9-15.9); WHITE BLOOD COUNT 3.6 K/mm3 (4.0-10.0)
[2021-08-30 10:25] LABS: IRON SERUM 46 ug/dL (50-175)
[2021-08-30 10:26] LABS: TOTAL IRON BINDING CAPACITY 236 ug/dL (250-450)
[2021-08-30] MEDS: PRENATAL VITAMINS W/ FOLIC ACID TABLET (FP) PO SCH (10:29)
[2021-08-30] MEDS: METHOCARBAMOL 500 MG TABLET PO PRN ×2 (10:30→22:37)
[2021-08-30] MEDS: HYDROCORTISONE 1% TOPICAL OINT 30 GM TUBE TP SCH ×2 (10:56→22:36)
[2021-08-30] MEDS: NICOTINE 14 MG/24 HOURS TOPICAL PATCH TD SCH (10:56)
[2021-08-30] MEDS: ACETAMINOPHEN 325 MG TABLET (FP) PO PRN (19:12)
[2021-08-30] MEDS: traZODone HCL 50 MG TABLET (FP) PO SCH (22:35)
[2021-08-30] MEDS: QUEtiapine FUMARATE 100 MG TABLET (FP) PO SCH (22:35)
[2021-08-30] MEDS: MELATONIN 5 MG TABLETS PO SCH (22:35)
[2021-08-30] MEDS: THIAMINE HCL 100 MG TABLET (FP) PO SCH (22:35)
[2021-08-30] MEDS: AMMONIUM LACTATE 12% LOTION 225 GM BOTTLE TP SCH (22:36)
[2021-08-30] MEDS: IBUPROFEN 400 MG TABLET (FP) PO PRN (22:37)
[2021-08-31] MEDS: LORazepam 1 MG TABLET PO SCH ×2 (06:53→10:28)
[2021-08-31] MEDS: FERROUS SO4 325 MG TABLET (FP) PO SCH ×2 (07:07→13:21)
[2021-08-31] MEDS: NICOTINE 14 MG/24 HOURS TOPICAL PATCH TD SCH (10:25)
[2021-08-31] MEDS: PRENATAL VITAMINS W/ FOLIC ACID TABLET (FP) PO SCH (10:25)
[2021-08-31] MEDS: METHOCARBAMOL 500 MG TABLET PO PRN (10:29)
[2021-08-31] MEDS: ACETAMINOPHEN 325 MG TABLET (FP) PO PRN (10:29)
[2021-08-31] MEDS: AMMONIUM LACTATE 12% LOTION 225 GM BOTTLE TP SCH (10:33)
[2021-08-31] MEDS: HYDROCORTISONE 1% TOPICAL OINT 30 GM TUBE TP SCH (10:33)
[2021-08-31 12:46] VITALS: BP 112/62; PULSE 98; TEMP 97.2
[2021-09-01] MEDS ORDERED: LORazepam 0.5 MG TABLET PO PRN
[2021-09-01] MEDS ORDERED: LORazepam 0.5 MG TABLET PO SCH (05:00)
[2021-09-02] MEDS ORDERED: LORazepam 0.5 MG TABLET PO ONE (05:00)
== END 2021-08-31 04:40 | disposition home or self-care (01) | DRG 775 ==
LOC: YASAS 18:57 → Y3N 23:35
PROVIDERS: ADMIT Allergy & Immunology; ATTEND Allergy & Immunology
PROC: HZ2ZZZZ Detoxification Services for Substance Abuse Treatment (ICD-10-PCS; principal; 2021-08-28)
DX: F10.230 Alcohol dependence with withdrawal, uncomplicated (principal); F17.210 Nicotine dependence, cigarettes, uncomplicated; F10.282 Alcohol dependence with alcohol-induced sleep disorder; F10.24 Alcohol dependence with alcohol-induced mood disorder; F19.24 Other psychoactive substance dependence with psychoactive substance-induced mood disorder; F31.9 Bipolar disorder, unspecified; F43.10 Post-traumatic stress disorder, unspecified; D64.9 Anemia, unspecified; G47.00 Insomnia, unspecified; L30.9 Dermatitis, unspecified; R74.01 Elevation of levels of liver transaminase levels; Z87.828 Personal history of other (healed) physical injury and trauma; Z88.8 Allergy status to other drugs, medicaments and biological substances; Z56.0 Unemployment, unspecified; Z59.01 Sheltered homelessness
CPT/HCPCS: 36415; 80053; 83540; 83550; 85025; 85027; 86780; 93005; 93010; C9803; J0735; U0003; U0005

== ENCOUNTER 2021-10-13 14:33 | Inpatient (IN) | payer OTHER ==
[2021-10-13 15:01] VITALS: BMI 20.3
[2021-10-13] MEDS ORDERED: MAGNESIUM HYDROX 2400MG/30ML ORAL SUSPENSION 30 ML CUP PO PRN (15:09)
[2021-10-13] MEDS ORDERED: ACETAMINOPHEN 325 MG TABLET (FP) PO PRN (15:09)
[2021-10-13] MEDS ORDERED: MAGNESIUM CITRATE 300 ML BOTTLE PO PRN (15:09)
[2021-10-13] MEDS ORDERED: ONDANSETRON *ODT* 4 MG TABLET SL PRN (15:09)
[2021-10-13] MEDS ORDERED: NICOTINE 10 MG CARTRIDGE (INHALER) IH PRN (15:09)
[2021-10-13] MEDS ORDERED: MENTHOL/PHENOL 1 EACH UD MM PRN (15:09)
[2021-10-13] MEDS ORDERED: MAG HYDROX/AL HYDROX/SIMETH 30 ML UNIT-DOSE CUP PO PRN (15:09)
[2021-10-13] MEDS ORDERED: COLLOIDAL OATMEAL 1 BAR EACH TP PRN (15:12)
[2021-10-13] MEDS ORDERED: HYDROCORTISONE 0.5% TOPICAL OINTMENT TUBE TP PRN (15:13)
[2021-10-13] MEDS: chlordiazePOXIDE HCL 25 MG CAPSULE PO SCH ×2 (17:21→22:16)
[2021-10-13] MEDS: ACETAMINOPHEN 325 MG TABLET (FP) PO PRN (17:22)
[2021-10-13] MEDS: hydrOXYzine PAMOATE 25 MG CAPSULE (FP) PO PRN (17:22)
[2021-10-13] MEDS: THIAMINE HCL 100 MG TABLET (FP) PO SCH (22:16)
[2021-10-13] MEDS: MELATONIN 5 MG TABLETS PO PRN (22:16)
[2021-10-13] MEDS: METHOCARBAMOL 500 MG TABLET PO PRN (22:17)
[2021-10-14] MEDS: hydrOXYzine PAMOATE 25 MG CAPSULE (FP) PO PRN ×4 (03:43→22:13)
[2021-10-14] MEDS: chlordiazePOXIDE HCL 25 MG CAPSULE PO SCH ×4 (05:26→22:12)
[2021-10-14] MEDS: METHOCARBAMOL 500 MG TABLET PO PRN ×2 (05:27→17:49)
[2021-10-14] MEDS: chlordiazePOXIDE HCL 25 MG CAPSULE PO PRN ×2 (09:06→15:31)
[2021-10-14] MEDS: PRENATAL VITAMINS W/ FOLIC ACID TABLET (FP) PO SCH (10:20)
[2021-10-14] MEDS: ACETAMINOPHEN 325 MG TABLET (FP) PO PRN ×2 (10:23→22:13)
[2021-10-14 12:12] LABS: HEMATOCRIT 29.1 % (35.4-49); HEMOGLOBIN 9.7 GM/dL (11.7-16.9); MCH 31.2 pg (25.7-33.7); MCHC 33.4 g/dl (32.0-35.9); MEAN CELL VOLUME 93.4 fl (80-96); MEAN PLT VOLUME 9.1 fl (7.5-11.1); PLATELET COUNT 175 10^3/uL (134-434); RBC 3.12 M/mm3 (4.00-5.60); RDW 15.5 % (11.9-15.9); WHITE BLOOD COUNT 2.4 K/mm3 (4.0-10.0)
[2021-10-14 12:21] LABS: CALCIUM 8.2 mg/dL (8.5-10.1)
[2021-10-14 12:22] LABS: ALBUMIN 2.8 g/dl (3.4-5.0); BLOOD UREA NITROGEN 10.1 mg/dL (7-18)
[2021-10-14 12:25] LABS: CREATININE 0.5 mg/dL (0.55-1.3)
[2021-10-14 12:27] LABS: BILIRUBIN,TOTAL 0.4 mg/dL (0.2-1); TOT PROT 7.4 g/dl (6.4-8.2)
[2021-10-14] MEDS ORDERED: QUEtiapine FUMARATE 100 MG TABLET (FP) PO SCH (22:00)
[2021-10-14] MEDS ORDERED: traZODone HCL 50 MG TABLET (FP) PO SCH (22:00)
[2021-10-14] MEDS: THIAMINE HCL 100 MG TABLET (FP) PO SCH (22:12)
[2021-10-14] MEDS: MELATONIN 5 MG TABLETS PO PRN (22:13)
[2021-10-15] MEDS: METHOCARBAMOL 500 MG TABLET PO PRN ×2 (00:42→06:21)
[2021-10-15] MEDS: hydrOXYzine PAMOATE 25 MG CAPSULE (FP) PO PRN ×2 (02:34→14:32)
[2021-10-15] MEDS: chlordiazePOXIDE HCL 25 MG CAPSULE PO SCH ×2 (06:20→10:14)
[2021-10-15] MEDS: ACETAMINOPHEN 325 MG TABLET (FP) PO PRN (06:21)
[2021-10-15] MEDS: PRENATAL VITAMINS W/ FOLIC ACID TABLET (FP) PO SCH (10:15)
[2021-10-15 13:01] VITALS: BP 120/78; PULSE 101; TEMP 97.8
[2021-10-15] MEDS: chlordiazePOXIDE HCL 25 MG CAPSULE PO PRN (14:32)
[2021-10-16] MEDS ORDERED: chlordiazePOXIDE HCL 10 MG CAPSULE PO PRN
[2021-10-16] MEDS ORDERED: chlordiazePOXIDE HCL 10 MG CAPSULE PO SCH (05:00)
[2021-10-16 06:08] LABS: SARS-CoV-2 NAA Not Detected (Not Detected)
[2021-10-17] MEDS ORDERED: chlordiazePOXIDE HCL 10 MG CAPSULE PO SCH (05:00)
[2021-10-18] MEDS ORDERED: chlordiazePOXIDE HCL 10 MG CAPSULE PO ONE (05:00)
== END 2021-10-15 16:17 | disposition left against medical advice (07) | DRG 770 ==
LOC: YASAS 14:33 → Y3N 15:35
PROVIDERS: ADMIT Allergy & Immunology; ATTEND Allergy & Immunology
PROC: HZ2ZZZZ Detoxification Services for Substance Abuse Treatment (ICD-10-PCS; principal; 2021-10-13)
DX: F10.230 Alcohol dependence with withdrawal, uncomplicated (principal); F13.230 Sedative, hypnotic or anxiolytic dependence with withdrawal, uncomplicated; F12.20 Cannabis dependence, uncomplicated; F17.210 Nicotine dependence, cigarettes, uncomplicated; F19.282 Other psychoactive substance dependence with psychoactive substance-induced sleep disorder; F19.24 Other psychoactive substance dependence with psychoactive substance-induced mood disorder; F31.9 Bipolar disorder, unspecified; F43.10 Post-traumatic stress disorder, unspecified; F32.A Depression, unspecified; D64.9 Anemia, unspecified; D72.819 Decreased white blood cell count, unspecified; L30.9 Dermatitis, unspecified; M54.50 Low back pain, unspecified; G89.29 Other chronic pain; Z88.8 Allergy status to other drugs, medicaments and biological substances
CPT/HCPCS: 36415; 80053; 85027; 86780; C9803-CS; U0003; U0005

== ENCOUNTER 2021-11-12 18:40 | Inpatient (IN) | payer OTHER ==
[2021-11-12] MEDS ORDERED: ACETAMINOPHEN 1000 MG/100 ML BAG IVPB ONE ×2 (20:10→20:57)
[2021-11-12] MEDS ORDERED: SODIUM CHLORIDE 0.9% 500 ML INFUS.BAG IV ONE ×2 (20:10→22:31)
[2021-11-12] MEDS ORDERED: chlordiazePOXIDE HCL 25 MG CAPSULE PO ONE (20:10)
[2021-11-12] MEDS ORDERED: FAMOTIDINE 20 MG/50 ML IVPB 20 MG/50 ML MG IVPB ONE (20:15)
[2021-11-12] MEDS ORDERED: methylPREDNISolone NA SUCC 125 MG/2 ML VIAL IVPUSH ONE (20:28)
[2021-11-12] MEDS ORDERED: chlordiazePOXIDE HCL 25 MG CAPSULE ONE (20:54)
[2021-11-12] MEDS ORDERED: methylPREDNISolone NA SUCC 125 MG/2 ML VIAL ONE (20:54)
[2021-11-12] MEDS ORDERED: FAMOTIDINE 10 MG/ML VIAL IVPB ONE (20:55)
[2021-11-12] MEDS ORDERED: ACETAMINOPHEN INJECTION 100 ML IVPB ONE (20:57)
[2021-11-12 21:06] LABS: BASO % 0.4 % (0-2.0); EOS % 0.1 % (0-4.5); HEMATOCRIT 31.3 % (35.4-49); HEMOGLOBIN 10.6 GM/dL (11.7-16.9); LYMPH % 5.5 % (8-40); MCH 31.1 pg (25.7-33.7); MCHC 33.8 g/dl (32.0-35.9); MEAN CELL VOLUME 91.8 fl (80-96); MEAN PLT VOLUME 8.7 fl (7.5-11.1); MONO % 11.8 % (3.8-10.2); NEUT % 82.2 % (42.8-82.8); PLATELET COUNT 203 10^3/uL (134-434); RBC 3.41 M/mm3 (4.00-5.60); RDW 14.7 % (11.9-15.9); WHITE BLOOD COUNT 10.9 K/mm3 (4.0-10.0)
[2021-11-12 21:14] LABS: INR 1.06 (0.83-1.09); PROTHROMBIN TIME (PATIENT) 12.2 SEC (9.7-13.0)
[2021-11-12 21:16] LABS: ACTIVATED PTT 30.5 SECONDS (25.2-36.5)
[2021-11-12 21:39] LABS: CHLORIDE 99 mmol/L (98-107); SODIUM 135 mmol/L (136-145)
[2021-11-12 21:42] LABS: ANION GAP 12 MMOL/L (8-16); BLOOD UREA NITROGEN 3.5 mg/dL (7-18); CO2 24 mmol/L (21-32); GLUCOSE,RANDOM 90 mg/dL (74-106); LIPASE 115 U/L (73-393); MAGNESIUM 1.4 mg/dL (1.8-2.4)
[2021-11-12 21:45] LABS: CREATININE 0.6 mg/dL (0.55-1.3); SGOT/AST 128 U/L (15-37); SGPT/ALT 57 U/L (13-61)
[2021-11-12 21:46] LABS: BILIRUBIN,TOTAL 0.3 mg/dL (0.2-1); TOT PROT 8.1 g/dl (6.4-8.2)
[2021-11-12] MEDS ORDERED: MAGNESIUM SULF 50% (8.12 MEQ/2 ML-1 GM VIAL) IVPB ONE (21:46)
[2021-11-12 21:48] LABS: ALK PHOS 119 U/L (45-117)
[2021-11-12] MEDS ORDERED: ASPIRIN 325 MG TABLET PO ONE (22:00)
[2021-11-12] MEDS ORDERED: ASPIRIN 325 MG TABLET ONE (22:03)
[2021-11-12] MEDS ORDERED: COLCHICINE 0.6 MG CAP PO ONE (22:31)
[2021-11-12] MEDS ORDERED: COLCHICINE 0.6 MG TAB ONE (22:47)
[2021-11-12 23:38] LABS: LDH 360 U/L (87-246)
[2021-11-13] MEDS ORDERED: ASPIRIN 325 MG TABLET PO ONE (00:07)
[2021-11-13] MEDS ORDERED: ASPIRIN 325 MG TABLET ONE (00:40)
[2021-11-13 00:54] LABS: ERYTHROCYTE SEDIMENTATION RATE 91 mm/hr (0-10)
[2021-11-13 01:09] LABS: URINE APPEARANCE CLEAR; URINE BILIRUBIN NEGATIVE (NEGATIVE); URINE COLOR YELLOW; URINE GLUCOSE (UA) NEGATIVE (NEGATIVE); URINE KETONE NEGATIVE (NEGATIVE); URINE LEUK ESTERASE NEGATIVE (NEGATIVE); URINE NITRITE NEGATIVE (NEGATIVE); URINE PROTEIN NEGATIVE (NEGATIVE); URINE UROBILINOGEN 0.2 mg/dL (0.2-1.0)
[2021-11-13 01:16] LABS: COCAINE, UR NEGATIVE (NEGATIVE); OPIATES, URI NEGATIVE (NEGATIVE)
[2021-11-13 01:17] LABS: METHADONE, UR NEGATIVE (NEGATIVE); PHENCYCLIDINE,URINE NEGATIVE (NEGATIVE); URINE AMPHETAMINES NEGATIVE (NEGATIVE); URINE BENZODIAZEPINES NEGATIVE (NEGATIVE)
[2021-11-13 01:22] LABS: URINE BARBITURATES NEGATIVE (NEGATIVE)
[2021-11-13] MEDS ORDERED: VANCOMYCIN 1 GM in D5W (PRE-DOCKED) 1,000 MG/250 ML IVPB SCH (01:40)
[2021-11-13] MEDS ORDERED: FOLIC ACID 1 MG TABLET (FP) PO ONE (01:58)
[2021-11-13] MEDS ORDERED: THIAMINE HCL 100 MG TABLET (FP) PO ONE (01:58)
[2021-11-13] MEDS ORDERED: VANCOMYCIN 1 GRAM (PRE-DOCKED) 1,000 MG/250 ML BAG IVPB ONE (02:29)
[2021-11-13] MEDS ORDERED: PIPERACILLIN/TAZOB 3.375 GM 3.375 GM/50 ML BAG IVPB ONE ×2 (02:29→09:53)
[2021-11-13] MEDS: PIPERACILLIN/TAZOB 3.375 GM 3.375 GM in DEXTROSE 5%-WATER - 50 ML IVPB SCH ×5 (02:40→23:05)
[2021-11-13] MEDS: VANCOMYCIN 1 GM in D5W (PRE-DOCKED) 1,000 MG/250 ML IVPB SCH ×2 (03:16→23:04)
[2021-11-13 06:37] LABS: BLOOD UREA NITROGEN 6.1 mg/dL (7-18); CALCIUM 8.5 mg/dL (8.5-10.1)
[2021-11-13 06:38] LABS: BASO % 0.1 % (0-2.0); HEMATOCRIT 31.8 % (35.4-49); HEMOGLOBIN 10.6 GM/dL (11.7-16.9); LYMPH % 6.7 % (8-40); MCHC 33.5 g/dl (32.0-35.9); MEAN CELL VOLUME 92.4 fl (80-96); MEAN PLT VOLUME 8.6 fl (7.5-11.1); MONO % 7.3 % (3.8-10.2); NEUT % 85.9 % (42.8-82.8); PLATELET COUNT 177 10^3/uL (134-434); RBC 3.44 M/mm3 (4.00-5.60); RDW 14.5 % (11.9-15.9); WHITE BLOOD COUNT 6.2 K/mm3 (4.0-10.0)
[2021-11-13 06:40] LABS: PHOSPHOROUS 2.8 mg/dL (2.5-4.9)
[2021-11-13 06:41] LABS: CREATININE 0.7 mg/dL (0.55-1.3)
[2021-11-13 06:42] LABS: BILIRUBIN,TOTAL 0.4 mg/dL (0.2-1); TOT PROT 7.6 g/dl (6.4-8.2)
[2021-11-13] MEDS ORDERED: LORazepam 1 MG TABLET ONE ×3 (07:39→22:51)
[2021-11-13] MEDS: LORazepam 1 MG TABLET PO PRN ×2 (07:41→17:04)
[2021-11-13] MEDS ORDERED: ASPIRIN 325 MG TABLET PO SCH (08:00)
[2021-11-13] MEDS ORDERED: PANTOPRAZOLE 40 MG TABLET PO ONE (09:52)
[2021-11-13] MEDS ORDERED: ENOXAPARIN NA (PORCINE) 40 MG/0.4 ML DISP.SYRIN SQ ONE (09:53)
[2021-11-13] MEDS: PANTOPRAZOLE 40 MG TABLET PO SCH (10:11)
[2021-11-13] MEDS: ENOXAPARIN NA (PORCINE) 40 MG/0.4 ML DISP.SYRIN SQ SCH (10:11)
[2021-11-13] MEDS: COLCHICINE 0.6 MG CAP PO SCH ×2 (10:11→22:57)
[2021-11-13] MEDS ORDERED: ACETAMINOPHEN 325 MG TABLET (FP) PO PRN (12:00)
[2021-11-13] MEDS: NICOTINE 7 MG/24 HOURS TOPICAL PATCH TD SCH (12:12)
[2021-11-13 12:30] LABS: ERYTHROCYTE SEDIMENTATION RATE 101 mm/hr (0-10)
[2021-11-13] MEDS ORDERED: ASPIRIN 325 MG ENTERIC COATED TABLET (FP) PO SCH (14:00)
[2021-11-13] MEDS ORDERED: BENZOCAINE/MENTH/CETYLPYRD CL 1 EACH LOZENGE MM PRN (14:53)
[2021-11-13] MEDS ORDERED: BENZOCAINE/MENTH/CETYLPYRD CL 1 EACH LOZENGE MM ONE (17:44)
[2021-11-13] MEDS ORDERED: CEFTRIAXONE 1 GM/50 ML BAG ONE (18:11)
[2021-11-13] MEDS: CEFTRIAXONE 1 GM in DEXTROSE 5%-WATER - 50 ML IVPB SCH (18:18)
[2021-11-13] MEDS ORDERED: ACETAMINOPHEN 325 MG TABLET (FP) ONE (19:26)
[2021-11-13] MEDS: ACETAMINOPHEN 325 MG TABLET (FP) PO PRN (19:37)
[2021-11-13] MEDS ORDERED: MELATONIN 5 MG TABLETS ONE (22:51)
[2021-11-13] MEDS: traZODone HCL 100 MG TABLET (FP) PO SCH (22:57)
[2021-11-13] MEDS: LORazepam 2 MG TABLET PO SCH (22:58)
[2021-11-13] MEDS: MELATONIN 5 MG TABLETS PO PRN (23:00)
[2021-11-14] MEDS: ACETAMINOPHEN 325 MG TABLET (FP) PO PRN ×2 (03:06→10:06)
[2021-11-14] MEDS: LORazepam 1 MG TABLET PO PRN ×2 (03:07→19:58)
[2021-11-14 03:52] VITALS: BMI 25.8
[2021-11-14] MEDS: LORazepam 2 MG TABLET PO SCH (05:47)
[2021-11-14 07:30] LABS: CALCIUM 8.2 mg/dL (8.5-10.1)
[2021-11-14 07:31] LABS: BASO % 0.5 % (0-2.0); EOS % 0.1 % (0-4.5); HEMATOCRIT 30.5 % (35.4-49); HEMOGLOBIN 10.1 GM/dL (11.7-16.9); LYMPH % 8.8 % (8-40); MAGNESIUM 1.7 mg/dL (1.8-2.4); MCH 30.9 pg (25.7-33.7); MCHC 33.1 g/dl (32.0-35.9); MEAN CELL VOLUME 93.3 fl (80-96); MEAN PLT VOLUME 9.4 fl (7.5-11.1); MONO % 11.9 % (3.8-10.2); NEUT % 78.7 % (42.8-82.8); PLATELET COUNT 154 10^3/uL (134-434); RBC 3.27 M/mm3 (4.00-5.60); RDW 14.5 % (11.9-15.9); WHITE BLOOD COUNT 6.2 K/mm3 (4.0-10.0)
[2021-11-14 07:32] LABS: BLOOD UREA NITROGEN 7.4 mg/dL (7-18)
[2021-11-14 07:34] LABS: CREATININE 0.5 mg/dL (0.55-1.3)
[2021-11-14 07:35] LABS: PHOSPHOROUS 2.3 mg/dL (2.5-4.9)
[2021-11-14] MEDS ORDERED: DEXTROSE 5%-WATER - 50 ML IVPB ONE (08:47)
[2021-11-14] MEDS ORDERED: cefTRIAXone SODIUM 1 GM VIAL ONE (08:47)
[2021-11-14] MEDS: CEFTRIAXONE 1 GM in DEXTROSE 5%-WATER - 50 ML IVPB SCH (09:45)
[2021-11-14] MEDS: PANTOPRAZOLE 40 MG TABLET PO SCH (09:46)
[2021-11-14] MEDS: ENOXAPARIN NA (PORCINE) 40 MG/0.4 ML DISP.SYRIN SQ SCH (09:46)
[2021-11-14] MEDS: NICOTINE 7 MG/24 HOURS TOPICAL PATCH TD SCH ×2 (09:46→10:09)
[2021-11-14] MEDS: LORazepam 1 MG TABLET PO SCH ×3 (10:07→22:50)
[2021-11-14] MEDS: COLCHICINE 0.6 MG TAB PO SCH ×2 (11:21→22:25)
[2021-11-14] MEDS: COLCHICINE 0.6 MG CAP PO SCH (11:22)
[2021-11-14] MEDS ORDERED: ASPIRIN 81 MG CHEWABLE TABLETS PO SCH (11:30)
[2021-11-14] MEDS ORDERED: COLLOIDAL OATMEAL 1 BAR EACH TP PRN (11:33)
[2021-11-14] MEDS ORDERED: HYDROCORTISONE 0.5% TOPICAL OINTMENT TUBE TP PRN ×2 (11:35→11:46)
[2021-11-14] MEDS: MINERAL OIL/PET HY-PHL TOPICAL OINTMENT 454 GM JAR TP SCH ×2 (14:58→22:26)
[2021-11-14] MEDS: INDOMETHACIN 50 MG CAPSULE PO SCH ×2 (14:58→22:26)
[2021-11-14] MEDS ORDERED: traZODone HCL 50 MG TABLET (FP) ONE (22:14)
[2021-11-14] MEDS: MELATONIN 5 MG TABLETS PO PRN (22:25)
[2021-11-14] MEDS: traZODone HCL 100 MG TABLET (FP) PO SCH (22:26)
[2021-11-15] MEDS: LORazepam 1 MG TABLET PO PRN ×2 (06:00→12:12)
[2021-11-15 07:41] LABS: CHLORIDE 105 mmol/L (98-107); SODIUM 138 mmol/L (136-145)
[2021-11-15 07:43] LABS: BASO % 0.4 % (0-2.0); EOS % 1.1 % (0-4.5); LYMPH % 8.7 % (8-40); MCH 30.9 pg (25.7-33.7); MCHC 33.2 g/dl (32.0-35.9); MEAN PLT VOLUME 9.9 fl (7.5-11.1); MONO % 9.8 % (3.8-10.2); PLATELET COUNT 158 10^3/uL (134-434); RBC 3.55 M/mm3 (4.00-5.60); RDW 14.2 % (11.9-15.9); WHITE BLOOD COUNT 4.5 K/mm3 (4.0-10.0)
[2021-11-15 07:49] LABS: SGPT/ALT 35 U/L (13-61)
[2021-11-15 07:50] LABS: ALBUMIN 2.6 g/dl (3.4-5.0)
[2021-11-15 07:51] LABS: BILIRUBIN,TOTAL 0.4 mg/dL (0.2-1); TOT PROT 6.6 g/dl (6.4-8.2)
[2021-11-15 07:52] LABS: ALK PHOS 92 U/L (45-117); CREATININE 0.5 mg/dL (0.55-1.3); SGOT/AST 54 U/L (15-37)
[2021-11-15 08:04] LABS: ANION GAP 6 MMOL/L (8-16); CO2 28 mmol/L (21-32); GLUCOSE,RANDOM 94 mg/dL (74-106); MAGNESIUM 1.7 mg/dL (1.8-2.4)
[2021-11-15 08:07] LABS: CALCIUM 8.6 mg/dL (8.5-10.1)
[2021-11-15] MEDS ORDERED: MAGNESIUM SULF 50% (8.12 MEQ/2 ML-1 GM VIAL) IVPB ONE ×2 (09:52→12:45)
[2021-11-15] MEDS ORDERED: ASPIRIN COATED 81 MG TABLET.EC PO SCH (10:00)
[2021-11-15] MEDS: NICOTINE 7 MG/24 HOURS TOPICAL PATCH TD SCH (10:35)
[2021-11-15] MEDS: COLCHICINE 0.6 MG TAB PO SCH (10:35)
[2021-11-15] MEDS: PANTOPRAZOLE 40 MG TABLET PO SCH (10:36)
[2021-11-15] MEDS: ENOXAPARIN NA (PORCINE) 40 MG/0.4 ML DISP.SYRIN SQ SCH (10:36)
[2021-11-15] MEDS: MINERAL OIL/PET HY-PHL TOPICAL OINTMENT 454 GM JAR TP SCH (10:37)
[2021-11-15] MEDS: INDOMETHACIN 50 MG CAPSULE PO SCH (10:37)
[2021-11-15 18:39] VITALS: BP 160/82; PULSE 73; TEMP 99.2
[2021-11-16] MEDS ORDERED: LORazepam 0.5 MG TABLET PO PRN ×2 (05:00)
[2021-11-17] MEDS ORDERED: LORazepam 0.5 MG TABLET PO ONE (05:00)
== END 2021-11-15 16:00 | disposition home or self-care (01) | DRG 207 ==
LOC: JER 18:40 → JERBED 22:41 → J4W 11-14 02:54
PROVIDERS: ADMIT Hospitalist; ATTEND Internal Medicine
PROC: HZ2ZZZZ Detoxification Services for Substance Abuse Treatment (ICD-10-PCS; principal; 2021-11-12)
DX: I30.9 Acute pericarditis, unspecified (principal); F10.239 Alcohol dependence with withdrawal, unspecified; R74.01 Elevation of levels of liver transaminase levels; K76.0 Fatty (change of) liver, not elsewhere classified; F16.10 Hallucinogen abuse, uncomplicated; D72.819 Decreased white blood cell count, unspecified; F31.9 Bipolar disorder, unspecified; R00.0 Tachycardia, unspecified; K70.10 Alcoholic hepatitis without ascites
CPT/HCPCS: 36415; 71046-TC-FY; 76705-TC; 80048; 80053; 80307; 81003; 83036; 83615; 83690; 83735; 83880; 84100; 84484; 85025; 85610; 85651; 85730; 86038; 86140; 87040; 87086; 87186; 87804; 93005; 93010; 93306-TC; 94010; 99291; C9803-CS; U0003; U0005

== ENCOUNTER 2021-11-28 12:51 | Inpatient (IN) | payer OTHER ==
[2021-11-28] MEDS ORDERED: BISMUTH SUBSALICYLATE 262 MG/15 ML BTL PO PRN (14:13)
[2021-11-28] MEDS ORDERED: MAG HYDROX/AL HYDROX/SIMETH 30 ML UNIT-DOSE CUP PO PRN (14:13)
[2021-11-28] MEDS ORDERED: MAGNESIUM HYDROX 2400MG/30ML ORAL SUSPENSION 30 ML CUP PO PRN (14:13)
[2021-11-28] MEDS ORDERED: ACETAMINOPHEN 325 MG TABLET (FP) PO PRN ×2 (14:13)
[2021-11-28] MEDS ORDERED: chlordiazePOXIDE HCL 25 MG CAPSULE PO PRN (14:13)
[2021-11-28] MEDS ORDERED: METHOCARBAMOL 500 MG TABLET PO PRN (14:13)
[2021-11-28] MEDS ORDERED: BENZOCAINE/MENTHOL (CHLORASEPTIC ) LOZENGE MM PRN (14:13)
[2021-11-28] MEDS ORDERED: ONDANSETRON *ODT* 4 MG TABLET SL PRN (14:13)
[2021-11-28] MEDS ORDERED: LOPERAMIDE HCL 2 MG CAPSULE PO PRN (14:13)
[2021-11-28] MEDS ORDERED: IBUPROFEN 400 MG TABLET (FP) PO PRN (14:13)
[2021-11-28] MEDS ORDERED: MAGNESIUM CITRATE 300 ML BOTTLE PO PRN (14:13)
[2021-11-28] MEDS ORDERED: NICOTINE 10 MG CARTRIDGE (INHALER) IH PRN (14:13)
[2021-11-28] MEDS ORDERED: DICYCLOMINE HCL 10 MG CAPSULE PO PRN (14:13)
[2021-11-28 14:37] VITALS: BMI 26.6
[2021-11-28] MEDS: hydrOXYzine PAMOATE 25 MG CAPSULE (FP) PO SCH ×2 (17:28→22:20)
[2021-11-28] MEDS: chlordiazePOXIDE HCL 25 MG CAPSULE PO SCH ×2 (17:29→22:20)
[2021-11-28] MEDS ORDERED: MELATONIN 5 MG TABLETS PO SCH (22:00)
[2021-11-28] MEDS ORDERED: THIAMINE HCL 100 MG TABLET (FP) PO SCH (22:00)
[2021-11-29] MEDS: chlordiazePOXIDE HCL 25 MG CAPSULE PO SCH (04:34)
[2021-11-29] MEDS: hydrOXYzine PAMOATE 25 MG CAPSULE (FP) PO SCH (05:56)
[2021-11-29 09:22] VITALS: BP 127/75; PULSE 84; TEMP 97.5
[2021-11-29] MEDS ORDERED: PRENATAL VITAMINS W/ FOLIC ACID TABLET (FP) PO SCH (10:00)
[2021-11-29 11:04] LABS: HEMATOCRIT 30.5 % (35.4-49); MCH 30.8 pg (25.7-33.7); MCHC 32.8 g/dl (32.0-35.9); MEAN CELL VOLUME 93.7 fl (80-96); MEAN PLT VOLUME 9.3 fl (7.5-11.1); PLATELET COUNT 254 10^3/uL (134-434); RBC 3.25 M/mm3 (4.00-5.60); RDW 14.7 % (11.9-15.9); WHITE BLOOD COUNT 2.8 K/mm3 (4.0-10.0)
[2021-11-29 11:57] LABS: CALCIUM 8.9 mg/dL (8.5-10.1)
[2021-11-29 11:58] LABS: ALBUMIN 2.9 g/dl (3.4-5.0); BLOOD UREA NITROGEN 14.2 mg/dL (7-18)
[2021-11-29 12:01] LABS: CREATININE 0.6 mg/dL (0.55-1.3)
[2021-11-29 12:02] LABS: BILIRUBIN,TOTAL 0.6 mg/dL (0.2-1); TOT PROT 7.4 g/dl (6.4-8.2)
[2021-11-30] MEDS ORDERED: chlordiazePOXIDE HCL 25 MG CAPSULE PO SCH (05:00)
[2021-11-30 14:14] LABS: SARS-CoV-2 NAA Not Detected (Not Detected)
[2021-12-01] MEDS ORDERED: chlordiazePOXIDE HCL 10 MG CAPSULE PO PRN
[2021-12-01] MEDS ORDERED: chlordiazePOXIDE HCL 10 MG CAPSULE PO SCH (05:00)
[2021-12-02] MEDS ORDERED: chlordiazePOXIDE HCL 10 MG CAPSULE PO SCH (05:00)
[2021-12-03] MEDS ORDERED: chlordiazePOXIDE HCL 10 MG CAPSULE PO ONE (05:00)
== END 2021-11-29 10:26 | disposition left against medical advice (07) | DRG 770 ==
LOC: YASAS 12:51 → Y3N 14:51
PROVIDERS: ADMIT Allergy & Immunology; ATTEND Allergy & Immunology
PROC: HZ2ZZZZ Detoxification Services for Substance Abuse Treatment (ICD-10-PCS; principal; 2021-11-28)
DX: F10.230 Alcohol dependence with withdrawal, uncomplicated (principal); F14.20 Cocaine dependence, uncomplicated; F13.20 Sedative, hypnotic or anxiolytic dependence, uncomplicated; F17.210 Nicotine dependence, cigarettes, uncomplicated; F10.280 Alcohol dependence with alcohol-induced anxiety disorder; F31.9 Bipolar disorder, unspecified; F20.9 Schizophrenia, unspecified; F43.10 Post-traumatic stress disorder, unspecified; D64.9 Anemia, unspecified; D72.819 Decreased white blood cell count, unspecified; L30.9 Dermatitis, unspecified; R74.8 Abnormal levels of other serum enzymes; R74.01 Elevation of levels of liver transaminase levels; Z88.8 Allergy status to other drugs, medicaments and biological substances
CPT/HCPCS: 36415; 80053; 85027; 86780; C9803-CS; U0003; U0005

== ENCOUNTER 2022-01-01 11:03 | Inpatient (IN) | payer OTHER ==
[2022-01-01 11:27] VITALS: BMI 25.3
[2022-01-01] MEDS ORDERED: MAGNESIUM CITRATE 300 ML BOTTLE PO PRN (12:05)
[2022-01-01] MEDS ORDERED: MAGNESIUM HYDROX 2400MG/30ML ORAL SUSPENSION 30 ML CUP PO PRN (12:05)
[2022-01-01] MEDS ORDERED: ACETAMINOPHEN 325 MG TABLET (FP) PO PRN (12:05)
[2022-01-01] MEDS ORDERED: DICYCLOMINE HCL 10 MG CAPSULE PO PRN (12:05)
[2022-01-01] MEDS ORDERED: BISMUTH SUBSALICYLATE 262 MG/15 ML BTL PO PRN (12:05)
[2022-01-01] MEDS ORDERED: MAG HYDROX/AL HYDROX/SIMETH 30 ML UNIT-DOSE CUP PO PRN (12:05)
[2022-01-01] MEDS ORDERED: BENZOCAINE/MENTHOL (CHLORASEPTIC ) LOZENGE MM PRN (12:05)
[2022-01-01] MEDS ORDERED: ONDANSETRON *ODT* 4 MG TABLET SL PRN (12:05)
[2022-01-01] MEDS ORDERED: LOPERAMIDE HCL 2 MG CAPSULE PO PRN (12:05)
[2022-01-01] MEDS ORDERED: COLLOIDAL OATMEAL 1 BAR EACH TP PRN (12:12)
[2022-01-01] MEDS: PRENATAL VITAMINS W/ FOLIC ACID TABLET (FP) PO SCH (13:25)
[2022-01-01] MEDS: METHOCARBAMOL 500 MG TABLET PO PRN ×2 (13:26→22:13)
[2022-01-01] MEDS: ACETAMINOPHEN 325 MG TABLET (FP) PO PRN (13:32)
[2022-01-01] MEDS: diazePAM 5 MG TABLET PO PRN (13:35)
[2022-01-01] MEDS ORDERED: hydrOXYzine PAMOATE 25 MG CAPSULE (FP) PO SCH (14:00)
[2022-01-01] MEDS: NICOTINE 10 MG CARTRIDGE (INHALER) IH PRN (14:31)
[2022-01-01] MEDS: diazePAM 5 MG TABLET PO SCH ×2 (17:49→22:09)
[2022-01-01] MEDS: hydrOXYzine PAMOATE 25 MG CAPSULE (FP) PO PRN ×2 (17:50→22:10)
[2022-01-01] MEDS ORDERED: MELATONIN 5 MG TABLETS PO SCH (22:00)
[2022-01-01] MEDS: traZODone HCL 100 MG TABLET (FP) PO SCH (22:10)
[2022-01-01] MEDS: QUEtiapine FUMARATE 100 MG TABLET (FP) PO SCH (22:10)
[2022-01-01] MEDS: THIAMINE HCL 100 MG TABLET (FP) PO SCH (22:22)
[2022-01-02] MEDS: IBUPROFEN 600 MG TABLET (FP) PO PRN ×3 (01:55→18:09)
[2022-01-02] MEDS: diazePAM 5 MG TABLET PO PRN (01:56)
[2022-01-02] MEDS: diazePAM 5 MG TABLET PO SCH ×4 (06:04→22:25)
[2022-01-02] MEDS: METHOCARBAMOL 500 MG TABLET PO PRN (09:18)
[2022-01-02] MEDS: hydrOXYzine PAMOATE 25 MG CAPSULE (FP) PO PRN (09:18)
[2022-01-02] MEDS: PRENATAL VITAMINS W/ FOLIC ACID TABLET (FP) PO SCH (10:28)
[2022-01-02 10:52] LABS: HEMATOCRIT 33.9 % (35.4-49); HEMOGLOBIN 11.1 GM/dL (11.7-16.9); MCH 31.1 pg (25.7-33.7); MCHC 32.6 g/dl (32.0-35.9); MEAN CELL VOLUME 95.2 fl (80-96); PLATELET COUNT 263 10^3/uL (134-434); RBC 3.56 M/mm3 (4.00-5.60); RDW 14.6 % (11.9-15.9); WHITE BLOOD COUNT 4.1 K/mm3 (4.0-10.0)
[2022-01-02 11:00] LABS: ALBUMIN 3.5 g/dl (3.4-5.0)
[2022-01-02 11:01] LABS: CALCIUM 9.1 mg/dL (8.5-10.1); CREATININE 0.6 mg/dL (0.55-1.3)
[2022-01-02 11:02] LABS: BILIRUBIN,TOTAL 0.3 mg/dL (0.2-1); TOT PROT 8.8 g/dl (6.4-8.2)
[2022-01-02] MEDS: HYDROCORTISONE 1% TOPICAL OINT 30 GM TUBE TP SCH ×2 (15:17→22:26)
[2022-01-02] MEDS: QUEtiapine FUMARATE 100 MG TABLET (FP) PO SCH (22:25)
[2022-01-02] MEDS: THIAMINE HCL 100 MG TABLET (FP) PO SCH (22:25)
[2022-01-02] MEDS: traZODone HCL 100 MG TABLET (FP) PO SCH (22:25)
[2022-01-02] MEDS: NICOTINE 10 MG CARTRIDGE (INHALER) IH PRN (22:28)
[2022-01-02] MEDS: COLCHICINE 0.6 MG TAB PO SCH (23:02)
[2022-01-03] MEDS: IBUPROFEN 600 MG TABLET (FP) PO PRN (02:54)
[2022-01-03] MEDS: hydrOXYzine PAMOATE 25 MG CAPSULE (FP) PO PRN ×3 (02:54→13:54)
[2022-01-03] MEDS: diazePAM 5 MG TABLET PO PRN ×3 (02:56→17:06)
[2022-01-03] MEDS: diazePAM 5 MG TABLET PO SCH ×3 (05:16→22:28)
[2022-01-03] MEDS: METHOCARBAMOL 500 MG TABLET PO PRN ×3 (05:16→17:02)
[2022-01-03] MEDS: HYDROCORTISONE 1% TOPICAL OINT 30 GM TUBE TP SCH ×3 (06:57→22:26)
[2022-01-03] MEDS: PRENATAL VITAMINS W/ FOLIC ACID TABLET (FP) PO SCH (10:08)
[2022-01-03] MEDS: NICOTINE 10 MG CARTRIDGE (INHALER) IH PRN ×2 (10:08→20:01)
[2022-01-03] MEDS: COLCHICINE 0.6 MG TAB PO SCH (10:08)
[2022-01-03] MEDS: IBUPROFEN 400 MG TABLET (FP) PO PRN (17:02)
[2022-01-03] MEDS: QUEtiapine FUMARATE 100 MG TABLET (FP) PO SCH (22:28)
[2022-01-03] MEDS: THIAMINE HCL 100 MG TABLET (FP) PO SCH (22:28)
[2022-01-03] MEDS: traZODone HCL 100 MG TABLET (FP) PO SCH (22:28)
[2022-01-04] MEDS: METHOCARBAMOL 500 MG TABLET PO PRN ×3 (05:02→16:48)
[2022-01-04] MEDS: IBUPROFEN 400 MG TABLET (FP) PO PRN ×2 (05:02→16:48)
[2022-01-04] MEDS: diazePAM 5 MG TABLET PO SCH ×2 (05:03→17:58)
[2022-01-04] MEDS: HYDROCORTISONE 1% TOPICAL OINT 30 GM TUBE TP SCH ×3 (05:51→22:19)
[2022-01-04] MEDS: hydrOXYzine PAMOATE 25 MG CAPSULE (FP) PO PRN ×4 (05:53→22:19)
[2022-01-04] MEDS: diazePAM 5 MG TABLET PO PRN (10:06)
[2022-01-04] MEDS: COLCHICINE 0.6 MG TAB PO SCH (10:06)
[2022-01-04] MEDS: PRENATAL VITAMINS W/ FOLIC ACID TABLET (FP) PO SCH (10:06)
[2022-01-04] MEDS: NICOTINE 10 MG CARTRIDGE (INHALER) IH PRN ×2 (10:09→16:53)
[2022-01-04] MEDS: traZODone HCL 100 MG TABLET (FP) PO SCH (22:17)
[2022-01-04] MEDS: THIAMINE HCL 100 MG TABLET (FP) PO SCH (22:17)
[2022-01-04] MEDS: QUEtiapine FUMARATE 100 MG TABLET (FP) PO SCH (22:17)
[2022-01-04] MEDS: ACETAMINOPHEN 325 MG TABLET (FP) PO PRN (22:19)
[2022-01-05] MEDS: hydrOXYzine PAMOATE 25 MG CAPSULE (FP) PO PRN ×2 (03:00→10:25)
[2022-01-05] MEDS: METHOCARBAMOL 500 MG TABLET PO PRN ×2 (03:00→10:26)
[2022-01-05] MEDS: IBUPROFEN 600 MG TABLET (FP) PO PRN (03:00)
[2022-01-05] MEDS ORDERED: diazePAM 5 MG TABLET PO ONE (06:00)
[2022-01-05] MEDS: HYDROCORTISONE 1% TOPICAL OINT 30 GM TUBE TP SCH (06:31)
[2022-01-05] MEDS: ACETAMINOPHEN 325 MG TABLET (FP) PO PRN (06:33)
[2022-01-05] MEDS: NICOTINE 10 MG CARTRIDGE (INHALER) IH PRN (09:01)
[2022-01-05 09:07] VITALS: BP 115/64; PULSE 64; TEMP 97.8
[2022-01-05] MEDS: PRENATAL VITAMINS W/ FOLIC ACID TABLET (FP) PO SCH (10:24)
[2022-01-05] MEDS: COLCHICINE 0.6 MG TAB PO SCH (10:24)
== END 2022-01-05 11:30 | disposition other institution (70) | DRG 775 ==
LOC: YASAS 11:03 → Y3N 12:43 → Y6N 12:54
PROVIDERS: ADMIT Allergy & Immunology; ATTEND Surgery
PROC: HZ2ZZZZ Detoxification Services for Substance Abuse Treatment (ICD-10-PCS; principal; 2022-01-01)
DX: F10.230 Alcohol dependence with withdrawal, uncomplicated (principal); F13.20 Sedative, hypnotic or anxiolytic dependence, uncomplicated; F16.20 Hallucinogen dependence, uncomplicated; F12.20 Cannabis dependence, uncomplicated; F17.210 Nicotine dependence, cigarettes, uncomplicated; F19.280 Other psychoactive substance dependence with psychoactive substance-induced anxiety disorder; F19.282 Other psychoactive substance dependence with psychoactive substance-induced sleep disorder; F19.24 Other psychoactive substance dependence with psychoactive substance-induced mood disorder; F43.10 Post-traumatic stress disorder, unspecified; F32.A Depression, unspecified; D64.9 Anemia, unspecified; M10.9 Gout, unspecified; M54.50 Low back pain, unspecified; G89.29 Other chronic pain; L30.9 Dermatitis, unspecified; Z88.8 Allergy status to other drugs, medicaments and biological substances; Z91.013 Allergy to seafood
CPT/HCPCS: 36415; 80053; 85027; 86780; 87811; C9803-CS; U0003; U0005

== ENCOUNTER 2022-01-05 11:46 | Inpatient (IN) | payer OTHER ==
[2022-01-05] MEDS ORDERED: LOPERAMIDE HCL 2 MG CAPSULE PO PRN (12:46)
[2022-01-05] MEDS ORDERED: ACETAMINOPHEN 325 MG TABLET (FP) PO PRN (12:46)
[2022-01-05] MEDS ORDERED: P-EPHED 60MG/TRIPROLIDI 2.5MG TABLET PO PRN (12:46)
[2022-01-05] MEDS ORDERED: BENZOCAINE/MENTHOL (CHLORASEPTIC ) LOZENGE MM PRN (12:46)
[2022-01-05] MEDS ORDERED: guaiFENesin 200 MG/10 ML 10 ML UNIT-DOSE CUPS PO PRN (12:46)
[2022-01-05] MEDS ORDERED: MAG HYDROX/AL HYDROX/SIMETH 30 ML UNIT-DOSE CUP PO PRN (12:46)
[2022-01-05] MEDS ORDERED: MAGNESIUM HYDROX 2400MG/30ML ORAL SUSPENSION 30 ML CUP PO PRN (12:46)
[2022-01-05] MEDS ORDERED: MAGNESIUM CITRATE 300 ML BOTTLE PO PRN (12:46)
[2022-01-05] MEDS ORDERED: COLLOIDAL OATMEAL 1 BAR EACH TP PRN (12:48)
[2022-01-05] MEDS: PRENATAL VITAMINS W/ FOLIC ACID TABLET (FP) PO SCH (14:14)
[2022-01-05] MEDS: NICOTINE 10 MG CARTRIDGE (INHALER) IH PRN ×2 (14:25→22:32)
[2022-01-05] MEDS: IBUPROFEN 400 MG TABLET (FP) PO PRN (14:27)
[2022-01-05] MEDS: NICOTINE 7 MG/24 HOURS TOPICAL PATCH TD SCH (14:27)
[2022-01-05] MEDS: hydrOXYzine PAMOATE 25 MG CAPSULE (FP) PO SCH ×3 (14:27→21:59)
[2022-01-05] MEDS: THIAMINE HCL 100 MG TABLET (FP) PO SCH (21:54)
[2022-01-05] MEDS: MELATONIN 5 MG TABLETS PO SCH (21:54)
[2022-01-05] MEDS: QUEtiapine FUMARATE 100 MG TABLET (FP) PO SCH (21:55)
[2022-01-05] MEDS: HYDROCORTISONE 1% TOPICAL OINT 30 GM TUBE TP SCH (21:56)
[2022-01-05] MEDS ORDERED: traZODone HCL 100 MG TABLET (FP) PO SCH (22:00)
[2022-01-05] MEDS ORDERED: traZODone HCL 150 MG TABLET PO SCH (22:00)
[2022-01-05] MEDS ORDERED: traZODone HCL 50 MG TABLET (FP) PO SCH (22:00)
[2022-01-05] MEDS: traZODone HCL 50 MG TABLET (FP) PO SCH (22:01)
[2022-01-06] MEDS: hydrOXYzine PAMOATE 25 MG CAPSULE (FP) PO SCH (06:46)
[2022-01-06] MEDS: IBUPROFEN 400 MG TABLET (FP) PO PRN (06:46)
[2022-01-06] MEDS ORDERED: COLLOIDAL OATMEAL 1 BAR EACH TP PRN (09:43)
[2022-01-06] MEDS: ASPIRIN 81 MG CHEWABLE TABLETS PO SCH (09:54)
[2022-01-06] MEDS: COLCHICINE 0.6 MG TAB PO SCH (09:54)
[2022-01-06] MEDS: CHOLECALCIFEROL (VIT D3) 1,000 UNIT (25 MCG) TABLET PO SCH (09:54)
[2022-01-06] MEDS: PRENATAL VITAMINS W/ FOLIC ACID TABLET (FP) PO SCH (09:55)
[2022-01-06] MEDS: hydrOXYzine PAMOATE 25 MG CAPSULE (FP) PO PRN ×3 (09:55→22:06)
[2022-01-06] MEDS: METHOCARBAMOL 500 MG TABLET PO PRN ×2 (09:56→22:06)
[2022-01-06] MEDS: HYDROCORTISONE 1% TOPICAL OINT 30 GM TUBE TP SCH ×2 (10:57→21:19)
[2022-01-06] MEDS: NICOTINE 7 MG/24 HOURS TOPICAL PATCH TD SCH (10:57)
[2022-01-06] MEDS: MINERAL OIL/PETROLAT/WATER TOPICAL CREAM 113 GM JAR TP SCH ×4 (11:00→21:19)
[2022-01-06] MEDS: QUEtiapine FUMARATE 50 MG TABLET PO SCH (14:46)
[2022-01-06] MEDS: NICOTINE 10 MG CARTRIDGE (INHALER) IH PRN (17:53)
[2022-01-06] MEDS: FERROUS SO4 325 MG TABLET (FP) PO SCH (18:35)
[2022-01-06] MEDS: traZODone HCL 50 MG TABLET (FP) PO SCH (21:18)
[2022-01-06] MEDS: QUEtiapine FUMARATE 100 MG TABLET (FP) PO SCH (21:18)
[2022-01-06] MEDS: MELATONIN 5 MG TABLETS PO SCH (21:19)
[2022-01-06] MEDS: THIAMINE HCL 100 MG TABLET (FP) PO SCH (21:19)
[2022-01-07] MEDS: METHOCARBAMOL 500 MG TABLET PO PRN (06:32)
[2022-01-07] MEDS: hydrOXYzine PAMOATE 25 MG CAPSULE (FP) PO PRN ×3 (06:32→21:07)
[2022-01-07] MEDS: NICOTINE 10 MG CARTRIDGE (INHALER) IH PRN ×4 (06:33→19:05)
[2022-01-07] MEDS: QUEtiapine FUMARATE 50 MG TABLET PO SCH (10:43)
[2022-01-07] MEDS: ASPIRIN 81 MG CHEWABLE TABLETS PO SCH (10:43)
[2022-01-07] MEDS: FERROUS SO4 325 MG TABLET (FP) PO SCH (10:43)
[2022-01-07] MEDS: NICOTINE 7 MG/24 HOURS TOPICAL PATCH TD SCH (10:43)
[2022-01-07] MEDS: MINERAL OIL/PETROLAT/WATER TOPICAL CREAM 113 GM JAR TP SCH ×4 (10:45→21:59)
[2022-01-07] MEDS: HYDROCORTISONE 1% TOPICAL OINT 30 GM TUBE TP SCH ×2 (10:45→21:58)
[2022-01-07] MEDS: PRENATAL VITAMINS W/ FOLIC ACID TABLET (FP) PO SCH (10:45)
[2022-01-07] MEDS: COLCHICINE 0.6 MG TAB PO SCH (12:22)
[2022-01-07] MEDS: CHOLECALCIFEROL (VIT D3) 1,000 UNIT (25 MCG) TABLET PO SCH (14:12)
[2022-01-07] MEDS: KETOCONAZOLE 2 % SHAMPOO 120 ML BOTTLE TP SCH (16:08)
[2022-01-07] MEDS: METHOCARBAMOL 750 MG TABLET PO PRN (19:04)
[2022-01-07] MEDS: QUEtiapine FUMARATE 100 MG TABLET (FP) PO SCH (21:58)
[2022-01-07] MEDS: MELATONIN 5 MG TABLETS PO SCH (21:58)
[2022-01-07] MEDS: traZODone HCL 50 MG TABLET (FP) PO SCH (21:58)
[2022-01-07] MEDS: THIAMINE HCL 100 MG TABLET (FP) PO SCH (21:59)
[2022-01-08] MEDS: METHOCARBAMOL 750 MG TABLET PO PRN ×2 (06:29→22:03)
[2022-01-08] MEDS: KETOCONAZOLE 2 % SHAMPOO 120 ML BOTTLE TP SCH (06:31)
[2022-01-08] MEDS: hydrOXYzine PAMOATE 25 MG CAPSULE (FP) PO PRN ×2 (06:32→10:36)
[2022-01-08] MEDS: PRENATAL VITAMINS W/ FOLIC ACID TABLET (FP) PO SCH (10:33)
[2022-01-08] MEDS: NICOTINE 10 MG CARTRIDGE (INHALER) IH PRN ×2 (10:34→21:22)
[2022-01-08] MEDS: ASPIRIN 81 MG CHEWABLE TABLETS PO SCH (10:36)
[2022-01-08] MEDS: FERROUS SO4 325 MG TABLET (FP) PO SCH (10:36)
[2022-01-08] MEDS: QUEtiapine FUMARATE 50 MG TABLET PO SCH (10:36)
[2022-01-08] MEDS: CHOLECALCIFEROL (VIT D3) 1,000 UNIT (25 MCG) TABLET PO SCH (10:36)
[2022-01-08] MEDS: COLCHICINE 0.6 MG TAB PO SCH (10:36)
[2022-01-08] MEDS: MINERAL OIL/PETROLAT/WATER TOPICAL CREAM 113 GM JAR TP SCH ×4 (11:55→23:09)
[2022-01-08] MEDS: HYDROCORTISONE 1% TOPICAL OINT 30 GM TUBE TP SCH ×2 (11:55→22:04)
[2022-01-08] MEDS: NICOTINE 7 MG/24 HOURS TOPICAL PATCH TD SCH (11:56)
[2022-01-08] MEDS: traZODone HCL 50 MG TABLET (FP) PO SCH (22:03)
[2022-01-08] MEDS: QUEtiapine FUMARATE 100 MG TABLET (FP) PO SCH (22:03)
[2022-01-08] MEDS: MELATONIN 5 MG TABLETS PO SCH (22:03)
[2022-01-08] MEDS: THIAMINE HCL 100 MG TABLET (FP) PO SCH (22:03)
[2022-01-09] MEDS: METHOCARBAMOL 750 MG TABLET PO PRN ×2 (06:34→22:11)
[2022-01-09] MEDS: hydrOXYzine PAMOATE 25 MG CAPSULE (FP) PO PRN ×3 (06:36→18:55)
[2022-01-09] MEDS: COLCHICINE 0.6 MG TAB PO SCH (10:09)
[2022-01-09] MEDS: CHOLECALCIFEROL (VIT D3) 1,000 UNIT (25 MCG) TABLET PO SCH (10:09)
[2022-01-09] MEDS: ASPIRIN 81 MG CHEWABLE TABLETS PO SCH (10:09)
[2022-01-09] MEDS: PRENATAL VITAMINS W/ FOLIC ACID TABLET (FP) PO SCH (10:09)
[2022-01-09] MEDS: FERROUS SO4 325 MG TABLET (FP) PO SCH (10:09)
[2022-01-09] MEDS: MINERAL OIL/PETROLAT/WATER TOPICAL CREAM 113 GM JAR TP SCH ×4 (10:12→22:12)
[2022-01-09] MEDS: HYDROCORTISONE 1% TOPICAL OINT 30 GM TUBE TP SCH ×2 (10:12→22:15)
[2022-01-09] MEDS: QUEtiapine FUMARATE 50 MG TABLET PO SCH (10:13)
[2022-01-09] MEDS: NICOTINE 7 MG/24 HOURS TOPICAL PATCH TD SCH (10:13)
[2022-01-09] MEDS: NICOTINE 10 MG CARTRIDGE (INHALER) IH PRN (18:56)
[2022-01-09] MEDS: QUEtiapine FUMARATE 100 MG TABLET (FP) PO SCH (22:11)
[2022-01-09] MEDS: THIAMINE HCL 100 MG TABLET (FP) PO SCH (22:11)
[2022-01-09] MEDS: traZODone HCL 50 MG TABLET (FP) PO SCH (22:11)
[2022-01-09] MEDS: MELATONIN 5 MG TABLETS PO SCH (22:11)
[2022-01-10] MEDS: MINERAL OIL/PETROLAT/WATER TOPICAL CREAM 113 GM JAR TP SCH ×4 (10:51→22:59)
[2022-01-10] MEDS: NICOTINE 10 MG CARTRIDGE (INHALER) IH PRN (10:51)
[2022-01-10] MEDS: CHOLECALCIFEROL (VIT D3) 1,000 UNIT (25 MCG) TABLET PO SCH (10:53)
[2022-01-10] MEDS: FERROUS SO4 325 MG TABLET (FP) PO SCH (10:53)
[2022-01-10] MEDS: PRENATAL VITAMINS W/ FOLIC ACID TABLET (FP) PO SCH (10:53)
[2022-01-10] MEDS: NICOTINE 7 MG/24 HOURS TOPICAL PATCH TD SCH (10:53)
[2022-01-10] MEDS: ASPIRIN 81 MG CHEWABLE TABLETS PO SCH (10:53)
[2022-01-10] MEDS: COLCHICINE 0.6 MG TAB PO SCH (10:53)
[2022-01-10] MEDS: QUEtiapine FUMARATE 50 MG TABLET PO SCH (10:53)
[2022-01-10] MEDS: HYDROCORTISONE 1% TOPICAL OINT 30 GM TUBE TP SCH ×2 (10:53→22:59)
[2022-01-10] MEDS: METHOCARBAMOL 750 MG TABLET PO PRN ×2 (10:54→22:57)
[2022-01-10] MEDS: hydrOXYzine PAMOATE 25 MG CAPSULE (FP) PO PRN (10:54)
[2022-01-10] MEDS: KETOCONAZOLE 2 % SHAMPOO 120 ML BOTTLE TP SCH (13:44)
[2022-01-10] MEDS: QUEtiapine FUMARATE 100 MG TABLET (FP) PO SCH (22:57)
[2022-01-10] MEDS: THIAMINE HCL 100 MG TABLET (FP) PO SCH (22:57)
[2022-01-10] MEDS: MELATONIN 5 MG TABLETS PO SCH (22:57)
[2022-01-10] MEDS: traZODone HCL 50 MG TABLET (FP) PO SCH (22:57)
[2022-01-11] MEDS: hydrOXYzine PAMOATE 25 MG CAPSULE (FP) PO PRN ×2 (07:09→10:21)
[2022-01-11] MEDS: METHOCARBAMOL 750 MG TABLET PO PRN ×2 (07:09→23:05)
[2022-01-11] MEDS: NICOTINE 10 MG CARTRIDGE (INHALER) IH PRN ×2 (07:10→21:38)
[2022-01-11] MEDS: COLCHICINE 0.6 MG TAB PO SCH (10:17)
[2022-01-11] MEDS: CHOLECALCIFEROL (VIT D3) 1,000 UNIT (25 MCG) TABLET PO SCH (10:17)
[2022-01-11] MEDS: FERROUS SO4 325 MG TABLET (FP) PO SCH (10:17)
[2022-01-11] MEDS: MINERAL OIL/PETROLAT/WATER TOPICAL CREAM 113 GM JAR TP SCH ×4 (10:17→23:05)
[2022-01-11] MEDS: NICOTINE 7 MG/24 HOURS TOPICAL PATCH TD SCH (10:17)
[2022-01-11] MEDS: ASPIRIN 81 MG CHEWABLE TABLETS PO SCH (10:17)
[2022-01-11] MEDS: HYDROCORTISONE 1% TOPICAL OINT 30 GM TUBE TP SCH ×2 (10:17→23:06)
[2022-01-11] MEDS: PRENATAL VITAMINS W/ FOLIC ACID TABLET (FP) PO SCH (10:18)
[2022-01-11] MEDS: QUEtiapine FUMARATE 50 MG TABLET PO SCH (10:18)
[2022-01-11] MEDS: THIAMINE HCL 100 MG TABLET (FP) PO SCH (22:50)
[2022-01-11] MEDS: traZODone HCL 50 MG TABLET (FP) PO SCH (22:50)
[2022-01-11] MEDS: MELATONIN 5 MG TABLETS PO SCH (22:50)
[2022-01-11] MEDS: QUEtiapine FUMARATE 100 MG TABLET (FP) PO SCH (22:50)
[2022-01-12] MEDS: METHOCARBAMOL 750 MG TABLET PO PRN (06:19)
[2022-01-12 07:05] VITALS: BP 110/63; PULSE 73; TEMP 96.9
[2022-01-12] MEDS: ASPIRIN 81 MG CHEWABLE TABLETS PO SCH (10:22)
[2022-01-12] MEDS: CHOLECALCIFEROL (VIT D3) 1,000 UNIT (25 MCG) TABLET PO SCH (10:22)
[2022-01-12] MEDS: COLCHICINE 0.6 MG TAB PO SCH (10:22)
[2022-01-12] MEDS: QUEtiapine FUMARATE 50 MG TABLET PO SCH (10:22)
[2022-01-12] MEDS: PRENATAL VITAMINS W/ FOLIC ACID TABLET (FP) PO SCH (10:22)
[2022-01-12] MEDS: FERROUS SO4 325 MG TABLET (FP) PO SCH (10:22)
[2022-01-12] MEDS: MINERAL OIL/PETROLAT/WATER TOPICAL CREAM 113 GM JAR TP SCH (10:24)
[2022-01-12] MEDS: HYDROCORTISONE 1% TOPICAL OINT 30 GM TUBE TP SCH (10:24)
[2022-01-12] MEDS: NICOTINE 7 MG/24 HOURS TOPICAL PATCH TD SCH (10:24)
[2022-01-12] MEDS: NICOTINE 10 MG CARTRIDGE (INHALER) IH PRN (10:24)
== END 2022-01-12 12:29 | disposition home or self-care (01) | DRG 772 ==
LOC: YASAS 11:46 → Y3W 11:47
PROVIDERS: ADMIT Allergy & Immunology; ATTEND Psychiatry & Neurology Pain Medicine
PROC: HZ42ZZZ Group Counseling for Substance Abuse Treatment, Cognitive-Behavioral (ICD-10-PCS; principal; 2022-01-05)
DX: F10.20 Alcohol dependence, uncomplicated (principal); F13.20 Sedative, hypnotic or anxiolytic dependence, uncomplicated; F15.20 Other stimulant dependence, uncomplicated; F12.20 Cannabis dependence, uncomplicated; F17.210 Nicotine dependence, cigarettes, uncomplicated; F19.280 Other psychoactive substance dependence with psychoactive substance-induced anxiety disorder; F19.282 Other psychoactive substance dependence with psychoactive substance-induced sleep disorder; F18.24 Inhalant dependence with inhalant-induced mood disorder; F43.10 Post-traumatic stress disorder, unspecified; F32.A Depression, unspecified; L30.9 Dermatitis, unspecified; M10.9 Gout, unspecified; M54.50 Low back pain, unspecified; G89.29 Other chronic pain; Z56.0 Unemployment, unspecified; Z59.00 Homelessness unspecified; Z88.8 Allergy status to other drugs, medicaments and biological substances
CPT/HCPCS: 36415; 84550

== ENCOUNTER 2022-02-07 12:32 | Inpatient (IN) | payer OTHER ==
[2022-02-07 13:16] VITALS: BMI 22.7
[2022-02-07] MEDS ORDERED: BISMUTH SUBSALICYLATE 262 MG/15 ML BTL PO PRN (14:28)
[2022-02-07] MEDS ORDERED: MAGNESIUM HYDROX 2400MG/30ML ORAL SUSPENSION 30 ML CUP PO PRN (14:28)
[2022-02-07] MEDS ORDERED: NICOTINE 10 MG CARTRIDGE (INHALER) IH PRN (14:28)
[2022-02-07] MEDS ORDERED: DICYCLOMINE HCL 10 MG CAPSULE PO PRN (14:28)
[2022-02-07] MEDS ORDERED: BENZOCAINE/MENTHOL (CHLORASEPTIC ) LOZENGE MM PRN (14:28)
[2022-02-07] MEDS ORDERED: ONDANSETRON *ODT* 4 MG TABLET SL PRN (14:28)
[2022-02-07] MEDS ORDERED: LOPERAMIDE HCL 2 MG CAPSULE PO PRN (14:28)
[2022-02-07] MEDS ORDERED: IBUPROFEN 400 MG TABLET (FP) PO PRN (14:28)
[2022-02-07] MEDS ORDERED: MAG HYDROX/AL HYDROX/SIMETH 30 ML UNIT-DOSE CUP PO PRN (14:28)
[2022-02-07] MEDS ORDERED: IBUPROFEN 600 MG TABLET (FP) PO PRN (14:28)
[2022-02-07] MEDS ORDERED: MAGNESIUM CITRATE 300 ML BOTTLE PO PRN (14:28)
[2022-02-07] MEDS ORDERED: ACETAMINOPHEN 325 MG TABLET (FP) PO PRN (14:28)
[2022-02-07] MEDS ORDERED: HYDROCORTISONE 1% TOPICAL OINT 30 GM TUBE TP PRN (14:32)
[2022-02-07] MEDS ORDERED: COLLOIDAL OATMEAL 1 BAR EACH TP PRN (14:33)
[2022-02-07] MEDS: LORazepam 1 MG TABLET PO PRN ×2 (15:01→18:37)
[2022-02-07] MEDS: hydrOXYzine PAMOATE 25 MG CAPSULE (FP) PO SCH ×2 (18:36→23:11)
[2022-02-07] MEDS: METHOCARBAMOL 500 MG TABLET PO PRN (19:00)
[2022-02-07] MEDS ORDERED: MELATONIN 5 MG TABLETS PO SCH (22:00)
[2022-02-07] MEDS: LORazepam 2 MG TABLET PO SCH (23:11)
[2022-02-07] MEDS: THIAMINE HCL 100 MG TABLET (FP) PO SCH (23:11)
[2022-02-07] MEDS: ACETAMINOPHEN 325 MG TABLET (FP) PO PRN (23:12)
[2022-02-08] MEDS: hydrOXYzine PAMOATE 25 MG CAPSULE (FP) PO SCH ×2 (05:44→10:33)
[2022-02-08] MEDS: LORazepam 2 MG TABLET PO SCH ×4 (05:44→22:15)
[2022-02-08] MEDS: METHOCARBAMOL 500 MG TABLET PO PRN ×3 (05:45→17:41)
[2022-02-08] MEDS: PRENATAL VITAMINS W/ FOLIC ACID TABLET (FP) PO SCH (10:33)
[2022-02-08] MEDS: hydrOXYzine PAMOATE 25 MG CAPSULE (FP) PO PRN (17:41)
[2022-02-08] MEDS ORDERED: QUEtiapine FUMARATE 100 MG TABLET (FP) PO SCH (22:00)
[2022-02-08] MEDS ORDERED: traZODone HCL 100 MG TABLET (FP) PO SCH (22:00)
[2022-02-08] MEDS: THIAMINE HCL 100 MG TABLET (FP) PO SCH (22:15)
[2022-02-08] MEDS: ACETAMINOPHEN 325 MG TABLET (FP) PO PRN (22:16)
[2022-02-09] MEDS: LORazepam 1 MG TABLET PO SCH ×2 (06:03→10:07)
[2022-02-09] MEDS: METHOCARBAMOL 500 MG TABLET PO PRN (06:04)
[2022-02-09] MEDS: PRENATAL VITAMINS W/ FOLIC ACID TABLET (FP) PO SCH (10:07)
[2022-02-09] MEDS: hydrOXYzine PAMOATE 25 MG CAPSULE (FP) PO PRN (10:08)
[2022-02-09] MEDS: ACETAMINOPHEN 325 MG TABLET (FP) PO PRN (10:09)
[2022-02-09 10:54] VITALS: BP 110/62; PULSE 109; TEMP 98
[2022-02-10] MEDS ORDERED: LORazepam 0.5 MG TABLET PO PRN
[2022-02-10] MEDS ORDERED: LORazepam 0.5 MG TABLET PO SCH (05:00)
[2022-02-11] MEDS ORDERED: LORazepam 0.5 MG TABLET PO ONE (05:00)
== END 2022-02-09 12:21 | disposition left against medical advice (07) | DRG 770 ==
LOC: YASAS 12:32 → Y6N 14:15
PROVIDERS: ADMIT Allergy & Immunology; ATTEND Surgery
PROC: HZ2ZZZZ Detoxification Services for Substance Abuse Treatment (ICD-10-PCS; principal; 2022-02-07)
DX: F10.230 Alcohol dependence with withdrawal, uncomplicated (principal); F13.20 Sedative, hypnotic or anxiolytic dependence, uncomplicated; F16.10 Hallucinogen abuse, uncomplicated; F12.20 Cannabis dependence, uncomplicated; F17.210 Nicotine dependence, cigarettes, uncomplicated; F19.282 Other psychoactive substance dependence with psychoactive substance-induced sleep disorder; F19.280 Other psychoactive substance dependence with psychoactive substance-induced anxiety disorder; F19.24 Other psychoactive substance dependence with psychoactive substance-induced mood disorder; F33.9 Major depressive disorder, recurrent, unspecified; F43.10 Post-traumatic stress disorder, unspecified; L30.9 Dermatitis, unspecified; M54.50 Low back pain, unspecified; G89.29 Other chronic pain; M10.9 Gout, unspecified; Z86.79 Personal history of other diseases of the circulatory system; Z87.01 Personal history of pneumonia (recurrent); Z28.310 Unvaccinated for COVID-19; Z59.01 Sheltered homelessness; Z56.0 Unemployment, unspecified; Z88.8 Allergy status to other drugs, medicaments and biological substances; Z91.013 Allergy to seafood
CPT/HCPCS: 36415; 84550; 86780; C9803-CS; U0003; U0005

== ENCOUNTER 2022-03-14 09:06 | Inpatient (IN) | payer OTHER ==
[2022-03-14 10:14] VITALS: BMI 22.0
[2022-03-14] MEDS ORDERED: diazePAM 5 MG TABLET PO SCH (11:00)
[2022-03-14] MEDS ORDERED: ACETAMINOPHEN 325 MG TABLET (FP) PO PRN (11:29)
[2022-03-14] MEDS ORDERED: LOPERAMIDE HCL 2 MG CAPSULE PO PRN (11:29)
[2022-03-14] MEDS ORDERED: BENZOCAINE/MENTHOL (CHLORASEPTIC ) LOZENGE MM PRN (11:29)
[2022-03-14] MEDS ORDERED: MAGNESIUM HYDROX 2400MG/30ML ORAL SUSPENSION 30 ML CUP PO PRN (11:29)
[2022-03-14] MEDS ORDERED: diazePAM 5 MG TABLET PO PRN (11:29)
[2022-03-14] MEDS ORDERED: ONDANSETRON *ODT* 4 MG TABLET SL PRN (11:29)
[2022-03-14] MEDS ORDERED: MAGNESIUM CITRATE 300 ML BOTTLE PO PRN (11:29)
[2022-03-14] MEDS ORDERED: BISMUTH SUBSALICYLATE 524 MG/30 ML PO PRN (11:29)
[2022-03-14] MEDS ORDERED: NALOXONE HCL (KLOXXADO) 8 MG SPRAY NS PRN (11:29)
[2022-03-14] MEDS ORDERED: DICYCLOMINE HCL 10 MG CAPSULE PO PRN (11:29)
[2022-03-14] MEDS ORDERED: IBUPROFEN 600 MG TABLET (FP) PO PRN (11:29)
[2022-03-14] MEDS ORDERED: NICOTINE 10 MG CARTRIDGE (INHALER) IH PRN (11:29)
[2022-03-14] MEDS ORDERED: IBUPROFEN 400 MG TABLET (FP) PO PRN (11:29)
[2022-03-14] MEDS ORDERED: MAG HYDROX/AL HYDROX/SIMETH 30 ML UNIT-DOSE CUP PO PRN (11:29)
[2022-03-14] MEDS ORDERED: COLLOIDAL OATMEAL 1 BAR EACH TP PRN (11:33)
[2022-03-14] MEDS ORDERED: LORazepam 1 MG TABLET PO PRN (11:46)
[2022-03-14] MEDS: hydrOXYzine PAMOATE 25 MG CAPSULE (FP) PO SCH ×3 (13:32→23:00)
[2022-03-14] MEDS: VITAMINS A AND D TOPICAL OINTMENT 60 GM TUBE TP SCH ×3 (13:32→23:01)
[2022-03-14] MEDS: ACETAMINOPHEN 325 MG TABLET (FP) PO PRN (13:32)
[2022-03-14] MEDS: NICOTINE 7 MG/24 HOURS TOPICAL PATCH TD SCH (13:32)
[2022-03-14] MEDS: PRENATAL VITAMINS W/ FOLIC ACID TABLET (FP) PO SCH (13:32)
[2022-03-14 15:45] LABS: HEMATOCRIT 36.4 % (35.4-49); HEMOGLOBIN 12.3 GM/dL (11.7-16.9); MCH 33.1 pg (25.7-33.7); MCHC 33.8 g/dl (32.0-35.9); MEAN PLT VOLUME 9.5 fl (7.5-11.1); PLATELET COUNT 230 10^3/uL (134-434); RBC 3.72 M/mm3 (4.00-5.60); RDW 14.6 % (11.9-15.9)
[2022-03-14 15:59] LABS: CHLORIDE 108 mmol/L (98-107); SODIUM 144 mmol/L (136-145)
[2022-03-14 16:07] LABS: CALCIUM 8.5 mg/dL (8.5-10.1)
[2022-03-14 16:08] LABS: ALBUMIN 3.4 g/dl (3.4-5.0); ANION GAP 9 MMOL/L (8-16); CO2 27 mmol/L (21-32); CREATININE 0.6 mg/dL (0.55-1.3); GLUCOSE,RANDOM 89 mg/dL (74-106); SGPT/ALT 74 U/L (13-61)
[2022-03-14 16:10] LABS: BILIRUBIN,TOTAL 0.3 mg/dL (0.2-1); TOT PROT 8.4 g/dl (6.4-8.2)
[2022-03-14 16:11] LABS: ALK PHOS 131 U/L (45-117); SGOT/AST 77 U/L (15-37)
[2022-03-14 16:16] LABS: BLOOD UREA NITROGEN 2.7 mg/dL (7-18)
[2022-03-14 18:44] LABS: HIV INTERPRETATION NEGATIVE (NEGATIVE)
[2022-03-14] MEDS: LORazepam 2 MG TABLET PO SCH ×2 (18:50→22:59)
[2022-03-14] MEDS: THIAMINE HCL 100 MG TABLET (FP) PO SCH (23:00)
[2022-03-14] MEDS: MELATONIN 5 MG TABLETS PO SCH (23:00)
[2022-03-15] MEDS: hydrOXYzine PAMOATE 25 MG CAPSULE (FP) PO SCH ×5 (06:39→23:05)
[2022-03-15] MEDS: LORazepam 2 MG TABLET PO SCH ×4 (06:40→23:04)
[2022-03-15] MEDS: VITAMINS A AND D TOPICAL OINTMENT 60 GM TUBE TP SCH ×3 (07:20→19:10)
[2022-03-15] MEDS: NICOTINE 7 MG/24 HOURS TOPICAL PATCH TD SCH (10:54)
[2022-03-15] MEDS: PRENATAL VITAMINS W/ FOLIC ACID TABLET (FP) PO SCH (10:54)
[2022-03-15] MEDS ORDERED: POTASSIUM CHLORIDE ORAL LIQUID 20 MEQ/15 ML PO ONE (14:00)
[2022-03-15] MEDS: COLCHICINE 0.6 MG TAB PO SCH (16:43)
[2022-03-15] MEDS: MELATONIN 5 MG TABLETS PO SCH (23:05)
[2022-03-15] MEDS: QUEtiapine FUMARATE 100 MG TABLET (FP) PO SCH (23:05)
[2022-03-15] MEDS: THIAMINE HCL 100 MG TABLET (FP) PO SCH (23:06)
[2022-03-16] MEDS: VITAMINS A AND D TOPICAL OINTMENT 60 GM TUBE TP SCH ×4 (00:35→20:16)
[2022-03-16] MEDS ORDERED: diazePAM 5 MG TABLET PO SCH (06:00)
[2022-03-16] MEDS: LORazepam 1 MG TABLET PO SCH ×4 (06:19→23:09)
[2022-03-16] MEDS: ACETAMINOPHEN 325 MG TABLET (FP) PO PRN ×2 (06:20→22:10)
[2022-03-16] MEDS: hydrOXYzine PAMOATE 25 MG CAPSULE (FP) PO SCH ×5 (06:20→23:09)
[2022-03-16 10:06] LABS: CALCIUM 8.3 mg/dL (8.5-10.1)
[2022-03-16 10:10] LABS: BLOOD UREA NITROGEN 5.2 mg/dL (7-18); CREATININE 0.5 mg/dL (0.55-1.3)
[2022-03-16] MEDS: METHOCARBAMOL 500 MG TABLET PO PRN ×2 (11:15→18:33)
[2022-03-16] MEDS: PRENATAL VITAMINS W/ FOLIC ACID TABLET (FP) PO SCH (11:15)
[2022-03-16] MEDS: COLCHICINE 0.6 MG TAB PO SCH (11:15)
[2022-03-16] MEDS: CHOLECALCIFEROL (VIT D3) 1,000 UNIT (25 MCG) TABLET PO SCH (11:15)
[2022-03-16] MEDS: NICOTINE 7 MG/24 HOURS TOPICAL PATCH TD SCH (11:25)
[2022-03-16] MEDS: THIAMINE HCL 100 MG TABLET (FP) PO SCH (23:08)
[2022-03-16] MEDS: MELATONIN 5 MG TABLETS PO SCH (23:08)
[2022-03-16] MEDS: QUEtiapine FUMARATE 100 MG TABLET (FP) PO SCH (23:09)
[2022-03-17] MEDS: VITAMINS A AND D TOPICAL OINTMENT 60 GM TUBE TP SCH ×4 (01:08→20:03)
[2022-03-17] MEDS: METHOCARBAMOL 500 MG TABLET PO PRN ×2 (02:37→10:48)
[2022-03-17] MEDS: LORazepam 0.5 MG TABLET PO PRN ×2 (02:39→14:18)
[2022-03-17] MEDS ORDERED: diazePAM 5 MG TABLET PO SCH (06:00)
[2022-03-17] MEDS: LORazepam 0.5 MG TABLET PO SCH ×4 (06:34→22:38)
[2022-03-17] MEDS: hydrOXYzine PAMOATE 25 MG CAPSULE (FP) PO SCH ×5 (06:34→22:38)
[2022-03-17] MEDS: CHOLECALCIFEROL (VIT D3) 1,000 UNIT (25 MCG) TABLET PO SCH (10:48)
[2022-03-17] MEDS: PRENATAL VITAMINS W/ FOLIC ACID TABLET (FP) PO SCH (10:48)
[2022-03-17] MEDS: COLCHICINE 0.6 MG TAB PO SCH (10:48)
[2022-03-17] MEDS: NICOTINE 7 MG/24 HOURS TOPICAL PATCH TD SCH (11:00)
[2022-03-17] MEDS ORDERED: COLLOIDAL OATMEAL 1 BAR EACH TP PRN (14:29)
[2022-03-17 21:37] VITALS: RESP 18
[2022-03-17] MEDS: MELATONIN 5 MG TABLETS PO SCH (22:38)
[2022-03-17] MEDS: THIAMINE HCL 100 MG TABLET (FP) PO SCH (22:38)
[2022-03-17] MEDS: QUEtiapine FUMARATE 100 MG TABLET (FP) PO SCH (22:38)
[2022-03-18] MEDS: VITAMINS A AND D TOPICAL OINTMENT 60 GM TUBE TP SCH ×2 (00:39→06:35)
[2022-03-18] MEDS ORDERED: LORazepam 0.5 MG TABLET PO ONE (05:00)
[2022-03-18] MEDS ORDERED: diazePAM 5 MG TABLET PO ONE (06:00)
[2022-03-18] MEDS: hydrOXYzine PAMOATE 25 MG CAPSULE (FP) PO SCH ×2 (06:35→11:04)
[2022-03-18] MEDS: ACETAMINOPHEN 325 MG TABLET (FP) PO PRN (06:59)
[2022-03-18] MEDS: METHOCARBAMOL 500 MG TABLET PO PRN (06:59)
[2022-03-18 09:22] VITALS: BP 112/78; PULSE 70; TEMP 97.7
[2022-03-18] MEDS: PRENATAL VITAMINS W/ FOLIC ACID TABLET (FP) PO SCH (11:04)
[2022-03-18] MEDS: COLCHICINE 0.6 MG TAB PO SCH (11:04)
[2022-03-18] MEDS: NICOTINE 7 MG/24 HOURS TOPICAL PATCH TD SCH (11:04)
[2022-03-18] MEDS: CHOLECALCIFEROL (VIT D3) 1,000 UNIT (25 MCG) TABLET PO SCH (11:09)
== END 2022-03-18 11:20 | disposition home or self-care (01) | DRG 775 ==
LOC: YASAS 09:06 → Y3N 11:53
PROVIDERS: ADMIT Allergy & Immunology; ATTEND Surgery
PROC: HZ2ZZZZ Detoxification Services for Substance Abuse Treatment (ICD-10-PCS; principal; 2022-03-14)
DX: F10.230 Alcohol dependence with withdrawal, uncomplicated (principal); F16.20 Hallucinogen dependence, uncomplicated; F12.20 Cannabis dependence, uncomplicated; F17.210 Nicotine dependence, cigarettes, uncomplicated; F19.280 Other psychoactive substance dependence with psychoactive substance-induced anxiety disorder; F41.9 Anxiety disorder, unspecified; F32.A Depression, unspecified; F43.10 Post-traumatic stress disorder, unspecified; U07.1 COVID-19; E87.6 Hypokalemia; L30.9 Dermatitis, unspecified; M54.50 Low back pain, unspecified; G89.29 Other chronic pain; R79.89 Other specified abnormal findings of blood chemistry; R74.01 Elevation of levels of liver transaminase levels; Z28.311 Partially vaccinated for COVID-19; Z88.8 Allergy status to other drugs, medicaments and biological substances; Z91.013 Allergy to seafood; Z56.0 Unemployment, unspecified; Z59.01 Sheltered homelessness
CPT/HCPCS: 36415; 80048; 80053; 85027; 86780; 87389; C9803-CS; U0003; U0005

== ENCOUNTER 2022-03-23 18:23 | Inpatient (IN) | payer OTHER ==
[2022-03-23 20:37] VITALS: BMI 21.2
[2022-03-23] MEDS ORDERED: MAG HYDROX/AL HYDROX/SIMETH 30 ML UNIT-DOSE CUP PO PRN (21:04)
[2022-03-23] MEDS ORDERED: MAGNESIUM CITRATE 300 ML BOTTLE PO PRN (21:04)
[2022-03-23] MEDS ORDERED: BENZOCAINE/MENTHOL (CHLORASEPTIC ) LOZENGE MM PRN (21:04)
[2022-03-23] MEDS ORDERED: ACETAMINOPHEN 325 MG TABLET (FP) PO PRN ×2 (21:04)
[2022-03-23] MEDS ORDERED: MAGNESIUM HYDROX 2400MG/30ML ORAL SUSPENSION 30 ML CUP PO PRN (21:04)
[2022-03-23] MEDS ORDERED: LOPERAMIDE HCL 2 MG CAPSULE PO PRN (21:04)
[2022-03-23] MEDS ORDERED: BISMUTH SUBSALICYLATE 524 MG/30 ML PO PRN (21:04)
[2022-03-23] MEDS ORDERED: ONDANSETRON *ODT* 4 MG TABLET SL PRN (21:04)
[2022-03-23] MEDS ORDERED: IBUPROFEN 400 MG TABLET (FP) PO PRN (21:04)
[2022-03-23] MEDS ORDERED: NICOTINE POLACRILEX 2 MG GUM BUC PRN (21:04)
[2022-03-23] MEDS ORDERED: DICYCLOMINE HCL 10 MG CAPSULE PO PRN (21:04)
[2022-03-24] MEDS ORDERED: LORazepam 1 MG TABLET PO PRN (02:25)
[2022-03-24] MEDS: MELATONIN 5 MG TABLETS PO SCH ×2 (04:11→22:31)
[2022-03-24] MEDS: THIAMINE HCL 100 MG TABLET (FP) PO SCH ×2 (04:11→22:31)
[2022-03-24] MEDS: LORazepam 1 MG TABLET PO SCH ×4 (05:48→22:30)
[2022-03-24] MEDS: PRENATAL VITAMINS W/ FOLIC ACID TABLET (FP) PO SCH (11:05)
[2022-03-24] MEDS: NICOTINE 21 MG/24 HOURS TOPICAL PATCH TD SCH (11:07)
[2022-03-24 11:18] LABS: HEMATOCRIT 35.3 % (35.4-49); HEMOGLOBIN 11.7 GM/dL (11.7-16.9); MCH 32.4 pg (25.7-33.7); MCHC 33.2 g/dl (32.0-35.9); MEAN CELL VOLUME 97.6 fl (80-96); MEAN PLT VOLUME 10.6 fl (7.5-11.1); PLATELET COUNT 150 10^3/uL (134-434); RBC 3.61 M/mm3 (4.00-5.60); RDW 13.3 % (11.9-15.9)
[2022-03-24 11:23] LABS: CALCIUM 8.6 mg/dL (8.5-10.1)
[2022-03-24 11:24] LABS: ALBUMIN 3.2 g/dl (3.4-5.0); BLOOD UREA NITROGEN 14.5 mg/dL (7-18)
[2022-03-24 11:27] LABS: CREATININE 0.8 mg/dL (0.55-1.3)
[2022-03-24 11:29] LABS: BILIRUBIN,TOTAL 0.7 mg/dL (0.2-1); TOT PROT 8.1 g/dl (6.4-8.2)
[2022-03-24 12:20] LABS: HIV INTERPRETATION NEGATIVE (NEGATIVE)
[2022-03-24] MEDS: QUEtiapine FUMARATE 100 MG TABLET (FP) PO SCH (22:31)
[2022-03-25] MEDS: LORazepam 1 MG TABLET PO SCH ×4 (06:24→23:01)
[2022-03-25] MEDS: IBUPROFEN 600 MG TABLET (FP) PO PRN (10:22)
[2022-03-25] MEDS: PRENATAL VITAMINS W/ FOLIC ACID TABLET (FP) PO SCH (10:22)
[2022-03-25] MEDS: NICOTINE 21 MG/24 HOURS TOPICAL PATCH TD SCH (10:22)
[2022-03-25] MEDS ORDERED: COLLOIDAL OATMEAL 1 BAR EACH TP PRN (14:50)
[2022-03-25] MEDS ORDERED: COLCHICINE 0.6 MG TAB PO SCH (15:45)
[2022-03-25] MEDS: QUEtiapine FUMARATE 100 MG TABLET (FP) PO SCH (23:00)
[2022-03-25] MEDS: COLCHICINE 0.6 MG CAP PO SCH (23:00)
[2022-03-25] MEDS: THIAMINE HCL 100 MG TABLET (FP) PO SCH (23:00)
[2022-03-25] MEDS: MELATONIN 5 MG TABLETS PO SCH (23:00)
[2022-03-26] MEDS ORDERED: LORazepam 0.5 MG TABLET PO PRN
[2022-03-26] MEDS: LORazepam 0.5 MG TABLET PO SCH ×4 (06:29→22:46)
[2022-03-26] MEDS: METHOCARBAMOL 500 MG TABLET PO PRN ×2 (06:41→17:47)
[2022-03-26] MEDS: FERROUS SO4 325 MG TABLET (FP) PO SCH (10:45)
[2022-03-26] MEDS: ASPIRIN 81 MG CHEWABLE TABLETS PO SCH (10:45)
[2022-03-26] MEDS: CHOLECALCIFEROL (VIT D3) 1,000 UNIT (25 MCG) TABLET PO SCH (10:45)
[2022-03-26] MEDS: PRENATAL VITAMINS W/ FOLIC ACID TABLET (FP) PO SCH (10:45)
[2022-03-26] MEDS: COLCHICINE 0.6 MG CAP PO SCH (10:48)
[2022-03-26] MEDS: NICOTINE 21 MG/24 HOURS TOPICAL PATCH TD SCH (10:49)
[2022-03-26] MEDS: HYDROCORTISONE 1% TOPICAL CREAM 30 GM TUBE TP PRN (14:39)
[2022-03-26] MEDS: IBUPROFEN 600 MG TABLET (FP) PO PRN (17:47)
[2022-03-26] MEDS: QUEtiapine FUMARATE 100 MG TABLET (FP) PO SCH (22:46)
[2022-03-26] MEDS: MELATONIN 5 MG TABLETS PO SCH (22:46)
[2022-03-26] MEDS: THIAMINE HCL 100 MG TABLET (FP) PO SCH (22:46)
[2022-03-27] MEDS ORDERED: LORazepam 0.5 MG TABLET PO ONE (05:00)
[2022-03-27] MEDS: ASPIRIN 81 MG CHEWABLE TABLETS PO SCH (10:52)
[2022-03-27] MEDS: FERROUS SO4 325 MG TABLET (FP) PO SCH (10:52)
[2022-03-27] MEDS: CHOLECALCIFEROL (VIT D3) 1,000 UNIT (25 MCG) TABLET PO SCH (10:52)
[2022-03-27] MEDS: PRENATAL VITAMINS W/ FOLIC ACID TABLET (FP) PO SCH (10:53)
[2022-03-27] MEDS: NICOTINE 21 MG/24 HOURS TOPICAL PATCH TD SCH (10:53)
[2022-03-27] MEDS: COLCHICINE 0.6 MG CAP PO SCH (10:53)
[2022-03-27] MEDS: METHOCARBAMOL 500 MG TABLET PO PRN ×2 (12:12→21:55)
[2022-03-27] MEDS: hydrOXYzine PAMOATE 25 MG CAPSULE (FP) PO PRN ×2 (12:12→21:55)
[2022-03-27] MEDS: HYDROCORTISONE 1% TOPICAL CREAM 30 GM TUBE TP PRN (12:13)
[2022-03-27 21:23] VITALS: RESP 18
[2022-03-27] MEDS: MELATONIN 5 MG TABLETS PO SCH (21:55)
[2022-03-27] MEDS: QUEtiapine FUMARATE 100 MG TABLET (FP) PO SCH (21:55)
[2022-03-27] MEDS: THIAMINE HCL 100 MG TABLET (FP) PO SCH (21:55)
[2022-03-28 09:31] VITALS: BP 131/77; PULSE 89; TEMP 97.8
[2022-03-28] MEDS: ASPIRIN 81 MG CHEWABLE TABLETS PO SCH (11:27)
[2022-03-28] MEDS: PRENATAL VITAMINS W/ FOLIC ACID TABLET (FP) PO SCH (11:27)
[2022-03-28] MEDS: CHOLECALCIFEROL (VIT D3) 1,000 UNIT (25 MCG) TABLET PO SCH (11:28)
[2022-03-28] MEDS: FERROUS SO4 325 MG TABLET (FP) PO SCH (11:28)
[2022-03-28] MEDS: COLCHICINE 0.6 MG CAP PO SCH (11:28)
[2022-03-28] MEDS: NICOTINE 21 MG/24 HOURS TOPICAL PATCH TD SCH (11:28)
[2022-03-28] MEDS: hydrOXYzine PAMOATE 25 MG CAPSULE (FP) PO PRN (11:35)
[2022-03-28] MEDS: METHOCARBAMOL 500 MG TABLET PO PRN (11:36)
== END 2022-03-28 15:45 | disposition home or self-care (01) | DRG 775 ==
LOC: YASAS 18:23 → Y3N 23:53
PROVIDERS: ADMIT Allergy & Immunology; ATTEND Surgery
PROC: HZ2ZZZZ Detoxification Services for Substance Abuse Treatment (ICD-10-PCS; principal; 2022-03-23)
DX: F10.230 Alcohol dependence with withdrawal, uncomplicated (principal); F10.280 Alcohol dependence with alcohol-induced anxiety disorder; F12.20 Cannabis dependence, uncomplicated; F17.210 Nicotine dependence, cigarettes, uncomplicated; F19.24 Other psychoactive substance dependence with psychoactive substance-induced mood disorder; F19.282 Other psychoactive substance dependence with psychoactive substance-induced sleep disorder; F43.10 Post-traumatic stress disorder, unspecified; F31.9 Bipolar disorder, unspecified; D50.9 Iron deficiency anemia, unspecified; U07.1 COVID-19; M1A.09X0 Idiopathic chronic gout, multiple sites, without tophus (tophi); L30.9 Dermatitis, unspecified; R94.5 Abnormal results of liver function studies; D72.819 Decreased white blood cell count, unspecified; E87.1 Hypo-osmolality and hyponatremia; M54.59 Other low back pain; G89.29 Other chronic pain; Z86.59 Personal history of other mental and behavioral disorders; Z91.013 Allergy to seafood; Z88.8 Allergy status to other drugs, medicaments and biological substances; Z28.310 Unvaccinated for COVID-19; Z56.0 Unemployment, unspecified; Z59.01 Sheltered homelessness
CPT/HCPCS: 36415; 71045-TC-FY; 80053; 84484; 85025; 85027; 86780; 87389; 93005; 93010; 99283-25; C9803-CS; U0003; U0005

== ENCOUNTER 2022-06-03 15:13 | Inpatient (IN) | payer OTHER ==
[2022-06-03 15:46] VITALS: BMI 21.7
[2022-06-03] MEDS ORDERED: NALOXONE HCL (KLOXXADO) 8 MG SPRAY NS PRN (16:53)
[2022-06-03] MEDS ORDERED: MAGNESIUM CITRATE 300 ML BOTTLE PO PRN (16:53)
[2022-06-03] MEDS ORDERED: guaiFENesin 200 MG/10 ML 10 ML UNIT-DOSE CUPS PO PRN (16:53)
[2022-06-03] MEDS ORDERED: BENZOCAINE/MENTHOL (CHLORASEPTIC ) LOZENGE MM PRN (16:53)
[2022-06-03] MEDS ORDERED: MAGNESIUM HYDROX 2400MG/30ML ORAL SUSPENSION 30 ML CUP PO PRN (16:53)
[2022-06-03] MEDS ORDERED: ACETAMINOPHEN 325 MG TABLET (FP) PO PRN (16:53)
[2022-06-03] MEDS ORDERED: MAG HYDROX/AL HYDROX/SIMETH 30 ML UNIT-DOSE CUP PO PRN (16:53)
[2022-06-03] MEDS ORDERED: BISMUTH SUBSALICYLATE 524 MG/30 ML PO PRN (16:53)
[2022-06-03] MEDS ORDERED: MELATONIN 5 MG TABLETS PO PRN (16:53)
[2022-06-03] MEDS ORDERED: hydrOXYzine PAMOATE 25 MG CAPSULE (FP) PO PRN (16:53)
[2022-06-03] MEDS ORDERED: P-EPHED 60MG/TRIPROLIDI 2.5MG TABLET PO PRN (16:53)
[2022-06-03] MEDS ORDERED: IBUPROFEN 600 MG TABLET (FP) PO PRN (16:53)
[2022-06-03] MEDS ORDERED: ONDANSETRON *ODT* 4 MG TABLET SL PRN (16:53)
[2022-06-03] MEDS ORDERED: IBUPROFEN 400 MG TABLET (FP) PO PRN (16:53)
[2022-06-03] MEDS ORDERED: LOPERAMIDE HCL 2 MG CAPSULE PO PRN (16:53)
[2022-06-03] MEDS ORDERED: DICYCLOMINE HCL 10 MG CAPSULE PO PRN (16:53)
[2022-06-03] MEDS ORDERED: chlordiazePOXIDE HCL 25 MG CAPSULE PO PRN (16:55)
[2022-06-03] MEDS: chlordiazePOXIDE HCL 25 MG CAPSULE PO SCH ×2 (17:37→22:01)
[2022-06-03] MEDS: ASPIRIN 81 MG CHEWABLE TABLETS PO SCH (17:37)
[2022-06-03] MEDS: ACETAMINOPHEN 325 MG TABLET (FP) PO PRN (17:39)
[2022-06-03] MEDS: NICOTINE 10 MG CARTRIDGE (INHALER) IH PRN (17:39)
[2022-06-03] MEDS: COLCHICINE 0.6 MG CAPSULE PO SCH (18:40)
[2022-06-03] MEDS: CHOLECALCIFEROL (VIT D3) 1,000 UNIT (25 MCG) TABLET PO SCH (18:40)
[2022-06-03] MEDS ORDERED: THIAMINE HCL 100 MG TABLET (FP) PO SCH (22:00)
[2022-06-03] MEDS ORDERED: traZODone HCL 50 MG TABLET (FP) PO ONE (22:00)
[2022-06-03] MEDS ORDERED: QUEtiapine FUMARATE 100 MG TABLET (FP) PO ONE (22:00)
[2022-06-04] MEDS: chlordiazePOXIDE HCL 25 MG CAPSULE PO SCH ×3 (05:11→17:56)
[2022-06-04] MEDS: METHOCARBAMOL 500 MG TABLET PO PRN ×3 (05:12→17:58)
[2022-06-04] MEDS: ACETAMINOPHEN 325 MG TABLET (FP) PO PRN ×3 (05:13→17:58)
[2022-06-04] MEDS ORDERED: COLLOIDAL OATMEAL 1 BAR EACH TP PRN (09:42)
[2022-06-04] MEDS ORDERED: FERROUS SO4 325 MG TABLET (FP) PO SCH (10:00)
[2022-06-04] MEDS ORDERED: PRENATAL VITAMINS W/ FOLIC ACID TABLET (FP) PO SCH (10:00)
[2022-06-04] MEDS: ASPIRIN 81 MG CHEWABLE TABLETS PO SCH (10:48)
[2022-06-04] MEDS: COLCHICINE 0.6 MG CAPSULE PO SCH (10:49)
[2022-06-04] MEDS: CHOLECALCIFEROL (VIT D3) 1,000 UNIT (25 MCG) TABLET PO SCH (10:49)
[2022-06-04 10:51] LABS: HEMATOCRIT 35.4 % (35.4-49); HEMOGLOBIN 11.8 GM/dL (11.7-16.9); MCH 31.9 pg (25.7-33.7); MCHC 33.2 g/dl (32.0-35.9); MEAN PLT VOLUME 9.6 fl (7.5-11.1); PLATELET COUNT 212 10^3/uL (134-434); RBC 3.69 M/mm3 (4.00-5.60); RDW 14.8 % (11.9-15.9); WHITE BLOOD COUNT 3.1 K/mm3 (4.0-10.0)
[2022-06-04] MEDS: NICOTINE 10 MG CARTRIDGE (INHALER) IH PRN (11:08)
[2022-06-04 11:35] LABS: ALBUMIN 2.6 g/dl (3.4-5.0); BLOOD UREA NITROGEN 9.4 mg/dL (7-18); CALCIUM 8.7 mg/dL (8.5-10.1)
[2022-06-04 11:38] LABS: CREATININE 0.6 mg/dL (0.55-1.3)
[2022-06-04 11:39] LABS: TOT PROT 6.3 g/dl (6.4-8.2)
[2022-06-04 11:42] LABS: BILIRUBIN,TOTAL 0.6 mg/dL (0.2-1)
[2022-06-04] MEDS ORDERED: POTASSIUM CHLORIDE ORAL LIQUID 20 MEQ/15 ML PO ONE (15:30)
[2022-06-04 17:28] VITALS: BP 128/88; PULSE 86; RESP 17; TEMP 97.5
[2022-06-04] MEDS ORDERED: QUEtiapine FUMARATE 100 MG TABLET (FP) PO SCH (22:00)
[2022-06-04] MEDS ORDERED: traZODone HCL 100 MG TABLET (FP) PO SCH (22:00)
[2022-06-04] MEDS ORDERED: POTASSIUM CHLORIDE ORAL LIQUID 20 MEQ/15 ML PO SCH (22:00)
[2022-06-05] MEDS ORDERED: chlordiazePOXIDE HCL 25 MG CAPSULE PO SCH (05:00)
[2022-06-06] MEDS ORDERED: chlordiazePOXIDE HCL 10 MG CAPSULE PO PRN
[2022-06-06] MEDS ORDERED: chlordiazePOXIDE HCL 10 MG CAPSULE PO SCH (05:00)
[2022-06-07] MEDS ORDERED: chlordiazePOXIDE HCL 10 MG CAPSULE PO SCH (05:00)
[2022-06-08] MEDS ORDERED: chlordiazePOXIDE HCL 10 MG CAPSULE PO ONE (05:00)
== END 2022-06-04 18:00 | disposition left against medical advice (07) | DRG 770 ==
LOC: YASAS 15:13 → Y6N 17:12
PROVIDERS: ADMIT Allergy & Immunology; ATTEND Surgery
PROC: HZ2ZZZZ Detoxification Services for Substance Abuse Treatment (ICD-10-PCS; principal; 2022-06-03)
DX: F10.230 Alcohol dependence with withdrawal, uncomplicated (principal); F12.20 Cannabis dependence, uncomplicated; F19.24 Other psychoactive substance dependence with psychoactive substance-induced mood disorder; F43.10 Post-traumatic stress disorder, unspecified; M10.9 Gout, unspecified; M54.50 Low back pain, unspecified; G89.29 Other chronic pain; Z56.0 Unemployment, unspecified; Z59.01 Sheltered homelessness; Z88.8 Allergy status to other drugs, medicaments and biological substances; Z91.013 Allergy to seafood
CPT/HCPCS: 36415; 80053; 85027; 86780; C9803-CS; U0003; U0005

== ENCOUNTER 2022-06-22 10:15 | Inpatient (IN) | payer OTHER ==
[2022-06-22 11:56] VITALS: BMI 23.6
[2022-06-22] MEDS ORDERED: COLLOIDAL OATMEAL 1 BAR EACH TP PRN (12:27)
[2022-06-22] MEDS ORDERED: ONDANSETRON *ODT* 4 MG TABLET SL PRN (12:29)
[2022-06-22] MEDS ORDERED: traZODone HCL 100 MG TABLET (FP) PO PRN (12:29)
[2022-06-22] MEDS ORDERED: DICYCLOMINE HCL 10 MG CAPSULE PO PRN (12:29)
[2022-06-22] MEDS ORDERED: POLYETHYLENE GLYCOL (HEALTHYLAX) 3350 17 GM PACKET PO PRN (12:29)
[2022-06-22] MEDS ORDERED: BISMUTH SUBSALICYLATE 524 MG/30 ML PO PRN (12:29)
[2022-06-22] MEDS ORDERED: MAG HYDROX/AL HYDROX/SIMETH 30 ML UNIT-DOSE CUP PO PRN (12:29)
[2022-06-22] MEDS ORDERED: LOPERAMIDE HCL 2 MG CAPSULE PO PRN (12:29)
[2022-06-22] MEDS ORDERED: IBUPROFEN 400 MG TABLET (FP) PO PRN (12:29)
[2022-06-22] MEDS ORDERED: BENZOCAINE/MENTHOL (CHLORASEPTIC ) LOZENGE MM PRN (12:29)
[2022-06-22] MEDS ORDERED: MAGNESIUM HYDROX 2400MG/30ML ORAL SUSPENSION 30 ML CUP PO PRN (12:29)
[2022-06-22] MEDS ORDERED: NALOXONE HCL (KLOXXADO) 8 MG SPRAY NS PRN (12:29)
[2022-06-22] MEDS: LORazepam 1 MG TABLET PO PRN (13:17)
[2022-06-22] MEDS: hydrOXYzine PAMOATE 25 MG CAPSULE (FP) PO PRN (13:17)
[2022-06-22] MEDS: METHOCARBAMOL 500 MG TABLET PO PRN ×2 (13:17→19:52)
[2022-06-22] MEDS: NICOTINE 10 MG CARTRIDGE (INHALER) IH PRN (13:59)
[2022-06-22] MEDS: MINERAL OIL/PETROLAT/WATER TOPICAL CREAM 113 GM JAR TP SCH ×2 (14:47→22:17)
[2022-06-22] MEDS: LORazepam 2 MG TABLET PO SCH ×2 (17:41→22:17)
[2022-06-22] MEDS: IBUPROFEN 600 MG TABLET (FP) PO PRN (17:44)
[2022-06-22] MEDS: MELATONIN 5 MG TABLETS PO SCH (22:17)
[2022-06-22] MEDS: THIAMINE HCL 100 MG TABLET (FP) PO SCH (22:17)
[2022-06-22] MEDS: VITAMINS A AND D TOPICAL OINTMENT 60 GM TUBE TP SCH (22:24)
[2022-06-23] MEDS: VITAMINS A AND D TOPICAL OINTMENT 60 GM TUBE TP SCH ×4 (00:04→21:10)
[2022-06-23] MEDS: LORazepam 2 MG TABLET PO SCH ×4 (05:14→22:04)
[2022-06-23] MEDS: MINERAL OIL/PETROLAT/WATER TOPICAL CREAM 113 GM JAR TP SCH ×3 (05:15→23:36)
[2022-06-23] MEDS: METHOCARBAMOL 500 MG TABLET PO PRN ×3 (05:18→17:40)
[2022-06-23] MEDS: FERROUS SO4 325 MG TABLET (FP) PO SCH (10:21)
[2022-06-23] MEDS: COLCHICINE 0.6 MG TAB PO SCH (10:21)
[2022-06-23] MEDS: PRENATAL VITAMINS W/ FOLIC ACID TABLET (FP) PO SCH (10:21)
[2022-06-23] MEDS: ASPIRIN 81 MG CHEWABLE TABLETS PO SCH (10:21)
[2022-06-23] MEDS: hydrOXYzine PAMOATE 25 MG CAPSULE (FP) PO PRN (10:23)
[2022-06-23] MEDS: NICOTINE 10 MG CARTRIDGE (INHALER) IH PRN ×2 (10:49→17:41)
[2022-06-23 12:21] LABS: ALBUMIN 2.8 g/dl (3.4-5.0); CALCIUM 8.7 mg/dL (8.5-10.1)
[2022-06-23 12:22] LABS: BLOOD UREA NITROGEN 12.5 mg/dL (7-18)
[2022-06-23 12:23] LABS: CREATININE 0.5 mg/dL (0.55-1.3)
[2022-06-23 12:25] LABS: BILIRUBIN,TOTAL 0.3 mg/dL (0.2-1); TOT PROT 6.6 g/dl (6.4-8.2)
[2022-06-23 12:46] LABS: HEMATOCRIT 36.5 % (35.4-49); HEMOGLOBIN 11.8 GM/dL (11.7-16.9); MCH 32.4 pg (25.7-33.7); MCHC 32.5 g/dl (32.0-35.9); MEAN PLT VOLUME 10.1 fl (7.5-11.1); PLATELET COUNT 159 10^3/uL (134-434); RBC 3.65 M/mm3 (4.00-5.60); RDW 15.3 % (11.9-15.9); WHITE BLOOD COUNT 3.5 K/mm3 (4.0-10.0)
[2022-06-23 15:38] VITALS: RESP 18
[2022-06-23] MEDS: IBUPROFEN 600 MG TABLET (FP) PO PRN (20:27)
[2022-06-23] MEDS ORDERED: QUEtiapine FUMARATE 100 MG TABLET (FP) PO SCH (22:00)
[2022-06-23] MEDS ORDERED: traZODone HCL 100 MG TABLET (FP) PO SCH (22:00)
[2022-06-23] MEDS: MELATONIN 5 MG TABLETS PO SCH (22:03)
[2022-06-23] MEDS: THIAMINE HCL 100 MG TABLET (FP) PO SCH (22:04)
[2022-06-24] MEDS: VITAMINS A AND D TOPICAL OINTMENT 60 GM TUBE TP SCH ×3 (01:28→13:38)
[2022-06-24] MEDS: MINERAL OIL/PETROLAT/WATER TOPICAL CREAM 113 GM JAR TP SCH ×3 (05:28→13:38)
[2022-06-24] MEDS: LORazepam 1 MG TABLET PO SCH ×2 (05:29→10:09)
[2022-06-24] MEDS: METHOCARBAMOL 500 MG TABLET PO PRN (05:29)
[2022-06-24] MEDS: hydrOXYzine PAMOATE 25 MG CAPSULE (FP) PO PRN ×2 (05:30→10:11)
[2022-06-24] MEDS: FERROUS SO4 325 MG TABLET (FP) PO SCH (10:09)
[2022-06-24] MEDS: PRENATAL VITAMINS W/ FOLIC ACID TABLET (FP) PO SCH (10:09)
[2022-06-24] MEDS: COLCHICINE 0.6 MG TAB PO SCH (10:09)
[2022-06-24] MEDS: ASPIRIN 81 MG CHEWABLE TABLETS PO SCH (10:09)
[2022-06-24] MEDS ORDERED: ALLOPURINOL 100 MG TABLET (FP) PO SCH (10:15)
[2022-06-24 12:56] VITALS: BP 112/61; PULSE 97; TEMP 98
[2022-06-24] MEDS: LORazepam 1 MG TABLET PO PRN (13:34)
[2022-06-25] MEDS ORDERED: LORazepam 0.5 MG TABLET PO PRN
[2022-06-25] MEDS ORDERED: LORazepam 0.5 MG TABLET PO SCH (05:00)
[2022-06-26] MEDS ORDERED: LORazepam 0.5 MG TABLET PO ONE (05:00)
== END 2022-06-24 15:38 | disposition left against medical advice (07) | DRG 770 ==
LOC: YASAS 10:15 → Y6N 13:03
PROVIDERS: ADMIT Allergy & Immunology; ATTEND Surgery
PROC: HZ2ZZZZ Detoxification Services for Substance Abuse Treatment (ICD-10-PCS; principal; 2022-06-22)
DX: F10.230 Alcohol dependence with withdrawal, uncomplicated (principal); F13.20 Sedative, hypnotic or anxiolytic dependence, uncomplicated; F12.20 Cannabis dependence, uncomplicated; F17.210 Nicotine dependence, cigarettes, uncomplicated; F19.282 Other psychoactive substance dependence with psychoactive substance-induced sleep disorder; F19.24 Other psychoactive substance dependence with psychoactive substance-induced mood disorder; F43.10 Post-traumatic stress disorder, unspecified; M10.9 Gout, unspecified; M54.50 Low back pain, unspecified; G89.29 Other chronic pain; Z99.89 Dependence on other enabling machines and devices; Z28.310 Unvaccinated for COVID-19; Z28.9 Immunization not carried out for unspecified reason
CPT/HCPCS: 36415; 80053; 85027; 86780; 87811; C9803-CS; U0003; U0005

== ENCOUNTER 2022-07-29 11:54 | Inpatient (IN) | payer OTHER ==
[2022-07-29 12:32] VITALS: BMI 22.8
[2022-07-29] MEDS ORDERED: MAGNESIUM HYDROX 2400MG/30ML ORAL SUSPENSION 30 ML CUP PO PRN (13:51)
[2022-07-29] MEDS ORDERED: POLYETHYLENE GLYCOL (HEALTHYLAX) 3350 17 GM PACKET PO PRN (13:51)
[2022-07-29] MEDS ORDERED: LOPERAMIDE HCL 2 MG CAPSULE PO PRN (13:51)
[2022-07-29] MEDS ORDERED: IBUPROFEN 400 MG TABLET (FP) PO PRN (13:51)
[2022-07-29] MEDS ORDERED: NALOXONE HCL (KLOXXADO) 8 MG SPRAY NS PRN (13:51)
[2022-07-29] MEDS ORDERED: BISMUTH SUBSALICYLATE 524 MG/30 ML PO PRN (13:51)
[2022-07-29] MEDS ORDERED: ONDANSETRON *ODT* 4 MG TABLET SL PRN (13:51)
[2022-07-29] MEDS ORDERED: DICYCLOMINE HCL 10 MG CAPSULE PO PRN (13:51)
[2022-07-29] MEDS ORDERED: NICOTINE POLACRILEX 2 MG GUM BUC PRN (13:51)
[2022-07-29] MEDS ORDERED: BENZOCAINE/MENTHOL (CHLORASEPTIC ) LOZENGE MM PRN (13:51)
[2022-07-29] MEDS ORDERED: NICOTINE 10 MG CARTRIDGE (INHALER) IH PRN (13:51)
[2022-07-29] MEDS ORDERED: ACETAMINOPHEN 325 MG TABLET (FP) PO PRN (13:51)
[2022-07-29] MEDS ORDERED: MAG HYDROX/AL HYDROX/SIMETH 30 ML UNIT-DOSE CUP PO PRN (13:51)
[2022-07-29] MEDS: PRENATAL VITAMINS W/ FOLIC ACID TABLET (FP) PO SCH (14:48)
[2022-07-29] MEDS: ASPIRIN 81 MG CHEWABLE TABLETS PO SCH (14:49)
[2022-07-29] MEDS: COLCHICINE 0.6 MG TAB PO SCH (15:04)
[2022-07-29] MEDS: ALLOPURINOL 100 MG TABLET (FP) PO SCH (15:04)
[2022-07-29] MEDS: METHOCARBAMOL 500 MG TABLET PO PRN (15:14)
[2022-07-29] MEDS: chlordiazePOXIDE HCL 25 MG CAPSULE PO SCH ×2 (17:34→22:32)
[2022-07-29] MEDS: IBUPROFEN 600 MG TABLET (FP) PO PRN (21:37)
[2022-07-29] MEDS ORDERED: MELATONIN 5 MG TABLETS PO SCH (22:00)
[2022-07-29] MEDS: THIAMINE HCL 100 MG TABLET (FP) PO SCH (22:32)
[2022-07-30] MEDS: METHOCARBAMOL 500 MG TABLET PO PRN ×3 (01:30→22:35)
[2022-07-30] MEDS: chlordiazePOXIDE HCL 25 MG CAPSULE PO SCH ×4 (05:23→22:33)
[2022-07-30] MEDS: IBUPROFEN 600 MG TABLET (FP) PO PRN (05:27)
[2022-07-30] MEDS: COLCHICINE 0.6 MG TAB PO SCH (10:23)
[2022-07-30] MEDS: PRENATAL VITAMINS W/ FOLIC ACID TABLET (FP) PO SCH (10:23)
[2022-07-30] MEDS: ASPIRIN 81 MG CHEWABLE TABLETS PO SCH (10:23)
[2022-07-30] MEDS: ALLOPURINOL 100 MG TABLET (FP) PO SCH (10:23)
[2022-07-30 11:48] LABS: HEMOGLOBIN 13.1 GM/dL (11.7-16.9); MCH 31.6 pg (25.7-33.7); MCHC 32.8 g/dl (32.0-35.9); MEAN CELL VOLUME 96.3 fl (80-96); MEAN PLT VOLUME 10.3 fl (7.5-11.1); PLATELET COUNT 179 10^3/uL (134-434); RBC 4.15 M/mm3 (4.00-5.60); RDW 13.3 % (11.9-15.9); WHITE BLOOD COUNT 4.1 K/mm3 (4.0-10.0)
[2022-07-30 11:57] LABS: ALBUMIN 3.2 g/dl (3.4-5.0); BLOOD UREA NITROGEN 5.8 mg/dL (7-18); CALCIUM 9.1 mg/dL (8.5-10.1)
[2022-07-30 12:00] LABS: CREATININE 0.7 mg/dL (0.55-1.3)
[2022-07-30 12:02] LABS: BILIRUBIN,TOTAL 0.7 mg/dL (0.2-1); TOT PROT 7.7 g/dl (6.4-8.2)
[2022-07-30] MEDS ORDERED: POTASSIUM CHLORIDE ORAL LIQUID 20 MEQ/15 ML PO ONE (12:41)
[2022-07-30] MEDS: ACETAMINOPHEN 325 MG TABLET (FP) PO PRN (17:37)
[2022-07-30] MEDS ORDERED: QUEtiapine FUMARATE 100 MG TABLET (FP) PO SCH (22:00)
[2022-07-30] MEDS: POTASSIUM CHLORIDE ORAL LIQUID 20 MEQ/15 ML PO SCH (22:32)
[2022-07-30] MEDS: THIAMINE HCL 100 MG TABLET (FP) PO SCH (22:34)
[2022-07-31] MEDS: chlordiazePOXIDE HCL 25 MG CAPSULE PO SCH ×2 (05:18→10:09)
[2022-07-31] MEDS: METHOCARBAMOL 500 MG TABLET PO PRN ×2 (05:19→10:22)
[2022-07-31] MEDS: IBUPROFEN 600 MG TABLET (FP) PO PRN (05:19)
[2022-07-31 05:41] VITALS: RESP 18
[2022-07-31 09:26] VITALS: BP 150/80; PULSE 56; TEMP 98
[2022-07-31] MEDS: ALLOPURINOL 100 MG TABLET (FP) PO SCH (09:49)
[2022-07-31] MEDS: POTASSIUM CHLORIDE ORAL LIQUID 20 MEQ/15 ML PO SCH (09:49)
[2022-07-31] MEDS: COLCHICINE 0.6 MG TAB PO SCH (09:49)
[2022-07-31] MEDS: ASPIRIN 81 MG CHEWABLE TABLETS PO SCH (09:50)
[2022-07-31] MEDS: PRENATAL VITAMINS W/ FOLIC ACID TABLET (FP) PO SCH (09:50)
[2022-07-31] MEDS: ACETAMINOPHEN 325 MG TABLET (FP) PO PRN (09:51)
[2022-07-31] MEDS ORDERED: CARBAMIDE PEROXIDE 6.5% OTIC 15 ML BOTTLE AU SCH (10:00)
[2022-08-01] MEDS ORDERED: chlordiazePOXIDE HCL 10 MG CAPSULE PO SCH (05:00)
[2022-08-02] MEDS ORDERED: chlordiazePOXIDE HCL 10 MG CAPSULE PO SCH (05:00)
[2022-08-03] MEDS ORDERED: chlordiazePOXIDE HCL 10 MG CAPSULE PO ONE (05:00)
== END 2022-07-31 11:18 | disposition left against medical advice (07) | DRG 770 ==
LOC: YASAS 11:54 → Y6N 13:53
PROVIDERS: ADMIT Allergy & Immunology; ATTEND Surgery
PROC: HZ2ZZZZ Detoxification Services for Substance Abuse Treatment (ICD-10-PCS; principal; 2022-07-29)
DX: F10.230 Alcohol dependence with withdrawal, uncomplicated (principal); F13.230 Sedative, hypnotic or anxiolytic dependence with withdrawal, uncomplicated; F12.20 Cannabis dependence, uncomplicated; F17.210 Nicotine dependence, cigarettes, uncomplicated; F31.9 Bipolar disorder, unspecified; F19.282 Other psychoactive substance dependence with psychoactive substance-induced sleep disorder; F19.280 Other psychoactive substance dependence with psychoactive substance-induced anxiety disorder; F19.24 Other psychoactive substance dependence with psychoactive substance-induced mood disorder; F39 Unspecified mood [affective] disorder; F43.10 Post-traumatic stress disorder, unspecified; D64.9 Anemia, unspecified; E87.6 Hypokalemia; H61.23 Impacted cerumen, bilateral; M10.9 Gout, unspecified; M54.50 Low back pain, unspecified; L30.9 Dermatitis, unspecified; Z91.81 History of falling; Z86.79 Personal history of other diseases of the circulatory system; Z87.01 Personal history of pneumonia (recurrent); Z88.8 Allergy status to other drugs, medicaments and biological substances; Z91.013 Allergy to seafood
CPT/HCPCS: 36415; 80053; 85027; 86780; C9803-CS; U0003; U0005

== ENCOUNTER 2022-08-22 15:03 | Inpatient (IN) | payer OTHER ==
[2022-08-22 16:50] VITALS: BMI 22.8
[2022-08-22] MEDS ORDERED: BISMUTH SUBSALICYLATE 524 MG/30 ML PO PRN (17:52)
[2022-08-22] MEDS ORDERED: LOPERAMIDE HCL 2 MG CAPSULE PO PRN (17:52)
[2022-08-22] MEDS ORDERED: BENZOCAINE/MENTHOL (CHLORASEPTIC ) LOZENGE MM PRN (17:52)
[2022-08-22] MEDS ORDERED: ONDANSETRON *ODT* 4 MG TABLET SL PRN (17:52)
[2022-08-22] MEDS ORDERED: NICOTINE POLACRILEX 2 MG GUM BUC PRN (17:52)
[2022-08-22] MEDS ORDERED: ACETAMINOPHEN 325 MG TABLET (FP) PO PRN (17:52)
[2022-08-22] MEDS ORDERED: MAG HYDROX/AL HYDROX/SIMETH 30 ML UNIT-DOSE CUP PO PRN (17:52)
[2022-08-22] MEDS ORDERED: DICYCLOMINE HCL 10 MG CAPSULE PO PRN (17:52)
[2022-08-22] MEDS ORDERED: MAGNESIUM HYDROX 2400MG/30ML ORAL SUSPENSION 30 ML CUP PO PRN (17:52)
[2022-08-22] MEDS ORDERED: POLYETHYLENE GLYCOL (HEALTHYLAX) 3350 17 GM PACKET PO PRN (17:52)
[2022-08-22] MEDS ORDERED: COLLOIDAL OATMEAL 1 BAR EACH TP PRN (17:56)
[2022-08-22] MEDS ORDERED: chlordiazePOXIDE HCL 25 MG CAPSULE PO PRN (19:17)
[2022-08-22] MEDS: hydrOXYzine PAMOATE 25 MG CAPSULE (FP) PO PRN (19:47)
[2022-08-22] MEDS: ASPIRIN 81 MG CHEWABLE TABLETS PO SCH (19:47)
[2022-08-22] MEDS: NICOTINE 10 MG CARTRIDGE (INHALER) IH PRN (21:18)
[2022-08-22] MEDS ORDERED: traZODone HCL 100 MG TABLET (FP) PO ONE (22:00)
[2022-08-22] MEDS: MELATONIN 5 MG TABLETS PO SCH (22:23)
[2022-08-22] MEDS: THIAMINE HCL 100 MG TABLET (FP) PO SCH (22:23)
[2022-08-22] MEDS: METHOCARBAMOL 500 MG TABLET PO PRN (22:24)
[2022-08-22] MEDS: chlordiazePOXIDE HCL 25 MG CAPSULE PO SCH (22:24)
[2022-08-22] MEDS: COLCHICINE 0.6 MG TAB PO SCH (23:32)
[2022-08-22] MEDS: VITAMINS A AND D TOPICAL OINTMENT 60 GM TUBE TP SCH (23:33)
[2022-08-23] MEDS: VITAMINS A AND D TOPICAL OINTMENT 60 GM TUBE TP SCH ×4 (00:22→18:04)
[2022-08-23] MEDS: ACETAMINOPHEN 325 MG TABLET (FP) PO PRN ×2 (01:49→17:26)
[2022-08-23] MEDS: hydrOXYzine PAMOATE 25 MG CAPSULE (FP) PO PRN ×2 (05:46→17:22)
[2022-08-23] MEDS: chlordiazePOXIDE HCL 25 MG CAPSULE PO SCH ×4 (05:47→22:20)
[2022-08-23] MEDS: METHOCARBAMOL 500 MG TABLET PO PRN ×3 (10:25→22:24)
[2022-08-23] MEDS: COLCHICINE 0.6 MG TAB PO SCH (10:25)
[2022-08-23] MEDS: PRENATAL VITAMINS W/ FOLIC ACID TABLET (FP) PO SCH (10:25)
[2022-08-23] MEDS: ASPIRIN 81 MG CHEWABLE TABLETS PO SCH (10:25)
[2022-08-23 11:53] LABS: HEMATOCRIT 35.5 % (35.4-49); HEMOGLOBIN 11.7 GM/dL (11.7-16.9); MCH 31.6 pg (25.7-33.7); MEAN CELL VOLUME 95.9 fl (80-96); MEAN PLT VOLUME 10.1 fl (7.5-11.1); PLATELET COUNT 104 10^3/uL (134-434); RDW 14.5 % (11.9-15.9); WHITE BLOOD COUNT 2.2 K/mm3 (4.0-10.0)
[2022-08-23 12:10] LABS: BLOOD UREA NITROGEN 7.4 mg/dL (7-18); CALCIUM 8.9 mg/dL (8.5-10.1)
[2022-08-23 12:13] LABS: CREATININE 0.5 mg/dL (0.55-1.3)
[2022-08-23 12:14] LABS: BILIRUBIN,TOTAL 0.5 mg/dL (0.2-1); TOT PROT 7.2 g/dl (6.4-8.2)
[2022-08-23] MEDS: NICOTINE 10 MG CARTRIDGE (INHALER) IH PRN (17:28)
[2022-08-23] MEDS: MELATONIN 5 MG TABLETS PO SCH (22:20)
[2022-08-23] MEDS: THIAMINE HCL 100 MG TABLET (FP) PO SCH (22:20)
[2022-08-23] MEDS: QUEtiapine FUMARATE 100 MG TABLET (FP) PO SCH (22:22)
[2022-08-23] MEDS: IBUPROFEN 600 MG TABLET (FP) PO PRN (22:24)
[2022-08-24] MEDS: VITAMINS A AND D TOPICAL OINTMENT 60 GM TUBE TP SCH ×5 (00:01→23:59)
[2022-08-24] MEDS: chlordiazePOXIDE HCL 25 MG CAPSULE PO SCH ×4 (06:14→22:09)
[2022-08-24] MEDS: ACETAMINOPHEN 325 MG TABLET (FP) PO PRN (06:17)
[2022-08-24] MEDS: METHOCARBAMOL 500 MG TABLET PO PRN ×2 (06:17→17:42)
[2022-08-24] MEDS: NICOTINE 10 MG CARTRIDGE (INHALER) IH PRN (09:48)
[2022-08-24] MEDS: ASPIRIN 81 MG CHEWABLE TABLETS PO SCH (09:52)
[2022-08-24] MEDS: COLCHICINE 0.6 MG TAB PO SCH (09:52)
[2022-08-24] MEDS: PRENATAL VITAMINS W/ FOLIC ACID TABLET (FP) PO SCH (09:55)
[2022-08-24] MEDS: hydrOXYzine PAMOATE 25 MG CAPSULE (FP) PO PRN (17:42)
[2022-08-24] MEDS: MELATONIN 5 MG TABLETS PO SCH (22:08)
[2022-08-24] MEDS: QUEtiapine FUMARATE 100 MG TABLET (FP) PO SCH (22:08)
[2022-08-24] MEDS: THIAMINE HCL 100 MG TABLET (FP) PO SCH (22:08)
[2022-08-25] MEDS ORDERED: chlordiazePOXIDE HCL 10 MG CAPSULE PO PRN
[2022-08-25] MEDS ORDERED: chlordiazePOXIDE HCL 10 MG CAPSULE PO SCH (05:00)
[2022-08-25] MEDS: VITAMINS A AND D TOPICAL OINTMENT 60 GM TUBE TP SCH ×4 (05:57→23:48)
[2022-08-25] MEDS: METHOCARBAMOL 500 MG TABLET PO PRN ×2 (05:57→17:24)
[2022-08-25] MEDS: hydrOXYzine PAMOATE 25 MG CAPSULE (FP) PO PRN (05:58)
[2022-08-25] MEDS: ACETAMINOPHEN 325 MG TABLET (FP) PO PRN (07:24)
[2022-08-25] MEDS: NICOTINE 10 MG CARTRIDGE (INHALER) IH PRN (07:24)
[2022-08-25] MEDS ORDERED: LORazepam 1 MG TABLET PO PRN (09:36)
[2022-08-25] MEDS: PRENATAL VITAMINS W/ FOLIC ACID TABLET (FP) PO SCH (09:48)
[2022-08-25] MEDS: COLCHICINE 0.6 MG TAB PO SCH (09:48)
[2022-08-25] MEDS: ASPIRIN 81 MG CHEWABLE TABLETS PO SCH (09:48)
[2022-08-25] MEDS: IBUPROFEN 600 MG TABLET (FP) PO PRN (09:50)
[2022-08-25] MEDS: LORazepam 1 MG TABLET PO SCH ×3 (10:15→22:12)
[2022-08-25] MEDS: MELATONIN 5 MG TABLETS PO SCH (22:11)
[2022-08-25] MEDS: QUEtiapine FUMARATE 100 MG TABLET (FP) PO SCH (22:12)
[2022-08-25] MEDS: THIAMINE HCL 100 MG TABLET (FP) PO SCH (22:12)
[2022-08-25] MEDS: IBUPROFEN 400 MG TABLET (FP) PO PRN (22:13)
[2022-08-26] MEDS ORDERED: chlordiazePOXIDE HCL 10 MG CAPSULE PO SCH (05:00)
[2022-08-26] MEDS: METHOCARBAMOL 500 MG TABLET PO PRN ×3 (05:40→22:20)
[2022-08-26] MEDS: hydrOXYzine PAMOATE 25 MG CAPSULE (FP) PO PRN (05:40)
[2022-08-26] MEDS: LORazepam 0.5 MG TABLET PO SCH ×4 (05:41→22:18)
[2022-08-26] MEDS: IBUPROFEN 400 MG TABLET (FP) PO PRN ×2 (05:42→18:03)
[2022-08-26] MEDS: VITAMINS A AND D TOPICAL OINTMENT 60 GM TUBE TP SCH ×3 (06:44→17:44)
[2022-08-26] MEDS: COLCHICINE 0.6 MG TAB PO SCH (10:35)
[2022-08-26] MEDS: ASPIRIN 81 MG CHEWABLE TABLETS PO SCH (10:35)
[2022-08-26] MEDS: PRENATAL VITAMINS W/ FOLIC ACID TABLET (FP) PO SCH (10:35)
[2022-08-26] MEDS: NICOTINE 10 MG CARTRIDGE (INHALER) IH PRN (10:38)
[2022-08-26] MEDS: IBUPROFEN 600 MG TABLET (FP) PO PRN (12:16)
[2022-08-26] MEDS: QUEtiapine FUMARATE 100 MG TABLET (FP) PO SCH (22:18)
[2022-08-26] MEDS: MELATONIN 5 MG TABLETS PO SCH (22:19)
[2022-08-26] MEDS: THIAMINE HCL 100 MG TABLET (FP) PO SCH (22:19)
[2022-08-27] MEDS ORDERED: LORazepam 0.5 MG TABLET PO PRN
[2022-08-27] MEDS: VITAMINS A AND D TOPICAL OINTMENT 60 GM TUBE TP SCH ×2 (01:10→06:23)
[2022-08-27] MEDS ORDERED: LORazepam 0.5 MG TABLET PO ONE (05:00)
[2022-08-27] MEDS ORDERED: chlordiazePOXIDE HCL 10 MG CAPSULE PO ONE (05:00)
[2022-08-27] MEDS: METHOCARBAMOL 500 MG TABLET PO PRN (06:09)
[2022-08-27] MEDS: hydrOXYzine PAMOATE 25 MG CAPSULE (FP) PO PRN (06:09)
[2022-08-27] MEDS: IBUPROFEN 600 MG TABLET (FP) PO PRN (06:10)
[2022-08-27 06:49] VITALS: BP 113/74; PULSE 98; RESP 16; TEMP 97.5
[2022-08-27] MEDS: PRENATAL VITAMINS W/ FOLIC ACID TABLET (FP) PO SCH (09:39)
[2022-08-27] MEDS: ASPIRIN 81 MG CHEWABLE TABLETS PO SCH (09:39)
[2022-08-27] MEDS: COLCHICINE 0.6 MG TAB PO SCH (09:39)
== END 2022-08-27 09:49 | disposition home or self-care (01) | DRG 775 ==
LOC: YASAS 15:03 → Y6N 19:25
PROVIDERS: ADMIT Allergy & Immunology; ATTEND Family Medicine
PROC: HZ2ZZZZ Detoxification Services for Substance Abuse Treatment (ICD-10-PCS; principal; 2022-08-22)
DX: F10.230 Alcohol dependence with withdrawal, uncomplicated (principal); F13.230 Sedative, hypnotic or anxiolytic dependence with withdrawal, uncomplicated; F12.20 Cannabis dependence, uncomplicated; F16.10 Hallucinogen abuse, uncomplicated; F17.210 Nicotine dependence, cigarettes, uncomplicated; F25.0 Schizoaffective disorder, bipolar type; F19.282 Other psychoactive substance dependence with psychoactive substance-induced sleep disorder; F19.280 Other psychoactive substance dependence with psychoactive substance-induced anxiety disorder; F19.24 Other psychoactive substance dependence with psychoactive substance-induced mood disorder; D70.8 Other neutropenia; M1A.09X0 Idiopathic chronic gout, multiple sites, without tophus (tophi); M54.50 Low back pain, unspecified; G89.29 Other chronic pain; Z99.89 Dependence on other enabling machines and devices; Z86.11 Personal history of tuberculosis; Z88.8 Allergy status to other drugs, medicaments and biological substances
CPT/HCPCS: 36415; 80053; 85027; 86780; C9803-CS; U0003; U0005

== ENCOUNTER 2022-09-12 20:29 | Inpatient (IN) | payer OTHER ==
[2022-09-12 21:36] VITALS: BMI 18.9
[2022-09-12] MEDS ORDERED: COLLOIDAL OATMEAL 1 BAR EACH TP PRN (21:49)
[2022-09-12] MEDS ORDERED: LOPERAMIDE HCL 2 MG CAPSULE PO PRN (22:21)
[2022-09-12] MEDS ORDERED: ONDANSETRON *ODT* 4 MG TABLET SL PRN (22:21)
[2022-09-12] MEDS ORDERED: BISMUTH SUBSALICYLATE 524 MG/30 ML PO PRN (22:21)
[2022-09-12] MEDS ORDERED: DICYCLOMINE HCL 10 MG CAPSULE PO PRN (22:21)
[2022-09-12] MEDS ORDERED: BENZOCAINE/MENTHOL (CHLORASEPTIC ) LOZENGE MM PRN (22:21)
[2022-09-12] MEDS ORDERED: ACETAMINOPHEN 325 MG TABLET (FP) PO PRN (22:21)
[2022-09-12] MEDS ORDERED: IBUPROFEN 600 MG TABLET (FP) PO PRN (22:21)
[2022-09-12] MEDS ORDERED: MAG HYDROX/AL HYDROX/SIMETH 30 ML UNIT-DOSE CUP PO PRN (22:21)
[2022-09-12] MEDS ORDERED: guaiFENesin 200 MG/10 ML 10 ML UNIT-DOSE CUPS PO PRN (22:21)
[2022-09-12] MEDS ORDERED: NICOTINE POLACRILEX 2 MG GUM BUC PRN (22:21)
[2022-09-12] MEDS ORDERED: P-EPHED 60MG/TRIPROLIDI 2.5MG TABLET PO PRN (22:21)
[2022-09-12] MEDS ORDERED: POLYETHYLENE GLYCOL (HEALTHYLAX) 3350 17 GM PACKET PO PRN (22:21)
[2022-09-12] MEDS ORDERED: IBUPROFEN 400 MG TABLET (FP) PO PRN (22:21)
[2022-09-12] MEDS ORDERED: MAGNESIUM HYDROX 2400MG/30ML ORAL SUSPENSION 30 ML CUP PO PRN (22:21)
[2022-09-12] MEDS ORDERED: chlordiazePOXIDE HCL 25 MG CAPSULE PO PRN (22:27)
[2022-09-12] MEDS ORDERED: chlordiazePOXIDE HCL 25 MG CAPSULE ONE (22:50)
[2022-09-12] MEDS: chlordiazePOXIDE HCL 25 MG CAPSULE PO SCH (22:59)
[2022-09-12] MEDS ORDERED: propRANOLol HCL 10 MG TABLET PO ONE (23:33)
[2022-09-13] MEDS: ACETAMINOPHEN 325 MG TABLET (FP) PO PRN ×2 (03:08→22:23)
[2022-09-13] MEDS: METHOCARBAMOL 500 MG TABLET PO PRN ×3 (03:12→22:27)
[2022-09-13] MEDS: chlordiazePOXIDE HCL 25 MG CAPSULE PO SCH ×4 (05:29→22:28)
[2022-09-13] MEDS ORDERED: ASPIRIN COATED 81 MG TABLET.EC PO SCH (10:00)
[2022-09-13] MEDS ORDERED: PRENATAL VITAMINS W/ FOLIC ACID TABLET (FP) PO SCH (10:00)
[2022-09-13] MEDS ORDERED: COLCHICINE 0.6 MG TAB PO SCH (10:00)
[2022-09-13 10:45] LABS: HEMATOCRIT 36.5 % (35.4-49); HEMOGLOBIN 12.2 GM/dL (11.7-16.9); MCH 31.9 pg (25.7-33.7); MCHC 33.3 g/dl (32.0-35.9); MEAN CELL VOLUME 95.7 fl (80-96); MEAN PLT VOLUME 9.6 fl (7.5-11.1); PLATELET COUNT 226 10^3/uL (134-434); RBC 3.82 M/mm3 (4.00-5.60); RDW 15.1 % (11.9-15.9); WHITE BLOOD COUNT 3.1 K/mm3 (4.0-10.0)
[2022-09-13 11:10] LABS: ALBUMIN 3.6 g/dl (3.4-5.0); BLOOD UREA NITROGEN 5.2 mg/dL (7-18); CALCIUM 8.6 mg/dL (8.5-10.1)
[2022-09-13 11:11] LABS: CREATININE 0.6 mg/dL (0.55-1.3)
[2022-09-13 11:12] LABS: TOT PROT 8.1 g/dl (6.4-8.2)
[2022-09-13 11:13] LABS: BILIRUBIN,TOTAL 0.5 mg/dL (0.2-1)
[2022-09-13] MEDS ORDERED: THIAMINE HCL 100 MG TABLET (FP) PO SCH (22:00)
[2022-09-13] MEDS ORDERED: MELATONIN 5 MG TABLETS PO SCH (22:00)
[2022-09-13] MEDS ORDERED: QUEtiapine FUMARATE 100 MG TABLET (FP) PO SCH (22:00)
[2022-09-14] MEDS ORDERED: chlordiazePOXIDE HCL 25 MG CAPSULE PO SCH (05:00)
[2022-09-14 06:51] VITALS: BP 116/66; PULSE 65; RESP 16; TEMP 97.1
[2022-09-15] MEDS ORDERED: chlordiazePOXIDE HCL 10 MG CAPSULE PO PRN
[2022-09-15] MEDS ORDERED: chlordiazePOXIDE HCL 10 MG CAPSULE PO SCH (05:00)
[2022-09-16] MEDS ORDERED: chlordiazePOXIDE HCL 10 MG CAPSULE PO SCH (05:00)
[2022-09-17] MEDS ORDERED: chlordiazePOXIDE HCL 10 MG CAPSULE PO ONE (05:00)
== END 2022-09-14 08:55 | disposition left against medical advice (07) | DRG 770 ==
LOC: YASAS 20:29 → Y3N 21:51
PROVIDERS: ADMIT Allergy & Immunology; ATTEND Surgery
PROC: HZ2ZZZZ Detoxification Services for Substance Abuse Treatment (ICD-10-PCS; principal; 2022-09-12)
DX: F10.230 Alcohol dependence with withdrawal, uncomplicated (principal); F12.20 Cannabis dependence, uncomplicated; F17.210 Nicotine dependence, cigarettes, uncomplicated; F25.9 Schizoaffective disorder, unspecified; F43.10 Post-traumatic stress disorder, unspecified; M1A.20X0 Drug-induced chronic gout, unspecified site, without tophus (tophi); M54.50 Low back pain, unspecified; G89.29 Other chronic pain; R74.01 Elevation of levels of liver transaminase levels; Z86.16 Personal history of COVID-19; Z88.8 Allergy status to other drugs, medicaments and biological substances; Z91.013 Allergy to seafood
CPT/HCPCS: 36415; 80053; 85027; 86780; 93005; 93010; C9803-CS; U0003; U0005

== ENCOUNTER 2022-11-07 11:38 | Inpatient (IN) | payer OTHER ==
[2022-11-07 12:07] VITALS: BMI 21.5
[2022-11-07] MEDS ORDERED: DICYCLOMINE HCL 10 MG CAPSULE PO PRN (13:17)
[2022-11-07] MEDS ORDERED: BENZOCAINE/MENTHOL (CHLORASEPTIC ) LOZENGE MM PRN (13:17)
[2022-11-07] MEDS ORDERED: chlordiazePOXIDE HCL 25 MG CAPSULE PO PRN (13:17)
[2022-11-07] MEDS ORDERED: IBUPROFEN 400 MG TABLET (FP) PO PRN (13:17)
[2022-11-07] MEDS ORDERED: METHOCARBAMOL 500 MG TABLET PO PRN (13:17)
[2022-11-07] MEDS ORDERED: guaiFENesin 600 MG TABLET.ER (FP) PO PRN (13:17)
[2022-11-07] MEDS ORDERED: POLYETHYLENE GLYCOL (HEALTHYLAX) 3350 17 GM PACKET PO PRN (13:17)
[2022-11-07] MEDS ORDERED: LOPERAMIDE HCL 2 MG CAPSULE PO PRN (13:17)
[2022-11-07] MEDS ORDERED: NICOTINE POLACRILEX 2 MG GUM BUC PRN (13:17)
[2022-11-07] MEDS ORDERED: hydrOXYzine PAMOATE 25 MG CAPSULE (FP) PO PRN (13:17)
[2022-11-07] MEDS ORDERED: ACETAMINOPHEN 325 MG TABLET (FP) PO PRN (13:17)
[2022-11-07] MEDS ORDERED: NICOTINE 14 MG/24 HOURS TOPICAL PATCH TD PRN (13:17)
[2022-11-07] MEDS ORDERED: BISMUTH SUBSALICYLATE 262 MG/15 ML BTL PO PRN (13:17)
[2022-11-07] MEDS ORDERED: BENZONATATE 200 MG CAPSULE PO PRN (13:17)
[2022-11-07] MEDS ORDERED: NICOTINE 10 MG CARTRIDGE (INHALER) IH PRN (13:17)
[2022-11-07] MEDS ORDERED: MAG HYDROX/AL HYDROX/SIMETH 30 ML UNIT-DOSE CUP PO PRN (13:17)
[2022-11-07] MEDS ORDERED: ONDANSETRON *ODT* 4 MG TABLET SL PRN (13:17)
[2022-11-07] MEDS ORDERED: MAGNESIUM HYDROX 2400MG/30ML ORAL SUSPENSION 30 ML CUP PO PRN (13:17)
[2022-11-07] MEDS ORDERED: COLLOIDAL OATMEAL 1 BAR EACH TP PRN (13:24)
[2022-11-07] MEDS: IBUPROFEN 600 MG TABLET (FP) PO PRN (17:15)
[2022-11-07] MEDS: chlordiazePOXIDE HCL 25 MG CAPSULE PO SCH ×2 (17:16→22:43)
[2022-11-07] MEDS ORDERED: MELATONIN 5 MG TABLETS PO SCH (22:00)
[2022-11-07] MEDS ORDERED: THIAMINE HCL 100 MG TABLET (FP) PO SCH (22:00)
[2022-11-07] MEDS ORDERED: traZODone HCL 100 MG TABLET (FP) PO SCH (22:00)
[2022-11-08] MEDS: chlordiazePOXIDE HCL 25 MG CAPSULE PO SCH ×2 (05:29→10:28)
[2022-11-08] MEDS: IBUPROFEN 600 MG TABLET (FP) PO PRN (05:32)
[2022-11-08 06:55] VITALS: RESP 18
[2022-11-08 09:31] VITALS: BP 169/91; PULSE 90; TEMP 97.2
[2022-11-08] MEDS ORDERED: ASPIRIN COATED 81 MG TABLET.EC PO SCH (10:00)
[2022-11-08] MEDS ORDERED: PRENATAL VITAMINS W/ FOLIC ACID TABLET (FP) PO SCH (10:00)
[2022-11-08] MEDS ORDERED: ALLOPURINOL 100 MG TABLET (FP) PO SCH (10:00)
[2022-11-08] MEDS ORDERED: HYDROCORTISONE 1% TOPICAL OINT 30 GM TUBE TP SCH (10:00)
[2022-11-08 11:26] LABS: HEMATOCRIT 36.7 % (35.4-49); HEMOGLOBIN 12.7 GM/dL (11.7-16.9); MCH 32.5 pg (25.7-33.7); MCHC 34.5 g/dl (32.0-35.9); MEAN CELL VOLUME 94.3 fl (80-96); MEAN PLT VOLUME 10.5 fl (7.5-11.1); PLATELET COUNT 246 10^3/uL (134-434); RDW 13.6 % (11.9-15.9); WHITE BLOOD COUNT 4.4 K/mm3 (4.0-10.0)
[2022-11-08 11:38] LABS: BLOOD UREA NITROGEN 8.4 mg/dL (7-18); CALCIUM 9.5 mg/dL (8.5-10.1)
[2022-11-08 11:42] LABS: ALBUMIN 3.6 g/dl (3.4-5.0); CREATININE 0.7 mg/dL (0.55-1.3)
[2022-11-08 11:43] LABS: BILIRUBIN,TOTAL 0.5 mg/dL (0.2-1); TOT PROT 8.4 g/dl (6.4-8.2)
[2022-11-09] MEDS ORDERED: chlordiazePOXIDE HCL 25 MG CAPSULE PO SCH (05:00)
[2022-11-10] MEDS ORDERED: chlordiazePOXIDE HCL 10 MG CAPSULE PO PRN
[2022-11-10] MEDS ORDERED: chlordiazePOXIDE HCL 10 MG CAPSULE PO SCH (05:00)
[2022-11-11] MEDS ORDERED: chlordiazePOXIDE HCL 10 MG CAPSULE PO SCH (05:00)
[2022-11-12] MEDS ORDERED: chlordiazePOXIDE HCL 10 MG CAPSULE PO ONE (05:00)
== END 2022-11-08 11:36 | disposition left against medical advice (07) | DRG 770 ==
LOC: YASAS 11:38 → Y6N 14:11
PROVIDERS: ADMIT Allergy & Immunology; ATTEND Surgery
PROC: HZ2ZZZZ Detoxification Services for Substance Abuse Treatment (ICD-10-PCS; principal; 2022-11-07)
DX: F10.230 Alcohol dependence with withdrawal, uncomplicated (principal); F12.20 Cannabis dependence, uncomplicated; F17.210 Nicotine dependence, cigarettes, uncomplicated; F25.1 Schizoaffective disorder, depressive type; F10.280 Alcohol dependence with alcohol-induced anxiety disorder; F10.282 Alcohol dependence with alcohol-induced sleep disorder; F39 Unspecified mood [affective] disorder; M1A.29X0 Drug-induced chronic gout, multiple sites, without tophus (tophi); M54.50 Low back pain, unspecified; L30.9 Dermatitis, unspecified; R63.4 Abnormal weight loss; Z68.21 Body mass index [BMI] 21.0-21.9, adult; Z86.2 Personal history of diseases of the blood and blood-forming organs and certain disorders involving the immune mechanism; Z88.8 Allergy status to other drugs, medicaments and biological substances
CPT/HCPCS: 36415; 80053; 85027; 86780; C9803-CS; U0003; U0005

== ENCOUNTER 2022-11-28 11:51 | Inpatient (IN) | payer OTHER ==
[2022-11-28 12:35] VITALS: BMI 22.0
[2022-11-28] MEDS ORDERED: NALOXONE HCL 0.4 MG/ML VIAL IM PRN (14:02)
[2022-11-28] MEDS ORDERED: hydrOXYzine PAMOATE 25 MG CAPSULE (FP) PO PRN (14:02)
[2022-11-28] MEDS ORDERED: MAG HYDROX/AL HYDROX/SIMETH 30 ML UNIT-DOSE CUP PO PRN (14:02)
[2022-11-28] MEDS ORDERED: LORazepam 1 MG TABLET PO PRN (14:02)
[2022-11-28] MEDS ORDERED: METHOCARBAMOL 500 MG TABLET PO PRN (14:02)
[2022-11-28] MEDS ORDERED: BISMUTH SUBSALICYLATE 262 MG/15 ML BTL PO PRN (14:02)
[2022-11-28] MEDS ORDERED: DICYCLOMINE HCL 10 MG CAPSULE PO PRN (14:02)
[2022-11-28] MEDS ORDERED: ACETAMINOPHEN 325 MG TABLET (FP) PO PRN (14:02)
[2022-11-28] MEDS ORDERED: IBUPROFEN 400 MG TABLET (FP) PO PRN (14:02)
[2022-11-28] MEDS ORDERED: ONDANSETRON *ODT* 4 MG TABLET SL PRN (14:02)
[2022-11-28] MEDS ORDERED: NALOXONE HCL (KLOXXADO) 8 MG SPRAY NS PRN (14:02)
[2022-11-28] MEDS ORDERED: BENZOCAINE/MENTHOL (CHLORASEPTIC ) LOZENGE MM PRN (14:02)
[2022-11-28] MEDS ORDERED: LOPERAMIDE HCL 2 MG CAPSULE PO PRN (14:02)
[2022-11-28] MEDS ORDERED: BENZONATATE 200 MG CAPSULE PO PRN (14:02)
[2022-11-28] MEDS ORDERED: POLYETHYLENE GLYCOL (HEALTHYLAX) 3350 17 GM PACKET PO PRN (14:02)
[2022-11-28] MEDS ORDERED: MAGNESIUM HYDROX 2400MG/30ML ORAL SUSPENSION 30 ML CUP PO PRN (14:02)
[2022-11-28] MEDS ORDERED: guaiFENesin 600 MG TABLET.ER (FP) PO PRN (14:02)
[2022-11-28] MEDS ORDERED: NICOTINE 10 MG CARTRIDGE (INHALER) IH PRN (14:02)
[2022-11-28] MEDS ORDERED: PRENATAL VITAMINS W/ FOLIC ACID TABLET (FP) PO ONE (14:17)
[2022-11-28] MEDS ORDERED: LORazepam 1 MG TABLET ONE (14:17)
[2022-11-28] MEDS: PRENATAL VITAMINS W/ FOLIC ACID TABLET (FP) PO SCH (14:19)
[2022-11-28] MEDS: NICOTINE 14 MG/24 HOURS TOPICAL PATCH TD SCH (14:25)
[2022-11-28] MEDS: LORazepam 2 MG TABLET PO SCH ×2 (17:32→22:14)
[2022-11-28] MEDS: COLLOIDAL OATMEAL 1 BAR EACH TP PRN (17:35)
[2022-11-28] MEDS: IBUPROFEN 600 MG TABLET (FP) PO PRN (17:37)
[2022-11-28 17:55] LABS: HEMOGLOBIN 13.4 GM/dL (11.7-16.9); MCH 31.8 pg (25.7-33.7); MCHC 33.6 g/dl (32.0-35.9); MEAN CELL VOLUME 94.7 fl (80-96); PLATELET COUNT 191 10^3/uL (134-434); RBC 4.23 M/mm3 (4.00-5.60); RDW 14.7 % (11.9-15.9); WHITE BLOOD COUNT 2.4 K/mm3 (4.0-10.0)
[2022-11-28 17:58] LABS: POTASSIUM 3.5 mmol/L (3.5-5.1)
[2022-11-28 18:01] LABS: ALBUMIN 3.5 g/dl (3.4-5.0); BLOOD UREA NITROGEN 3.3 mg/dL (7-18); CALCIUM 9.1 mg/dL (8.5-10.1)
[2022-11-28 18:04] LABS: CREATININE 0.6 mg/dL (0.55-1.3)
[2022-11-28 18:07] LABS: BILIRUBIN,TOTAL 0.3 mg/dL (0.2-1); TOT PROT 8.2 g/dl (6.4-8.2)
[2022-11-28] MEDS: THIAMINE HCL 100 MG TABLET (FP) PO SCH (22:14)
[2022-11-28] MEDS: MELATONIN 5 MG TABLETS PO SCH (22:14)
[2022-11-29] MEDS: LORazepam 2 MG TABLET PO SCH ×4 (05:42→22:17)
[2022-11-29] MEDS: IBUPROFEN 600 MG TABLET (FP) PO PRN ×2 (05:44→22:20)
[2022-11-29] MEDS: PRENATAL VITAMINS W/ FOLIC ACID TABLET (FP) PO SCH (10:29)
[2022-11-29] MEDS: NICOTINE 14 MG/24 HOURS TOPICAL PATCH TD SCH (10:31)
[2022-11-29] MEDS ORDERED: HYDROCORTISONE 1% TOPICAL CREAM 30 GM TUBE TP SCH (12:45)
[2022-11-29] MEDS: LACTULOSE 20 GM/30 ML UDC (FOR ORAL USE ONLY) PO SCH ×2 (13:26→22:18)
[2022-11-29] MEDS: ASPIRIN COATED 81 MG TABLET.EC PO SCH (13:26)
[2022-11-29] MEDS: COLCHICINE 0.6 MG TAB PO SCH (14:44)
[2022-11-29] MEDS ORDERED: HYDROCORTISONE 0.5% TOPICAL OINTMENT TUBE TP PRN (21:00)
[2022-11-29] MEDS ORDERED: HYDROCORTISONE 0.5% TOPICAL CREAM 30 GM TUBE TP PRN (21:24)
[2022-11-29] MEDS ORDERED: traZODone HCL 100 MG TABLET (FP) PO SCH (22:00)
[2022-11-29] MEDS: MELATONIN 5 MG TABLETS PO SCH (22:18)
[2022-11-29] MEDS: THIAMINE HCL 100 MG TABLET (FP) PO SCH (22:18)
[2022-11-30] MEDS: COLLOIDAL OATMEAL 1 BAR EACH TP PRN (06:19)
[2022-11-30] MEDS: LORazepam 1 MG TABLET PO SCH ×2 (07:30→10:42)
[2022-11-30] MEDS: LACTULOSE 20 GM/30 ML UDC (FOR ORAL USE ONLY) PO SCH (07:31)
[2022-11-30 10:03] VITALS: BP 118/82; PULSE 85; RESP 16; TEMP 97.3
[2022-11-30] MEDS: COLCHICINE 0.6 MG TAB PO SCH (10:41)
[2022-11-30] MEDS: ASPIRIN COATED 81 MG TABLET.EC PO SCH (10:41)
[2022-11-30] MEDS: NICOTINE 14 MG/24 HOURS TOPICAL PATCH TD SCH (10:42)
[2022-11-30] MEDS: PRENATAL VITAMINS W/ FOLIC ACID TABLET (FP) PO SCH (10:42)
[2022-12-01] MEDS ORDERED: LORazepam 0.5 MG TABLET PO PRN
[2022-12-01] MEDS ORDERED: LORazepam 0.5 MG TABLET PO SCH (05:00)
[2022-12-02] MEDS ORDERED: LORazepam 0.5 MG TABLET PO ONE (05:00)
== END 2022-11-30 09:32 | disposition left against medical advice (07) | DRG 770 ==
LOC: YASAS 11:51 → Y3N 13:57
PROVIDERS: ADMIT Allergy & Immunology; ATTEND Surgery
PROC: HZ2ZZZZ Detoxification Services for Substance Abuse Treatment (ICD-10-PCS; principal; 2022-11-28)
DX: F10.230 Alcohol dependence with withdrawal, uncomplicated (principal); F13.20 Sedative, hypnotic or anxiolytic dependence, uncomplicated; F14.20 Cocaine dependence, uncomplicated; F12.20 Cannabis dependence, uncomplicated; F17.210 Nicotine dependence, cigarettes, uncomplicated; F10.282 Alcohol dependence with alcohol-induced sleep disorder; F10.24 Alcohol dependence with alcohol-induced mood disorder; F41.9 Anxiety disorder, unspecified; F32.A Depression, unspecified; L30.9 Dermatitis, unspecified; M1A.29X0 Drug-induced chronic gout, multiple sites, without tophus (tophi); M54.50 Low back pain, unspecified; G89.29 Other chronic pain; R79.89 Other specified abnormal findings of blood chemistry; R74.01 Elevation of levels of liver transaminase levels; Z88.8 Allergy status to other drugs, medicaments and biological substances; Z91.013 Allergy to seafood
CPT/HCPCS: 36415; 80053; 82140; 85027; 86780; 87811; C9803-CS; U0003; U0005

== ENCOUNTER 2023-02-24 16:53 | Inpatient (IN) | payer OTHER ==
[2023-02-24 20:53] VITALS: BMI 22.4
[2023-02-24] MEDS ORDERED: IBUPROFEN 400 MG TABLET (FP) PO PRN (21:50)
[2023-02-24] MEDS ORDERED: BENZONATATE 200 MG CAPSULE PO PRN (21:50)
[2023-02-24] MEDS ORDERED: LOPERAMIDE HCL 2 MG CAPSULE PO PRN (21:50)
[2023-02-24] MEDS ORDERED: MAG HYDROX/AL HYDROX/SIMETH 30 ML UNIT-DOSE CUP PO PRN (21:50)
[2023-02-24] MEDS ORDERED: MAGNESIUM HYDROX 2400MG/30ML ORAL SUSPENSION 30 ML CUP PO PRN (21:50)
[2023-02-24] MEDS ORDERED: ACETAMINOPHEN 325 MG TABLET (FP) PO PRN (21:50)
[2023-02-24] MEDS ORDERED: AMMONIUM LACTATE 12% LOTION 225 GM BOTTLE TP PRN (21:50)
[2023-02-24] MEDS ORDERED: POLYETHYLENE GLYCOL (HEALTHYLAX) 3350 17 GM PACKET PO PRN (21:50)
[2023-02-24] MEDS ORDERED: NICOTINE POLACRILEX 2 MG GUM BUC PRN (21:50)
[2023-02-24] MEDS ORDERED: P-EPHED 60MG/TRIPROLIDI 2.5MG TABLET PO PRN (21:50)
[2023-02-24] MEDS ORDERED: IBUPROFEN 600 MG TABLET (FP) PO PRN (21:50)
[2023-02-24] MEDS ORDERED: hydrOXYzine PAMOATE 25 MG CAPSULE (FP) PO PRN (21:50)
[2023-02-24] MEDS ORDERED: guaiFENesin 600 MG TABLET.ER (FP) PO PRN (21:50)
[2023-02-24] MEDS ORDERED: COLLOIDAL OATMEAL 1 BAR EACH TP PRN (21:50)
[2023-02-24] MEDS ORDERED: BENZOCAINE/MENTHOL (CHLORASEPTIC ) LOZENGE MM PRN (21:50)
[2023-02-24] MEDS ORDERED: traZODone HCL 50 MG TABLET (FP) PO ONE (22:00)
[2023-02-24] MEDS ORDERED: THIAMINE HCL 100 MG TABLET (FP) PO SCH (22:00)
[2023-02-24] MEDS ORDERED: MELATONIN 5 MG TABLETS PO SCH (22:00)
[2023-02-25 01:13] VITALS: RESP 18
[2023-02-25 07:05] VITALS: BP 141/81; PULSE 99; TEMP 97.5
[2023-02-25] MEDS ORDERED: COLCHICINE 0.6 MG TAB PO SCH (10:00)
[2023-02-25] MEDS ORDERED: ASPIRIN COATED 81 MG TABLET.EC PO SCH (10:00)
[2023-02-25] MEDS ORDERED: PRENATAL VITAMINS W/ FOLIC ACID TABLET (FP) PO SCH (10:00)
[2023-02-25] MEDS ORDERED: ALLOPURINOL 100 MG TABLET (FP) PO SCH (10:00)
[2023-02-25 14:24] LABS: HEMATOCRIT 32.2 % (35.4-49); MCH 31.1 pg (25.7-33.7); MEAN CELL VOLUME 91.3 fl (80-96); MEAN PLT VOLUME 8.9 fl (7.5-11.1); PLATELET COUNT 243 10^3/uL (134-434); POTASSIUM 4.3 mmol/L (3.5-5.1); RBC 3.52 M/mm3 (4.00-5.60); RDW 13.8 % (11.9-15.9); WHITE BLOOD COUNT 4.2 K/mm3 (4.0-10.0)
[2023-02-25 14:27] LABS: CALCIUM 8.9 mg/dL (8.5-10.1)
[2023-02-25 14:28] LABS: ALBUMIN 3.1 g/dl (3.4-5.0); BLOOD UREA NITROGEN 14.7 mg/dL (7-18)
[2023-02-25 14:54] LABS: CREATININE 0.6 mg/dL (0.55-1.3)
[2023-02-25 14:56] LABS: BILIRUBIN,TOTAL 0.3 mg/dL (0.2-1); TOT PROT 6.7 g/dl (6.4-8.2)
[2023-02-25] MEDS ORDERED: traZODone HCL 100 MG TABLET (FP) PO SCH (22:00)
[2023-02-25] MEDS ORDERED: QUEtiapine FUMARATE 100 MG TABLET (FP) PO SCH (22:00)
== END 2023-02-25 12:08 | disposition left against medical advice (07) | DRG 770 ==
LOC: YASAS 16:53 → Y3W 22:56
PROVIDERS: ADMIT Allergy & Immunology; ATTEND Psychiatry & Neurology Pain Medicine
PROC: HZ42ZZZ Group Counseling for Substance Abuse Treatment, Cognitive-Behavioral (ICD-10-PCS; principal; 2023-02-24)
DX: F10.20 Alcohol dependence, uncomplicated (principal); F12.20 Cannabis dependence, uncomplicated; F17.210 Nicotine dependence, cigarettes, uncomplicated; F19.282 Other psychoactive substance dependence with psychoactive substance-induced sleep disorder; F32.A Depression, unspecified; M10.9 Gout, unspecified; M54.50 Low back pain, unspecified; G89.29 Other chronic pain; Z88.8 Allergy status to other drugs, medicaments and biological substances; Z91.013 Allergy to seafood; F91.8 Other conduct disorders; Z91.199 Patient's noncompliance with other medical treatment and regimen due to unspecified reason
CPT/HCPCS: 36415; 80053; 81003; 85027; 86780; 87635

== ENCOUNTER 2023-04-05 15:06 | Inpatient (IN) | payer OTHER ==
[2023-04-05 16:48] VITALS: BMI 21.8
[2023-04-05] MEDS ORDERED: NICOTINE POLACRILEX 2 MG GUM BUC PRN (22:18)
[2023-04-05] MEDS ORDERED: BENZONATATE 200 MG CAPSULE PO PRN (22:18)
[2023-04-05] MEDS ORDERED: MAGNESIUM HYDROX 2400MG/30ML ORAL SUSPENSION 30 ML CUP PO PRN (22:18)
[2023-04-05] MEDS ORDERED: LOPERAMIDE HCL 2 MG CAPSULE PO PRN (22:18)
[2023-04-05] MEDS ORDERED: POLYETHYLENE GLYCOL (HEALTHYLAX) 3350 17 GM PACKET PO PRN (22:18)
[2023-04-05] MEDS ORDERED: MAG HYDROX/AL HYDROX/SIMETH 30 ML UNIT-DOSE CUP PO PRN (22:18)
[2023-04-05] MEDS ORDERED: IBUPROFEN 400 MG TABLET (FP) PO PRN (22:18)
[2023-04-05] MEDS ORDERED: DICYCLOMINE HCL 10 MG CAPSULE PO PRN (22:18)
[2023-04-05] MEDS ORDERED: NALOXONE HCL (KLOXXADO) 8 MG SPRAY NS PRN (22:18)
[2023-04-05] MEDS ORDERED: ONDANSETRON *ODT* 4 MG TABLET SL PRN (22:18)
[2023-04-05] MEDS ORDERED: guaiFENesin 600 MG TABLET.ER (FP) PO PRN (22:18)
[2023-04-05] MEDS ORDERED: NALOXONE HCL 0.4 MG/ML VIAL IM PRN (22:18)
[2023-04-05] MEDS ORDERED: BENZOCAINE/MENTHOL (CHLORASEPTIC ) LOZENGE MM PRN (22:18)
[2023-04-05] MEDS ORDERED: BISMUTH SUBSALICYLATE 524 MG/30 ML PO PRN (22:18)
[2023-04-05] MEDS: IBUPROFEN 600 MG TABLET (FP) PO PRN (23:18)
[2023-04-05] MEDS: CLINDAMYCIN HCL 150 MG CAPSULE (FP) PO SCH (23:18)
[2023-04-05] MEDS: METHOCARBAMOL 500 MG TABLET PO PRN (23:19)
[2023-04-06] MEDS: IBUPROFEN 600 MG TABLET (FP) PO PRN (02:43)
[2023-04-06] MEDS: CLINDAMYCIN HCL 150 MG CAPSULE (FP) PO SCH ×4 (06:30→23:01)
[2023-04-06] MEDS: METHOCARBAMOL 500 MG TABLET PO PRN ×2 (06:43→17:21)
[2023-04-06] MEDS: hydrOXYzine PAMOATE 25 MG CAPSULE (FP) PO PRN ×2 (10:06→17:21)
[2023-04-06] MEDS: NICOTINE 14 MG/24 HOURS TOPICAL PATCH TD SCH (10:07)
[2023-04-06] MEDS: PRENATAL VITAMINS W/ FOLIC ACID TABLET (FP) PO SCH (10:07)
[2023-04-06 10:20] LABS: POTASSIUM 3.7 mmol/L (3.5-5.1)
[2023-04-06 10:27] LABS: CALCIUM 8.6 mg/dL (8.5-10.1)
[2023-04-06 10:28] LABS: ALBUMIN 3.2 g/dl (3.4-5.0); BLOOD UREA NITROGEN 15.9 mg/dL (7-18)
[2023-04-06 10:30] LABS: HEMATOCRIT 36.4 % (35.4-49); MEAN PLT VOLUME 10.1 fl (7.5-11.1); PLATELET COUNT 204 10^3/uL (134-434); RBC 3.87 M/mm3 (4.00-5.60); RDW 14.4 % (11.9-15.9); WHITE BLOOD COUNT 4.5 K/mm3 (4.0-10.0)
[2023-04-06 10:31] LABS: CREATININE 0.6 mg/dL (0.55-1.3)
[2023-04-06 10:32] LABS: BILIRUBIN,TOTAL 0.6 mg/dL (0.2-1); TOT PROT 7.6 g/dl (6.4-8.2)
[2023-04-06] MEDS ORDERED: chlordiazePOXIDE HCL 25 MG CAPSULE PO ONE (12:35)
[2023-04-06] MEDS ORDERED: chlordiazePOXIDE HCL 10 MG CAPSULE PO PRN (15:00)
[2023-04-06] MEDS: chlordiazePOXIDE HCL 25 MG CAPSULE PO SCH ×2 (17:22→22:58)
[2023-04-06] MEDS ORDERED: COLLOIDAL OATMEAL 1 BAR EACH TP PRN (19:52)
[2023-04-06] MEDS: ALLOPURINOL 100 MG TABLET (FP) PO SCH (22:08)
[2023-04-06] MEDS: COLCHICINE 0.6 MG CAPSULE PO SCH (22:08)
[2023-04-06] MEDS: THIAMINE HCL 100 MG TABLET (FP) PO SCH (22:58)
[2023-04-06] MEDS: MELATONIN 5 MG TABLETS PO SCH (22:58)
[2023-04-06] MEDS: HYDROCORTISONE 1% TOPICAL CREAM 30 GM TUBE TP SCH (23:01)
[2023-04-06] MEDS: QUEtiapine FUMARATE 100 MG TABLET (FP) PO SCH (23:01)
[2023-04-06] MEDS: ACETAMINOPHEN 325 MG TABLET (FP) PO PRN (23:02)
[2023-04-07] MEDS: CLINDAMYCIN HCL 150 MG CAPSULE (FP) PO SCH ×3 (05:57→17:57)
[2023-04-07] MEDS: chlordiazePOXIDE HCL 25 MG CAPSULE PO SCH ×2 (05:57→10:35)
[2023-04-07] MEDS: ACETAMINOPHEN 325 MG TABLET (FP) PO PRN (06:23)
[2023-04-07] MEDS: METHOCARBAMOL 500 MG TABLET PO PRN ×2 (06:33→22:54)
[2023-04-07] MEDS: HYDROCORTISONE 1% TOPICAL CREAM 30 GM TUBE TP SCH ×2 (09:45→22:50)
[2023-04-07] MEDS: PRENATAL VITAMINS W/ FOLIC ACID TABLET (FP) PO SCH (09:45)
[2023-04-07] MEDS: ALLOPURINOL 100 MG TABLET (FP) PO SCH (09:46)
[2023-04-07] MEDS: COLCHICINE 0.6 MG CAPSULE PO SCH (09:46)
[2023-04-07] MEDS: hydrOXYzine PAMOATE 25 MG CAPSULE (FP) PO PRN (09:47)
[2023-04-07] MEDS: NICOTINE 14 MG/24 HOURS TOPICAL PATCH TD SCH ×2 (09:48→09:57)
[2023-04-07] MEDS ORDERED: COLLOIDAL OATMEAL 1 BAR EACH TP PRN (10:48)
[2023-04-07] MEDS: ASPIRIN COATED 81 MG TABLET.EC PO SCH (11:00)
[2023-04-07] MEDS: chlordiazePOXIDE HCL 10 MG CAPSULE PO SCH ×2 (17:57→22:50)
[2023-04-07] MEDS: MELATONIN 5 MG TABLETS PO SCH (22:50)
[2023-04-07] MEDS: THIAMINE HCL 100 MG TABLET (FP) PO SCH (22:50)
[2023-04-07] MEDS: QUEtiapine FUMARATE 100 MG TABLET (FP) PO SCH (22:50)
[2023-04-08] MEDS: CLINDAMYCIN HCL 150 MG CAPSULE (FP) PO SCH ×5 (00:48→23:44)
[2023-04-08] MEDS ORDERED: chlordiazePOXIDE HCL 10 MG CAPSULE PO SCH (05:00)
[2023-04-08] MEDS: chlordiazePOXIDE HCL 10 MG CAPSULE PO SCH ×3 (05:53→23:21)
[2023-04-08] MEDS: ACETAMINOPHEN 325 MG TABLET (FP) PO PRN ×3 (05:59→23:45)
[2023-04-08] MEDS: METHOCARBAMOL 500 MG TABLET PO PRN ×3 (05:59→23:49)
[2023-04-08] MEDS: ASPIRIN COATED 81 MG TABLET.EC PO SCH (10:09)
[2023-04-08] MEDS: PRENATAL VITAMINS W/ FOLIC ACID TABLET (FP) PO SCH (10:09)
[2023-04-08] MEDS: ALLOPURINOL 100 MG TABLET (FP) PO SCH (10:09)
[2023-04-08] MEDS: HYDROCORTISONE 1% TOPICAL CREAM 30 GM TUBE TP SCH ×2 (10:10→22:53)
[2023-04-08] MEDS: NICOTINE 14 MG/24 HOURS TOPICAL PATCH TD SCH (10:10)
[2023-04-08] MEDS: COLCHICINE 0.6 MG CAPSULE PO SCH (10:10)
[2023-04-08] MEDS: BACITRACIN 0.9 GM PACKET TP SCH (15:01)
[2023-04-08] MEDS: hydrOXYzine PAMOATE 25 MG CAPSULE (FP) PO PRN ×2 (17:11→23:49)
[2023-04-08] MEDS: MELATONIN 5 MG TABLETS PO SCH (22:53)
[2023-04-08] MEDS: THIAMINE HCL 100 MG TABLET (FP) PO SCH (22:53)
[2023-04-08] MEDS: QUEtiapine FUMARATE 100 MG TABLET (FP) PO SCH (22:53)
[2023-04-09] MEDS ORDERED: chlordiazePOXIDE HCL 10 MG CAPSULE PO ONE (05:00)
[2023-04-09] MEDS: CLINDAMYCIN HCL 150 MG CAPSULE (FP) PO SCH ×4 (05:28→23:54)
[2023-04-09] MEDS: PRENATAL VITAMINS W/ FOLIC ACID TABLET (FP) PO SCH (09:51)
[2023-04-09] MEDS: HYDROCORTISONE 1% TOPICAL CREAM 30 GM TUBE TP SCH ×2 (09:52→22:54)
[2023-04-09] MEDS: COLCHICINE 0.6 MG CAPSULE PO SCH (09:52)
[2023-04-09] MEDS: ASPIRIN COATED 81 MG TABLET.EC PO SCH (09:53)
[2023-04-09] MEDS: BACITRACIN 0.9 GM PACKET TP SCH (09:53)
[2023-04-09] MEDS: hydrOXYzine PAMOATE 25 MG CAPSULE (FP) PO PRN ×2 (09:54→17:50)
[2023-04-09] MEDS: NICOTINE 14 MG/24 HOURS TOPICAL PATCH TD SCH (09:54)
[2023-04-09] MEDS: METHOCARBAMOL 500 MG TABLET PO PRN ×2 (09:54→17:50)
[2023-04-09] MEDS: ALLOPURINOL 100 MG TABLET (FP) PO SCH (09:55)
[2023-04-09] MEDS: ACETAMINOPHEN 325 MG TABLET (FP) PO PRN (17:50)
[2023-04-09] MEDS: MELATONIN 5 MG TABLETS PO SCH (22:54)
[2023-04-09] MEDS: QUEtiapine FUMARATE 100 MG TABLET (FP) PO SCH (22:54)
[2023-04-09] MEDS: THIAMINE HCL 100 MG TABLET (FP) PO SCH (22:54)
[2023-04-10] MEDS: CLINDAMYCIN HCL 150 MG CAPSULE (FP) PO SCH (05:52)
[2023-04-10 09:18] VITALS: BP 130/72; PULSE 88; RESP 18; TEMP 97.6
[2023-04-10] MEDS: BACITRACIN 0.9 GM PACKET TP SCH (09:47)
[2023-04-10] MEDS: COLCHICINE 0.6 MG CAPSULE PO SCH (09:47)
[2023-04-10] MEDS: ALLOPURINOL 100 MG TABLET (FP) PO SCH (09:48)
[2023-04-10] MEDS: HYDROCORTISONE 1% TOPICAL CREAM 30 GM TUBE TP SCH (09:48)
[2023-04-10] MEDS: ASPIRIN COATED 81 MG TABLET.EC PO SCH (09:48)
[2023-04-10] MEDS: PRENATAL VITAMINS W/ FOLIC ACID TABLET (FP) PO SCH (09:48)
[2023-04-10] MEDS: NICOTINE 14 MG/24 HOURS TOPICAL PATCH TD SCH (09:52)
== END 2023-04-10 09:58 | disposition home or self-care (01) | DRG 775 ==
LOC: YASAS 15:06 → Y3N 22:38 → Y6N 04-06 00:04
PROVIDERS: ADMIT Allergy & Immunology; ATTEND Surgery
PROC: HZ2ZZZZ Detoxification Services for Substance Abuse Treatment (ICD-10-PCS; principal; 2023-04-05)
DX: F10.230 Alcohol dependence with withdrawal, uncomplicated (principal); F17.210 Nicotine dependence, cigarettes, uncomplicated; F10.24 Alcohol dependence with alcohol-induced mood disorder; F10.282 Alcohol dependence with alcohol-induced sleep disorder; F31.9 Bipolar disorder, unspecified; F25.9 Schizoaffective disorder, unspecified; U07.1 COVID-19; L30.9 Dermatitis, unspecified; M1A.29X0 Drug-induced chronic gout, multiple sites, without tophus (tophi); Z88.8 Allergy status to other drugs, medicaments and biological substances
CPT/HCPCS: 36415; 80053; 85027; 86780; 87635

== ENCOUNTER 2023-05-21 19:09 | Inpatient (IN) | payer OTHER ==
[2023-05-21 19:42] VITALS: BMI 21.1
[2023-05-21] MEDS ORDERED: MAGNESIUM HYDROX 2400MG/30ML ORAL SUSPENSION 30 ML CUP PO PRN (20:12)
[2023-05-21] MEDS ORDERED: POLYETHYLENE GLYCOL (HEALTHYLAX) 3350 17 GM PACKET PO PRN (20:12)
[2023-05-21] MEDS ORDERED: BENZOCAINE/MENTHOL (CHLORASEPTIC ) LOZENGE MM PRN (20:12)
[2023-05-21] MEDS ORDERED: chlordiazePOXIDE HCL 25 MG CAPSULE PO PRN (20:12)
[2023-05-21] MEDS ORDERED: MAG HYDROX/AL HYDROX/SIMETH 30 ML UNIT-DOSE CUP PO PRN (20:12)
[2023-05-21] MEDS ORDERED: LOPERAMIDE HCL 2 MG CAPSULE PO PRN (20:12)
[2023-05-21] MEDS ORDERED: ONDANSETRON *ODT* 4 MG TABLET SL PRN (20:12)
[2023-05-21] MEDS ORDERED: DICYCLOMINE HCL 10 MG CAPSULE PO PRN (20:12)
[2023-05-21] MEDS ORDERED: BENZONATATE 200 MG CAPSULE PO PRN (20:12)
[2023-05-21] MEDS ORDERED: BISMUTH SUBSALICYLATE 524 MG/30 ML PO PRN (20:12)
[2023-05-21] MEDS ORDERED: guaiFENesin 600 MG TABLET.ER (FP) PO PRN (20:12)
[2023-05-21] MEDS ORDERED: P-EPHED 60MG/TRIPROLIDI 2.5MG TABLET PO PRN (20:12)
[2023-05-21] MEDS ORDERED: IBUPROFEN 400 MG TABLET (FP) PO PRN (20:12)
[2023-05-21] MEDS ORDERED: ACETAMINOPHEN 325 MG TABLET (FP) PO PRN (20:12)
[2023-05-21] MEDS ORDERED: IBUPROFEN 600 MG TABLET (FP) PO PRN (20:12)
[2023-05-21] MEDS ORDERED: NICOTINE POLACRILEX 2 MG GUM BUC PRN (20:12)
[2023-05-21] MEDS ORDERED: ASPIRIN 81 MG CHEWABLE TABLETS ONE (20:59)
[2023-05-21] MEDS: ASPIRIN COATED 81 MG TABLET.EC PO SCH (21:02)
[2023-05-21] MEDS: chlordiazePOXIDE HCL 25 MG CAPSULE PO SCH (22:17)
[2023-05-21] MEDS: THIAMINE HCL 100 MG TABLET (FP) PO SCH (22:19)
[2023-05-21] MEDS: MELATONIN 5 MG TABLETS PO SCH (22:19)
[2023-05-21] MEDS: VITAMINS A AND D TOPICAL OINTMENT 60 GM TUBE TP SCH (23:13)
[2023-05-21] MEDS: COLCHICINE 0.6 MG TAB PO SCH (23:14)
[2023-05-21] MEDS: ALLOPURINOL 100 MG TABLET (FP) PO SCH (23:14)
[2023-05-21] MEDS: HYDROCORTISONE 1% TOPICAL CREAM 30 GM TUBE TP SCH (23:15)
[2023-05-22] MEDS: VITAMINS A AND D TOPICAL OINTMENT 60 GM TUBE TP SCH ×3 (05:39→17:43)
[2023-05-22] MEDS: chlordiazePOXIDE HCL 25 MG CAPSULE PO SCH ×4 (05:39→22:29)
[2023-05-22] MEDS: PRENATAL VITAMINS W/ FOLIC ACID TABLET (FP) PO SCH (10:39)
[2023-05-22] MEDS: COLCHICINE 0.6 MG TAB PO SCH (10:39)
[2023-05-22] MEDS: ASPIRIN COATED 81 MG TABLET.EC PO SCH (10:39)
[2023-05-22] MEDS: HYDROCORTISONE 1% TOPICAL CREAM 30 GM TUBE TP SCH ×2 (10:39→22:29)
[2023-05-22] MEDS: ALLOPURINOL 100 MG TABLET (FP) PO SCH (10:40)
[2023-05-22] MEDS: COLLOIDAL OATMEAL 1 BAR EACH TP PRN (12:38)
[2023-05-22] MEDS: hydrOXYzine PAMOATE 25 MG CAPSULE (FP) PO PRN (19:32)
[2023-05-22] MEDS: QUEtiapine FUMARATE 100 MG TABLET (FP) PO SCH (22:29)
[2023-05-22] MEDS: THIAMINE HCL 100 MG TABLET (FP) PO SCH (22:29)
[2023-05-22] MEDS: MELATONIN 5 MG TABLETS PO SCH (22:29)
[2023-05-22] MEDS: METHOCARBAMOL 500 MG TABLET PO PRN (22:30)
[2023-05-23] MEDS: VITAMINS A AND D TOPICAL OINTMENT 60 GM TUBE TP SCH ×4 (00:01→17:43)
[2023-05-23] MEDS: chlordiazePOXIDE HCL 25 MG CAPSULE PO SCH ×4 (05:38→22:20)
[2023-05-23] MEDS: ALLOPURINOL 100 MG TABLET (FP) PO SCH (10:33)
[2023-05-23] MEDS: PRENATAL VITAMINS W/ FOLIC ACID TABLET (FP) PO SCH (10:33)
[2023-05-23] MEDS: ASPIRIN COATED 81 MG TABLET.EC PO SCH (10:33)
[2023-05-23] MEDS: HYDROCORTISONE 1% TOPICAL CREAM 30 GM TUBE TP SCH ×2 (10:34→22:21)
[2023-05-23] MEDS: COLCHICINE 0.6 MG TAB PO SCH (10:34)
[2023-05-23] MEDS: hydrOXYzine PAMOATE 25 MG CAPSULE (FP) PO PRN (17:29)
[2023-05-23] MEDS: QUEtiapine FUMARATE 100 MG TABLET (FP) PO SCH (22:20)
[2023-05-23] MEDS: THIAMINE HCL 100 MG TABLET (FP) PO SCH (22:20)
[2023-05-23] MEDS: MELATONIN 5 MG TABLETS PO SCH (22:20)
[2023-05-24] MEDS ORDERED: chlordiazePOXIDE HCL 10 MG CAPSULE PO PRN
[2023-05-24] MEDS: VITAMINS A AND D TOPICAL OINTMENT 60 GM TUBE TP SCH ×5 (01:28→23:13)
[2023-05-24] MEDS: chlordiazePOXIDE HCL 10 MG CAPSULE PO SCH ×4 (05:16→22:15)
[2023-05-24] MEDS: ALLOPURINOL 100 MG TABLET (FP) PO SCH (10:33)
[2023-05-24] MEDS: ASPIRIN COATED 81 MG TABLET.EC PO SCH (10:33)
[2023-05-24] MEDS: PRENATAL VITAMINS W/ FOLIC ACID TABLET (FP) PO SCH (10:34)
[2023-05-24] MEDS: HYDROCORTISONE 1% TOPICAL CREAM 30 GM TUBE TP SCH ×2 (10:37→22:15)
[2023-05-24] MEDS: COLCHICINE 0.6 MG TAB PO SCH (10:37)
[2023-05-24 11:38] LABS: POTASSIUM 3.7 mmol/L (3.5-5.1)
[2023-05-24 11:40] LABS: HEMOGLOBIN 12.5 GM/dL (11.7-16.9); MCH 30.7 pg (25.7-33.7); MCHC 32.8 g/dl (32.0-35.9); MEAN CELL VOLUME 93.7 fl (80-96); PLATELET COUNT 180 10^3/uL (134-434); RBC 4.05 M/mm3 (4.00-5.60); RDW 14.5 % (11.9-15.9); WHITE BLOOD COUNT 2.7 K/mm3 (4.0-10.0)
[2023-05-24 11:53] LABS: CALCIUM 8.5 mg/dL (8.5-10.1)
[2023-05-24 11:54] LABS: ALBUMIN 2.9 g/dl (3.4-5.0); BLOOD UREA NITROGEN 11.7 mg/dL (7-18)
[2023-05-24 11:57] LABS: CREATININE 0.4 mg/dL (0.55-1.3)
[2023-05-24 11:59] LABS: BILIRUBIN,TOTAL 0.3 mg/dL (0.2-1); TOT PROT 6.5 g/dl (6.4-8.2)
[2023-05-24] MEDS: THIAMINE HCL 100 MG TABLET (FP) PO SCH (22:15)
[2023-05-24] MEDS: QUEtiapine FUMARATE 100 MG TABLET (FP) PO SCH (22:15)
[2023-05-24] MEDS: MELATONIN 5 MG TABLETS PO SCH (22:15)
[2023-05-24] MEDS: hydrOXYzine PAMOATE 25 MG CAPSULE (FP) PO PRN (22:16)
[2023-05-25] MEDS: chlordiazePOXIDE HCL 10 MG CAPSULE PO SCH ×2 (05:27→17:24)
[2023-05-25] MEDS: VITAMINS A AND D TOPICAL OINTMENT 60 GM TUBE TP SCH ×4 (05:27→23:01)
[2023-05-25] MEDS: ASPIRIN COATED 81 MG TABLET.EC PO SCH (10:18)
[2023-05-25] MEDS: PRENATAL VITAMINS W/ FOLIC ACID TABLET (FP) PO SCH (10:18)
[2023-05-25] MEDS: COLCHICINE 0.6 MG TAB PO SCH (10:19)
[2023-05-25] MEDS: ALLOPURINOL 100 MG TABLET (FP) PO SCH (10:19)
[2023-05-25] MEDS: HYDROCORTISONE 1% TOPICAL CREAM 30 GM TUBE TP SCH ×2 (10:19→22:06)
[2023-05-25] MEDS: hydrOXYzine PAMOATE 25 MG CAPSULE (FP) PO PRN ×3 (10:21→22:05)
[2023-05-25 20:48] VITALS: TEMP 97.7
[2023-05-25] MEDS: METHOCARBAMOL 500 MG TABLET PO PRN (22:05)
[2023-05-25] MEDS: MELATONIN 5 MG TABLETS PO SCH (22:05)
[2023-05-25] MEDS: THIAMINE HCL 100 MG TABLET (FP) PO SCH (22:05)
[2023-05-25] MEDS: QUEtiapine FUMARATE 100 MG TABLET (FP) PO SCH (22:05)
[2023-05-26] MEDS ORDERED: chlordiazePOXIDE HCL 10 MG CAPSULE PO ONE (05:00)
[2023-05-26] MEDS: COLLOIDAL OATMEAL 1 BAR EACH TP PRN (05:36)
[2023-05-26] MEDS: VITAMINS A AND D TOPICAL OINTMENT 60 GM TUBE TP SCH (06:03)
[2023-05-26 09:07] VITALS: BP 136/68; PULSE 80; RESP 16
[2023-05-26] MEDS: COLCHICINE 0.6 MG TAB PO SCH (09:27)
[2023-05-26] MEDS: ALLOPURINOL 100 MG TABLET (FP) PO SCH (09:28)
[2023-05-26] MEDS: ASPIRIN COATED 81 MG TABLET.EC PO SCH (09:28)
[2023-05-26] MEDS: HYDROCORTISONE 1% TOPICAL CREAM 30 GM TUBE TP SCH (09:28)
[2023-05-26] MEDS: PRENATAL VITAMINS W/ FOLIC ACID TABLET (FP) PO SCH (09:28)
== END 2023-05-26 09:50 | disposition home or self-care (01) | DRG 775 ==
LOC: YASAS 19:09 → Y3N 21:33
PROVIDERS: ADMIT Allergy & Immunology; ATTEND Surgery
PROC: HZ2ZZZZ Detoxification Services for Substance Abuse Treatment (ICD-10-PCS; principal; 2023-05-21)
DX: F10.230 Alcohol dependence with withdrawal, uncomplicated (principal); F12.20 Cannabis dependence, uncomplicated; F17.210 Nicotine dependence, cigarettes, uncomplicated; F10.282 Alcohol dependence with alcohol-induced sleep disorder; F10.24 Alcohol dependence with alcohol-induced mood disorder; M1A.29X0 Drug-induced chronic gout, multiple sites, without tophus (tophi); Z86.59 Personal history of other mental and behavioral disorders; Z88.8 Allergy status to other drugs, medicaments and biological substances
CPT/HCPCS: 36415; 80053; 85027; 87635

== ENCOUNTER 2023-06-08 12:14 | Inpatient (IN) | payer OTHER ==
[2023-06-08 13:42] VITALS: RESP 18; BMI 23.8
[2023-06-08] MEDS ORDERED: NALOXONE HCL (KLOXXADO) 8 MG SPRAY NS PRN (14:40)
[2023-06-08] MEDS ORDERED: DICYCLOMINE HCL 10 MG CAPSULE PO PRN (14:40)
[2023-06-08] MEDS ORDERED: MAG HYDROX/AL HYDROX/SIMETH 30 ML UNIT-DOSE CUP PO PRN (14:40)
[2023-06-08] MEDS ORDERED: NICOTINE POLACRILEX 2 MG GUM BUC PRN (14:40)
[2023-06-08] MEDS ORDERED: NALOXONE HCL 0.4 MG/ML VIAL IM PRN (14:40)
[2023-06-08] MEDS ORDERED: BENZOCAINE/MENTHOL (CHLORASEPTIC ) LOZENGE MM PRN (14:40)
[2023-06-08] MEDS ORDERED: BISMUTH SUBSALICYLATE 524 MG/30 ML PO PRN (14:40)
[2023-06-08] MEDS ORDERED: POLYETHYLENE GLYCOL (HEALTHYLAX) 3350 17 GM PACKET PO PRN (14:40)
[2023-06-08] MEDS ORDERED: IBUPROFEN 600 MG TABLET (FP) PO PRN (14:40)
[2023-06-08] MEDS ORDERED: LORazepam 1 MG TABLET PO PRN (14:40)
[2023-06-08] MEDS ORDERED: METHOCARBAMOL 500 MG TABLET PO PRN (14:40)
[2023-06-08] MEDS ORDERED: MAGNESIUM HYDROX 2400MG/30ML ORAL SUSPENSION 30 ML CUP PO PRN (14:40)
[2023-06-08] MEDS ORDERED: guaiFENesin 600 MG TABLET.ER (FP) PO PRN (14:40)
[2023-06-08] MEDS ORDERED: ACETAMINOPHEN 325 MG TABLET (FP) PO PRN (14:40)
[2023-06-08] MEDS ORDERED: hydrOXYzine PAMOATE 25 MG CAPSULE (FP) PO PRN (14:40)
[2023-06-08] MEDS ORDERED: IBUPROFEN 400 MG TABLET (FP) PO PRN (14:40)
[2023-06-08] MEDS ORDERED: ONDANSETRON *ODT* 4 MG TABLET SL PRN (14:40)
[2023-06-08] MEDS ORDERED: BENZONATATE 200 MG CAPSULE PO PRN (14:40)
[2023-06-08] MEDS ORDERED: LOPERAMIDE HCL 2 MG CAPSULE PO PRN (14:40)
[2023-06-08] MEDS ORDERED: LORazepam 2 MG TABLET ONE (15:53)
[2023-06-08] MEDS: LORazepam 2 MG TABLET PO SCH ×2 (16:17→23:44)
[2023-06-08 18:08] VITALS: BP 142/85; PULSE 107; TEMP 97.5
[2023-06-08] MEDS ORDERED: MELATONIN 5 MG TABLETS PO SCH (22:00)
[2023-06-08] MEDS ORDERED: THIAMINE HCL 100 MG TABLET (FP) PO SCH (22:00)
[2023-06-08] MEDS ORDERED: HYDROCORTISONE 1% TOPICAL CREAM 30 GM TUBE TP SCH (22:00)
[2023-06-09] MEDS ORDERED: COLCHICINE 0.6 MG TAB PO SCH (10:00)
[2023-06-09] MEDS ORDERED: PRENATAL VITAMINS W/ FOLIC ACID TABLET (FP) PO SCH (10:00)
[2023-06-09] MEDS ORDERED: NICOTINE 14 MG/24 HOURS TOPICAL PATCH TD SCH (10:00)
[2023-06-09] MEDS ORDERED: ALLOPURINOL 100 MG TABLET (FP) PO SCH (10:00)
[2023-06-09] MEDS ORDERED: ASPIRIN COATED 81 MG TABLET.EC PO SCH (10:00)
[2023-06-10] MEDS ORDERED: LORazepam 1 MG TABLET PO SCH (05:00)
[2023-06-11] MEDS ORDERED: LORazepam 0.5 MG TABLET PO PRN
[2023-06-11] MEDS ORDERED: LORazepam 0.5 MG TABLET PO SCH (05:00)
[2023-06-12] MEDS ORDERED: LORazepam 0.5 MG TABLET PO ONE (05:00)
== END 2023-06-09 00:14 | disposition short-term general hospital (02) | DRG 775 ==
LOC: YASAS 12:14 → Y3N 15:01
PROVIDERS: ADMIT Allergy & Immunology; ATTEND Surgery
PROC: HZ2ZZZZ Detoxification Services for Substance Abuse Treatment (ICD-10-PCS; principal; 2023-06-08)
DX: F10.230 Alcohol dependence with withdrawal, uncomplicated (principal); F17.210 Nicotine dependence, cigarettes, uncomplicated; M54.50 Low back pain, unspecified; G89.29 Other chronic pain; R55 Syncope and collapse; W07.XXXA Fall from chair, initial encounter; Y92.238 Other place in hospital as the place of occurrence of the external cause; Z86.79 Personal history of other diseases of the circulatory system
CPT/HCPCS: 87635

== ENCOUNTER 2023-06-09 18:04 | Inpatient (IN) | payer OTHER ==
[2023-06-09 19:11] VITALS: BMI 37.7
[2023-06-09] MEDS ORDERED: MAGNESIUM HYDROX 2400MG/30ML ORAL SUSPENSION 30 ML CUP PO PRN (19:23)
[2023-06-09] MEDS ORDERED: BENZONATATE 200 MG CAPSULE PO PRN (19:23)
[2023-06-09] MEDS ORDERED: P-EPHED 60MG/TRIPROLIDI 2.5MG TABLET PO PRN (19:23)
[2023-06-09] MEDS ORDERED: DICYCLOMINE HCL 10 MG CAPSULE PO PRN (19:23)
[2023-06-09] MEDS ORDERED: MAG HYDROX/AL HYDROX/SIMETH 30 ML UNIT-DOSE CUP PO PRN (19:23)
[2023-06-09] MEDS ORDERED: BENZOCAINE/MENTHOL (CHLORASEPTIC ) LOZENGE MM PRN (19:23)
[2023-06-09] MEDS ORDERED: guaiFENesin 600 MG TABLET.ER (FP) PO PRN (19:23)
[2023-06-09] MEDS ORDERED: LOPERAMIDE HCL 2 MG CAPSULE PO PRN (19:23)
[2023-06-09] MEDS ORDERED: IBUPROFEN 400 MG TABLET (FP) PO PRN (19:23)
[2023-06-09] MEDS ORDERED: ACETAMINOPHEN 325 MG TABLET (FP) PO PRN (19:23)
[2023-06-09] MEDS ORDERED: BISMUTH SUBSALICYLATE 524 MG/30 ML PO PRN (19:23)
[2023-06-09] MEDS ORDERED: ONDANSETRON *ODT* 4 MG TABLET SL PRN (19:23)
[2023-06-09] MEDS ORDERED: NICOTINE POLACRILEX 2 MG GUM BUC PRN (19:23)
[2023-06-09] MEDS ORDERED: hydrOXYzine PAMOATE 25 MG CAPSULE (FP) PO PRN (19:23)
[2023-06-09] MEDS ORDERED: POLYETHYLENE GLYCOL (HEALTHYLAX) 3350 17 GM PACKET PO PRN (19:23)
[2023-06-09] MEDS ORDERED: HYDROCORTISONE 1% TOPICAL CREAM 30 GM TUBE TP PRN (19:30)
[2023-06-09] MEDS: FOLIC ACID 1 MG TABLET (FP) PO SCH (21:27)
[2023-06-09] MEDS: diazePAM 5 MG TABLET PO PRN (21:27)
[2023-06-09] MEDS: ASPIRIN COATED 81 MG TABLET.EC PO SCH (21:27)
[2023-06-09] MEDS: METHOCARBAMOL 500 MG TABLET PO PRN (21:31)
[2023-06-09] MEDS ORDERED: MELATONIN 5 MG TABLETS PO SCH (22:00)
[2023-06-09] MEDS: diazePAM 5 MG TABLET PO SCH (22:32)
[2023-06-10] MEDS: diazePAM 5 MG TABLET PO SCH ×4 (05:09→22:10)
[2023-06-10] MEDS: ALLOPURINOL 100 MG TABLET (FP) PO SCH (10:19)
[2023-06-10] MEDS: PRENATAL VITAMINS W/ FOLIC ACID TABLET (FP) PO SCH (10:19)
[2023-06-10] MEDS: METHOCARBAMOL 500 MG TABLET PO PRN (10:19)
[2023-06-10] MEDS: ASPIRIN COATED 81 MG TABLET.EC PO SCH (10:19)
[2023-06-10] MEDS: COLCHICINE 0.6 MG TAB PO SCH (10:19)
[2023-06-10] MEDS: FOLIC ACID 1 MG TABLET (FP) PO SCH (10:19)
[2023-06-10] MEDS: THIAMINE HCL 100 MG TABLET (FP) PO SCH (10:20)
[2023-06-10] MEDS ORDERED: COLLOIDAL OATMEAL 1 BAR EACH TP PRN (14:46)
[2023-06-10] MEDS: QUEtiapine FUMARATE 200 MG TABLET PO SCH (22:09)
[2023-06-10] MEDS: IBUPROFEN 600 MG TABLET (FP) PO PRN (22:10)
[2023-06-11] MEDS: diazePAM 5 MG TABLET PO SCH ×3 (05:15→22:11)
[2023-06-11] MEDS: PRENATAL VITAMINS W/ FOLIC ACID TABLET (FP) PO SCH (10:09)
[2023-06-11] MEDS: METHOCARBAMOL 500 MG TABLET PO PRN (10:09)
[2023-06-11] MEDS: ASPIRIN COATED 81 MG TABLET.EC PO SCH (10:09)
[2023-06-11] MEDS: ALLOPURINOL 100 MG TABLET (FP) PO SCH (10:09)
[2023-06-11] MEDS: COLCHICINE 0.6 MG TAB PO SCH (10:09)
[2023-06-11] MEDS: FOLIC ACID 1 MG TABLET (FP) PO SCH (10:10)
[2023-06-11] MEDS: THIAMINE HCL 100 MG TABLET (FP) PO SCH (10:10)
[2023-06-11] MEDS: diazePAM 5 MG TABLET PO PRN ×2 (11:09→19:07)
[2023-06-11] MEDS: IBUPROFEN 600 MG TABLET (FP) PO PRN (16:41)
[2023-06-11] MEDS: QUEtiapine FUMARATE 200 MG TABLET PO SCH (22:11)
[2023-06-12] MEDS: diazePAM 5 MG TABLET PO SCH ×2 (05:23→17:18)
[2023-06-12] MEDS: METHOCARBAMOL 500 MG TABLET PO PRN ×3 (05:25→17:17)
[2023-06-12] MEDS: ALLOPURINOL 100 MG TABLET (FP) PO SCH (10:19)
[2023-06-12] MEDS: PRENATAL VITAMINS W/ FOLIC ACID TABLET (FP) PO SCH (10:19)
[2023-06-12] MEDS: THIAMINE HCL 100 MG TABLET (FP) PO SCH (10:19)
[2023-06-12] MEDS: COLCHICINE 0.6 MG TAB PO SCH (10:19)
[2023-06-12] MEDS: ASPIRIN COATED 81 MG TABLET.EC PO SCH (10:19)
[2023-06-12] MEDS: FOLIC ACID 1 MG TABLET (FP) PO SCH (10:20)
[2023-06-12] MEDS: diazePAM 5 MG TABLET PO PRN (13:09)
[2023-06-12] MEDS: IBUPROFEN 600 MG TABLET (FP) PO PRN (17:17)
[2023-06-12 21:10] VITALS: BP 133/73; PULSE 78; RESP 17; TEMP 98.2
[2023-06-12] MEDS: QUEtiapine FUMARATE 200 MG TABLET PO SCH (22:17)
[2023-06-13] MEDS ORDERED: diazePAM 5 MG TABLET PO ONE (06:00)
[2023-06-13] MEDS: PRENATAL VITAMINS W/ FOLIC ACID TABLET (FP) PO SCH (09:21)
[2023-06-13] MEDS: ASPIRIN COATED 81 MG TABLET.EC PO SCH (09:21)
[2023-06-13] MEDS: ALLOPURINOL 100 MG TABLET (FP) PO SCH (09:21)
[2023-06-13] MEDS: COLCHICINE 0.6 MG TAB PO SCH (09:21)
[2023-06-13] MEDS: FOLIC ACID 1 MG TABLET (FP) PO SCH (09:21)
[2023-06-13] MEDS: THIAMINE HCL 100 MG TABLET (FP) PO SCH (09:22)
== END 2023-06-13 09:40 | disposition home or self-care (01) | DRG 775 ==
LOC: YASAS 18:04 → Y6N 20:33
PROVIDERS: ADMIT Allergy & Immunology; ATTEND Surgery
PROC: HZ2ZZZZ Detoxification Services for Substance Abuse Treatment (ICD-10-PCS; principal; 2023-06-09)
DX: F10.230 Alcohol dependence with withdrawal, uncomplicated (principal); F13.20 Sedative, hypnotic or anxiolytic dependence, uncomplicated; F12.20 Cannabis dependence, uncomplicated; F17.210 Nicotine dependence, cigarettes, uncomplicated; F32.A Depression, unspecified; F43.10 Post-traumatic stress disorder, unspecified; M1A.29X0 Drug-induced chronic gout, multiple sites, without tophus (tophi); M54.50 Low back pain, unspecified; G89.29 Other chronic pain; Z86.59 Personal history of other mental and behavioral disorders; Z88.8 Allergy status to other drugs, medicaments and biological substances
CPT/HCPCS: 36415; 70450-TC; 70486-TC; 71045-TC-FY; 72125-TC; 80053; 80307; 82550; 83735; 84100; 84484; 85025; 85610; 85730; 86850; 86900; 86901; 87635; 93005; 93010; 99283-25; G0378

== ENCOUNTER 2023-06-26 23:27 | Inpatient (IN) | payer OTHER ==
[2023-06-27] VITALS: BMI 23.1
[2023-06-27] MEDS ORDERED: POLYETHYLENE GLYCOL (HEALTHYLAX) 3350 17 GM PACKET PO PRN (00:14)
[2023-06-27] MEDS ORDERED: DICYCLOMINE HCL 10 MG CAPSULE PO PRN (00:14)
[2023-06-27] MEDS ORDERED: guaiFENesin 600 MG TABLET.ER (FP) PO PRN (00:14)
[2023-06-27] MEDS ORDERED: ONDANSETRON *ODT* 4 MG TABLET SL PRN (00:14)
[2023-06-27] MEDS ORDERED: MAGNESIUM HYDROX 2400MG/30ML ORAL SUSPENSION 30 ML CUP PO PRN (00:14)
[2023-06-27] MEDS ORDERED: IBUPROFEN 400 MG TABLET (FP) PO PRN (00:14)
[2023-06-27] MEDS ORDERED: ACETAMINOPHEN 325 MG TABLET (FP) PO PRN (00:14)
[2023-06-27] MEDS ORDERED: BENZOCAINE/MENTHOL (CHLORASEPTIC ) LOZENGE MM PRN (00:14)
[2023-06-27] MEDS ORDERED: NICOTINE POLACRILEX 4 MG GUM BUC PRN (00:14)
[2023-06-27] MEDS ORDERED: NALOXONE HCL (KLOXXADO) 8 MG SPRAY NS PRN (00:14)
[2023-06-27] MEDS ORDERED: BISMUTH SUBSALICYLATE 524 MG/30 ML PO PRN (00:14)
[2023-06-27] MEDS ORDERED: LOPERAMIDE HCL 2 MG CAPSULE PO PRN (00:14)
[2023-06-27] MEDS ORDERED: NALOXONE HCL 0.4 MG/ML VIAL IM PRN (00:14)
[2023-06-27] MEDS ORDERED: MAG HYDROX/AL HYDROX/SIMETH 30 ML UNIT-DOSE CUP PO PRN (00:14)
[2023-06-27] MEDS ORDERED: BENZONATATE 200 MG CAPSULE PO PRN (00:14)
[2023-06-27] MEDS ORDERED: chlordiazePOXIDE HCL 25 MG CAPSULE PO PRN (09:49)
[2023-06-27] MEDS: NICOTINE 14 MG/24 HOURS TOPICAL PATCH TD SCH (10:05)
[2023-06-27] MEDS: PRENATAL VITAMINS W/ FOLIC ACID TABLET (FP) PO SCH (10:05)
[2023-06-27] MEDS: chlordiazePOXIDE HCL 25 MG CAPSULE PO SCH ×3 (10:39→22:06)
[2023-06-27] MEDS: hydrOXYzine PAMOATE 25 MG CAPSULE (FP) PO PRN ×2 (10:42→22:09)
[2023-06-27] MEDS: ASPIRIN COATED 81 MG TABLET.EC PO SCH (13:10)
[2023-06-27] MEDS: COLCHICINE 0.6 MG TAB PO SCH (13:11)
[2023-06-27] MEDS: ALLOPURINOL 100 MG TABLET (FP) PO SCH (13:11)
[2023-06-27] MEDS: IBUPROFEN 600 MG TABLET (FP) PO PRN (17:10)
[2023-06-27] MEDS: METHOCARBAMOL 500 MG TABLET PO PRN (17:10)
[2023-06-27] MEDS: THIAMINE HCL 100 MG TABLET (FP) PO SCH (22:05)
[2023-06-27] MEDS: MELATONIN 5 MG TABLETS PO SCH (22:05)
[2023-06-27] MEDS: QUEtiapine FUMARATE 200 MG TABLET PO SCH (22:07)
[2023-06-28] MEDS: chlordiazePOXIDE HCL 25 MG CAPSULE PO SCH ×4 (05:15→22:13)
[2023-06-28] MEDS: COLCHICINE 0.6 MG TAB PO SCH (10:12)
[2023-06-28] MEDS: ASPIRIN COATED 81 MG TABLET.EC PO SCH (10:13)
[2023-06-28] MEDS: ALLOPURINOL 100 MG TABLET (FP) PO SCH (10:13)
[2023-06-28] MEDS: PRENATAL VITAMINS W/ FOLIC ACID TABLET (FP) PO SCH (10:13)
[2023-06-28] MEDS: NICOTINE 14 MG/24 HOURS TOPICAL PATCH TD SCH (10:13)
[2023-06-28] MEDS: hydrOXYzine PAMOATE 25 MG CAPSULE (FP) PO PRN (10:16)
[2023-06-28] MEDS: METHOCARBAMOL 500 MG TABLET PO PRN (10:16)
[2023-06-28] MEDS: QUEtiapine FUMARATE 200 MG TABLET PO SCH (22:13)
[2023-06-28] MEDS: THIAMINE HCL 100 MG TABLET (FP) PO SCH (22:15)
[2023-06-28] MEDS: MELATONIN 5 MG TABLETS PO SCH (22:35)
[2023-06-29] MEDS: chlordiazePOXIDE HCL 25 MG CAPSULE PO SCH ×4 (05:19→22:24)
[2023-06-29] MEDS: METHOCARBAMOL 500 MG TABLET PO PRN (05:20)
[2023-06-29] MEDS: hydrOXYzine PAMOATE 25 MG CAPSULE (FP) PO PRN (10:19)
[2023-06-29] MEDS: COLCHICINE 0.6 MG TAB PO SCH (10:19)
[2023-06-29] MEDS: NICOTINE 14 MG/24 HOURS TOPICAL PATCH TD SCH (10:19)
[2023-06-29] MEDS: ALLOPURINOL 100 MG TABLET (FP) PO SCH (10:19)
[2023-06-29] MEDS: PRENATAL VITAMINS W/ FOLIC ACID TABLET (FP) PO SCH (10:19)
[2023-06-29] MEDS: ASPIRIN COATED 81 MG TABLET.EC PO SCH (10:19)
[2023-06-29] MEDS ORDERED: COLLOIDAL OATMEAL 1 BAR EACH TP PRN (13:09)
[2023-06-29 18:04] LABS: POTASSIUM 3.9 mmol/L (3.5-5.1)
[2023-06-29 18:05] LABS: BASO % 0.4 % (0-2.0); EOS % 4.7 % (0-4.5); HEMATOCRIT 41.2 % (35.4-49); HEMOGLOBIN 13.9 GM/dL (11.7-16.9); MCH 32.2 pg (25.7-33.7); MCHC 33.8 g/dl (32.0-35.9); MEAN CELL VOLUME 95.4 fl (80-96); MEAN PLT VOLUME 9.9 fl (7.5-11.1); MONO % 7.5 % (3.8-10.2); NEUT % 76.4 % (42.8-82.8); PLATELET COUNT 217 10^3/uL (134-434); RBC 4.31 M/mm3 (4.00-5.60); RDW 13.7 % (11.9-15.9); WHITE BLOOD COUNT 5.4 K/mm3 (4.0-10.0)
[2023-06-29 18:09] LABS: CALCIUM 8.9 mg/dL (8.5-10.1)
[2023-06-29 18:10] LABS: ALBUMIN 3.3 g/dl (3.4-5.0)
[2023-06-29 18:13] LABS: CREATININE 0.8 mg/dL (0.55-1.3)
[2023-06-29 18:14] LABS: BILIRUBIN,TOTAL 0.8 mg/dL (0.2-1)
[2023-06-29 18:15] LABS: TOT PROT 7.4 g/dl (6.4-8.2)
[2023-06-29] MEDS: THIAMINE HCL 100 MG TABLET (FP) PO SCH (22:24)
[2023-06-29] MEDS: QUEtiapine FUMARATE 200 MG TABLET PO SCH (22:24)
[2023-06-29] MEDS: MELATONIN 5 MG TABLETS PO SCH (22:25)
[2023-06-30] MEDS ORDERED: chlordiazePOXIDE HCL 10 MG CAPSULE PO PRN
[2023-06-30] MEDS: chlordiazePOXIDE HCL 10 MG CAPSULE PO SCH ×4 (05:31→22:18)
[2023-06-30] MEDS: METHOCARBAMOL 500 MG TABLET PO PRN ×2 (05:32→22:18)
[2023-06-30] MEDS: NICOTINE 14 MG/24 HOURS TOPICAL PATCH TD SCH (10:17)
[2023-06-30] MEDS: ALLOPURINOL 100 MG TABLET (FP) PO SCH (10:17)
[2023-06-30] MEDS: COLCHICINE 0.6 MG TAB PO SCH (10:17)
[2023-06-30] MEDS: PRENATAL VITAMINS W/ FOLIC ACID TABLET (FP) PO SCH (10:17)
[2023-06-30] MEDS: ASPIRIN COATED 81 MG TABLET.EC PO SCH (10:20)
[2023-06-30] MEDS: MELATONIN 5 MG TABLETS PO SCH (22:17)
[2023-06-30] MEDS: QUEtiapine FUMARATE 200 MG TABLET PO SCH (22:17)
[2023-06-30] MEDS: THIAMINE HCL 100 MG TABLET (FP) PO SCH (22:18)
[2023-07-01] MEDS ORDERED: chlordiazePOXIDE HCL 10 MG CAPSULE PO SCH (05:00)
[2023-07-01] MEDS: IBUPROFEN 600 MG TABLET (FP) PO PRN (05:55)
[2023-07-01 09:29] VITALS: BP 132/77; PULSE 63; RESP 16; TEMP 97.1
[2023-07-01] MEDS: ALLOPURINOL 100 MG TABLET (FP) PO SCH (11:00)
[2023-07-01] MEDS: COLCHICINE 0.6 MG TAB PO SCH (11:00)
[2023-07-01] MEDS: NICOTINE 14 MG/24 HOURS TOPICAL PATCH TD SCH (11:00)
[2023-07-01] MEDS: ASPIRIN COATED 81 MG TABLET.EC PO SCH (11:00)
[2023-07-01] MEDS: PRENATAL VITAMINS W/ FOLIC ACID TABLET (FP) PO SCH (11:00)
[2023-07-02] MEDS ORDERED: chlordiazePOXIDE HCL 10 MG CAPSULE PO ONE (05:00)
== END 2023-07-01 09:30 | disposition home or self-care (01) | DRG 772 ==
LOC: YASAS 23:27 → Y6N 06-27 02:41
PROVIDERS: ADMIT Allergy & Immunology; ATTEND Surgery
PROC: HZ42ZZZ Group Counseling for Substance Abuse Treatment, Cognitive-Behavioral (ICD-10-PCS; principal; 2023-06-27)
DX: F10.230 Alcohol dependence with withdrawal, uncomplicated (principal); F12.20 Cannabis dependence, uncomplicated; F13.20 Sedative, hypnotic or anxiolytic dependence, uncomplicated; F17.210 Nicotine dependence, cigarettes, uncomplicated; F19.282 Other psychoactive substance dependence with psychoactive substance-induced sleep disorder; F19.24 Other psychoactive substance dependence with psychoactive substance-induced mood disorder; F10.24 Alcohol dependence with alcohol-induced mood disorder; L30.9 Dermatitis, unspecified; M1A.29X0 Drug-induced chronic gout, multiple sites, without tophus (tophi); M54.50 Low back pain, unspecified; G89.29 Other chronic pain; Z88.8 Allergy status to other drugs, medicaments and biological substances
CPT/HCPCS: 36415; 80053; 85025; 86780; 87635

== ENCOUNTER 2023-08-11 08:30 | Inpatient (IN) | payer OTHER ==
[2023-08-11 08:45] VITALS: BMI 25.5
[2023-08-11] MEDS ORDERED: NALOXONE HCL (KLOXXADO) 8 MG SPRAY NS PRN (09:32)
[2023-08-11] MEDS ORDERED: DICYCLOMINE HCL 10 MG CAPSULE PO PRN (09:32)
[2023-08-11] MEDS ORDERED: NALOXONE HCL 0.4 MG/ML VIAL IM PRN (09:32)
[2023-08-11] MEDS ORDERED: POLYETHYLENE GLYCOL (HEALTHYLAX) 3350 17 GM PACKET PO PRN (09:32)
[2023-08-11] MEDS ORDERED: BENZONATATE 200 MG CAPSULE PO PRN (09:32)
[2023-08-11] MEDS ORDERED: IBUPROFEN 400 MG TABLET (FP) PO PRN (09:32)
[2023-08-11] MEDS ORDERED: NICOTINE POLACRILEX 2 MG GUM BUC PRN (09:32)
[2023-08-11] MEDS ORDERED: IBUPROFEN 600 MG TABLET (FP) PO PRN (09:32)
[2023-08-11] MEDS ORDERED: ONDANSETRON *ODT* 4 MG TABLET SL PRN (09:32)
[2023-08-11] MEDS ORDERED: guaiFENesin 600 MG TABLET.ER (FP) PO PRN (09:32)
[2023-08-11] MEDS ORDERED: LOPERAMIDE HCL 2 MG CAPSULE PO PRN (09:32)
[2023-08-11] MEDS ORDERED: BISMUTH SUBSALICYLATE 524 MG/30 ML PO PRN (09:32)
[2023-08-11] MEDS ORDERED: MAGNESIUM HYDROX 2400MG/30ML ORAL SUSPENSION 30 ML CUP PO PRN (09:32)
[2023-08-11] MEDS ORDERED: BENZOCAINE/MENTHOL (CHLORASEPTIC ) LOZENGE MM PRN (09:32)
[2023-08-11] MEDS ORDERED: ACETAMINOPHEN 325 MG TABLET (FP) PO PRN (09:32)
[2023-08-11] MEDS ORDERED: MAG HYDROX/AL HYDROX/SIMETH 30 ML UNIT-DOSE CUP PO PRN (09:32)
[2023-08-11] MEDS: NICOTINE 14 MG/24 HOURS TOPICAL PATCH TD SCH (10:59)
[2023-08-11] MEDS: PRENATAL VITAMINS W/ FOLIC ACID TABLET (FP) PO SCH (10:59)
[2023-08-11] MEDS: METHOCARBAMOL 500 MG TABLET PO PRN ×2 (11:21→22:40)
[2023-08-11] MEDS: hydrOXYzine PAMOATE 25 MG CAPSULE (FP) PO PRN (11:22)
[2023-08-11] MEDS ORDERED: chlordiazePOXIDE HCL 25 MG CAPSULE PO PRN (20:45)
[2023-08-11] MEDS: THIAMINE HCL 100 MG TABLET (FP) PO SCH (22:39)
[2023-08-11] MEDS: MELATONIN 5 MG TABLETS PO SCH (22:39)
[2023-08-11] MEDS: chlordiazePOXIDE HCL 25 MG CAPSULE PO SCH (22:39)
[2023-08-12] MEDS: chlordiazePOXIDE HCL 25 MG CAPSULE PO SCH ×4 (05:41→22:26)
[2023-08-12] MEDS: PRENATAL VITAMINS W/ FOLIC ACID TABLET (FP) PO SCH (10:30)
[2023-08-12] MEDS: ASPIRIN 81 MG CHEWABLE TABLETS PO SCH (10:30)
[2023-08-12] MEDS: COLLOIDAL OATMEAL 1 BAR EACH TP PRN (10:33)
[2023-08-12] MEDS: NICOTINE 14 MG/24 HOURS TOPICAL PATCH TD SCH (10:38)
[2023-08-12 11:36] LABS: HEMATOCRIT 39.7 % (35.4-49); HEMOGLOBIN 12.7 GM/dL (11.7-16.9); MCH 31.1 pg (25.7-33.7); MCHC 32.1 g/dl (32.0-35.9); MEAN CELL VOLUME 96.9 fl (80-96); MEAN PLT VOLUME 9.9 fl (7.5-11.1); PLATELET COUNT 184 10^3/uL (134-434); RBC 4.09 M/mm3 (4.00-5.60); RDW 13.5 % (11.9-15.9); WHITE BLOOD COUNT 3.6 K/mm3 (4.0-10.0)
[2023-08-12 11:47] LABS: CHLORIDE 108 mmol/L (98-107); POTASSIUM 3.9 mmol/L (3.5-5.1); SODIUM 141 mmol/L (136-145)
[2023-08-12 12:01] LABS: ANION GAP 6 mmol/L (4-13); BLOOD UREA NITROGEN 8.6 mg/dL (7-18); CALCIUM 8.7 mg/dL (8.5-10.1); CO2 27 mmol/L (21-32); GLUCOSE,RANDOM 81 mg/dL (74-106)
[2023-08-12 12:04] LABS: ALBUMIN 2.9 g/dl (3.4-5.0); CREATININE 0.5 mg/dL (0.55-1.3); SGOT/AST 54 U/L (15-37); SGPT/ALT 69 U/L (13-61)
[2023-08-12 12:05] LABS: TOT PROT 6.6 g/dl (6.4-8.2)
[2023-08-12 12:06] LABS: ALK PHOS 130 U/L (45-117)
[2023-08-12 12:09] LABS: BILIRUBIN,TOTAL 0.4 mg/dL (0.2-1)
[2023-08-12] MEDS: ALLOPURINOL 100 MG TABLET (FP) PO SCH (12:39)
[2023-08-12] MEDS: hydrOXYzine PAMOATE 25 MG CAPSULE (FP) PO PRN (17:19)
[2023-08-12] MEDS: QUEtiapine FUMARATE 100 MG TABLET (FP) PO SCH (22:25)
[2023-08-12] MEDS: METHOCARBAMOL 500 MG TABLET PO PRN (22:25)
[2023-08-12] MEDS: THIAMINE HCL 100 MG TABLET (FP) PO SCH (22:34)
[2023-08-12] MEDS: MELATONIN 5 MG TABLETS PO SCH (22:35)
[2023-08-13] MEDS: chlordiazePOXIDE HCL 25 MG CAPSULE PO SCH ×4 (05:25→22:29)
[2023-08-13] MEDS: METHOCARBAMOL 500 MG TABLET PO PRN (05:28)
[2023-08-13] MEDS: NICOTINE 14 MG/24 HOURS TOPICAL PATCH TD SCH (10:06)
[2023-08-13] MEDS: ALLOPURINOL 100 MG TABLET (FP) PO SCH (10:06)
[2023-08-13] MEDS: ASPIRIN 81 MG CHEWABLE TABLETS PO SCH (10:06)
[2023-08-13] MEDS: PRENATAL VITAMINS W/ FOLIC ACID TABLET (FP) PO SCH (10:06)
[2023-08-13] MEDS: QUEtiapine FUMARATE 100 MG TABLET (FP) PO SCH (22:18)
[2023-08-13] MEDS: traZODone HCL 50 MG TABLET (FP) PO SCH (22:18)
[2023-08-13] MEDS: MELATONIN 5 MG TABLETS PO SCH (22:28)
[2023-08-13] MEDS: THIAMINE HCL 100 MG TABLET (FP) PO SCH (22:28)
[2023-08-14] MEDS ORDERED: chlordiazePOXIDE HCL 10 MG CAPSULE PO PRN
[2023-08-14] MEDS: chlordiazePOXIDE HCL 10 MG CAPSULE PO SCH ×4 (05:56→22:36)
[2023-08-14] MEDS: METHOCARBAMOL 500 MG TABLET PO PRN (06:27)
[2023-08-14] MEDS: ALLOPURINOL 100 MG TABLET (FP) PO SCH (10:26)
[2023-08-14] MEDS: PRENATAL VITAMINS W/ FOLIC ACID TABLET (FP) PO SCH (10:26)
[2023-08-14] MEDS: ASPIRIN 81 MG CHEWABLE TABLETS PO SCH (10:26)
[2023-08-14] MEDS: NICOTINE 14 MG/24 HOURS TOPICAL PATCH TD SCH (10:26)
[2023-08-14] MEDS: MELATONIN 5 MG TABLETS PO SCH (22:35)
[2023-08-14] MEDS: traZODone HCL 50 MG TABLET (FP) PO SCH (22:35)
[2023-08-14] MEDS: THIAMINE HCL 100 MG TABLET (FP) PO SCH (22:36)
[2023-08-14] MEDS: QUEtiapine FUMARATE 100 MG TABLET (FP) PO SCH (22:38)
[2023-08-15] MEDS: chlordiazePOXIDE HCL 10 MG CAPSULE PO SCH ×2 (05:52→17:58)
[2023-08-15] MEDS: METHOCARBAMOL 500 MG TABLET PO PRN (05:53)
[2023-08-15] MEDS: ALLOPURINOL 100 MG TABLET (FP) PO SCH (10:52)
[2023-08-15] MEDS: NICOTINE 14 MG/24 HOURS TOPICAL PATCH TD SCH (10:52)
[2023-08-15] MEDS: ASPIRIN 81 MG CHEWABLE TABLETS PO SCH (10:52)
[2023-08-15] MEDS: PRENATAL VITAMINS W/ FOLIC ACID TABLET (FP) PO SCH (10:52)
[2023-08-15] MEDS: HYDROCORTISONE 1% TOPICAL OINT 30 GM TUBE TP SCH ×2 (12:31→22:00)
[2023-08-15] MEDS: COLLOIDAL OATMEAL 1 BAR EACH TP PRN (12:31)
[2023-08-15] MEDS: hydrOXYzine PAMOATE 25 MG CAPSULE (FP) PO PRN ×2 (12:33→21:55)
[2023-08-15] MEDS: traZODone HCL 50 MG TABLET (FP) PO SCH (21:55)
[2023-08-15] MEDS: MELATONIN 5 MG TABLETS PO SCH (22:00)
[2023-08-15] MEDS: QUEtiapine FUMARATE 100 MG TABLET (FP) PO SCH (22:01)
[2023-08-15] MEDS: THIAMINE HCL 100 MG TABLET (FP) PO SCH (22:01)
[2023-08-16] MEDS ORDERED: chlordiazePOXIDE HCL 10 MG CAPSULE PO ONE (05:00)
[2023-08-16] MEDS: ASPIRIN 81 MG CHEWABLE TABLETS PO SCH (10:41)
[2023-08-16] MEDS: HYDROCORTISONE 1% TOPICAL OINT 30 GM TUBE TP SCH ×2 (10:41→21:32)
[2023-08-16] MEDS: NICOTINE 14 MG/24 HOURS TOPICAL PATCH TD SCH (10:41)
[2023-08-16] MEDS: ALLOPURINOL 100 MG TABLET (FP) PO SCH (10:41)
[2023-08-16] MEDS: PRENATAL VITAMINS W/ FOLIC ACID TABLET (FP) PO SCH (10:41)
[2023-08-16] MEDS: hydrOXYzine PAMOATE 25 MG CAPSULE (FP) PO PRN ×2 (13:48→21:33)
[2023-08-16] MEDS: QUEtiapine FUMARATE 100 MG TABLET (FP) PO SCH (21:33)
[2023-08-16] MEDS: MELATONIN 5 MG TABLETS PO SCH (21:33)
[2023-08-16] MEDS: traZODone HCL 50 MG TABLET (FP) PO SCH (21:33)
[2023-08-16] MEDS: METHOCARBAMOL 500 MG TABLET PO PRN (21:33)
[2023-08-16] MEDS: THIAMINE HCL 100 MG TABLET (FP) PO SCH (21:33)
[2023-08-17] MEDS: NICOTINE 14 MG/24 HOURS TOPICAL PATCH TD SCH (10:42)
[2023-08-17] MEDS: ALLOPURINOL 100 MG TABLET (FP) PO SCH (10:42)
[2023-08-17] MEDS: PRENATAL VITAMINS W/ FOLIC ACID TABLET (FP) PO SCH (10:42)
[2023-08-17] MEDS: ASPIRIN 81 MG CHEWABLE TABLETS PO SCH (10:42)
[2023-08-17] MEDS: HYDROCORTISONE 1% TOPICAL OINT 30 GM TUBE TP SCH ×2 (10:45→22:50)
[2023-08-17] MEDS: hydrOXYzine PAMOATE 25 MG CAPSULE (FP) PO PRN ×2 (10:45→22:56)
[2023-08-17] MEDS: MELATONIN 5 MG TABLETS PO SCH (22:55)
[2023-08-17] MEDS: THIAMINE HCL 100 MG TABLET (FP) PO SCH (22:56)
[2023-08-17] MEDS: QUEtiapine FUMARATE 100 MG TABLET (FP) PO SCH (22:56)
[2023-08-17] MEDS: traZODone HCL 50 MG TABLET (FP) PO SCH (22:56)
[2023-08-18 09:25] VITALS: BP 125/71; PULSE 80; RESP 18; TEMP 98.6
[2023-08-18] MEDS: PRENATAL VITAMINS W/ FOLIC ACID TABLET (FP) PO SCH (10:26)
[2023-08-18] MEDS: ALLOPURINOL 100 MG TABLET (FP) PO SCH (10:27)
[2023-08-18] MEDS: ASPIRIN 81 MG CHEWABLE TABLETS PO SCH (10:27)
[2023-08-18] MEDS: NICOTINE 14 MG/24 HOURS TOPICAL PATCH TD SCH (10:27)
[2023-08-18] MEDS: HYDROCORTISONE 1% TOPICAL OINT 30 GM TUBE TP SCH (10:36)
== END 2023-08-18 11:30 | disposition home or self-care (01) | DRG 775 ==
LOC: YASAS 08:30 → Y3N 09:55
PROVIDERS: ADMIT Allergy & Immunology; ATTEND Allergy & Immunology
PROC: HZ2ZZZZ Detoxification Services for Substance Abuse Treatment (ICD-10-PCS; principal; 2023-08-11)
DX: F10.230 Alcohol dependence with withdrawal, uncomplicated (principal); F10.220 Alcohol dependence with intoxication, uncomplicated; F12.20 Cannabis dependence, uncomplicated; F17.210 Nicotine dependence, cigarettes, uncomplicated; F25.9 Schizoaffective disorder, unspecified; U07.1 COVID-19; M10.9 Gout, unspecified; G47.00 Insomnia, unspecified; Z86.2 Personal history of diseases of the blood and blood-forming organs and certain disorders involving the immune mechanism
CPT/HCPCS: 36415; 80053; 80307; 85027; 86780; 87635; 87811

== ENCOUNTER 2023-10-20 13:44 | Inpatient (IN) | payer OTHER ==
[2023-10-20 14:44] VITALS: BMI 25.9
[2023-10-20] MEDS ORDERED: chlordiazePOXIDE HCL 25 MG CAPSULE PO PRN (17:14)
[2023-10-20] MEDS ORDERED: BENZONATATE 200 MG CAPSULE PO PRN (17:18)
[2023-10-20] MEDS ORDERED: BENZOCAINE/MENTHOL (CHLORASEPTIC ) LOZENGE MM PRN (17:18)
[2023-10-20] MEDS ORDERED: IBUPROFEN 600 MG TABLET (FP) PO PRN (17:18)
[2023-10-20] MEDS ORDERED: MAGNESIUM HYDROX 2400MG/30ML ORAL SUSPENSION 30 ML CUP PO PRN (17:18)
[2023-10-20] MEDS ORDERED: MAG HYDROX/AL HYDROX/SIMETH 30 ML UNIT-DOSE CUP PO PRN (17:18)
[2023-10-20] MEDS ORDERED: ONDANSETRON *ODT* 4 MG TABLET SL PRN (17:18)
[2023-10-20] MEDS ORDERED: NICOTINE POLACRILEX 2 MG GUM BUC PRN (17:18)
[2023-10-20] MEDS ORDERED: POLYETHYLENE GLYCOL (HEALTHYLAX) 3350 17 GM PACKET PO PRN (17:18)
[2023-10-20] MEDS ORDERED: ACETAMINOPHEN 325 MG TABLET (FP) PO PRN (17:18)
[2023-10-20] MEDS ORDERED: BISMUTH SUBSALICYLATE 524 MG/30 ML PO PRN (17:18)
[2023-10-20] MEDS ORDERED: DICYCLOMINE HCL 10 MG CAPSULE PO PRN (17:18)
[2023-10-20] MEDS ORDERED: IBUPROFEN 400 MG TABLET (FP) PO PRN (17:18)
[2023-10-20] MEDS ORDERED: guaiFENesin 600 MG TABLET.ER (FP) PO PRN (17:18)
[2023-10-20] MEDS ORDERED: LOPERAMIDE HCL 2 MG CAPSULE PO PRN (17:18)
[2023-10-20] MEDS ORDERED: chlordiazePOXIDE HCL 25 MG CAPSULE ONE (17:41)
[2023-10-20] MEDS: chlordiazePOXIDE HCL 25 MG CAPSULE PO SCH (17:46)
[2023-10-20] MEDS: METHOCARBAMOL 500 MG TABLET PO PRN (20:16)
[2023-10-20] MEDS: hydrOXYzine PAMOATE 25 MG CAPSULE (FP) PO PRN (20:16)
[2023-10-20] MEDS: THIAMINE HCL 100 MG TABLET (FP) PO SCH (22:00)
[2023-10-20] MEDS: MELATONIN 5 MG TABLETS PO SCH (22:00)
[2023-10-21] MEDS: PRENATAL VITAMINS W/ FOLIC ACID TABLET (FP) PO SCH (10:24)
[2023-10-21] MEDS: ASPIRIN 81 MG CHEWABLE TABLETS PO SCH (10:24)
[2023-10-21] MEDS: COLCHICINE 0.6 MG TAB PO SCH (10:36)
[2023-10-21] MEDS: ALLOPURINOL 100 MG TABLET (FP) PO SCH (10:36)
[2023-10-21 11:57] LABS: HEMATOCRIT 38.8 % (35.4-49); HEMOGLOBIN 13.2 GM/dL (11.7-16.9); MCH 32.7 pg (25.7-33.7); MEAN CELL VOLUME 96.2 fl (80-96); MEAN PLT VOLUME 9.2 fl (7.5-11.1); PLATELET COUNT 159 10^3/uL (134-434); RBC 4.03 M/mm3 (4.00-5.60); WHITE BLOOD COUNT 3.4 K/mm3 (4.0-10.0)
[2023-10-21 12:17] LABS: POTASSIUM 3.6 mmol/L (3.5-5.1)
[2023-10-21 12:33] LABS: ALBUMIN 2.7 g/dl (3.4-5.0)
[2023-10-21 12:34] LABS: BLOOD UREA NITROGEN 6.8 mg/dL (7-18); CALCIUM 8.1 mg/dL (8.5-10.1)
[2023-10-21 12:36] LABS: CREATININE 0.5 mg/dL (0.55-1.3)
[2023-10-21 12:38] LABS: BILIRUBIN,TOTAL 0.6 mg/dL (0.2-1); TOT PROT 6.3 g/dl (6.4-8.2)
[2023-10-21] MEDS: traZODone HCL 100 MG TABLET (FP) PO SCH (22:26)
[2023-10-22] MEDS: chlordiazePOXIDE HCL 25 MG CAPSULE PO SCH (05:46)
[2023-10-22] MEDS ORDERED: LORazepam 1 MG TABLET PO PRN (13:54)
[2023-10-22 17:10] LABS: PH,URINE 8.5 (5.0-8.0); URINE APPEARANCE Error; URINE BILIRUBIN NEGATIVE (NEGATIVE); URINE COLOR YELLOW; URINE GLUCOSE (UA) NEGATIVE (NEGATIVE); URINE KETONE NEGATIVE (NEGATIVE); URINE LEUK ESTERASE NEGATIVE (NEGATIVE); URINE NITRITE NEGATIVE (NEGATIVE); URINE PROTEIN NEGATIVE (NEGATIVE)
[2023-10-22] MEDS: LORazepam 2 MG TABLET PO SCH (17:10)
[2023-10-23] MEDS ORDERED: chlordiazePOXIDE HCL 10 MG CAPSULE PO PRN
[2023-10-23] MEDS ORDERED: chlordiazePOXIDE HCL 10 MG CAPSULE PO SCH (05:00)
[2023-10-23] MEDS: LORazepam 1 MG TABLET PO SCH (05:55)
[2023-10-23 06:21] VITALS: RESP 16
[2023-10-23 11:12] VITALS: BP 117/74; PULSE 84; TEMP 98.1
[2023-10-24] MEDS ORDERED: LORazepam 0.5 MG TABLET PO PRN
[2023-10-24] MEDS ORDERED: chlordiazePOXIDE HCL 10 MG CAPSULE PO SCH (05:00)
[2023-10-24] MEDS ORDERED: LORazepam 0.5 MG TABLET PO SCH (05:00)
[2023-10-25] MEDS ORDERED: chlordiazePOXIDE HCL 10 MG CAPSULE PO ONE (05:00)
[2023-10-25] MEDS ORDERED: LORazepam 0.5 MG TABLET PO ONE (05:00)
== END 2023-10-23 11:31 | disposition home or self-care (01) | DRG 775 ==
LOC: YASAS 13:44 → Y6N 17:47
PROVIDERS: ADMIT Allergy & Immunology; ATTEND Surgery
PROC: HZ2ZZZZ Detoxification Services for Substance Abuse Treatment (ICD-10-PCS; principal; 2023-10-20)
DX: F10.230 Alcohol dependence with withdrawal, uncomplicated (principal); F17.210 Nicotine dependence, cigarettes, uncomplicated; F39 Unspecified mood [affective] disorder; F10.24 Alcohol dependence with alcohol-induced mood disorder; F10.282 Alcohol dependence with alcohol-induced sleep disorder; F32.A Depression, unspecified; L30.9 Dermatitis, unspecified; M1A.20X0 Drug-induced chronic gout, unspecified site, without tophus (tophi); R74.01 Elevation of levels of liver transaminase levels; Z88.8 Allergy status to other drugs, medicaments and biological substances
CPT/HCPCS: 36415; 80053; 81003; 85027; 86780

== ENCOUNTER 2023-11-19 08:41 | Inpatient (IN) | payer OTHER ==
[2023-11-19 09:03] VITALS: BMI 25.4
[2023-11-19] MEDS ORDERED: chlordiazePOXIDE HCL 25 MG CAPSULE PO PRN (09:13)
[2023-11-19] MEDS ORDERED: DICYCLOMINE HCL 10 MG CAPSULE PO PRN (09:16)
[2023-11-19] MEDS ORDERED: NICOTINE POLACRILEX 2 MG GUM BUC PRN (09:16)
[2023-11-19] MEDS ORDERED: P-EPHED 60MG/TRIPROLIDI 2.5MG TABLET PO PRN (09:16)
[2023-11-19] MEDS ORDERED: BENZOCAINE/MENTHOL (CHLORASEPTIC ) LOZENGE MM PRN (09:16)
[2023-11-19] MEDS ORDERED: ACETAMINOPHEN 325 MG TABLET (FP) PO PRN (09:16)
[2023-11-19] MEDS ORDERED: NICOTINE POLACRILEX 2 MG LOZENGE BC PRN (09:16)
[2023-11-19] MEDS ORDERED: BISMUTH SUBSALICYLATE 524 MG/30 ML PO PRN (09:16)
[2023-11-19] MEDS ORDERED: BENZONATATE 200 MG CAPSULE PO PRN (09:16)
[2023-11-19] MEDS ORDERED: guaiFENesin 600 MG TABLET.ER (FP) PO PRN (09:16)
[2023-11-19] MEDS ORDERED: POLYETHYLENE GLYCOL (HEALTHYLAX) 3350 17 GM PACKET PO PRN (09:16)
[2023-11-19] MEDS ORDERED: MAGNESIUM HYDROX 2400MG/30ML ORAL SUSPENSION 30 ML CUP PO PRN (09:16)
[2023-11-19] MEDS ORDERED: IBUPROFEN 400 MG TABLET (FP) PO PRN (09:16)
[2023-11-19] MEDS ORDERED: IBUPROFEN 600 MG TABLET (FP) PO PRN (09:16)
[2023-11-19] MEDS ORDERED: MAG HYDROX/AL HYDROX/SIMETH 30 ML UNIT-DOSE CUP PO PRN (09:16)
[2023-11-19] MEDS ORDERED: ONDANSETRON *ODT* 4 MG TABLET SL PRN (09:16)
[2023-11-19] MEDS ORDERED: METHOCARBAMOL 500 MG TABLET PO PRN (09:16)
[2023-11-19] MEDS ORDERED: LOPERAMIDE HCL 2 MG CAPSULE PO PRN (09:16)
[2023-11-19] MEDS ORDERED: ASPIRIN COATED 81 MG TABLET.EC PO SCH (10:00)
[2023-11-19] MEDS: ALLOPURINOL 100 MG TABLET (FP) PO SCH (10:50)
[2023-11-19] MEDS: COLCHICINE 0.6 MG CAP PO SCH (10:50)
[2023-11-19] MEDS: PRENATAL VITAMINS W/ FOLIC ACID TABLET (FP) PO SCH (10:50)
[2023-11-19] MEDS: TRIAMCINOLONE ACET 0.1% OINT 15 GM TUBE TP SCH (10:55)
[2023-11-19] MEDS: chlordiazePOXIDE HCL 25 MG CAPSULE PO SCH (17:14)
[2023-11-19] MEDS: MELATONIN 5 MG TABLETS PO SCH (22:24)
[2023-11-19] MEDS: THIAMINE 100 MG TABLET PO SCH (22:24)
[2023-11-19] MEDS: traZODone HCL 100 MG TABLET (FP) PO SCH (22:24)
[2023-11-20 10:18] LABS: HEMATOCRIT 41.7 % (35.4-49); HEMOGLOBIN 13.8 GM/dL (11.7-16.9); MCH 32.1 pg (25.7-33.7); MCHC 33.1 g/dl (32.0-35.9); MEAN PLT VOLUME 10.3 fl (7.5-11.1); PLATELET COUNT 158 10^3/uL (134-434); RDW 13.1 % (11.9-15.9)
[2023-11-20 10:22] LABS: POTASSIUM 3.3 mmol/L (3.5-5.1)
[2023-11-20 10:32] LABS: CALCIUM 8.5 mg/dL (8.5-10.1)
[2023-11-20 10:33] LABS: ALBUMIN 2.8 g/dl (3.4-5.0); BLOOD UREA NITROGEN 4.5 mg/dL (7-18)
[2023-11-20 10:35] LABS: BILIRUBIN,TOTAL 0.7 mg/dL (0.2-1); TOT PROT 6.3 g/dl (6.4-8.2)
[2023-11-20 10:36] LABS: CREATININE 0.5 mg/dL (0.55-1.3)
[2023-11-20] MEDS: ASPIRIN COATED 81 MG TABLET.EC PO SCH (11:23)
[2023-11-20] MEDS ORDERED: LORazepam 1 MG TABLET PO PRN (13:23)
[2023-11-20] MEDS: POTASSIUM CHLORIDE ORAL LIQUID 20 MEQ/15 ML PO ONE (14:15)
[2023-11-20] MEDS: LORazepam 2 MG TABLET PO SCH (17:26)
[2023-11-20] MEDS: POTASSIUM CHLORIDE ORAL LIQUID 20 MEQ/15 ML PO SCH (22:13)
[2023-11-21] MEDS ORDERED: chlordiazePOXIDE HCL 25 MG CAPSULE PO SCH (05:00)
[2023-11-21 11:51] LABS: POTASSIUM 3.2 mmol/L (3.5-5.1)
[2023-11-21 12:02] LABS: ALBUMIN 2.7 g/dl (3.4-5.0); BILIRUBIN,TOTAL 0.3 mg/dL (0.2-1); TOT PROT 6.2 g/dl (6.4-8.2)
[2023-11-21 12:05] LABS: CALCIUM 8.2 mg/dL (8.5-10.1); CREATININE 0.6 mg/dL (0.55-1.3)
[2023-11-21 12:06] LABS: BLOOD UREA NITROGEN 4.5 mg/dL (7-18)
[2023-11-21] MEDS: hydrOXYzine PAMOATE 25 MG CAPSULE (FP) PO PRN (17:38)
[2023-11-22] MEDS ORDERED: LORazepam 0.5 MG TABLET PO PRN
[2023-11-22] MEDS ORDERED: chlordiazePOXIDE HCL 10 MG CAPSULE PO PRN
[2023-11-22] MEDS ORDERED: chlordiazePOXIDE HCL 10 MG CAPSULE PO SCH (05:00)
[2023-11-22] MEDS: LORazepam 1 MG TABLET PO SCH (05:56)
[2023-11-22 09:37] VITALS: BP 112/75; PULSE 74; RESP 16; TEMP 97.6
[2023-11-23] MEDS ORDERED: LORazepam 0.5 MG TABLET PO SCH (05:00)
[2023-11-23] MEDS ORDERED: chlordiazePOXIDE HCL 10 MG CAPSULE PO SCH (05:00)
[2023-11-24] MEDS ORDERED: chlordiazePOXIDE HCL 10 MG CAPSULE PO ONE (05:00)
== END 2023-11-22 11:49 | disposition left against medical advice (07) | DRG 770 ==
LOC: YASAS 08:41 → Y6N 09:24
PROVIDERS: ADMIT Allergy & Immunology; ATTEND Surgery
PROC: HZ2ZZZZ Detoxification Services for Substance Abuse Treatment (ICD-10-PCS; principal; 2023-11-19)
DX: F10.230 Alcohol dependence with withdrawal, uncomplicated (principal); F12.20 Cannabis dependence, uncomplicated; F17.210 Nicotine dependence, cigarettes, uncomplicated; F39 Unspecified mood [affective] disorder; F10.282 Alcohol dependence with alcohol-induced sleep disorder; F10.24 Alcohol dependence with alcohol-induced mood disorder; E87.3 Alkalosis; M1A.20X0 Drug-induced chronic gout, unspecified site, without tophus (tophi); M54.50 Low back pain, unspecified; G89.29 Other chronic pain; R74.8 Abnormal levels of other serum enzymes; Z86.79 Personal history of other diseases of the circulatory system; Z56.0 Unemployment, unspecified; Z59.01 Sheltered homelessness; Z88.8 Allergy status to other drugs, medicaments and biological substances
CPT/HCPCS: 36415; 80053; 85027; 86780

== ENCOUNTER 2023-12-06 22:06 | Inpatient (IN) | payer OTHER ==
[2023-12-06 22:56] VITALS: BMI 23.4
[2023-12-06] MEDS ORDERED: NICOTINE POLACRILEX 2 MG GUM BUC PRN (23:36)
[2023-12-06] MEDS ORDERED: IBUPROFEN 600 MG TABLET (FP) PO PRN (23:36)
[2023-12-06] MEDS ORDERED: NALOXONE HCL (KLOXXADO) 8 MG SPRAY NS PRN (23:36)
[2023-12-06] MEDS ORDERED: BENZOCAINE/MENTHOL (CHLORASEPTIC ) LOZENGE MM PRN (23:36)
[2023-12-06] MEDS ORDERED: guaiFENesin 600 MG TABLET.ER (FP) PO PRN (23:36)
[2023-12-06] MEDS ORDERED: NALOXONE HCL 0.4 MG/ML VIAL IM PRN (23:36)
[2023-12-06] MEDS ORDERED: ACETAMINOPHEN 325 MG TABLET (FP) PO PRN (23:36)
[2023-12-06] MEDS ORDERED: ONDANSETRON *ODT* 4 MG TABLET SL PRN (23:36)
[2023-12-06] MEDS ORDERED: IBUPROFEN 400 MG TABLET (FP) PO PRN (23:36)
[2023-12-06] MEDS ORDERED: BENZONATATE 200 MG CAPSULE PO PRN (23:36)
[2023-12-06] MEDS ORDERED: MAGNESIUM HYDROX 2400MG/30ML ORAL SUSPENSION 30 ML CUP PO PRN (23:36)
[2023-12-06] MEDS ORDERED: POLYETHYLENE GLYCOL (HEALTHYLAX) 3350 17 GM PACKET PO PRN (23:36)
[2023-12-06] MEDS ORDERED: DICYCLOMINE HCL 10 MG CAPSULE PO PRN (23:36)
[2023-12-06] MEDS ORDERED: MAG HYDROX/AL HYDROX/SIMETH 30 ML UNIT-DOSE CUP PO PRN (23:36)
[2023-12-06] MEDS ORDERED: LOPERAMIDE HCL 2 MG CAPSULE PO PRN (23:36)
[2023-12-06] MEDS ORDERED: BISMUTH SUBSALICYLATE 524 MG/30 ML PO PRN (23:36)
[2023-12-07] MEDS ORDERED: LORazepam 0.5 MG TABLET PO PRN (10:00)
[2023-12-07] MEDS: LORazepam 1 MG TABLET PO SCH (10:09)
[2023-12-07] MEDS: NICOTINE 14 MG/24 HOURS TOPICAL PATCH TD SCH (10:09)
[2023-12-07] MEDS: PRENATAL VITAMINS W/ FOLIC ACID TABLET (FP) PO SCH (10:09)
[2023-12-07] MEDS: THIAMINE 100 MG TABLET PO SCH (22:18)
[2023-12-07] MEDS: MELATONIN 5 MG TABLETS PO SCH (22:18)
[2023-12-08] MEDS: LORazepam 0.5 MG TABLET PO SCH (05:26)
[2023-12-08 14:28] LABS: BASO % 0.9 % (0-2.0); EOS % 2.7 % (0-4.5); HEMATOCRIT 40.7 % (35.4-49); HEMOGLOBIN 13.8 GM/dL (11.7-16.9); LYMPH % 10.9 % (8-40); MCH 32.7 pg (25.7-33.7); MCHC 33.9 g/dl (32.0-35.9); MEAN CELL VOLUME 96.5 fl (80-96); MEAN PLT VOLUME 10.1 fl (7.5-11.1); MONO % 18.7 % (3.8-10.2); NEUT % 66.8 % (42.8-82.8); PLATELET COUNT 132 10^3/uL (134-434); RBC 4.21 M/mm3 (4.00-5.60); RDW 13.7 % (11.9-15.9); WHITE BLOOD COUNT 2.7 K/mm3 (4.0-10.0)
[2023-12-08 14:49] LABS: POTASSIUM 3.4 mmol/L (3.5-5.1)
[2023-12-08 14:55] LABS: CALCIUM 8.9 mg/dL (8.5-10.1)
[2023-12-08 14:56] LABS: BLOOD UREA NITROGEN 3.8 mg/dL (7-18)
[2023-12-08 14:59] LABS: CREATININE 0.5 mg/dL (0.55-1.3)
[2023-12-08] MEDS ORDERED: POTASSIUM CHLORIDE ORAL LIQUID 20 MEQ/15 ML PO ONE (17:39)
[2023-12-08] MEDS: POTASSIUM CHLORIDE ORAL LIQUID 20 MEQ/15 ML PO ONE (22:09)
[2023-12-08] MEDS: hydrOXYzine PAMOATE 25 MG CAPSULE (FP) PO PRN (22:10)
[2023-12-09] MEDS: LORazepam 0.5 MG TABLET PO ONE (05:29)
[2023-12-09] MEDS: LORazepam 1 MG TABLET PO SCH (05:30)
[2023-12-09] MEDS: ASPIRIN 81 MG CHEWABLE TABLETS PO SCH (10:13)
[2023-12-09] MEDS: TRIAMCINOLONE ACET 0.1% OINT 15 GM TUBE TP SCH (10:46)
[2023-12-09] MEDS: ALLOPURINOL 100 MG TABLET (FP) PO SCH (10:46)
[2023-12-09] MEDS: LORazepam 0.5 MG TABLET PO SCH (17:13)
[2023-12-09] MEDS: LACTULOSE 20 GM/30 ML UDC (FOR ORAL USE ONLY) PO SCH (18:30)
[2023-12-10] MEDS: LORazepam 0.5 MG TABLET PO SCH (05:35)
[2023-12-10 12:32] LABS: POTASSIUM 3.8 mmol/L (3.5-5.1)
[2023-12-10 12:33] LABS: CALCIUM 8.9 mg/dL (8.5-10.1)
[2023-12-10 12:34] LABS: BLOOD UREA NITROGEN 6.7 mg/dL (7-18)
[2023-12-10 12:37] LABS: CREATININE 0.6 mg/dL (0.55-1.3)
[2023-12-11] MEDS: LORazepam 0.5 MG TABLET PO ONE (05:38)
[2023-12-11 20:33] VITALS: TEMP 97.8
[2023-12-12] MEDS ORDERED: LORazepam 0.5 MG TABLET PO PRN
[2023-12-12 06:21] VITALS: BP 103/60; PULSE 60; RESP 18
== END 2023-12-12 12:13 | disposition other institution (70) | DRG 775 ==
LOC: YASAS 22:06 → Y3N 12-07 00:55
PROVIDERS: ADMIT Allergy & Immunology; ATTEND Allergy & Immunology
PROC: HZ2ZZZZ Detoxification Services for Substance Abuse Treatment (ICD-10-PCS; principal; 2023-12-07)
DX: F10.230 Alcohol dependence with withdrawal, uncomplicated (principal); F10.220 Alcohol dependence with intoxication, uncomplicated; F12.20 Cannabis dependence, uncomplicated; E72.20 Disorder of urea cycle metabolism, unspecified; E87.6 Hypokalemia; L30.9 Dermatitis, unspecified; Z86.69 Personal history of other diseases of the nervous system and sense organs; Z59.01 Sheltered homelessness; Z91.199 Patient's noncompliance with other medical treatment and regimen due to unspecified reason
CPT/HCPCS: 36415; 80048; 80305; 80307; 82140; 85025; 87811; 93005; 93010

== ENCOUNTER 2023-12-12 12:15 | Inpatient (IN) | payer OTHER ==
[2023-12-12] MEDS ORDERED: NALOXONE HCL 0.4 MG/ML VIAL IVPUSH PRN (14:34)
[2023-12-12] MEDS ORDERED: NALOXONE (NYS OPIOID OVERDOSE PROGRAM) 4 MG/0.1 ML SPRAY NS PRN (14:34)
[2023-12-12] MEDS ORDERED: ACETAMINOPHEN 325 MG TABLET (FP) PO PRN (14:34)
[2023-12-12] MEDS ORDERED: POLYETHYLENE GLYCOL (HEALTHYLAX) 3350 17 GM PACKET PO PRN (14:34)
[2023-12-12] MEDS ORDERED: BENZOCAINE/MENTHOL (CHLORASEPTIC ) LOZENGE MM PRN (14:34)
[2023-12-12] MEDS ORDERED: MAGNESIUM HYDROX 2400MG/30ML ORAL SUSPENSION 30 ML CUP PO PRN (14:34)
[2023-12-12] MEDS ORDERED: hydrOXYzine PAMOATE 25 MG CAPSULE (FP) PO PRN (14:34)
[2023-12-12] MEDS ORDERED: BENZONATATE 200 MG CAPSULE PO PRN (14:34)
[2023-12-12] MEDS ORDERED: LOPERAMIDE HCL 2 MG CAPSULE PO PRN (14:34)
[2023-12-12] MEDS ORDERED: guaiFENesin 600 MG TABLET.ER (FP) PO PRN (14:34)
[2023-12-12] MEDS ORDERED: MAG HYDROX/AL HYDROX/SIMETH 30 ML UNIT-DOSE CUP PO PRN (14:34)
[2023-12-12] MEDS: MELATONIN 5 MG TABLETS PO SCH (21:19)
[2023-12-12] MEDS: LACTULOSE 20 GM/30 ML UDC (FOR ORAL USE ONLY) PO SCH (21:19)
[2023-12-12] MEDS: traZODone HCL 100 MG TABLET (FP) PO SCH (21:19)
[2023-12-12] MEDS: THIAMINE 100 MG TABLET PO SCH (21:19)
[2023-12-12] MEDS: TRIAMCINOLONE ACET 0.1% OINT 15 GM TUBE TP SCH (21:20)
[2023-12-13] MEDS: IBUPROFEN 600 MG TABLET (FP) PO PRN (06:11)
[2023-12-13] MEDS: ASPIRIN 81 MG CHEWABLE TABLETS PO SCH (09:39)
[2023-12-13] MEDS: COLCHICINE 0.6 MG CAP PO SCH (09:39)
[2023-12-13] MEDS: PRENATAL VITAMINS W/ FOLIC ACID TABLET (FP) PO SCH (09:39)
[2023-12-13] MEDS: ALLOPURINOL 100 MG TABLET (FP) PO SCH (09:40)
[2023-12-13] MEDS: METHOCARBAMOL 500 MG TABLET PO PRN (21:31)
[2023-12-14] MEDS: IBUPROFEN 400 MG TABLET (FP) PO PRN (21:57)
[2023-12-19] MEDS ORDERED: LACTULOSE 20 GM/30 ML UDC (FOR ORAL USE ONLY) PO PRN (10:14)
[2023-12-19] MEDS: NALTREXONE HCL 50 MG TABLET PO ONE (10:54)
[2023-12-20] MEDS: NALTREXONE HCL 50 MG TABLET PO SCH (09:46)
[2023-12-22 19:20] LABS: POTASSIUM 4.2 mmol/L (3.5-5.1)
[2023-12-22 19:24] LABS: BLOOD UREA NITROGEN 10.3 mg/dL (7-18)
[2023-12-22 19:25] LABS: ALBUMIN 3.2 g/dl (3.4-5.0)
[2023-12-22 19:27] LABS: BILIRUBIN,TOTAL 0.4 mg/dL (0.2-1)
[2023-12-22 19:28] LABS: CREATININE 0.6 mg/dL (0.55-1.3)
[2023-12-22 19:29] LABS: TOT PROT 7.1 g/dl (6.4-8.2)
[2023-12-22 19:59] LABS: BASO % 1.3 % (0-2.0); EOS % 4.6 % (0-4.5); HEMATOCRIT 42.7 % (35.4-49); HEMOGLOBIN 13.9 GM/dL (11.7-16.9); LYMPH % 13.9 % (8-40); MCHC 32.5 g/dl (32.0-35.9); MEAN CELL VOLUME 98.6 fl (80-96); MEAN PLT VOLUME 11.8 fl (7.5-11.1); MONO % 13.1 % (3.8-10.2); NEUT % 67.1 % (42.8-82.8); PLATELET COUNT 227 10^3/uL (134-434); RBC 4.33 M/mm3 (4.00-5.60); RDW 13.3 % (11.9-15.9); WHITE BLOOD COUNT 4.7 K/mm3 (4.0-10.0)
[2023-12-22 20:20] LABS: HIV INTERPRETATION NEGATIVE (NEGATIVE)
[2023-12-23 06:36] VITALS: RESP 16
[2023-12-23] MEDS ORDERED: COLLOIDAL OATMEAL 1 BAR EACH TP PRN (11:10)
[2023-12-24 06:53] VITALS: BP 141/81; PULSE 73; TEMP 97.8
[2023-12-25] MEDS ORDERED: NALTREXONE MICROSPHERES (VIVITROL) 380 MG DISP.SYRIN IM ONE (18:00)
== END 2023-12-24 09:41 | disposition home or self-care (01) | DRG 772 ==
LOC: YASAS 12:15 → Y3W 12:17
PROVIDERS: ADMIT Allergy & Immunology; ATTEND Psychiatry & Neurology Pain Medicine
PROC: HZ42ZZZ Group Counseling for Substance Abuse Treatment, Cognitive-Behavioral (ICD-10-PCS; principal; 2023-12-12)
DX: F10.20 Alcohol dependence, uncomplicated (principal); F12.20 Cannabis dependence, uncomplicated; F16.10 Hallucinogen abuse, uncomplicated; F17.210 Nicotine dependence, cigarettes, uncomplicated; F43.10 Post-traumatic stress disorder, unspecified; F41.9 Anxiety disorder, unspecified; F32.A Depression, unspecified; E72.20 Disorder of urea cycle metabolism, unspecified; L30.9 Dermatitis, unspecified; M1A.20X0 Drug-induced chronic gout, unspecified site, without tophus (tophi); M54.50 Low back pain, unspecified; G89.29 Other chronic pain; Z86.79 Personal history of other diseases of the circulatory system
CPT/HCPCS: 36415; 80053; 82140; 85025; 86803; 87389

== ENCOUNTER 2024-10-08 09:54 | Inpatient (IN) | payer OTHER ==
[2024-10-08 10:28] VITALS: BMI 22.8
[2024-10-08] MEDS ORDERED: NALOXONE (NARCAN) HCL 4 MG/0.1 ML SPRAY NS PRN (11:43)
[2024-10-08] MEDS ORDERED: POLYETHYLENE GLYCOL (HEALTHYLAX) 3350 17 GM PACKET PO PRN (11:43)
[2024-10-08] MEDS ORDERED: DICYCLOMINE HCL 10 MG CAPSULE PO PRN (11:43)
[2024-10-08] MEDS ORDERED: BISMUTH SUBSALICYLATE 524 MG/30 ML PO PRN (11:43)
[2024-10-08] MEDS ORDERED: MAG HYDROX/AL HYDROX/SIMETH 30 ML UNIT-DOSE CUP PO PRN (11:43)
[2024-10-08] MEDS ORDERED: BENZONATATE 200 MG CAPSULE PO PRN (11:43)
[2024-10-08] MEDS ORDERED: IBUPROFEN 400 MG TABLET (FP) PO PRN (11:43)
[2024-10-08] MEDS ORDERED: guaiFENesin 600 MG TABLET.ER (FP) PO PRN (11:43)
[2024-10-08] MEDS ORDERED: BENZOCAINE/MENTHOL (CHLORASEPTIC ) LOZENGE MM PRN (11:43)
[2024-10-08] MEDS ORDERED: LOPERAMIDE HCL 2 MG CAPSULE PO PRN (11:43)
[2024-10-08] MEDS ORDERED: MAGNESIUM HYDROX 2400MG/30ML ORAL SUSPENSION 30 ML CUP PO PRN (11:43)
[2024-10-08] MEDS ORDERED: ONDANSETRON *ODT* 4 MG TABLET SL PRN (11:43)
[2024-10-08] MEDS ORDERED: LORazepam 1 MG TABLET PO PRN (11:43)
[2024-10-08] MEDS ORDERED: COLLOIDAL OATMEAL TP PRN (11:46)
[2024-10-08] MEDS ORDERED: PRENATAL VITAMINS W/ FOLIC ACID TABLET (FP) PO ONE (12:17)
[2024-10-08] MEDS ORDERED: LORazepam 2 MG TABLET ONE (12:17)
[2024-10-08] MEDS ORDERED: levETIRAcetam 500 MG TABLET (FP) PO ONE (12:17)
[2024-10-08] MEDS: LORazepam 2 MG TABLET PO ONE (12:19)
[2024-10-08] MEDS: levETIRAcetam 500 MG TABLET (FP) PO ONE (12:19)
[2024-10-08] MEDS: PRENATAL VITAMINS W/ FOLIC ACID TABLET (FP) PO SCH (12:19)
[2024-10-08] MEDS: TRIAMCINOLONE ACET 0.1% OINT 15 GM TUBE TP SCH (13:10)
[2024-10-08] MEDS: LACTULOSE 20 GM/30 ML UDC (FOR ORAL USE ONLY) PO SCH (13:57)
[2024-10-08] MEDS: METHOCARBAMOL 500 MG TABLET PO PRN (17:20)
[2024-10-08] MEDS: hydrOXYzine PAMOATE 25 MG CAPSULE (FP) PO PRN (17:20)
[2024-10-08] MEDS: LORazepam 2 MG TABLET PO SCH (17:20)
[2024-10-08] MEDS: THIAMINE 100 MG TABLET PO SCH (22:28)
[2024-10-08] MEDS: MELATONIN 5 MG TABLETS PO SCH (22:28)
[2024-10-09] MEDS: IBUPROFEN 600 MG TABLET (FP) PO PRN (06:16)
[2024-10-09 09:33] LABS: HEMATOCRIT 37.8 % (35.4-49); HEMOGLOBIN 13.1 GM/dL (11.7-16.9); MCH 32.6 pg (25.7-33.7); MCHC 34.6 g/dl (32.0-35.9); MEAN CELL VOLUME 94.4 fl (80-96); MEAN PLT VOLUME 10.4 fl (7.5-11.1); PLATELET COUNT 107 10^3/uL (134-434); RDW 12.4 % (11.9-15.9); WHITE BLOOD COUNT 9.4 K/mm3 (4.0-10.0)
[2024-10-09 09:40] LABS: POTASSIUM 3.5 mmol/L (3.5-5.1)
[2024-10-09] MEDS ORDERED: levETIRAcetam 250 MG TABLET PO ONE ×2 (10:07→23:00)
[2024-10-09 10:08] LABS: ALBUMIN 3.4 g/dl (3.4-5.0); BLOOD UREA NITROGEN 6.9 mg/dL (7-18)
[2024-10-09] MEDS: ASPIRIN 81 MG CHEWABLE TABLETS PO SCH (10:08)
[2024-10-09] MEDS: levETIRAcetam 500 MG TABLET (FP) PO SCH (10:10)
[2024-10-09 10:11] LABS: CREATININE 0.7 mg/dL (0.55-1.3)
[2024-10-09 10:12] LABS: BILIRUBIN,TOTAL 1.2 mg/dL (0.2-1)
[2024-10-09 10:13] LABS: TOT PROT 7.4 g/dl (6.4-8.2)
[2024-10-09] MEDS: ALLOPURINOL 100 MG TABLET (FP) PO SCH (10:51)
[2024-10-09] MEDS: traZODone HCL 100 MG TABLET (FP) PO SCH (23:04)
[2024-10-10] MEDS: LORazepam 1 MG TABLET PO SCH (06:00)
[2024-10-10] MEDS ORDERED: levETIRAcetam 250 MG TABLET PO ONE ×2 (09:10→22:14)
[2024-10-10] MEDS: SODIUM CHLORIDE NASAL SPRAY 44 ML BOTTLE NS SCH (15:07)
[2024-10-11] MEDS ORDERED: LORazepam 0.5 MG TABLET PO PRN
[2024-10-11] MEDS: ACETAMINOPHEN 325 MG TABLET (FP) PO PRN (05:54)
[2024-10-11] MEDS: LORazepam 0.5 MG TABLET PO SCH (05:58)
[2024-10-11] MEDS ORDERED: levETIRAcetam 250 MG TABLET PO ONE ×2 (10:43→21:42)
[2024-10-11] MEDS: ACAMPROSATE CALCIUM 333 MG TABLET.DR PO SCH (22:35)
[2024-10-12] MEDS: LORazepam 0.5 MG TABLET PO ONE (05:55)
[2024-10-12 09:17] VITALS: BP 119/60; PULSE 122; RESP 18; TEMP 98.9
[2024-10-12] MEDS ORDERED: levETIRAcetam 250 MG TABLET PO ONE (10:52)
== END 2024-10-12 11:30 | disposition home or self-care (01) | DRG 775 ==
LOC: YASAS 09:54 → Y6N 11:56
PROVIDERS: ADMIT Allergy & Immunology; ATTEND Allergy & Immunology
PROC: HZ2ZZZZ Detoxification Services for Substance Abuse Treatment (ICD-10-PCS; principal; 2024-10-08)
DX: F10.230 Alcohol dependence with withdrawal, uncomplicated (principal); F12.20 Cannabis dependence, uncomplicated; F17.210 Nicotine dependence, cigarettes, uncomplicated; F10.24 Alcohol dependence with alcohol-induced mood disorder; F10.282 Alcohol dependence with alcohol-induced sleep disorder; F43.10 Post-traumatic stress disorder, unspecified; F32.A Depression, unspecified; L30.9 Dermatitis, unspecified; M1A.20X0 Drug-induced chronic gout, unspecified site, without tophus (tophi); R74.01 Elevation of levels of liver transaminase levels
CPT/HCPCS: 0241U-QW; 36415; 80053; 80305; 80307; 82140; 84450; 85027; 86480; 86780; 93005; 93010